=== PATIENT | female | born 1945 | race Caucasian/White ===

== ENCOUNTER → 2016-11-12 | Outpatient (CLI) | payer MEDICARE, MEDICAID ==
[2016-11-12 18:19] LABS: ALBUMIN 3.4 GM/DL (3.2-5.2); ALBUMIN/GLOBULIN RATIO 0.89 (1.00-1.93); BILIRUBIN,TOTAL 0.5 MG/DL (0.2-1.0); CALCIUM LEVEL 8.9 MG/DL (8.8-10.2); CREATININE FOR GFR 1.09 MG/DL (0.55-1.02); FREE T4 1.14 NG/DL (0.76-1.46); GLOMERULAR FILTRATION RATE 52.4 (>39); POTASSIUM SERUM 4.5 MEQ/L (3.5-5.1); TOTAL PROTEIN 7.2 GM/DL (6.4-8.2)
== END ==
LOC: M SMT 13:36
PROVIDERS: ATTEND Family Medicine
DX: E11.9 Type 2 diabetes mellitus without complications (principal); E55.9 Vitamin D deficiency, unspecified; G47.62 Sleep related leg cramps; D50.9 Iron deficiency anemia, unspecified

== ENCOUNTER → 2017-03-23 | Outpatient (REF) | payer MEDICARE, MEDICAID ==
[2017-03-23 13:37] LABS: BASO % 0.5 % (0.0-1.0); EOS # 0.3 K/mm3 (0.0-0.50); EOS % 3.7 % (0.0-3.0); LARGE UNSTAINED CELL # 0.1 K/mm3 (0.0-0.4); LARGE UNSTAINED CELL % 0.7 % (0.0-4.0); LYMPH # 1.9 K/mm3 (1.5-4.5); MEAN CORPUSCULAR HEMOGLOBIN 28.3 pg (27.0-33.0); MEAN CORPUSCULAR HGB CONC 32.4 g/dl (32.0-36.5); MEAN CORPUSCULAR VOLUME 87.3 fl (80.0-96.0); MONO # 0.3 K/mm3 (0.0-0.8); MONO % 3.9 % (0.0-5.0); NEUTROPHILS # 5.6 K/mm3 (1.8-7.7); NEUTROPHILS % 68.2 % (36.0-66.0); PLATELET COUNT, AUTOMATED 226 k/mm3 (150-450); RED CELL DISTRIBUTION WIDTH 13.6 % (11.5-14.5); WHITE BLOOD COUNT 8.2 K/mm3 (4.0-10.0)
[2017-03-23 13:53] LABS: VITAMIN B12 LEVEL 280 PG/ML (247-911)
[2017-03-23 14:16] LABS: ALBUMIN 3.5 GM/DL (3.2-5.2); ALT/SGPT 48 U/L (12-78); ANION GAP 8 MEQ/L (8-16); AST/SGOT 39 U/L (15-37); BILIRUBIN,TOTAL 0.6 MG/DL (0.2-1.0); BLOOD UREA NITROGEN 13 MG/DL (7-18); CALCIUM LEVEL 8.7 MG/DL (8.8-10.2); CARBON DIOXIDE LEVEL 27 MEQ/L (21-32); CHLORIDE LEVEL 105 MEQ/L (98-107); CREATININE FOR GFR 1.07 MG/DL (0.55-1.02); GLOMERULAR FILTRATION RATE 53.4 (>39); GLUCOSE, FASTING 176 MG/DL (83-110); PERCENT SATURATION 15.5 % (13.2-37.4); POTASSIUM SERUM 4.2 MEQ/L (3.5-5.1); SODIUM LEVEL 140 MEQ/L (136-145); TOTAL IRON BINDING CAPACITY 342 UG/DL (250-450)
[2017-03-23 14:17] LABS: ALKALINE PHOSPHATASE 67 U/L (45-117); FERRITIN 41 NG/ML (8-252)
== END ==
LOC: M LABDRAW1 11:16
PROVIDERS: ATTEND Family Medicine
DX: N18.2 Chronic kidney disease, stage 2 (mild) (principal); R07.9 Chest pain, unspecified; E11.9 Type 2 diabetes mellitus without complications

== ENCOUNTER → 2017-04-08 | Outpatient (CLI) | payer MEDICARE, MEDICAID ==
--- NOTE | 2017-04-08 16:38 | REPMRS ---
Patient History The patient states she has not had a clinical breast exam in over a year. Patient is postmenopausal. Family history of endometrial cancer in sister under age 50 and prostate cancer in brother under age 50. Digital Woman Screen Mammo: April 08, 2017 - Exam #: [id number] Bilateral CC and MLO view(s) were taken. Technologist: Jessica Harding, Technologist Prior study comparison: April 03, 2016, digital woman screen mammo performed at [facility] to [facility]. February 23, 2015, digital woman screen mammo performed at [facility] to [facility]. FINDINGS: There are scattered fibroglandular densities. There has been no change in the appearance of the mammogram from the prior studies. There is a mild amount of residual fibroglandular tissue which is fairly symmetric. There is no interval development of dominant mass, architectural distortion, or clustered microcalcification suggestive of malignancy. ASSESSMENT: BI-RADS/ACR category 1 mammogram. Negative. Recommendation Routine screening mammogram in 1 year (for women over age 40). This mammogram was interpreted with the aid of an FDA-approved computer-aided dectection system. Electronically Signed By: Pierre Braxton MD 04/08/17 [id number]
== END ==
LOC: M WHC 14:42
PROVIDERS: ATTEND Family Medicine
DX: Z12.31 Encounter for screening mammogram for malignant neoplasm of breast (principal)

== ENCOUNTER → 2017-05-21 | Outpatient (CLI) | payer MEDICARE, MEDICAID ==
[2017-05-21 14:37] LABS: CREATININE FOR GFR 1.14 MG/DL (0.55-1.02); GLOMERULAR FILTRATION RATE 49.6 (>39)
== END ==
LOC: M SMT 09:07
PROVIDERS: ATTEND Internal Medicine Cardiovascular Disease
DX: R07.9 Chest pain, unspecified (principal); N18.2 Chronic kidney disease, stage 2 (mild)

== ENCOUNTER → 2017-05-21 | Outpatient (CLI) | payer MEDICARE, MEDICAID ==
[2017-05-21 13:47] LABS: BASO % 0.4 % (0.0-1.0); EOS # 0.3 K/mm3 (0.0-0.50); EOS % 3.7 % (0.0-3.0); LARGE UNSTAINED CELL # 0.1 K/mm3 (0.0-0.4); LARGE UNSTAINED CELL % 1.5 % (0.0-4.0); LYMPH # 1.8 K/mm3 (1.5-4.5); LYMPH % 22.1 % (24.0-44.0); MEAN CORPUSCULAR HEMOGLOBIN 28.2 pg (27.0-33.0); MEAN CORPUSCULAR HGB CONC 32.7 g/dl (32.0-36.5); MEAN CORPUSCULAR VOLUME 86.3 fl (80.0-96.0); MONO # 0.3 K/mm3 (0.0-0.8); NEUTROPHILS # 5.6 K/mm3 (1.8-7.7); NEUTROPHILS % 68.3 % (36.0-66.0); PLATELET COUNT, AUTOMATED 238 k/mm3 (150-450); RED CELL DISTRIBUTION WIDTH 14.1 % (11.5-14.5); WHITE BLOOD COUNT 8.1 K/mm3 (4.0-10.0)
[2017-05-21 14:33] LABS: ALBUMIN 3.4 GM/DL (3.2-5.2); ALBUMIN/GLOBULIN RATIO 0.97 (1.00-1.93); BILIRUBIN,TOTAL 0.6 MG/DL (0.2-1.0); CALCIUM LEVEL 9.2 MG/DL (8.8-10.2); CREATININE FOR GFR 1.08 MG/DL (0.55-1.02); GLOMERULAR FILTRATION RATE 52.8 (>39); POTASSIUM SERUM 4.9 MEQ/L (3.5-5.1); TOTAL PROTEIN 6.9 GM/DL (6.4-8.2)
== END ==
LOC: M SMT 08:57
PROVIDERS: ATTEND Family Medicine
DX: N18.2 Chronic kidney disease, stage 2 (mild) (principal)

== ENCOUNTER → 2017-06-15 | Outpatient (REF) | payer MEDICARE, MEDICAID ==
[2017-06-15 13:53] LABS: ALBUMIN 3.5 GM/DL (3.2-5.2); CALCIUM LEVEL 9.7 MG/DL (8.8-10.2); CREATININE FOR GFR 1.15 MG/DL (0.55-1.02); GLOMERULAR FILTRATION RATE 49.1 (>39); MAGNESIUM LEVEL 1.7 MG/DL (1.8-2.4); PHOSPHORUS LEVEL 3.6 MG/DL (2.5-4.9)
== END ==
LOC: M SFHCPLAZ 10:57
PROVIDERS: ATTEND Family Medicine
DX: E53.8 Deficiency of other specified B group vitamins (principal); I10 Essential (primary) hypertension
CPT/HCPCS: 80069; 82607; 83735; 83880; 90662; G0463

== ENCOUNTER → 2017-07-23 | Outpatient (CLI) | payer MEDICARE, MEDICAID ==
--- NOTE | 2017-07-23 12:13 | REP ---
Chest two views HISTORY: Cough Comparison: 01/01/2016 The lungs are clear. The cardiac silhouette is enlarged. The pulmonary vasculature is normal in appearance. Degenerative change is present in the thoracic spine. There is scoliosis convex to the right. IMPRESSION: Cardiomegaly. Signed by Bakari Valero MD 07/23/2017 12:04 P
== END ==
LOC: M SMT 11:00
PROVIDERS: ATTEND Family Medicine
DX: R05 Cough (principal); I51.7 Cardiomegaly
CPT/HCPCS: 71020; G0463

== ENCOUNTER → 2017-11-09 | Outpatient (REF) | payer MEDICARE, MEDICAID ==
[2017-11-09 19:10] LABS: BASO # 0.1 10^3/uL (0.0-0.2); BASO % 0.6 % (0.0-1.0); EOS # 0.4 10^3/uL (0.0-0.50); EOS % 4.5 % (0.0-3.0); HEMATOCRIT 38.5 % (36.0-47.0); IMMATURE GRANULOCYTE % 0.6 % (0-3.0); LYMPH # 2.4 10^3/uL (1.5-4.5); MEAN CORPUSCULAR HEMOGLOBIN 27.2 pg (27.0-33.0); MEAN CORPUSCULAR HGB CONC 31.2 g/dl (32.0-36.5); MEAN CORPUSCULAR VOLUME 87.3 fl (80.0-96.0); MONO # 0.5 10^3/uL (0.0-0.8); MONO % 5.2 % (0.0-5.0); NEUTROPHILS # 5.6 10^3/uL (1.8-7.7); NEUTROPHILS % 62.1 % (36.0-66.0); PLATELET COUNT, AUTOMATED 248 10^3/uL (150-450); RED BLOOD COUNT 4.41 10^6/uL (4.00-5.40); RETICULOCYTE # 71.9 10^9/L (17-77); RETICULOCYTE % 1.6 % (0.5-1.5)
[2017-11-09 19:30] LABS: ESTIMATED AVERAGE GLUCOSE 189 MG/DL (60-110); HEMOGLOBIN A1c 8.2 %
[2017-11-09 19:46] LABS: PTH INTACT 91.6 PG/ML (18.5-88.0); VITAMIN B12 LEVEL 232 PG/ML (247-911)
[2017-11-09 19:50] LABS: ALBUMIN 3.7 GM/DL (3.2-5.2); ALBUMIN/GLOBULIN RATIO 0.95 (1.00-1.93); ALKALINE PHOSPHATASE 88 U/L (45-117); ALT/SGPT 38 U/L (12-78); ANION GAP 8 MEQ/L (8-16); AST/SGOT 34 U/L (7-37); BILIRUBIN,TOTAL 0.5 MG/DL (0.2-1.0); BLOOD UREA NITROGEN 24 MG/DL (7-18); C REACTIVE PROTEIN QUANTITATIV < 0.30 MG/DL (0.00-0.30); CALCIUM LEVEL 9.2 MG/DL (8.8-10.2); CARBON DIOXIDE LEVEL 29 MEQ/L (21-32); CHLORIDE LEVEL 104 MEQ/L (98-107); CHOLESTEROL LEVEL 157 MG/DL (<200); CPK CREATINE PHOSPHOKINASE 62 U/L (26-192); CREATININE FOR GFR 1.27 MG/DL (0.55-1.30); GLOMERULAR FILTRATION RATE 43.8 (>39); GLUCOSE, FASTING 107 MG/DL (70-100); HDL CHOLESTEROL 50 MG/DL (>40); LDL CHOLESTEROL 69.8 MG/DL (<100); NON-HDL-C 107 MG/DL; POTASSIUM SERUM 4.3 MEQ/L (3.5-5.1); SODIUM LEVEL 141 MEQ/L (136-145); TOTAL PROTEIN 7.6 GM/DL (6.4-8.2); TRIGLYCERIDES LEVEL 186 MG/DL (<150)
== END ==
LOC: M SFHCPLAZ 15:33
DX: E55.9 Vitamin D deficiency, unspecified (principal); I12.9 Hypertensive chronic kidney disease with stage 1 through stage 4 chronic kidney disease, or unspecified chronic kidney disease; E11.22 Type 2 diabetes mellitus with diabetic chronic kidney disease; N18.2 Chronic kidney disease, stage 2 (mild); E78.5 Hyperlipidemia, unspecified
CPT/HCPCS: 82550

== ENCOUNTER → 2018-04-01 | Outpatient (CLI) | payer MEDICARE, MEDICAID ==
[2018-04-01 14:53] LABS: BASO % 0.4 % (0.0-1.0); EOS # 0.3 10^3/uL (0.0-0.50); EOS % 4.4 % (0.0-3.0); HEMOGLOBIN 11.2 g/dl (12.0-15.5); IMMATURE GRANULOCYTE % 0.7 % (0-3.0); LYMPH # 1.7 10^3/uL (1.5-4.5); LYMPH % 21.5 % (24.0-44.0); MEAN CORPUSCULAR HEMOGLOBIN 26.7 pg (27.0-33.0); MEAN CORPUSCULAR HGB CONC 31.1 g/dl (32.0-36.5); MEAN CORPUSCULAR VOLUME 85.9 fl (80.0-96.0); MONO # 0.4 10^3/uL (0.0-0.8); MONO % 5.2 % (0.0-5.0); NEUTROPHILS # 5.2 10^3/uL (1.8-7.7); NEUTROPHILS % 67.8 % (36.0-66.0); PLATELET COUNT, AUTOMATED 204 10^3/uL (150-450); RED BLOOD COUNT 4.19 10^6/uL (4.00-5.40); RED CELL DISTRIBUTION WIDTH 14.7 % (11.5-14.5); WHITE BLOOD COUNT 7.7 10^3/uL (4.0-10.0)
[2018-04-01 14:54] LABS: ESTIMATED AVERAGE GLUCOSE 226 MG/DL (60-110); HEMOGLOBIN A1c 9.5 %
[2018-04-01 14:55] LABS: FOLATE 10.4 NG/ML; PTH INTACT 154.1 PG/ML (18.5-88.0); TOTAL 25(OH) VITAMIN D 88.7 NG/ML (30.0-100.0); VITAMIN B12 LEVEL 283 PG/ML
[2018-04-01 14:59] LABS: ALBUMIN 3.4 GM/DL (3.2-5.2); ALBUMIN/GLOBULIN RATIO 0.92 (1.00-1.93); ALKALINE PHOSPHATASE 91 U/L (45-117); ALT/SGPT 58 U/L (12-78); ANION GAP 9 MEQ/L (8-16); AST/SGOT 57 U/L (7-37); BILIRUBIN,TOTAL 0.5 MG/DL (0.2-1.0); BLOOD UREA NITROGEN 27 MG/DL (7-18); CALCIUM LEVEL 8.9 MG/DL (8.8-10.2); CARBON DIOXIDE LEVEL 29 MEQ/L (21-32); CHLORIDE LEVEL 105 MEQ/L (98-107); FREE T4 1.04 NG/DL (0.76-1.46); GLUCOSE, FASTING 196 MG/DL (70-100); POTASSIUM SERUM 4.4 MEQ/L (3.5-5.1); SODIUM LEVEL 143 MEQ/L (136-145); TOTAL PROTEIN 7.1 GM/DL (6.4-8.2)
[2018-04-02 12:55] LABS: PRETREATED FOLATE FOR RBCFOL 15.5 NG/ML; RBC FOLATE 904.2 NG/ML (280-791)
== END ==
LOC: M SMT 09:56
DX: E53.8 Deficiency of other specified B group vitamins (principal); E55.9 Vitamin D deficiency, unspecified; E03.9 Hypothyroidism, unspecified; E11.9 Type 2 diabetes mellitus without complications
CPT/HCPCS: 82746

== ENCOUNTER → 2018-04-12 | Outpatient (CLI) | payer MEDICARE, MEDICAID | LOC: M WHC 14:46 | DX: Z12.31 Encounter for screening mammogram for malignant neoplasm of breast (principal) | CPT/HCPCS: 77067 ==

== ENCOUNTER → 2018-07-01 | Outpatient (CLI) | payer MEDICARE, MEDICAID ==
[2018-07-01 13:38] LABS: BASO # 0.1 10^3/uL (0.0-0.2); BASO % 0.7 % (0.0-1.0); EOS # 0.4 10^3/uL (0.0-0.50); EOS % 4.7 % (0.0-3.0); HEMATOCRIT 35.7 % (36.0-47.0); HEMOGLOBIN 10.9 g/dl (12.0-15.5); IMMATURE GRANULOCYTE % 0.6 % (0-3.0); LYMPH # 2.6 10^3/uL (1.5-4.5); LYMPH % 27.5 % (24.0-44.0); MEAN CORPUSCULAR HGB CONC 30.5 g/dl (32.0-36.5); MEAN CORPUSCULAR VOLUME 88.6 fl (80.0-96.0); MONO # 0.6 10^3/uL (0.0-0.8); MONO % 6.3 % (0.0-5.0); NEUTROPHILS # 5.7 10^3/uL (1.8-7.7); NEUTROPHILS % 60.2 % (36.0-66.0); PLATELET COUNT, AUTOMATED 220 10^3/uL (150-450); RED BLOOD COUNT 4.03 10^6/uL (4.00-5.40); WHITE BLOOD COUNT 9.4 10^3/uL (4.0-10.0)
[2018-07-01 14:05] LABS: ANION GAP 11 MEQ/L (8-16); AST/SGOT 37 U/L (7-37); BLOOD UREA NITROGEN 18 MG/DL (7-18); CALCIUM LEVEL 8.2 MG/DL (8.8-10.2); CARBON DIOXIDE LEVEL 27 MEQ/L (21-32); CHLORIDE LEVEL 108 MEQ/L (98-107); CREATININE FOR GFR 1.14 MG/DL (0.55-1.30); GLOMERULAR FILTRATION RATE 49.5 (>39); GLUCOSE, FASTING 141 MG/DL (70-100); POTASSIUM SERUM 4.7 MEQ/L (3.5-5.1); SODIUM LEVEL 146 MEQ/L (136-145)
[2018-07-01 14:06] LABS: ALBUMIN 3.3 GM/DL (3.2-5.2); ALBUMIN/GLOBULIN RATIO 0.89 (1.00-1.93); ALKALINE PHOSPHATASE 80 U/L (45-117); ALT/SGPT 35 U/L (12-78); BILIRUBIN,TOTAL 0.4 MG/DL (0.2-1.0); CHOLESTEROL LEVEL 150 MG/DL (<200); CHOLESTEROL RISK RATIO 3.333 (<5); HDL CHOLESTEROL 45 MG/DL (>40); LDL CHOLESTEROL 61 MG/DL (<100); NON-HDL-C 105 MG/DL; TRIGLYCERIDES LEVEL 220 MG/DL (<150)
[2018-07-01 15:31] LABS: ESTIMATED AVERAGE GLUCOSE 183 MG/DL (60-110)
== END ==
LOC: M SMT 09:40
DX: I25.118 Atherosclerotic heart disease of native coronary artery with other forms of angina pectoris (principal); E11.9 Type 2 diabetes mellitus without complications
CPT/HCPCS: 80053

== ENCOUNTER → 2018-10-01 | Outpatient (REF) | payer MEDICARE, MEDICAID ==
[2018-10-01 13:18] LABS: BASO # 0.1 10^3/uL (0.0-0.2); BASO % 0.6 % (0.0-1.0); EOS # 0.6 10^3/uL (0.0-0.50); EOS % 5.6 % (0.0-3.0); HEMOGLOBIN 11.5 g/dl (12.0-15.5); LYMPH # 2.1 10^3/uL (1.5-4.5); LYMPH % 20.4 % (24.0-44.0); MEAN CORPUSCULAR HEMOGLOBIN 26.7 pg (27.0-33.0); MEAN CORPUSCULAR HGB CONC 31.1 g/dl (32.0-36.5); MONO # 0.5 10^3/uL (0.0-0.8); MONO % 5.1 % (0.0-5.0); NEUTROPHILS # 6.9 10^3/uL (1.8-7.7); NEUTROPHILS % 67.8 % (36.0-66.0); PLATELET COUNT, AUTOMATED 254 10^3/uL (150-450); WHITE BLOOD COUNT 10.2 10^3/uL (4.0-10.0)
[2018-10-01 13:23] LABS: APPEARANCE, URINE CLEAR (CLEAR); BACTERIA, URINE AUTO NEGATIVE (NEGATIVE); BILIRUBIN, URINE AUTO NEGATIVE (NEGATIVE); BLOOD, URINE BLOOD NEGATIVE (NEGATIVE); COLOR, URINE YELLOW (YELLOW); GLUCOSE, URINE (UA) AUTO NEGATIVE (NEGATIVE); KETONE, URINE AUTO NEGATIVE (NEGATIVE); LEUKOCYTE ESTERASE, URINE AUTO 1+ (NEGATIVE); NITRITE, URINE AUTO NEGATIVE (NEGATIVE); PROTEIN, URINE AUTO NEGATIVE (NEGATIVE); RBC, URINE AUTO 3 /HPF (0-3); SPECIFIC GRAVITY URINE AUTO 1.016 (1.002-1.035); SQUAMOUS EPITHELIAL CELL UR AU 1 /HPF (0-6); UROBILINOGEN, URINE AUTO 0.2 mg/dL (0.0-2.0); WBC, URINE AUTO 3 /HPF (0-3)
[2018-10-01 13:46] LABS: HEMOGLOBIN A1c 7.8 %
[2018-10-01 13:51] LABS: MALB URINE SIEMENS 38.2 MG/L; MAU/CREAT RATIO 35.3 MCG/MG (0.0-30.0)
[2018-10-01 13:56] LABS: ALBUMIN 3.6 GM/DL (3.2-5.2); BILIRUBIN,TOTAL 0.5 MG/DL (0.2-1.0); CALCIUM LEVEL 9.3 MG/DL (8.8-10.2); CHOLESTEROL RISK RATIO 3.204 (<5); CREATININE FOR GFR 1.2 MG/DL (0.55-1.30); FREE T4 1.17 NG/DL (0.76-1.46); GLOMERULAR FILTRATION RATE 46.6 (>39); POTASSIUM SERUM 4.4 MEQ/L (3.5-5.1); THYROID STIMULATING HORMONE 4.33 uIU/ML (0.358-3.740); TOTAL PROTEIN 7.2 GM/DL (6.4-8.2)
[2018-10-01 13:58] LABS: PTH INTACT 49.8 PG/ML (18.5-88.0); TOTAL 25(OH) VITAMIN D 64.3 NG/ML (30.0-100.0)
== END ==
LOC: M SFHCPLAZ 11:11
PROVIDERS: ATTEND Family Medicine
DX: N18.3 Chronic kidney disease, stage 3 (moderate) (principal); E03.9 Hypothyroidism, unspecified; E11.9 Type 2 diabetes mellitus without complications; E53.8 Deficiency of other specified B group vitamins; D50.9 Iron deficiency anemia, unspecified; Z23 Encounter for immunization
CPT/HCPCS: 36415; 80053; 80061; 81001; 82043; 82306; 82607; 83036; 83970; 84439; 84443; 85025; 85046; 90682; G0008; G0463

== ENCOUNTER 2019-01-28 08:51 | Emergency (ER) | payer MEDICARE, MEDICAID ==
[2019-01-28] MEDS ORDERED: LEVA750T7 PO (10:05)
[2019-01-28] MEDS ORDERED: LIDOCAINE 1% SDV 5 ML VIAL DILUENT ONE (10:15)
[2019-01-28] MEDS ORDERED: cefTRIAXone SOD 1 GM VIAL (J0696) IM ONE (10:15)
[2019-01-28 11:00] VITALS: BP 170/75
== END 2019-01-28 11:02 | disposition home or self-care (01) ==
LOC: M ED 08:51
DX: E11.649 Type 2 diabetes mellitus with hypoglycemia without coma (principal); N11.1 Chronic obstructive pyelonephritis; I10 Essential (primary) hypertension; E03.9 Hypothyroidism, unspecified; E78.5 Hyperlipidemia, unspecified; K21.9 Gastro-esophageal reflux disease without esophagitis; Z87.442 Personal history of urinary calculi; Z79.899 Other long term (current) drug therapy; Z88.8 Allergy status to other drugs, medicaments and biological substances
CPT/HCPCS: 81001; 87088; 87186; 96372; 99284; J0696

== ENCOUNTER → 2019-02-01 | Outpatient (REF) | payer MEDICARE, MEDICAID ==
[~2019-02-01] MED LIST: LEVA750T7 PO
[2019-02-01 16:00] LABS: APPEARANCE, URINE CLEAR (CLEAR); BACTERIA, URINE AUTO NEGATIVE (NEGATIVE); BILIRUBIN, URINE AUTO NEGATIVE (NEGATIVE); BLOOD, URINE BLOOD NEGATIVE (NEGATIVE); COLOR, URINE YELLOW (YELLOW); GLUCOSE, URINE (UA) AUTO NEGATIVE (NEGATIVE); KETONE, URINE AUTO NEGATIVE (NEGATIVE); LEUKOCYTE ESTERASE, URINE AUTO NEGATIVE (NEGATIVE); MUCUS, URINE SMALL (NEGATIVE); NITRITE, URINE AUTO NEGATIVE (NEGATIVE); PROTEIN, URINE AUTO NEGATIVE (NEGATIVE); RBC, URINE AUTO 2 /HPF (0-3); SPECIFIC GRAVITY URINE AUTO 1.009 (1.002-1.035); SQUAMOUS EPITHELIAL CELL UR AU 0 /HPF (0-6); UROBILINOGEN, URINE AUTO 0.2 mg/dL (0.0-2.0); WBC, URINE AUTO 1 /HPF (0-3)
[2019-02-01 16:23] LABS: ALBUMIN 3.4 GM/DL (3.2-5.2); BILIRUBIN,TOTAL 0.5 MG/DL (0.2-1.0); CALCIUM LEVEL 8.7 MG/DL (8.8-10.2); CREATININE FOR GFR 1.89 MG/DL (0.55-1.30); GLOMERULAR FILTRATION RATE 27.5 (>39); MAGNESIUM LEVEL 1.3 MG/DL (1.8-2.4); POTASSIUM SERUM 4.3 MEQ/L (3.5-5.1)
[2019-02-01 16:25] LABS: BASO # 0.1 10^3/uL (0.0-0.2); BASO % 0.6 % (0.0-1.0); EOS # 0.1 10^3/uL (0.0-0.50); HEMATOCRIT 36.5 % (36.0-47.0); HEMOGLOBIN 11.2 g/dl (12.0-15.5); MEAN CORPUSCULAR HEMOGLOBIN 26.7 pg (27.0-33.0); MEAN CORPUSCULAR HGB CONC 30.7 g/dl (32.0-36.5); MEAN CORPUSCULAR VOLUME 87.1 fl (80.0-96.0); MONO # 0.7 10^3/uL (0.0-0.8); MONO % 6.3 % (0.0-5.0); NEUTROPHILS # 7.5 10^3/uL (1.8-7.7); NEUTROPHILS % 72.6 % (36.0-66.0); PLATELET COUNT, AUTOMATED 243 10^3/uL (150-450); RED BLOOD COUNT 4.19 10^6/uL (4.00-5.40); WHITE BLOOD COUNT 10.3 10^3/uL (4.0-10.0)
== END ==
LOC: M SFHCPLAZ 12:43
PROVIDERS: ATTEND Physician Assistant Medical
DX: N30.00 Acute cystitis without hematuria (principal); E16.2 Hypoglycemia, unspecified; M79.10 Myalgia, unspecified site

== ENCOUNTER → 2019-02-08 | Outpatient (REF) | payer MEDICARE, MEDICAID ==
[2019-02-08 13:29] LABS: APPEARANCE, URINE CLEAR (CLEAR); BACTERIA, URINE AUTO NEGATIVE (NEGATIVE); BILIRUBIN, URINE AUTO NEGATIVE (NEGATIVE); BLOOD, URINE BLOOD NEGATIVE (NEGATIVE); COLOR, URINE YELLOW (YELLOW); GLUCOSE, URINE (UA) AUTO NEGATIVE (NEGATIVE); KETONE, URINE AUTO NEGATIVE (NEGATIVE); LEUKOCYTE ESTERASE, URINE AUTO NEGATIVE (NEGATIVE); NITRITE, URINE AUTO NEGATIVE (NEGATIVE); PROTEIN, URINE AUTO NEGATIVE (NEGATIVE); RBC, URINE AUTO 1 /HPF (0-3); SPECIFIC GRAVITY URINE AUTO 1.012 (1.002-1.035); SQUAMOUS EPITHELIAL CELL UR AU 1 /HPF (0-6); UROBILINOGEN, URINE AUTO 0.2 mg/dL (0.0-2.0); WBC, URINE AUTO 4 /HPF (0-3)
== END ==
LOC: M SFHCPLAZ 13:04
PROVIDERS: ATTEND Physician Assistant Medical
DX: N30.00 Acute cystitis without hematuria (principal)
CPT/HCPCS: 81001; 87086; G0463

== ENCOUNTER → 2019-03-07 | Outpatient (REF) | payer MEDICARE, MEDICAID ==
[2019-03-07 13:13] LABS: BASO % 0.5 % (0.0-1.0); EOS # 0.2 10^3/uL (0.0-0.50); EOS % 2.7 % (0.0-3.0); HEMOGLOBIN 10.8 g/dl (12.0-15.5); LYMPH # 1.7 10^3/uL (1.5-4.5); LYMPH % 23.8 % (24.0-44.0); MEAN CORPUSCULAR HEMOGLOBIN 27.1 pg (27.0-33.0); MEAN CORPUSCULAR HGB CONC 30.9 g/dl (32.0-36.5); MEAN CORPUSCULAR VOLUME 87.9 fl (80.0-96.0); MONO # 0.3 10^3/uL (0.0-0.8); MONO % 4.4 % (0.0-5.0); NEUTROPHILS % 68.2 % (36.0-66.0); PLATELET COUNT, AUTOMATED 220 10^3/uL (150-450); RED BLOOD COUNT 3.98 10^6/uL (4.00-5.40); WHITE BLOOD COUNT 7.3 10^3/uL (4.0-10.0)
[2019-03-07 13:25] LABS: BILIRUBIN,TOTAL 0.6 MG/DL (0.2-1.0); CALCIUM LEVEL 8.7 MG/DL (8.8-10.2); CREATININE FOR GFR 1.22 MG/DL (0.55-1.30); FREE T4 1.07 NG/DL (0.76-1.46); GLOMERULAR FILTRATION RATE 45.6 (>39); MAGNESIUM LEVEL 1.8 MG/DL (1.8-2.4); POTASSIUM SERUM 4.2 MEQ/L (3.5-5.1); THYROID STIMULATING HORMONE 2.04 uIU/ML (0.358-3.740); TOTAL PROTEIN 6.9 GM/DL (6.4-8.2)
== END ==
LOC: M LABDRAW1 12:12
PROVIDERS: ATTEND Family Medicine
DX: I12.9 Hypertensive chronic kidney disease with stage 1 through stage 4 chronic kidney disease, or unspecified chronic kidney disease (principal); N18.3 Chronic kidney disease, stage 3 (moderate)

== ENCOUNTER → 2019-03-31 | Outpatient (REF) | payer MEDICARE, MEDICAID | LOC: M SFHCPLAZ 14:29 | PROVIDERS: ATTEND Physician Assistant Medical | DX: I50.32 Chronic diastolic (congestive) heart failure (principal) | CPT/HCPCS: 36415; 83880; G0463 ==

== ENCOUNTER → 2019-04-13 | Outpatient (CLI) | payer MEDICARE, MEDICAID ==
--- NOTE | 2019-04-13 13:22 | REP ---
BILATERAL SCREENING DIGITAL MAMMOGRAM WITH 3D TOMOSYNTHESIS: There are no palpable abnormalities or other breast complaints. The the patient states she has not had a clinical breast examination in over a year. The the patient states she performs self-breast examinations 12 times per year. The Tyrer-Cuzick score is: 1.5% . Comparison is 02/08/2014. The breasts are almost entirely fatty.. There is no dominant mass, micro calcific cluster or architectural distortion that would indicate malignancy. There are no additional findings on 3D tomosynthesiss. There is no change from the prior study. Impression: BIRADS/ACR category 1 mammogram. Negative. Recommendation: Routine annual screening mammography. This mammogram was interpreted with the aid of a FDA approved computer-aided detection system. A. Negative mammogram reports should not delay biopsy if a dominant or clinically suspicious mass is present. B. Not all breast cancers are identified by mammography or tomosynthesis. C. Adenosis and dense breasts may obscure an underlying neoplasm. Patient letter M1. Electronically Signed by Pierre Alvarez MD 04/13/2019 01:13 P
== END ==
LOC: M WHC 12:08
PROVIDERS: ATTEND Family Medicine
DX: Z12.31 Encounter for screening mammogram for malignant neoplasm of breast (principal)

== ENCOUNTER → 2019-07-05 | Outpatient (REF) | payer MEDICARE, MEDICAID ==
[2019-07-05 16:11] LABS: ALBUMIN 3.1 GM/DL (3.2-5.2); BILIRUBIN,TOTAL 0.5 MG/DL (0.2-1.0); CALCIUM LEVEL 8.8 MG/DL (8.8-10.2); CREATININE FOR GFR 1.3 MG/DL (0.55-1.30); GLOMERULAR FILTRATION RATE 42.4 (>39); POTASSIUM SERUM 4.7 MEQ/L (3.5-5.1); TOTAL PROTEIN 6.9 GM/DL (6.4-8.2)
== END ==
LOC: M SFHCPLAZ 14:34
PROVIDERS: ATTEND Physician Assistant Medical
DX: E11.9 Type 2 diabetes mellitus without complications (principal); I50.32 Chronic diastolic (congestive) heart failure
CPT/HCPCS: 36415; 80053; 83036; 83880; G0463

== ENCOUNTER → 2019-08-16 | Outpatient (REF) | payer MEDICARE, MEDICAID ==
[2019-08-16 18:04] LABS: BASO # 0.1 10^3/uL (0.0-0.2); BASO % 0.6 % (0.0-1.0); EOS # 0.3 10^3/uL (0.0-0.5); EOS % 2.5 % (0.0-3.0); HEMATOCRIT 37.3 % (36.0-47.0); HEMOGLOBIN 11.8 g/dl (12.0-15.5); LYMPH # 2.4 10^3/uL (1.5-5.0); LYMPH % 21.9 % (24.0-44.0); MEAN CORPUSCULAR HEMOGLOBIN 27.7 pg (27.0-33.0); MEAN CORPUSCULAR HGB CONC 31.6 g/dl (32.0-36.5); MEAN CORPUSCULAR VOLUME 87.6 fl (80.0-96.0); MONO # 0.5 10^3/uL (0.0-0.8); NEUTROPHILS # 7.6 10^3/uL (1.5-8.5); NEUTROPHILS % 69.4 % (36.0-66.0); PLATELET COUNT, AUTOMATED 251 10^3/uL (150-450); RED BLOOD COUNT 4.26 10^6/uL (4.00-5.40); WHITE BLOOD COUNT 10.9 10^3/uL (4.0-10.0)
[2019-08-16 18:36] LABS: ALBUMIN 3.3 GM/DL (3.2-5.2); BLOOD UREA NITROGEN 18 MG/DL (7-18); CALCIUM LEVEL 9.5 MG/DL (8.8-10.2); CARBON DIOXIDE LEVEL 30 MEQ/L (21-32); CHLORIDE LEVEL 95 MEQ/L (98-107); CREATININE FOR GFR 1.56 MG/DL (0.55-1.30); GLOMERULAR FILTRATION RATE 34.4 (>39); GLUCOSE, FASTING 367 MG/DL (70-100); MAGNESIUM LEVEL 1.6 MG/DL (1.8-2.4); PHOSPHORUS LEVEL 2.7 MG/DL (2.5-4.9); POTASSIUM SERUM 4.8 MEQ/L (3.5-5.1); SODIUM LEVEL 135 MEQ/L (136-145); TOTAL PROTEIN 7.6 GM/DL (6.4-8.2)
[2019-08-16 19:09] LABS: TOTAL 25(OH) VITAMIN D 52.7 NG/ML (30.0-100.0)
[2019-08-16 19:10] LABS: PTH INTACT 164.8 PG/ML (18.5-88.0); VITAMIN B12 LEVEL 918 PG/ML (247-911)
[2019-08-16 19:14] LABS: HEMOGLOBIN A1c 11.5 %
[2019-08-18 12:14] LABS: ALBUMIN % 49.9 % (55.8-66.1); ALPHA-1-GLOBULIN % 4.6 % (2.9-4.9)
[2019-08-18 12:15] LABS: ALBUMIN 3.79 GM/DL (3.29-5.55); ALPHA-1-GLOBULINS 0.35 GM/DL (0.17-0.41); ALPHA-2-GLOBULINS 1.21 GM/DL (0.42-0.99); ALPHA-2-GLOBULINS % 15.9 % (7.1-11.8); BETA-1-GLOBULINS % 6.6 % (4.7-7.2); BETA-2-GLOBULINS 0.53 GM/DL (0.19-0.55); GAMMA GLOBULINS 1.22 GM/DL (0.65-1.58)
== END ==
LOC: M SFHCPLAZ 15:50
PROVIDERS: ATTEND Family Medicine
DX: I10 Essential (primary) hypertension (principal); E55.9 Vitamin D deficiency, unspecified; D50.9 Iron deficiency anemia, unspecified; E11.9 Type 2 diabetes mellitus without complications; Z23 Encounter for immunization
CPT/HCPCS: 36415; 80069; 82306; 82607; 83036; 83735; 83970; 84165; 84681; 85025; 85046; 90670; G0009; G0463

== ENCOUNTER → 2020-10-09 | Outpatient (CLI) | payer MEDICARE, MEDICAID ==
[2020-10-09 14:02] LABS: HEMATOCRIT 32.2 % (36.0-47.0); HEMOGLOBIN 9.5 g/dl (12.0-15.5); MEAN CORPUSCULAR HEMOGLOBIN 25.1 pg (27.0-33.0); MEAN CORPUSCULAR HGB CONC 29.5 g/dl (32.0-36.5); MEAN CORPUSCULAR VOLUME 85.2 fl (80.0-96.0); PLATELET COUNT, AUTOMATED 239 10^3/uL (150-450); RED BLOOD COUNT 3.78 10^6/uL (4.00-5.40); WHITE BLOOD COUNT 8.1 10^3/uL (4.0-10.0)
[2020-10-09 14:15] LABS: BILIRUBIN,TOTAL 0.5 MG/DL (0.2-1.0); CALCIUM LEVEL 9.5 MG/DL (8.8-10.2); CREATININE FOR GFR 1.8 MG/DL (0.55-1.30); POTASSIUM SERUM 4.6 MEQ/L (3.5-5.1)
[2020-10-09 14:16] LABS: ALBUMIN 3.2 GM/DL (3.2-5.2); TOTAL PROTEIN 6.9 GM/DL (6.4-8.2)
== END ==
LOC: M PLALAB 10:46
PROVIDERS: ATTEND Physician Assistant
DX: I11.9 Hypertensive heart disease without heart failure (principal)

== ENCOUNTER → 2020-11-23 | Outpatient (REF) | payer MEDICARE, MEDICAID ==
[2020-11-23 14:00] LABS: BASO # 0.1 10^3/uL (0.0-0.2); BASO % 0.8 % (0.0-1.0); EOS # 0.4 10^3/uL (0.0-0.5); EOS % 4.7 % (0.0-3.0); HEMATOCRIT 32.4 % (36.0-47.0); HEMOGLOBIN 9.5 g/dl (12.0-15.5); LYMPH # 2.2 10^3/uL (1.5-5.0); LYMPH % 23.6 % (24.0-44.0); MEAN CORPUSCULAR HEMOGLOBIN 25.3 pg (27.0-33.0); MEAN CORPUSCULAR HGB CONC 29.3 g/dl (32.0-36.5); MEAN CORPUSCULAR VOLUME 86.2 fl (80.0-96.0); MONO # 0.5 10^3/uL (0.0-0.8); MONO % 5.8 % (2.0-8.0); NEUTROPHILS # 5.9 10^3/uL (1.5-8.5); NEUTROPHILS % 64.4 % (36.0-66.0); PLATELET COUNT, AUTOMATED 235 10^3/uL (150-450); RED BLOOD COUNT 3.76 10^6/uL (4.00-5.40); WHITE BLOOD COUNT 9.2 10^3/uL (4.0-10.0)
[2020-11-23 14:31] LABS: ALBUMIN 3.4 GM/DL (3.2-5.2); ALT/SGPT 45 U/L (12-78); BILIRUBIN,TOTAL 0.5 MG/DL (0.2-1.0); BLOOD UREA NITROGEN 18 MG/DL (7-18); CALCIUM LEVEL 8.7 MG/DL (8.8-10.2); CARBON DIOXIDE LEVEL 26 MEQ/L (21-32); CHLORIDE LEVEL 110 MEQ/L (98-107); CHOLESTEROL LEVEL 139 MG/DL (<200); CHOLESTEROL RISK RATIO 2.895 (<5); CREATININE FOR GFR 1.75 MG/DL (0.55-1.30); GLUCOSE, FASTING 155 MG/DL (70-100); HDL CHOLESTEROL 48 MG/DL (>40); LDL CHOLESTEROL 54 MG/DL (<100); NON-HDL-C 91 MG/DL; POTASSIUM SERUM 4.5 MEQ/L (3.5-5.1); SODIUM LEVEL 143 MEQ/L (136-145); TOTAL PROTEIN 7.4 GM/DL (6.4-8.2); TRIGLYCERIDES LEVEL 183 MG/DL (<150)
[2020-11-23 14:45] LABS: HEMOGLOBIN A1c 7.4 %
[2020-11-23 18:01] LABS: PTH INTACT 195.3 PG/ML (18.5-88.0)
[2020-11-27 23:10] LABS: FREE KAPPA LIGHT CHAINS SERUM 81.5 mg/L (3.3-19.4); FREE KAPPA LIGHT CHAINS URINE 221.73 mg/L (0.63-113.79); FREE LAMBDA LIGHT CHAINS SERUM 47.9 mg/L (5.7-26.3); FREE LAMBDA LIGHT CHAINS URINE 23.44 mg/L (0.47-11.77); KAPPA/LAMBDA RATIO SERUM 1.7 (0.26-1.65); KAPPA/LAMBDA RATIO URINE 9.46 (1.03-31.76)
== END ==
LOC: M PLALAB 11:36
PROVIDERS: ATTEND Family Medicine
DX: N18.30 Chronic kidney disease, stage 3 unspecified (principal); E78.5 Hyperlipidemia, unspecified; Z79.899 Other long term (current) drug therapy
CPT/HCPCS: 36415; 80053; 80061; 83036; 83883; 83970; 85025; 86335; G0463

== ENCOUNTER 2021-03-09 16:07 | Inpatient (IN) | payer OTHER, MEDICAID ==
[~2021-03-09] VITALS: Ht 149.9 cm; Wt 91.5 kg
[~2021-03-09 16:07] MED LIST changes: +ASPI81CH33 PO; +ATOR80TA59 PO; +CALC1CAP31 PO; +CYAN100050 PO; +HUMA100I5 SUBQ; +ISOS1TAB12 PO; +LEVO25TA5 PO; +LOSA100T50 PO; +MAGN400T2 PO; +METF-838 PO; +NITR0.4S14 PO; +PANT40TA29 PO; +PARO20TA3 PO; +TIZA4TAB4 PO; +TORS10TA3 PO; +TOUJ1.2I SUBQ
[2021-03-09] MEDS ORDERED: NS 500 ML IV ONE ×2 (17:15→20:45)
--- NOTE | 2021-03-09 17:30 | REP ---
INDICATION: syncope COMPARISON: 07/23/2017 TECHNIQUE: Portable AP view of the chest FINDINGS: Examination is limited by underpenetration, poor positioning and portable technique. Cardiomegaly cannot be excluded. Atherosclerotic changes to the thoracic aorta and coronary arteries noted. No obvious focal consolidation, effusion, or pneumothorax. No obvious pulmonary vascular congestion. Skeletal structures intact. IMPRESSION: Limited portable examination. No obvious acute process. <Electronically signed by Dank De La Cruz > 03/09/21 [id number]
[2021-03-09 17:44] LABS: BASO % 0.6 % (0.0-1.0); EOS # 0.2 10^3/uL (0.0-0.5); EOS % 2.4 % (0.0-3.0); HEMATOCRIT 27.8 % (36.0-47.0); HEMOGLOBIN 8.4 g/dl (12.0-15.5); LYMPH # 1.2 10^3/uL (1.5-5.0); LYMPH % 19.3 % (24.0-44.0); MEAN CORPUSCULAR HEMOGLOBIN 23.9 pg (27.0-33.0); MEAN CORPUSCULAR HGB CONC 30.2 g/dl (32.0-36.5); MEAN CORPUSCULAR VOLUME 79.2 fl (80.0-96.0); MONO # 0.4 10^3/uL (0.0-0.8); MONO % 6.4 % (2.0-8.0); NEUTROPHILS # 4.4 10^3/uL (1.5-8.5); NEUTROPHILS % 70.8 % (36.0-66.0); PLATELET COUNT, AUTOMATED 186 10^3/uL (150-450); RED BLOOD COUNT 3.51 10^6/uL (4.00-5.40); WHITE BLOOD COUNT 6.3 10^3/uL (4.0-10.0)
[2021-03-09 18:06] LABS: BLOOD UREA NITROGEN 16 MG/DL (7-18); CALCIUM LEVEL 8.2 MG/DL (8.8-10.2); CARBON DIOXIDE LEVEL 28 MEQ/L (21-32); CHLORIDE LEVEL 97 MEQ/L (98-107); CK-MB VALUE MASS < 1.0 NG/ML (<3.6); CPK CREATINE PHOSPHOKINASE 36 U/L (26-192); CREATININE FOR GFR 1.75 MG/DL (0.55-1.30); GLOMERULAR FILTRATION RATE 29.9 (>39); GLUCOSE, FASTING 479 MG/DL (70-100); MB/CK RELATIVE INDEX 2.78 (< OR =4); POTASSIUM SERUM 5.2 MEQ/L (3.5-5.1); SODIUM LEVEL 133 MEQ/L (136-145); TROPONIN I < 0.02 NG/ML (< 0.10)
[2021-03-09] MEDS ORDERED: HumuLIN R (REGULAR) INSULIN (NovoLIN R) **100U/ML** PER UNIT SC ONE (18:15)
[2021-03-09 18:22] LABS: FERRITIN 19 NG/ML (8-252); IRON (FE) 21 UG/DL (50-170); PERCENT SATURATION 7.3 % (13.2-45.0); TOTAL IRON BINDING CAPACITY 286 UG/DL (250-450)
[2021-03-09 18:24] LABS: RSV AMPLIFICATION NEGATIVE (NEGATIVE)
[2021-03-09] MEDS ORDERED: GLUCAGON INJ 1MG VIAL SC PRN (20:45)
[2021-03-09] MEDS ORDERED: ACETAMINOPHEN TAB 650MG DOSE (2X325MG) PO PRN (20:45)
[2021-03-09] MEDS ORDERED: GLUCOSE 4GM CHEW TABLET PO PRN (20:45)
[2021-03-09] MEDS ORDERED: DEXTROSE 50% 50 ML SYRINGE IV PRN (20:45)
--- NOTE | 2021-03-09 20:54 | ECGEPIP ---
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
[2021-03-09] MEDS ORDERED: LEVEMIR (INSULIN DETEMIR) 1 UNITS/0.01ML SC SCH (21:00)
[2021-03-09] MEDS ORDERED: BISO5TAB14 PO (21:12)
[2021-03-09 21:31] LABS: ACETONE/KETONE 1.89 MG/DL (<2.81); NT-PRO BNP 499 PG/ML (<450)
--- NOTE | 2021-03-09 21:31 | HPEPDOC ---
[facility] Medical History & Physical Date of Admission Mar 09, 2021 Date of Service: Mar 09, 2021 History and Physical CHIEF COMPLAINT: syncope HISTORY OF PRESENT ILLNESS: Patient is a pleasant 76-year-old female with a past medical history of coronary artery disease with 1 stent placed 2 years ago at [facility], syncope, stage III, not followed by nephrology, type 2 diabetes on Humalog and to [facility], hypertension, hypothyroidism as well as anxiety. Patient was brought to the ER by her daughter after she sustained a syncopal episode this morning with complaint of generalized fatigue and malaise. Of note, patient states that she sustained a fall on February 27 resulted in a scalp laceration without LOC. Story. Patient states that her generalized weaknes has been worsening for approximately one month. She denies having black stool, melena, her rectal exam was stool positive for guaic blood. She denies chest pain, short ness of breath, palpitations, nausea, vomiting, diarrhea, headache or subjective fevers and chills. On arrival to the ER, patient was found to be hypotensive with a blood pressure 83/49. I map 60. Patient was given 500 mL bolus in the ER, in addition to 500 cc given by EMS. Patient did not have leukocytosis or fever, but hemoglobin was 8.4, hematocrit 27.8, MCV 72, platelet count 186. Sodium 133, potassium 5.2, creatinine 1.75, fasting glucose 479. Troponin less than 0.02. UA was positive for glucose urea. Anion gap was negative. Beta hydroxybutyrate was ordered upon examination. pH 7.39. Patient was ordered 1 unit of PRBC for systematic deficiency anemia. She was given 10 units of regular insulin with an additional 500 mL bolus on admission. Patient admitted to hospital service for management of hyperglycemia as well as hypotension, possibly secondary to blood loss anemia. While the patient is on the sepsis criteria. He social score is 1. Due to hypotension, I am concerned regarding her risk for sepsis. Blood cultures were sent. PAST MEDICAL HISTORY: CAD s/p 1 stent 2019 at [facility] CKD3 DM2 HTN Hypothyroidism Anxiety Bilateral knee osteoarthritis PAST SURGICAL HISTORY: Patient reports no prior surgical history SOCIAL HISTORY: Patient denies smoking Patient denies etoh use Patient denies illicit drug use FAMILY HISTORY: Reviewed with patient, Provide Relevant Family History. ALLERGIES: Please see below. REVIEW OF SYSTEMS: 10 point review of systems was conducted, relevant findings were noted in HPI HOME MEDICATIONS: Please see below. PHYSICAL EXAMINATION: VITAL SIGNS: please see below General: NAD, comfortable, pale, lethargic HEENT: PERRLA, EOMI, sclerae clear Neck: supple, normal ROM, no JVD Respiratory: lungs CTAB, no wheeze, no rales, no crackles CVS: RRR, normal S1, S2, no murmurs Abdo: soft, no masses, no hepatosplenomegaly, BS+, no rebound tenderness, obese abdomen Extremities: no edema, pulses 2+ MSK: no joint deformities, normal ROM Neuro: no focal neuro deficits, moving all 4 extremities, CN2-12 intact. Strength 5/5 in all 4 extremities. No nystagmus. Psych: calm, cooperative, AAO x 3 LABORATORY DATA: See below. IMAGING: CXR (03/09/21): Limited portable examination. No obvious acute process. MICROBIOLOGY: Please see below. ASSESSMENT: 76-year-old female with a past medical history of coronary artery d isease with 1 stent placed 2 years ago at [facility], [facility] [place], stage III, not followed by nephrology, type 2 diabetes on Humalog and to mcc, hypertension, hypothyroidism as well as anxiety. Patient was brought to the ER by her daughter after she sustained a syncopal episode this morning with complaint of generalized fatigue and malaise. Found to be hypotensive in the ER with hypoglycemia. He was given 1 L of normal saline as well as 10 units of regular insulin. I suspect reduced by mouth intake. Given positive blood in the stool. Suspect chronic lower GI bleed. Ordered. He did hydroxybutyrate. The patient is hyperglycemic to 4 cm on arrival there is no anion gap elevation and a pH 7.39. Currently does not criteria for DKA, therefore, insulin drip was started. Patient will receive subcutaneous insulin. qSOFA score of 1. Does not meet sepsis criteria at this time. However, due to hypotension, bood cultures were sent, and I am concerned for risk of rapid deterioration. Due to symptomataic iron deficiency anemia, 1 unit of pRBC was ordered, as was CT abdomen pelvis without contrast. PLAN: #Hypotension - BP 83/49 on arrival. EKG sinus janelle to 59. - no fever, no leukocytosis, no tachycardia or tachypnea - qSOFA score 1 based on low BP. Check lactic acid. - while does not meet formal sepsis criteria, risk for rapid deterioration - s/p 1L NS Bolus in ER, had 500 cc with EMS - no empiric abx at this time - found to have Hgb 8.4, guaic blood positive stool. - ordered 1 unit PRBC for symptomatic iron def anemia, see below - will hold home bisoprolol - ordered tele. admit to PCU #Syncope - possibly related to symptomatic iron deficiency anemia - ordered 1 unit prbc - ordered carotid US - ordered 2D echo, was told by Dr. Schreiber that has cardiac murmur - admit to tele. PCu admisstion - check orthostatis - PT/OT eval ordered #Hyperglycemia in setting of DM2 - BG 479 on arrival - s/p 1L bolus, given 10 units regular insulin - ordered ketones - no anion gap. pH 7.39 - home regimen is Tujeo 40 units qhs, and states she takes 10 units humalog with pm juan? - will start on home regimen of levemir 40 units, and will start 5 units humalog with meals - check a1c - check FSBS q2h x 3 ordered, followed by AC and HS - ISS started #Symptomatic iron deficiency anemia - Hgb 8.4. Hct 27.8 - MCV 79.2 - ordered 1 units pRBC - stool guiac positive - check iron panel, b12, folate - if continues to bleed, consider surgical consult for EGD/colonoscopy - will hold ASA 81 mg #DREA on CKD3 - Cr 1.75. K 5.2 - UA positive for glucosuria - check renal US - likely pre-renal - repeat BMP after IVF - check urine lytes #CAD - 1 stent at [facility] 2 years ago - follows with Dr. Schreiber - will hold ASA at this time due to suspected GIB - will continue with lipitor - hold isosorbide, and NG due to hypotension - hold losartan #Hx of hypertension - holding BP meds due to low bp - takes losartan 100 mg daily, toresmide 20 mg daily #hyperkalemia - K 5.2. - repeat after IVF #hypothyroid - resume home meds #Anxiety - resume home meds: paroxetine DVT ppx: SCDs. TEDs. Dispo: pending clinical improvement. Vital Signs Vital Signs Date Time Temp Pulse Resp B/P (MAP) Pulse Ox O2 Delivery O2 Flow Rate FiO2 03/09/21 19:52 58 18 95 Room Air 03/09/21 19:46 104/58 (73) 03/09/21 16:18 97.9 Laboratory Data Labs 24H Laboratory Tests 2 03/09/21 17:20: Immature Granulocyte % (Auto) 0.5, Neutrophils (%) (Auto) 70.8H, Lymphocytes (%) (Auto) 19.3L, Monocytes (%) (Auto) 6.4, Eosinophils (%) (Auto) 2.4, Basophils (%) (Auto) 0.6, Neutrophils # (Auto) 4.4, Lymphocytes # (Auto) 1.2L, Monocytes # (Auto) 0.4, Eosinophils # (Auto) 0.2, Basophils # (Auto) 0.0, Nucleated Red Blood Cells % (auto) 0.0, Anion Gap 8, Glomerular Filtration Rate 29.9L, Calcium Level 8.2L, Iron Level 21L, Total Iron Binding Capacity 286, Transferrin % Saturation 7.3L, Ferritin 19, Total Creatine Kinase 36, Creatine Kinase MB < 1.0, Creatine Kinase MB Relative Index 2.78, Troponin I < 0.02, Coronavirus (COVID-19)(PCR) NEGATIVE, Influenza Type A (RT-PCR) NEGATIVE, Influenza Type B (RT-PCR) NEGATIVE, Respiratory Syncytial Virus (PCR) NEGATIVE 03/09/21 17:35: POC Glucose (Misc Panel) 489H, POC Sodium (Misc Panel) 134L, POC Potassium (Misc Panel) 5.1, POC Chloride (Misc Panel) 93L, POC Total CO2 (Misc Panel) 25.0, POC Blood Urea Nitrogen (Misc Panel 16, POC Ionized Calcium (Misc Panel) 4.4L, POC Creatinine (Misc Panel) 1.6H, POC Hematocrit (Misc Panel) 27.0L 03/09/21 17:59: POC Total CO2 (Misc Panel) 27.0, POC pH (Misc Panel) 7.391, POC Base Excess (Misc Panel) 1.0, POC Saturated Percent O2 (Misc) 97, POC pO2 (Misc Panel) 91.0, POC pCO2 (Misc Panel) 42.7, POC HCO3 (Misc Panel) 25.9 03/09/21 18:29: Urine Color STRAW, Urine Appearance CLEAR, Urine pH 6.0, Urine Specific [place] 1.006, Urine Protein NEGATIVE, Urine Glucose (UA) 3+H, Urine Ketones NEGATIVE, Urine Blood NEGATIVE, Urine Nitrite NEGATIVE, Urine Bilirubin NEGATIVE, Urine Urobilinogen 0.2, Urine Leukocyte Esterase NEGATIVE, Urine WBC (Auto) 1, Urine RBC (Auto) 0, Urine Hyaline Casts (Auto) 2, Urine Bacteria (Auto) 1+H, Urine Squamous Epithelial Cells 0, Urine Mucus (Auto) SMALL, Urine Sperm (Auto) CBC/BMP Laboratory Tests 03/09/21 17:20 Home Medications Scheduled Aspirin (Aspirin) 81 Mg Tab.chew, 81 MG PO DAILY Atorvastatin Calcium (Atorvastatin Calcium) 80 Mg Tablet, 80 MG PO DAILY Calcitriol (Calcitriol) 0.25 Mcg Capsule, 0.25 MG PO DAILY Cyanocobalamin (Vitamin B-12) (Vitamin B-12) 1,000 Mcg Tablet, 1,000 MCG PO DAILY Insulin Glargine,Hum.rec.anlog (Toujeo Solostar) 300 Unit/1 Ml Insuln.pen, 40 UNITS SUBQ QPM Insulin Lispro (Humalog Kwikpen U-100) 100 Unit/1 Ml Insuln.pen, 10 UNITS SUBQ QPM Isosorbide Mononitrate (Isosorbide Mononitrate) 10 Mg Tablet, 10 MG PO BID Levothyroxine Sodium (Levothyroxine Sodium) 25 Mcg Tablet, 25 MCG PO QAM Losartan Potassium (Losartan Potassium) 100 Mg Tablet, 100 MG PO DAILY Magnesium Oxide (Magnesium Oxide) 400 Mg Tablet, 400 MG PO DAILY Metformin HCl (Metformin HCl ER) 500 Mg Tab.er.24h, 1,000 MG PO DAILY Pantoprazole Sodium (Pantoprazole Sodium) 40 Mg Tablet.dr, 40 MG PO DAILY Paroxetine HCl (Paroxetine HCl) 20 Mg Tablet, 20 MG PO DAILY Torsemide (Torsemide) 10 Mg Tablet, 30 MG PO DAILY Scheduled PRN Nitroglycerin (Nitroglycerin) 0.4 Mg Tab.subl, 0.4 MG PO PRN PRN for CHEST PAIN Allergies Coded Allergies: amitriptyline (Verified Allergy, Mild, 01/28/19) benzonatate (Verified Allergy, Mild, 01/28/19) sulfamethoxazole (Verified Allergy, Unknown, GI UPSET, 01/28/19) trimethoprim (Verified Allergy, Unknown, GI UPSET, 01/28/19) A-FIB/CHADSVASC A-FIB History Current/History of A-Fib/PAF?: No JUAN MIGUEL MCCRARY MD Mar 09, 2021 21:31
--- NOTE | 2021-03-09 21:51 | REPVR ---
PROCEDURE INFORMATION: Exam: CT Abdomen And Pelvis Without Contrast Exam date and time: 03/09/2021 8:53 PM Age: 76 years old Clinical indication: Other: Blood loss anemia TECHNIQUE: Imaging protocol: Computed tomography of the abdomen and pelvis without contrast. Radiation optimization: All CT scans at this facility use at least one of these dose optimization techniques: automated exposure control; mA and/or kV adjustment per patient size (includes targeted exams where dose is matched to clinical indication); or iterative reconstruction. COMPARISON: CT ABD PELVIS W/O CONTRAST 12/09/2015 12:26 AM FINDINGS: Liver: There is enlargement of the left and caudate lobes of the liver as well as a lobular surface contour of the liver. Findings may indicate the presence of cirrhosis in this patient with no reported history of chronic liver disease. No focal abnormality demonstrated. Gallbladder and bile ducts: Normal. No calcified stones. No ductal dilation. Pancreas: Normal. No ductal dilation. Spleen: Normal. No splenomegaly. Adrenal glands: Normal. No mass. Kidneys and ureters: Normal. No hydronephrosis. Stomach and bowel: There is increased feces throughout the colon consistent with constipation. Appendix: No evidence of appendicitis. Intraperitoneal space: Unremarkable. No free air. No significant fluid collection. Vasculature: The aortoiliac vessels demonstrate mild atherosclerotic calcification. Lymph nodes: Unremarkable. No enlarged lymph nodes. Urinary bladder: Unremarkable as visualized. Reproductive: Unremarkable as visualized. Bones/joints: The spine demonstrates moderate degenerative changes. Mild central spinal stenosis L2-L3, severe central spinal stenosis L3-L4 and L4-L5. Bilateral facet joint arthropathy L5-S1. Soft tissues: There is a moderate umbilical hernia. There is no evidence of incarceration. Other findings: Levoscoliosis. Osteoporosis. IMPRESSION: 1. There is enlargement of the left and caudate lobes of the liver as well as a lobular surface contour of the liver. Findings may indicate the presence of cirrhosis in this patient with no reported history of chronic liver disease. No focal abnormality demonstrated. 2. There is increased feces throughout the colon consistent with constipation. Electronically signed by: Sergio Mathews On 03/09/2021 21:50:41 PM
--- NOTE | 2021-03-09 21:54 | REPVR ---
PROCEDURE INFORMATION: Exam: US Retroperitoneal Limited, Kidneys Exam date and time: 03/09/2021 9:43 PM Age: 76 years old Clinical indication: Other: Leighton, renal disease; Additional info: Renal disease, leighton TECHNIQUE: Imaging protocol: Real-time ultrasound of the retroperitoneum with image documentation. Examination was focused on the kidneys. COMPARISON: CT ABD PELVIS W/O CONTRAST 03/09/2021 8:50 PM FINDINGS: Right kidney: Right kidney measures 10.1 x 4.6 x 3.6 cm. Normal flow. Diffuse parenchymal thinning. Left kidney: Left kidney measures 9.7 x 4.5 x 4.3 cm. Normal flow. Diffuse parenchymal thinning. Bladder: Bladder unremarkable with bilateral ureteral jets demonstrated. IMPRESSION: Diffuse parenchymal thinning consistent with patient age. No hydronephrosis. Otherwise unremarkable. Electronically signed by: Sergio Mathews On 03/09/2021 21:53:44 PM
--- NOTE | 2021-03-09 21:58 | REPVR ---
PROCEDURE INFORMATION: Exam: US Duplex Bilateral Extracranial Arteries Exam date and time: 03/09/2021 9:43 PM Age: 76 years old Clinical indication: Other: Weakness, syncope TECHNIQUE: Imaging protocol: Real-time Duplex ultrasound scan of the bilateral carotid and vertebral arteries combining hernandez scale, color Doppler and spectral waveform analysis. Bilateral exam. COMPARISON: No relevant prior studies available. FINDINGS: Right common carotid artery: Mild intimal thickening distally. No occlusion or stenosis. Waveforms are normal. Right internal carotid artery: Mild noncalcific atherosclerotic changes. No occlusion or significant stenosis. Waveforms are normal. Right ICA/CCA ratio: Within normal limits. 0.87. Right external carotid artery: No stenosis in the origin. Right vertebral artery: Unremarkable. Antegrade flow. Left common carotid artery: Unremarkable. No occlusion or stenosis. Waveforms are normal. Left internal carotid artery: Mild noncalcific atherosclerotic changes. No occlusion or significant stenosis. Waveforms are normal. Left ICA/CCA ratio: Within normal limits. 0.92. Left external carotid artery: No stenosis in the origin. Left vertebral artery: Unremarkable. Antegrade flow. IMPRESSION: 1. Mild noncalcific atherosclerotic plaque demonstrated in both proximal internal carotid arteries resulting in well in the 50% stenosis bilaterally. 2. Antegrade flow in both vertebral arteries. REFERENCES: SRU CRITERIA. The degree of internal carotid artery stenosis is based on criteria defined by the Society of Radiologists in Ultrasound (SRU). Normal is no stenosis. Mild is less than 50% stenosis. Moderate is 50-69% stenosis. Severe is greater than 69% stenosis to near occlusion. Near occlusion is a markedly narrowed lumen. Total occlusion is no detectable patent lumen. Electronically signed by: Sergio Mathews On 03/09/2021 21:57:40 PM
[2021-03-09 22:37] LABS: VENOUS HCO3 25.8 MEQ/L (23.0-27.0); VENOUS O2 SATURATION 91.6 % (60.0-80.0); VENOUS PARTIAL PRESSURE CO2 47.7 mmHg (38.0-50.0); VENOUS PH 7.351 UNITS (7.330-7.430); VENOUS STANDARD HCO3 24.4 MEQ/L; VENOUS TOTAL CO2 27.3 MEQ/L (24.0-28.0)
[2021-03-09 23:06] LABS: CALCIUM LEVEL 7.9 MG/DL (8.8-10.2); CREATININE FOR GFR 1.72 MG/DL (0.55-1.30); GLOMERULAR FILTRATION RATE 30.5 (>39); MAGNESIUM LEVEL 2.2 MG/DL (1.8-2.4); POTASSIUM SERUM 4.6 MEQ/L (3.5-5.1)
[2021-03-09 23:50] VITALS: BP 138/76
[2021-03-10] VITALS (7 sets, daily range): BP systolic 130–185; BP diastolic 59–82
[2021-03-10] MEDS: DOCUSATE SODIUM 100MG CAPSULE PO SCH ×3 (00:12→21:09)
[2021-03-10] MEDS: ATORVASTATIN 20 MG TAB PO SCH ×2 (00:12→21:09)
[2021-03-10] MEDS: MAGNESIUM OXIDE 400MG TAB (MAG-OX) PO SCH ×3 (00:13→21:10)
[2021-03-10 04:38] LABS: BASO # 0.1 10^3/uL (0.0-0.2); BASO % 0.6 % (0.0-1.0); EOS # 0.3 10^3/uL (0.0-0.5); EOS % 3.3 % (0.0-3.0); HEMATOCRIT 32.3 % (36.0-47.0); HEMOGLOBIN 9.8 g/dl (12.0-15.5); LYMPH # 1.9 10^3/uL (1.5-5.0); LYMPH % 23.3 % (24.0-44.0); MEAN CORPUSCULAR HEMOGLOBIN 24.4 pg (27.0-33.0); MEAN CORPUSCULAR HGB CONC 30.3 g/dl (32.0-36.5); MEAN CORPUSCULAR VOLUME 80.3 fl (80.0-96.0); MONO # 0.5 10^3/uL (0.0-0.8); MONO % 6.1 % (2.0-8.0); NEUTROPHILS # 5.4 10^3/uL (1.5-8.5); NEUTROPHILS % 66.3 % (36.0-66.0); PLATELET COUNT, AUTOMATED 199 10^3/uL (150-450); RED BLOOD COUNT 4.02 10^6/uL (4.00-5.40); WHITE BLOOD COUNT 8.2 10^3/uL (4.0-10.0)
[2021-03-10 05:04] LABS: ALBUMIN 2.6 GM/DL (3.2-5.2); ALT/SGPT 43 U/L (12-78); BILIRUBIN,TOTAL 0.9 MG/DL (0.2-1.0); BLOOD UREA NITROGEN 17 MG/DL (7-18); CALCIUM LEVEL 8.1 MG/DL (8.8-10.2); CARBON DIOXIDE LEVEL 30 MEQ/L (21-32); CHLORIDE LEVEL 102 MEQ/L (98-107); CREATININE FOR GFR 1.52 MG/DL (0.55-1.30); FERRITIN 19 NG/ML (8-252); GLOMERULAR FILTRATION RATE 35.2 (>39); GLUCOSE, FASTING 204 MG/DL (70-100); IRON (FE) 65 UG/DL (50-170); MAGNESIUM LEVEL 2.1 MG/DL (1.8-2.4); PERCENT SATURATION 21.5 % (13.2-45.0); POTASSIUM SERUM 4.3 MEQ/L (3.5-5.1); SODIUM LEVEL 138 MEQ/L (136-145); TOTAL IRON BINDING CAPACITY 302 UG/DL (250-450); TOTAL PROTEIN 6.5 GM/DL (6.4-8.2)
[2021-03-10] MEDS: LEVOTHYROXINE 25MCG TABLET (0.025MG) PO SCH (05:52)
[2021-03-10 06:07] LABS: CREATININE,RANDOM URINE 37.8 MG/DL
[2021-03-10] MEDS ORDERED: NS 500 ML IV ONE (06:50)
[2021-03-10] MEDS: HumaLOG INSULIN (NovoLOG) PER UNIT SC SCH ×3 (07:40→17:09)
[2021-03-10] MEDS: PARoxetine 20MG TABLET PO SCH (07:41)
[2021-03-10] MEDS: PANTOPRAZOLE 40MG TAB (PROTONIX) PO SCH (07:41)
[2021-03-10] MEDS ORDERED: NITROGLYCERIN 0.4 MG SUBL TABLET SL PRN (07:50)
[2021-03-10] MEDS: ASPIRIN 81 MG CHEW TABLET PO SCH (08:30)
[2021-03-10] MEDS: bisoproloL fumarate 5 MG TAB PO SCH (08:30)
[2021-03-10] MEDS ORDERED: LEVEMIR (INSULIN DETEMIR) 1 UNITS/0.01ML SC SCH (09:00)
[2021-03-10] MEDS ORDERED: NS 1,000 ML IV ONE (11:30)
--- NOTE | 2021-03-10 11:44 | IPNPDOC ---
Text Note Date of Service The patient was seen on 03/10/21. NOTE Subjective: No any acute events overnight. Patient stated that she feels better in the morning. Objective: GENERAL APPEARANCE: NAD HEENT: no scleral icterus, no JVD, EOMI CARDIOVASCULAR: S1S2 LUNGS: CTA ABDOMEN: soft & not tender w palpitation MUSCULOSKELETAL: no cyanosis, no swelling INTEGUMENT: no generalized pallor NEUROLOGICAL: cranial nerve function from 2-12 intact intact, follows commands, speech not dysarthric Assessment and plan Patient is 76-year-old female with a past medical history of coronary artery disease with [facility], syncope, stage III, not followed by nephrology, type 2 diabetes on Humalog and to nursing home, hypertension, hypothyroidism as well as anxiety. Patient was brought to the ER by her daughter after she sustained a syncopal episode this morning with complaint of generalized fatigue and malaise. Syncope Differential diagnosis included orthostatic, vasovagal syncope No seizure-like activities has been noticed Patient was found to have hypertension on arrival. Could be attributed to dehydration Patient received IV fluid, blood pressure stable PT/OT Lactic acidosis Patient afebrile, not tachycardic, looks nontoxic Lactic acidosis most likely secondary to metformin IV fluid, continue to monitor Acute iron deficient anemia/GI bleed Most likely secondary to GI slow bleed Patient was found to have hemoglobin 8.4 with stool positive for blood Patient received 1 unit of blood and became 9.8 Will continue to monitor H&H Patient will need colonoscopy and EGD in the outpatient settings PPI iron supplement Type 2 diabetes/hyperglycemia Patient noncompliant with her medications Detemir twice a day Insulin sliding scale We will check HbA1c DREA Most likely due to intravascular depletion secondary to glucosuria IV fluid Continue to monitor CAD - 1 stent at [facility] 2 years ago - follows with Dr. Schreiber Continue home cardioprotective medications Hypertension Continue home cardioprotective medications. Hypotension resolved Hyperkalemia Resolved Hypothyroidism Continue home meds Anxiety Continue home meds VS,Fishbone, I+O VS, Fishbone, I+O Laboratory Tests 03/09/21 17:20 03/09/21 22:27 03/10/21 04:17 Vital Signs Date Time Temp Pulse Resp B/P (MAP) Pulse Ox O2 Delivery O2 Flow Rate FiO2 03/10/21 08:30 75 152/71 03/10/21 08:00 98.9 16 97 Room Air I&O- Last 24 Hours up to 6 AM 03/10/21 06:00 Intake Total 2120 ml Output Total 3500 ml Balance -1380 ml EUGENE LEW DO Mar 10, 2021 11:44
[2021-03-10] MEDS: IRON POLYSAC (NIFEREX) 150 MG CAP PO SCH ×2 (12:42→21:09)
[2021-03-10 12:43] LABS: HEMOGLOBIN A1c 13.2 %
[2021-03-10] MEDS: ISOSORBIDE MONONITRATE 10MG TABLET PO SCH ×2 (13:09→21:10)
[2021-03-10 16:19] LABS: HEMOGLOBIN 9.3 g/dl (12.0-15.5)
--- NOTE | 2021-03-10 17:32 | ECHO ---
ECHOCARDIOGRAM DATE OF PROCEDURE: 03/10/2021 Age: 76 Gender: Female Height: 59 inches Weight: 211 pounds, body surface area 1.89 m2 PATIENT LOCATION: Inpatient intensive care unit (ICU) Room 3206. REFERRING PHYSICIAN: Ezio Mahoney M.D. INDICATION: Syncope/murmur. MEASUREMENTS: 2D Measurements: RV - 2.8 cm LV - 4.4 cm Septum 1.0 cm Posterior wall 1.0 cm Aortic root 3.1 cm LA - 3.0 cm LVEF 75% Doppler Measurements: AV - 1.89 m/s LVOT - 0.84 m/s LVOT diameter 2.1 cm Mean AV systolic gradient 7.9 mmHg MV-E 70, A 99, EA ratio 0.7 Early mitral deceleration time 214 msec E prime medial 6.5 A prime medial 8.1 E prime lateral 8.5 Average E/E prime ratio 10.4/PCWP 14.8 mmHg PV 0.74 m/s Pulmonary artery acceleration time 135 msec PAST 20 mmHg IVC 1.4 cm COMMENTS: Normal sinus rhythm without intraventricular conduction disturbance. M-mode and 2-dimensional echocardiography was performed with pulse continuous wave, color flow and tissue Doppler studies. Normal left ventricular size, wall thickness and hyperkinetic wall motion. Normal left atrial size with grade 1 left ventricular (LV) diastolic dysfunction with currently normal estimated mean left atrial pressure. Normal right heart chamber sizes and wall motion and estimated pulmonary arterial pressure. Inferior vena cava (IVC) size was slightly reduced with complete collapse, suggestive of a somewhat low central venous pressure. Normal aortic dimensions. Moderate aortic valvular sclerosis with adequate cusp separation. No evidence of significant LV inflow tract obstruction. Only trace aortic insufficiency. Mild degenerative changes of the mitral valvular apparatus with normal leaflet excursion and no posterior systolic buckling. No more than trace mitral insufficiency. Normal appearing tricuspid valve with no more than very mild tricuspid insufficiency. No apparent intracardiac mass or pericardial effusion.
[2021-03-10] MEDS ORDERED: LOSARTAN 50MG TABLET PO SCH (21:00)
[2021-03-10] MEDS: LEVEMIR (INSULIN DETEMIR) 1 UNITS/0.01ML SC SCH (21:11)
[2021-03-10 22:08] LABS: HEMATOCRIT 31.7 % (36.0-47.0); HEMOGLOBIN 9.5 g/dl (12.0-15.5)
[2021-03-11 04:42] LABS: BASO % 0.4 % (0.0-1.0); EOS # 0.2 10^3/uL (0.0-0.5); EOS % 3.3 % (0.0-3.0); HEMATOCRIT 31.4 % (36.0-47.0); HEMOGLOBIN 9.4 g/dl (12.0-15.5); LYMPH # 1.7 10^3/uL (1.5-5.0); LYMPH % 24.8 % (24.0-44.0); MEAN CORPUSCULAR HEMOGLOBIN 23.9 pg (27.0-33.0); MEAN CORPUSCULAR HGB CONC 29.9 g/dl (32.0-36.5); MEAN CORPUSCULAR VOLUME 79.9 fl (80.0-96.0); MONO # 0.5 10^3/uL (0.0-0.8); MONO % 6.6 % (2.0-8.0); NEUTROPHILS # 4.5 10^3/uL (1.5-8.5); NEUTROPHILS % 64.3 % (36.0-66.0); PLATELET COUNT, AUTOMATED 206 10^3/uL (150-450); RED BLOOD COUNT 3.93 10^6/uL (4.00-5.40)
[2021-03-11 05:08] LABS: ALBUMIN 2.4 GM/DL (3.2-5.2); BILIRUBIN,TOTAL 0.5 MG/DL (0.2-1.0); CALCIUM LEVEL 8.1 MG/DL (8.8-10.2); CREATININE FOR GFR 1.5 MG/DL (0.55-1.30); GLOMERULAR FILTRATION RATE 35.8 (>39); MAGNESIUM LEVEL 2.1 MG/DL (1.8-2.4); POTASSIUM SERUM 4.1 MEQ/L (3.5-5.1); TOTAL PROTEIN 6.2 GM/DL (6.4-8.2)
[2021-03-11] MEDS: LEVOTHYROXINE 25MCG TABLET (0.025MG) PO SCH (05:13)
[2021-03-11 06:00] VITALS: BP 121/70
[2021-03-11] MEDS: LEVEMIR (INSULIN DETEMIR) 1 UNITS/0.01ML SC SCH (08:42)
[2021-03-11 08:43] VITALS: BP 147/72
[2021-03-11] MEDS: bisoproloL fumarate 5 MG TAB PO SCH (08:43)
[2021-03-11] MEDS: DOCUSATE SODIUM 100MG CAPSULE PO SCH ×2 (08:43→08:52)
[2021-03-11] MEDS: ISOSORBIDE MONONITRATE 10MG TABLET PO SCH (08:43)
[2021-03-11] MEDS: ASPIRIN 81 MG CHEW TABLET PO SCH (08:44)
[2021-03-11] MEDS: IRON POLYSAC (NIFEREX) 150 MG CAP PO SCH (08:44)
[2021-03-11] MEDS: PARoxetine 20MG TABLET PO SCH (08:44)
[2021-03-11] MEDS: HumaLOG INSULIN (NovoLOG) PER UNIT SC SCH ×2 (08:44→12:00)
[2021-03-11] MEDS: MAGNESIUM OXIDE 400MG TAB (MAG-OX) PO SCH (08:44)
[2021-03-11] MEDS: PANTOPRAZOLE 40MG TAB (PROTONIX) PO SCH (08:44)
[2021-03-11 09:40] LABS: FOLATE 7.4 NG/ML (>5.4); VITAMIN B12 LEVEL > 2000 PG/ML (247-911)
[2021-03-11 09:46] LABS: FOLATE 7.3 NG/ML (>5.4); VITAMIN B12 LEVEL > 2000 PG/ML (247-911)
[2021-03-11 10:49] LABS: HEMATOCRIT 33.5 % (36.0-47.0)
[2021-03-11] MEDS ORDERED: TOUJ1.2I SUBQ (11:22)
--- NOTE | 2021-03-11 13:12 | DS.PDOC ---
Discharge Summary General Date of Admission Mar 09, 2021 at 20:45 Date of Discharge 03/11/21 Discharge Summary PROCEDURES PERFORMED DURING STAY: [None]. ADMITTING DIAGNOSES: Syncope Lactic acidosis Acute iron deficient anemia/GI bleed Type 2 diabetes/hyperglycemia DREA CAD Hypertension Hyperkalemia Hypothyroidism Anxiety DISCHARGE DIAGNOSES: Syncope Lactic acidosis Acute iron deficient anemia/GI bleed Type 2 diabetes/hyperglycemia DREA CAD Hypertension Hyperkalemia Hypothyroidism Anxiety COMPLICATIONS/CHIEF COMPLAINT: Symptomatic Anemia. HISTORY OF PRESENT ILLNESS: Patient is 76-year-old female with a past medical history of coronary artery disease with 1 stent placed 2 years ago at [facility], syncope, stage III, not followed by nephrology, type 2 diabetes on Humalog and to [facility], hypertension, hypothyroidism as well as anxiety. Patient was brought to the ER by her daughter after she sustained a syncopal episode this morning with complaint of generalized fatigue and malaise. HOSPITAL COURSE: During the hospital stay the following issues addressed Syncope Differential diagnosis included orthostatic, vasovagal syncope No seizure-like activities has been noticed Patient was found to have hypertension on arrival. Could be attributed to dehydration Patient received IV fluid, blood pressure stable PT/OT Lactic acidosis Patient afebrile, not tachycardic, looks nontoxic Lactic acidosis most likely secondary to metformin IV fluid, continue to monitor Acute iron deficient anemia/GI bleed Most likely secondary to GI slow bleed Patient was found to have hemoglobin 8.4 with stool positive for blood Patient received 1 unit of blood and became 9.8 Will continue to monitor H&H Patient will need colonoscopy and EGD in the outpatient settings PPI iron supplement Type 2 diabetes/hyperglycemia Patient noncompliant with her medications Detemir twice a day Insulin sliding scale We will check HbA1c DREA Most likely due to intravascular depletion secondary to glucosuria IV fluid Continue to monitor CAD - 1 stent at [facility] 2 years ago - follows with Dr. Schreiber Continue home cardioprotective medications Hypertension Continue home cardioprotective medications. Hypotension resolved Hyperkalemia Resolved Hypothyroidism Continue home meds Anxiety Continue home meds DISCHARGE MEDICATIONS: Please see below. ALLERGIES: Please see below. PHYSICAL EXAMINATION ON DISCHARGE: VITAL SIGNS: Please see below. GENERAL APPEARANCE: NAD HEENT: no scleral icterus, no JVD, EOMI CARDIOVASCULAR: S1S2 LUNGS: CTA ABDOMEN: soft & not tender w palpitation MUSCULOSKELETAL: no cyanosis, no swelling INTEGUMENT: no generalized pallor NEUROLOGICAL: cranial nerve function from 2-12 intact intact, follows commands, speech not dysarthric LABORATORY DATA: Please see below. IMAGING: [facility] NAME: ALEXIS LINK DATE OF : 1945 BUSINESS NUMBER: [id number] AGE: 76 SEX: F REPORT #: [id number] ROOM: [facility] IN TECHNOLOGIST: [id number] DOCTOR: JUAN MIGUEL MCCRARY MD Ordered for Date&Time: 03/09/212042 cc: [~ rep ct ivnm] Service Date&Time: 03/09/212052 This report is in Signed status. Interpretation performed by [facility]. Thank you for having your radiology procedures performed at [facility] RADIOLOGY REPORT Date&Time printed: [~ rep prt dt last] [~ rep prt tm last] Page 2 of 2 [place] [id number] RADIOLOGY REPORT This report is in Signed status. Interpretation performed by [facility]. Thank you for having your radiology procedures performed at [facility] RADIOLOGY REPORT Date&Time printed: [~ rep prt dt last] [~ rep prt tm last] Page 1 of 2 PROCEDURE INFORMATION: Exam: CT Abdomen And Pelvis Without Contrast Exam date and time: 03/09/2021 8:53 PM Age: 76 years old Clinical indication: Other: Blood loss anemia TECHNIQUE: Imaging protocol: Computed tomography of the abdomen and pelvis without contrast. Radiation optimization: All CT scans at this facility use at least one of these dose optimization techniques: automated exposure control; mA and/or kV adjustment per patient size (includes targeted exams where dose is matched to clinical indication); or iterative reconstruction. COMPARISON: CT ABD PELVIS W/O CONTRAST 12/09/2015 12:26 AM FINDINGS: Liver: There is enlargement of the left and caudate lobes of the liver as well as a lobular surface contour of the liver. Findings may indicate the presence of cirrhosis in this patient with no reported history of chronic liver disease. No focal abnormality demonstrated. Gallbladder and bile ducts: Normal. No calcified stones. No ductal dilation. Pancreas: Normal. No ductal dilation. Spleen: Normal. No splenomegaly. Adrenal glands: Normal. No mass. Kidneys and ureters: Normal. No hydronephrosis. Stomach and bowel: There is increased feces throughout the colon consistent with constipation. Appendix: No evidence of appendicitis. Intraperitoneal space: Unremarkable. No free air. No significant fluid collection. Vasculature: The aortoiliac vessels demonstrate mild atherosclerotic calcification. Lymph nodes: Unremarkable. No enlarged lymph nodes. Urinary bladder: Unremarkable as visualized. Reproductive: Unremarkable as visualized. Bones/joints: The spine demonstrates moderate degenerative changes. Mild central spinal stenosis L2-L3, severe central spinal stenosis L3-L4 and L4-L5. Bilateral facet joint arthropathy L5-S1. Soft tissues: There is a moderate umbilical hernia. There is no evidence of incarceration. Other findings: Levoscoliosis. Osteoporosis. IMPRESSION: 1. There is enlargement of the left and caudate lobes of the liver as well as a lobular surface contour of the liver. Findings may indicate the presence of cirrhosis in this patient with no reported history of chronic liver disease. No focal abnormality demonstrated. 2. There is increased feces throughout the colon consistent with constipation. Electronically signed by: Sergio Giron On 03/09/2021 21:50:41 PM DD: SERGIO GIRON MD 03/09/212052 DT: PHYLLIS 03/09/212149 DS: JORGITO 03/09/212149 [~ rep ct labl] PROGNOSIS: Fair ACTIVITY: [As tolerated]. DIET: Diabetes] ITEMS TO FOLLOWUP ON ON OUTPATIENT: Follow-up with GI team, follow-up with PCP in 3-5 days DISCHARGE CONDITION: [Stable]. TIME SPENT ON DISCHARGE: 40minutes. Vital Signs/I&Os Vital Signs Date Time Temp Pulse Resp B/P (MAP) Pulse Ox O2 Delivery O2 Flow Rate FiO2 03/11/21 08:43 147/72 03/11/21 08:43 72 03/11/21 06:00 97.2 19 97 Room Air I&O- Last 24 Hours up to 6 AM 03/11/21 06:00 Intake Total 1930 ml Output Total 150 ml Balance 1780 ml Laboratory Data Labs 24H Laboratory Tests 2 03/10/21 14:43: Lactic Acid Level 1.9 03/10/21 16:35: Bedside Glucose (Misc Panel) 178H 03/10/21 19:54: Bedside Glucose (Misc Panel) 247H 03/10/21 23:03: Bedside Glucose (Misc Panel) 246H 03/11/21 04:18: Immature Granulocyte % (Auto) 0.6, Neutrophils (%) (Auto) 64.3, Lymphocytes (%) (Auto) 24.8, Monocytes (%) (Auto) 6.6, Eosinophils (%) (Auto) 3.3H, Basophils (%) (Auto) 0.4, Neutrophils # (Auto) 4.5, Lymphocytes # (Auto) 1.7, Monocytes # (Auto) 0.5, Eosinophils # (Auto) 0.2, Basophils # (Auto) 0.0, Nucleated Red Blood Cells % (auto) 0.0, Anion Gap 8, Glomerular Filtration Rate 35.8L, Calcium Level 8.1L, Magnesium Level 2.1, Total Bilirubin 0.5, Aspartate Amino Transf (AST/SGOT) 76H, Alanine Aminotransferase (ALT/SGPT) 42, Alkaline Phosphatase 192H, Total Protein 6.2L, Albumin 2.4L, Albumin/Globulin Ratio 0.6L 03/11/21 12:04: Bedside Glucose (Misc Panel) 200H CBC/BMP Laboratory Tests 03/10/21 16:02 03/10/21 21:56 03/11/21 04:18 03/11/21 10:20 FSBS Laboratory Tests Test 03/10/21 16:35 03/10/21 19:54 03/10/21 23:03 03/11/21 12:04 Range/Units Bedside Glucose (Misc Panel) 178 247 246 200 83-110 MG/DL Microbiology Microbiology 03/09/21 Blood Culture - Preliminary, Resulted No growth after 24 hours . All specim... 03/09/21 Blood Culture - Preliminary, Resulted No growth after 24 hours . All specim... Discharge Medications Scheduled Aspirin (Aspirin) 81 Mg Tab.chew, 81 MG PO DAILY, (Reported) Atorvastatin Calcium (Atorvastatin Calcium) 80 Mg Tablet, 80 MG PO QHS, (Reported) Bisoprolol Fumarate (Bisoprolol Fumarate) 5 Mg Tablet, 5 MG PO DAILY, (Reported) Cyanocobalamin (Vitamin B-12) (Vitamin B-12) 1,000 Mcg Tablet, 1,000 MCG PO DAILY, (Reported) Insulin Glargine,Hum.rec.anlog ([place]e Solostar) 300 Unit/1 Ml Insuln.pen, 60 UNITS SUBQ QHS Insulin Lispro (Humalog Kwikpen U-100) 100 Unit/1 Ml Insuln.pen, 10 UNITS SUBQ QPM, (Reported) Isosorbide Mononitrate (Isosorbide Mononitrate) 10 Mg Tablet, 10 MG PO BID, (Reported) Levothyroxine Sodium (Levothyroxine Sodium) 25 Mcg Tablet, 25 MCG PO QAM, (Reported) Losartan Potassium (Losartan Potassium) 100 Mg Tablet, 100 MG PO QHS, (Reported) Magnesium Oxide (Magnesium Oxide) 400 Mg Tablet, 400 MG PO BID, (Reported) Pantoprazole Sodium (Pantoprazole Sodium) 40 Mg Tablet.dr, 40 MG PO DAILY, (Reported) Paroxetine HCl (Paroxetine HCl) 20 Mg Tablet, 20 MG PO DAILY, (Reported) Torsemide (Torsemide) 10 Mg Tablet, 20 MG PO DAILY, (Reported) Scheduled PRN Nitroglycerin (Nitroglycerin) 0.4 Mg Tab.subl, 0.4 MG PO PRN PRN for CHEST PAIN, (Reported) Allergies Coded Allergies: amitriptyline (Verified Allergy, Mild, 01/28/19) benzonatate (Verified Allergy, Mild, 01/28/19) sulfamethoxazole (Verified Allergy, Unknown, GI UPSET, 01/28/19) trimethoprim (Verified Allergy, Unknown, GI UPSET, 01/28/19) EUGENE LEW DO Mar 11, 2021 13:12
== END 2021-03-11 14:40 | disposition home health service (06) | DRG 378 ==
LOC: M ED 16:07 → EDBD 16:07 → M ED INP 20:45 → ENRESERV 21:49 → M ICU 23:00 → M MSPAV 03-10 11:32
PROVIDERS: ADMIT Family Medicine; ATTEND Internal Medicine
PROC: 30233N1 Transfusion of Nonautologous Red Blood Cells into Peripheral Vein, Percutaneous Approach (ICD-10-PCS; principal; 2021-03-09)
DX: K92.2 Gastrointestinal hemorrhage, unspecified (principal); N17.9 Acute kidney failure, unspecified; E87.2 Acidosis; I95.9 Hypotension, unspecified; E11.22 Type 2 diabetes mellitus with diabetic chronic kidney disease; E11.65 Type 2 diabetes mellitus with hyperglycemia; E87.5 Hyperkalemia; N18.30 Chronic kidney disease, stage 3 unspecified; D50.0 Iron deficiency anemia secondary to blood loss (chronic); I25.10 Atherosclerotic heart disease of native coronary artery without angina pectoris; E03.9 Hypothyroidism, unspecified; I12.9 Hypertensive chronic kidney disease with stage 1 through stage 4 chronic kidney disease, or unspecified chronic kidney disease; F41.9 Anxiety disorder, unspecified; M17.0 Bilateral primary osteoarthritis of knee; Z95.5 Presence of coronary angioplasty implant and graft; R55 Syncope and collapse; Z20.822 Contact with and (suspected) exposure to COVID-19; Z79.82 Long term (current) use of aspirin; Z79.899 Other long term (current) drug therapy; Z79.4 Long term (current) use of insulin; Z88.2 Allergy status to sulfonamides; Z88.8 Allergy status to other drugs, medicaments and biological substances; Z91.14 Patient's other noncompliance with medication regimen

== ENCOUNTER → 2021-04-03 | Outpatient (CLI) | payer OTHER, MEDICAID ==
[~2021-04-03] MED LIST changes: +BISO5TAB14 PO
[2021-04-03 15:39] LABS: BASO # 0.1 10^3/uL (0.0-0.2); BASO % 0.7 % (0.0-1.0); EOS # 0.3 10^3/uL (0.0-0.5); EOS % 3.5 % (0.0-3.0); HEMOGLOBIN 10.9 g/dl (12.0-15.5); LYMPH # 1.6 10^3/uL (1.5-5.0); LYMPH % 21.9 % (24.0-44.0); MEAN CORPUSCULAR HGB CONC 30.3 g/dl (32.0-36.5); MEAN CORPUSCULAR VOLUME 82.6 fl (80.0-96.0); MONO # 0.5 10^3/uL (0.0-0.8); NEUTROPHILS # 4.7 10^3/uL (1.5-8.5); NEUTROPHILS % 66.1 % (36.0-66.0); PLATELET COUNT, AUTOMATED 229 10^3/uL (150-450); RED BLOOD COUNT 4.36 10^6/uL (4.00-5.40); WHITE BLOOD COUNT 7.2 10^3/uL (4.0-10.0)
[2021-04-03 15:52] LABS: INR 1.03; PROTHROMBIN TIME 13.7 SECONDS (12.5-14.3)
[2021-04-03 15:53] LABS: PARTIAL THROMBOPLASTIN TIME 30.8 SECONDS (24.2-38.5)
[2021-04-03 16:14] LABS: ALBUMIN 2.9 GM/DL (3.2-5.2); BILIRUBIN,TOTAL 0.6 MG/DL (0.2-1.0); CALCIUM LEVEL 8.8 MG/DL (8.8-10.2); CREATININE FOR GFR 1.63 MG/DL (0.55-1.30); GLOMERULAR FILTRATION RATE 32.5 (>39); POTASSIUM SERUM 3.9 MEQ/L (3.5-5.1); TOTAL PROTEIN 7.2 GM/DL (6.4-8.2)
[2021-04-03 16:19] LABS: PTH INTACT 128.8 PG/ML (18.5-88.0); TOTAL 25(OH) VITAMIN D 39.2 NG/ML (30.0-100.0)
[2021-04-06 01:07] LABS: H PYLORI SERUM QUANT IGA <9.0 units (0.0-8.9)
== END ==
LOC: M PLALAB 10:40
PROVIDERS: ATTEND Family Medicine
DX: D50.9 Iron deficiency anemia, unspecified (principal)

== ENCOUNTER → 2021-05-03 | Outpatient (CLI) | payer OTHER, MEDICAID, MEDICARE | LOC: M LABSMTC 11:10 | PROVIDERS: ATTEND Anesthesiology | DX: Z01.812 Encounter for preprocedural laboratory examination (principal); Z20.822 Contact with and (suspected) exposure to COVID-19 ==

== ENCOUNTER 2021-05-08 09:26 | Day surgery (SDC) | payer OTHER, MEDICAID ==
[~2021-05-08] VITALS: Ht 149.9 cm; Wt 90.7 kg
[~2021-05-08 09:26] MED LIST changes: +LIDOCAINE 2% 100MG/5ML SDV (FOR ANES.) As Ordered ONE; +NS 1,000 ML IV ONE; +fentaNYL 100 MCG/2 ML INJECTION (J3010) As Ordered ONE; +propofoL 500 MG/50 ML VIAL As Ordered ONE
--- NOTE | 2021-05-08 10:53 | ROOR ---
Patient Name: Karyn Mahajan Procedure Date: 05/08/2021 10:33 AM Date of : 1945 Age: 76 Room: [facility] Gender: Female Note Status: Finalized Procedure: Upper Endoscopy + Biopsies Indications: Iron deficiency anemia Providers: Augustine Chris MD Referring MD: Suhas Mock MD Requesting Provider: Medicines: Monitored Anesthesia Care Complications: No immediate complications. Procedure: Pre-Anesthesia Assessment: - The heart rate, respiratory rate, oxygen saturations, blood pressure, adequacy of pulmonary ventilation, and response to care were monitored throughout the procedure. The Endoscope was introduced through the mouth, and advanced to the second part of duodenum. The upper GI endoscopy was accomplished without difficulty. The patient tolerated the procedure well. Findings: The Z-line was regular and was found 35 cm from the incisors. Grade I varices were found in the lower third of the esophagus. No other significant abnormalities were identified in a careful examination of the stomach. Biopsies were taken with a cold forceps in the gastric antrum for Helicobacter pylori testing. The exam of the duodenum was otherwise normal. Biopsies for histology were taken with a cold forceps in the first portion of the duodenum for evaluation of celiac disease. The exam was otherwise without abnormality. Impression: - Z-line regular, 35 cm from the incisors. - Grade I esophageal varices. - The examination was otherwise normal. - Biopsies were taken with a cold forceps for Helicobacter pylori testing. - Biopsies were taken with a cold forceps for evaluation of celiac disease. - The examination was otherwise normal. Recommendation: - Patient has a contact number available for emergencies. The signs and symptoms of potential delayed complications were discussed with the patient. Return to normal activities tomorrow. Written discharge instructions were provided to the patient. - High fiber diet. - Discharge patient to home. - Follow an antireflux regimen. - Continue present medications. - Await pathology results. - Telephone GI clinic for pathology results in 1 week. - Return to referring physician. - The findings and recommendations were discussed with the patient's family. Procedure Code(s): --- Professional --- 29663, Esophagogastroduodenoscopy, flexible, transoral; with biopsy, single or multiple Diagnosis Code(s): --- Professional --- I85.00, Esophageal varices without bleeding D50.9, Iron deficiency anemia, unspecified CPT copyright 2019 [employer]. All rights reserved. The codes documented in this report are preliminary and upon plumbing inspector review may be revised to meet current compliance requirements. Augustine Chris MD Augustine Chris MD 05/08/2021 10:52:51 AM Electronically signed by Augustine Chris MD Number of Addenda: 0 Note Initiated On: 05/08/2021 10:33 AM Estimated Blood Loss: Estimated blood loss: none.
--- NOTE | 2021-05-08 11:09 | ROOR ---
Patient Name: Karyn Mahajan Procedure Date: 05/08/2021 10:34 AM Date of : 1945 Age: 76 Room: [facility] Gender: Female Note Status: Finalized Procedure: Total Colonoscopy to Cecum Indications: Unexplained iron deficiency anemia Providers: Augustine Chris MD Referring MD: Suhas Mock MD Requesting Provider: Medicines: Monitored Anesthesia Care Complications: No immediate complications. Procedure: Pre-Anesthesia Assessment: - The heart rate, respiratory rate, oxygen saturations, blood pressure, adequacy of pulmonary ventilation, and response to care were monitored throughout the procedure. The Colonoscope was introduced through the anus and advanced to the cecum, identified by appendiceal orifice and ileocecal valve. The colonoscopy was performed without difficulty. The patient tolerated the procedure well. The quality of the bowel preparation was excellent. Findings: The perianal and digital rectal examinations were normal. Non-bleeding internal hemorrhoids were found during retroflexion. The hemorrhoids were small and Grade I (internal hemorrhoids that do not prolapse). No other significant abnormalities were identified in a careful examination of the remainder of the colon. The exam was otherwise without abnormality on direct and retroflexion views. Impression: - Non-bleeding internal hemorrhoids. - The examination was otherwise normal on direct and retroflexion views. - No specimens collected. - The exam was otherwise normal to the cecum. Recommendation: - Patient has a contact number available for emergencies. The signs and symptoms of potential delayed complications were discussed with the patient. Return to normal activities tomorrow. Written discharge instructions were provided to the patient. - High fiber diet. - Discharge patient to home. - Continue present medications. - Return to referring physician. - The findings and recommendations were discussed with the patient's family. Procedure Code(s): --- Professional --- 42175, Colonoscopy, flexible; diagnostic, including collection of specimen(s) by brushing or washing, when performed (separate procedure) Diagnosis Code(s): --- Professional --- K64.0, First degree hemorrhoids D50.9, Iron deficiency anemia, unspecified CPT copyright 2019 [employer]. All rights reserved. The codes documented in this report are preliminary and upon cuff stitcher review may be revised to meet current compliance requirements. Augustine Chris MD Augustine Chris MD 05/08/2021 11:08:44 AM Electronically signed by Augustine Chris MD Number of Addenda: 0 Note Initiated On: 05/08/2021 10:34 AM Estimated Blood Loss: Estimated blood loss: none.
[2021-05-08 11:25] VITALS: BP 140/87
== END 2021-05-08 11:40 | disposition home or self-care (01) ==
LOC: M OPP 09:26
PROVIDERS: ATTEND Internal Medicine Gastroenterology
DX: K64.0 First degree hemorrhoids (principal); D50.9 Iron deficiency anemia, unspecified; I85.00 Esophageal varices without bleeding; Z79.4 Long term (current) use of insulin; Z79.899 Other long term (current) drug therapy; Z88.8 Allergy status to other drugs, medicaments and biological substances; Z95.5 Presence of coronary angioplasty implant and graft
CPT/HCPCS: 43239; 45378; 88305; J3010

== ENCOUNTER 2021-07-10 21:01 | Inpatient (IN) | payer OTHER, MEDICAID ==
[~2021-07-10] VITALS: Ht 162.6 cm; Wt 103.9 kg
[~2021-07-10 21:01] MED LIST changes: -LIDOCAINE 2% 100MG/5ML SDV (FOR ANES.) As Ordered ONE; -NS 1,000 ML IV ONE; -fentaNYL 100 MCG/2 ML INJECTION (J3010) As Ordered ONE; -propofoL 500 MG/50 ML VIAL As Ordered ONE
[2021-07-10] MEDS ORDERED: LORazepam 2 MG/ML VIAL IV STA (21:03)
--- OUTSIDE RECORDS SUMMARY | 2021-07-10 21:05 | CCD ---
Author Author Located Within [facility] Organization Located Within [facility] Address Unknown Phone Unavailable Care Team Providers Care Transit Coach Operator Name Role Phone Suhas Mock Unavailable PROBLEMS Type Condition ICD9-CM Code [id number] Code Onset Dates Condition S tatus W/U Status Risk SNOMED Code Notes Problem Fe deficiency anemia D50.9 Active confirmed 48528737 Problem GERD (gastroesophageal reflux disease) K21.9 A ctive confirmed 033317275 Problem Hypothyroid E03.9 Active confirmed 18391806 Problem Hyperlipidemia E78.5 Active confirmed 80022 004 Problem Breast cancer screening Z12.39 Active confirmed 690991429 Problem Chronic diarrhea K52.9 Active confirmed 236 735984 Problem Nocturnal leg cramps G47.62 Active confirmed 119832295 Problem Kidney stone N20.0 Active confirmed 1667813 7 Problem Vitamin B12 deficiency E53.8 Active confirmed 220726671 Problem CAD (coronary artery disease) I25.10 Active confirm ed 31108686 Problem Coronary artery disease of n ative artery of [place] heart with stable angina pectoris I25.118 Active confirmed [id number] Problem Type 2 diabetes mellitus wit h complication, with long-term current use of insulin E11.8 Active confirmed 715986583 Problem Vitamin D deficiency E55.9 Active confirmed 68671535 Problem Panic disorder F41.0 Active confirmed 65435 1005 Problem Candidiasis, intertriginous B37.2 Active confirmed 098201627 Problem Osteopenia M85.80 Active confirmed 118341496 Problem T2DM (type 2 diabetes mellitus) E11.9 Active confi rmed 51499163 Problem Hypertension I10 Active confirmed 1148679 3 Problem Primary osteoarthritis of both knees M17.0 Act carlos confirmed 446596750 Problem CKD (chronic kidney disease) stage 3, GFR 30-59 ml/min N18.3 Active confirmed 107853002 Problem Chronic diastolic congestive heart failure I50.32 Active confirmed 311314971 Problem NAFLD (nonalcoholic fatty liver disease) K76.0 Active confirmed 644042601 ALLERGIES Allergen (clinical drug ingredient) Drug/Non Drug Allergy do cumented on EMR Reaction Allergy Type Onset Date Status benzonatate Tessalon Perles([facility] Code:[address]-74) Nausea/V omiting Drug Allergy Active amitriptyline Amitriptyline HCl([facility] Code:[address]-32) Depression Drug Allergy Active loratadine Claritin([facility] Code:[address]-50) Headaches Drug Allergy Active sulfamethoxazole / trimethoprim Bactrim([facility] Code:[address]-95) GI upset Drug Allergy Active ENCOUNTERS from 1945 to 2021-05-15 Encounter Location Date Provider Diagnosis [address] [phone] [place] [address] May, Suhas Mock IMMUNIZATIONS Vaccine Route Administration Date Status Influenza (High Dose 65 & up) IM Intramuscular Jun 15, 2017 A dministered Influenza (High Dose 65 & up) IM Intramuscular Jul 01, 2016 A dministered Influenza (High Dose 65 & up) IM Intramuscular Jun 04, 2015 A dministered Pneumococcal Adult 0.5mL Pneumovax 23 Unknown Aug 16 19 Administered Pneumococcal 0.5mL Prevnar 13 IM Intramuscular Aug 16, 2019 A dministered Influenza 6mo & up Fluzone IM Intramuscular Jun 01, 2014 Admi nistered Influenza 18 yrs & older Flublok IM Intramuscular Oct 01, 2018 Administered Influenza 6mo & up Fluzone IM Intramuscular Jul 18, 2013 Admi nistered Influenza 18 yrs & older Flublok IM Intramuscular Aug 08, 2019 Administered Influenza 6mo & up Fluzone IM Intramuscular Jun 15, 2012 Admi nistered Influenza 6mo & up Fluzone IM Intramuscular Jul 11, 2010 Admi nistered SOCIAL HISTORY Sex Assigned At : Social History Observation Description Sex Assigned At Unknown Education: Question Answer Notes Level of Education: Finished High School Audit Question Answer Notes Total Score: 0 Interpretation: Alcohol Education Sexual Hx: Question Answer Notes Had sex in the last 12 months (vaginal, oral, or anal)? No Have you ever had an STD? No Drug and Alcohol Question Answer Notes Total Score: 0 Interpretation: No problems reported Alcohol Screening: Question Answer Notes Did you have a drink containing alcohol in the past year? No Points 0 Interpretation Negative BMI Care Goal Follow-Up Question Answer Notes Above Normal BMI Follow-Up Giving encouragement to exercise REASON FOR REFERRAL No Information VITAL SIGNS No information MEDICATIONS Medication SIG (Take, Route, Frequency, Duration) Notes Start Da te End Date Status Slow Fe 142 (45 Fe) MG 1 tablet Orally every other day for 90 day(s) Active FreeStyle Darling 14 Day Sensor - as directed subcutaneo usly Daily, E11.8 on 4x daily insulin with poor control for 90 day(s) Active Nystatin - as directed topically TID, BSA 5% for 30 Days 0 Apr, Active Atorvastatin Calcium 80 MG 1 tablet Orally Once a day for 90 day(s) Active Glucose strip (Verio IQ) as directed AC BID, E13.8 bid for 90 day(s) Active Soma 250 MG 1 tablet as needed Orally At bedtime for 90 Active Toujeo SoloStar 300 UNIT/ML 60 units Subcutaneous at 1800 for 90 day( s) Active PARoxetine HCl 20 MG 1 tablet in the morning Orally Once a day f or 90 day(s) Active Nitroglycerin 0.4 MG 1 tab Sublingual every 5 min utes prn chest pain for 30 day(s) Active Magnesium Oxide 400 MG 1 capsule Orally bid for 90 day(s) Active Voltaren 1 % 4 gm Transdermal QID to bilateral knees for 30 day(s) Active Calcitriol 0.25 MCG 1 capsule Orally Once a day for 90 day(s) Active Tums 500 MG 1 tablet Orally at bedtime for 90 day(s) Active Insulin Pen Needle 32G X 5 MM as directed E11.9 twice daily for 30 da ys Active NovoLOG FlexPen 100 UNIT/ML 20 units Subcutaneous before bed time for 90 day(s) Apr, Active Pantoprazole Sodium 40 MG 1 tablet Orally every morning for 90 day(s) Active Isosorbide Mononitrate 10 MG 1 tablet Orally Twice a day for 90 day(s ) Active Torsemide 10 MG 3 tablets Orally every morning for 90 day(s) Active Levothyroxine Sodium 25 MCG 1 tablet on an empty stoma ch in the morning Orally Once a day for 90 day(s) Active FreeStyle Darling [place] - as directed subcutaneously D aily, E13.8, on 4x daily insulin injection c poor control for 90 day(s) Active Losartan Potassium 100 MG 1 tablet Orally every morning for 90 day(s) Active HumaLOG KwikPen 100 UNIT/ML 20 units Subcutaneous AC T ID (10 units if no po) for 90 day(s) Active Cyanocobalamin 500 MCG 1 tablet Orally Once a day for 90 day(s) Active Bisoprolol Fumarate 5 MG 1 tablet Orally every morning for 90 day(s) Active Blood Glucose Test - as directed subcutaneously t wice a day DX: E11.9 for 30 day(s) Jun, Active Imodium A-D 2 MG 1 tablet Orally TID prn diarrhea for 30 day(s) Active Glucometer as directed DX: E11.9 Daily for 30 Days Mar, Active Lancets 33G - as directed subcutaneously bid DX: E11.9 for 30 Days Mar, Active PROCEDURES No Information RESULTS No Results REASON FOR VISIT FSL2 MEDICAL (GENERAL) HISTORY Type Description Date Medical History hypertension, essential Medical History hyperlipidemia 2B Medical History microscopic colitis/pandiver ticulosis by colonoscopy August 2009-Dr. Chris Medical History T2DM NID with microalbuminuria Medical History bilateral knee osteoarthritis Medical History osteopenia Medical History anemia, secondary to iron and B12 defici ency Medical History GERD/hiatal hernia seen by August 2009 EGD Medical History obesity Medical History history of recurrent UTI, wi th history of Escherichia coli pyelonephritis March 2008 Medical History B tinnitus-06/2012 MRI s/c S audiogram R>L moderate- severe SN hearing loss Medical History grade 1 diastolic dysfunctio n, moderate elevation PASP, CVP 0-5, mild aortic sclerosis , LVEF 65-70% by TTE 06/2014-[facility] Medical History nephrolithiasis-12/[address] one (first in life) Medical History CAD (single -vessel disease) s/p 05/14/17 SAMARIA to 99% mid LAD, LVEF 55%-[facility] Medical History R knee advanced tricompartmental OA by x ray Medical History CKD stage IIIa-03/09/21 B renal US cw MRD , R 101, L 970 Surgical History Left ESWL 01/10/16 Surgical History cardiac stent-[facility] 05/14/17 Hospitalization History syncope DOA c hgb 8.4-tx 1 u PRBC, CT AP lobular hepatomegaly cw cirrhosis, pCXR NAD, 03/09-03/11/21 Goals Section No Information Health Concerns No Information MEDICAL EQUIPMENT No Information MENTAL STATUS No Information FUNCTIONAL STATUS No Information ASSESSMENTS No Information PLAN OF TREATMENT Medication Medication Name Sig Start Date Stop Date Losartan Potassium 100 MG 1 tablet Orally every morning for 90 d ay(s) Bisoprolol Fumarate 5 MG 1 tablet Orally every morning for 90 da y(s) Cyanocobalamin 500 MCG 1 tablet Orally Once a day for 90 day(s) Isosorbide Mononitrate 10 MG 1 tablet Orally Twice a day for 90 day(s) Slow Fe 142 (45 Fe) MG 1 tablet Orally every other day for 90 da y(s) Atorvastatin Calcium 80 MG 1 tablet Orally Once a day for 90 day (s) Nystatin - as directed topically TID, BSA 5% for 30 Days Apr, FreeStyle Darling [place] - as directed subcutaneously D aily, E13.8, on 4x daily insulin injection c poor control for 90 day(s) PARoxetine HCl 20 MG 1 tablet in the morning Orally Once a day f or 90 day(s) FreeStyle Darling 14 Day Sensor - as directed subcutaneo usly Daily, E11.8 on 4x daily insulin with poor control for 90 day(s) Calcitriol 0.25 MCG 1 capsule Orally Once a day for 90 day(s) Tums 500 MG 1 tablet Orally at bedtime for 90 day(s) Soma 250 MG 1 tablet as needed Orally At bedtime for 90 HumaLOG KwikPen 100 UNIT/ML 20 units Subcutaneous AC T ID (10 units if no po) for 90 day(s) Torsemide 10 MG 3 tablets Orally every morning for 90 day(s) Toujeo SoloStar 300 UNIT/ML 60 units Subcutaneous at 1800 for 90 day(s) Nitroglycerin 0.4 MG 1 tab Sublingual every 5 min utes prn chest pain for 30 day(s) Voltaren 1 % 4 gm Transdermal QID to bilateral knees for 30 d ay(s) Magnesium Oxide 400 MG 1 capsule Orally bid for 90 day(s) Glucose strip (Verio IQ) as directed AC BID, E13.8 bid for 90 da y(s) Pantoprazole Sodium 40 MG 1 tablet Orally every morning for 90 d ay(s) Levothyroxine Sodium 25 MCG 1 tablet on an empty stoma ch in the morning Orally Once a day for 90 day(s) Next Appt Details Provider Name:Daniela Ortiz, 05-21 04:00:00 PM, [address] [place] [address], , [place], [address], Provider Name:Suhas Mock, 2021-08-22 0 2:30:00 PM, [address] [place] [address], , [place], [address], Insurance Providers Payer Name Payer Address Payer Phone Insured Name Patient Relati onship to Insured Coverage Start Date Coverage End Date MEDICAID [employer] [address] [facility] [id number] ALEXIS MAHAJAN self [employer] GOLD [address] [facility] [address] ALEXIS MAHAJAN self
--- OUTSIDE RECORDS SUMMARY | 2021-07-10 21:05 | CCD | Continuity of Care Document ---
Author Author Karyn HAYNES MD Organization Unknown Address [address] [place] [address] [place] [address] Phone [phone] Care Team Providers Care Rodent Control Worker Name Role Phone Suhas Mock MD AUTM [phone] Problems Active Problems Provider Date Precordial pain Jorge Schreiber MD Onset: 07/03/2017 Dyspnea Jorge Schreiber MD Onset: 07/03/2017 Electrocardiogram abnormal Jorge Schreiber MD Onset: 2016 Chronic pulmonary heart disease Jorge Schreiber MD Onset: 1 Heart murmur Jorge Schreiber MD Onset: 07/03/2017 Body mass index 40+ - severely obese Jorge Schreiber MD Ons et: 07/03/2017 Atherosclerotic heart disease of [place] coronary artery with other forms of angina pectoris Jorge Schreiber MD Onset: 07/03/2017 Benign hypertensive heart disease with congestive card iac failure Jorge Schreiber MD Onset: 07/03/2017 Patient post percutaneous transluminal coronary angioplasty Jorge Schreiber MD Onset: 09/22/2017 Benign hypertensive heart disease without congestive h eart failure Jorge Schreiber MD Onset: 09/22/2017 Dietary management surveillance BISHOP Li Onset: 12/21/2017 Obesity BISHOP Li Onset: 06/23/2019 Social History Type Date Description Comments Sex Unknown ETOH Use Does not consume alcohol Tobacco Use Start: Unknown Patient has never smoked Smoking Status Reviewed: 03/27/21 Patient has never smoked Exercise Type/Frequency Does housework daily lig ht duty only Exercise Type/Frequency Walks sporadically Exercise Limitations Fatigue Exercise Limitations Orthopedic Problem knees Exercise Limitations Imbalance Allergies, Adverse Reactions, Alerts Active Allergies Criticality Reaction | Severity Comments Date Amitriptyline Unable to assess criticality nausea/vomi ting 04/05/2017 Sulfamethoxazole / Trimethoprim Unable to assess criticality nausea/vomiting 04/05/2017 Loratadine Unable to assess criticality severe heada ches 04/05/2017 Hydrocodone Unable to assess criticality "felt like I was on fire" 04/05/2017 Tizanidine Unable to assess criticality hallucinatio ns 03/26/2021 Inactive Allergies NKDA Unable to assess criticality 10/20/2007 Medications Active Medications SIG Qnty Indications Ordering Provide r Date Humalog Kwikpen 100U nit/ML Solution Pen-Inject inject as directed per sliding scale Suhas Louis MD 03/26/2021 Torsemide 10mg Tablets 3 by mouth every day Unknown 03/26/2021 Atorvastatin Calcium 80mg Tablets 1 by mouth every night at bedtime Unknown 05/2019 Calcitriol 0.25mcg Capsules 1 by mouth twice a day Unknown 06/22/2019 Paroxetine HCL 20mg Tablets 1 by mouth every day Unknown 06/22/2019 Tums 500mg Chewtabs 1 tablet by mouth 4 times a day when necessary heartburn Unknown 06/22/2018 Toujeo Max Solostar 300Unit/ML Solution Pen-Inject as directed Unknown 06/22/2018 Losartan Potassium 100mg Tablets take one tablet by mouth at bedtime 90tabs R06.02 Jake Haynes MD 07/03/2017 Isosorbide Mononitrate 10mg Tablet s take one tablet by mouth twice a day 180tabs R07.2 Jorge Schreiebr MD 07/03/2017 Levothyroxine Sodium 25mcg Tablets 1 by mouth every day Unknown 07/02/2017 Voltaren 1% Gel apply as d irected daily Unknown 07/02/2017 Aspirin Low Dose 81mg Tablets DR 1 by mouth every day Unknown 07/02/2017 Nitrostat 0.4mg Tablets Sub 1 sl every 5min x3 as needed for chest pain 30tabs Jake terry MD 07/02/2017 Calcium 600+D High Potency [id number] Tablets 1 by mouth twice a day Unknown 04/05 Magnesium Oxide 400mg Tablets 1 by mouth twice a day Suhas Mock MD 04/05/2017 Imodium A-D 2mg Tablets 1 by mouth as needed Unknown 04/05/2017 Vitamin B-12 1000mcg Tablets 1 by mouth every day Unknown 04/05/2017 Pantoprazole Sodium 40mg Tablets D R 1 by mouth every day Suhas Mock MD 04/05/2017 Bisoprolol Fumarate 5mg Tablets 1 PO Daily Suhas Mock MD History Medications Metformin HCL ER (Mod) 500mg Tablets ER 24HR 1 by mouth every day in morning Deshawn Mock MD 03/03/2021 - 03/26/2021 Covid-19 vaccine, Unspecified Inj ection Unknown Immunizations Description No Information Available Vital Signs Date Vital Result Comment 03/27/2021 1:06pm Weight 196.00 lb Height 59 inches 4'11" BMI (Body Mass Index) 39.6 kg/m2 Heart Rate 73 /min BP Systolic Sitting 110 mmHg Ra, large cuff BP Diastolic Sitting 62 mmHg Ra, large cuff 09/27/2020 8:43am Weight 208.00 lb Height 59 inches 4'11" BMI (Body Mass Index) 42.0 kg/m2 Heart Rate 70 /min BP Systolic Sitting 122 mmHg large cuff, Ra BP Diastolic Sitting 76 mmHg large cuff, Ra Results Test Acquired Date Facility Test Result H/L Range Note Basic Metabolic Panel 03/11/2021 [facility] Glucose 174 Blood Urea Nitrogen 15 Creatinine 1.50 Sodium 139 Potassium 4.1 Chloride 104 Carbon Dioxide 27 Calcium 8.1 GFR (Calculated) 35.8 Liver Function Test/ Liver Hep 03/11/2021 [facility] Ast/Sgot 76 Alt/SGPT 42 Alk Phos 192 Albumin 2.4 Total Bilirubin 0.5 Total Protein 6.2 A/G Ratio 0.6 Laboratory test finding 03/11/2021 [facility] Magnesium Level 2.1 Hemoglobin 10.0 Hematocrit 33.5 Procedures Date Code Description Status 04/04/2021 92452 Chronic Care MGMT 20 Mins Clinical Staff Time Per Calendar Month Completed 04/04/2021 04508 Chronic Care Management Services Ea Addl 20 Min Completed 03/27/2021 84639 Office/Outpatient Established Mo d MDM 30-39 Min Completed 03/27/2021 70052 ECG 12-Lead Completed 03/04/2021 77001 Chronic Care MGMT 20 Mins Clinical Staff Time Per Calendar Month Completed 03/04/2021 22326 Chronic Care Management Services Ea Addl 20 Min Completed 01/28/2021 75825 Chronic Care MGMT 20 Mins Clinical Staff Time Per Calendar Month Completed 12/26/2020 25875 Chronic Care MGMT 20 Mins Clinical Staff Time Per Calendar Month Completed 12/26/2020 40538 Chronic Care Management Services Ea Addl 20 Min Completed Medical Devices Description No Information Available Encounters Type Date Location Provider Dx Diagnosis Office Visit 04/04/2021 8:37a Main Office Jake Haynes MD I11.9 Hypertensive heart disease without heart failure E66.09 Other obesity due to excess calories Office Visit 03/27/2021 1:00p Main Office BISHOP Baeza Z01 .810 Encounter for preprocedural cardiovascular examination I25.118 Athscl heart disease of [place] art w [facility] ang pctrs I11.9 [facility] R94.31 Abnormal electrocardiogram [ ECG] [EKG] E66.09 Other obesity due to excess calories Z71.3 Dietary counseling and surve illance Office Visit 03/04/2021 3:13p Main Office Jake Haynes MD I11.9 Hypertensive heart disease without heart failure E66.09 Other obesity due to excess calories Office Visit 01/28/2021 10:30a Main Office Jake Haynes MD I11.9 Hypertensive heart disease without heart failure E66.09 Other obesity due to excess calories Office Visit 12/26/2020 10:43a Main Office Jake Haynes MD E66.0 9 Other obesity due to excess calories I11.9 [facility] heart [facility] I25.118 Athscl heart disease of [place] art w [facility] ang pctrs Assessments Date Code Description Provider 04/04/2021 I11.9 Hypertensive heart disease witho ut heart failure Jake Haynes MD 04/04/2021 E66.09 Other obesity due to excess [place] Jake Haynes MD 03/27/2021 Z01.810 Encounter for preprocedural card iovascular examination BISHOP Baeza 03/27/2021 I25.118 Atherosclerotic hear t disease of [place] coronary artery with other forms of angina pectoris BISHOP Baeza 03/27/2021 I11.9 Hypertensive heart disease witho ut heart failure BISHOP Baeza 03/27/2021 R94.31 Abnormal electrocardiogram [ECG] [EKG] BISHOP Baeza 03/27/2021 E66.09 Other obesity due to excess [place] BISHOP Baeza 03/27/2021 Z71.3 Dietary counseling and surveilla nce BISHOP Baeza 03/04/2021 I11.9 Hypertensive heart disease witho ut heart failure Jake Haynes MD 03/04/2021 E66.09 Other obesity due to excess [place] Jake Haynes MD 01/28/2021 I11.9 Hypertensive heart disease witho ut heart failure Jake Haynes MD 01/28/2021 E66.09 Other obesity due to excess [place] Jake Haynes MD 12/26/2020 E66.09 Other obesity due to excess [place] temo Haynes MD 12/26/2020 I11.9 Hypertensive heart disease witho ut heart failure Jake Haynes MD 12/26/2020 I25.118 Atherosclerotic hear t disease of [place] coronary artery with other forms of angina pectoris Jake Haynes MD Plan of Treatment Future Appointment(s):* 09/27/2021 1:30 pm - BISHOP Baeza at Main Office 03/27/2021 - BISHOP Baeza* Z01.810 Encounter for preprocedural cardiovascular examination* Recommendations:* At this time patient is cleared with intermediate cardiovascular risk to proceed with the scheduled endoscopy and colonoscopy Due to her unknown, significant bleeding I have advised her to hold aspirin * I25.118 Atherosclerotic heart disease of [place] coronary artery with other forms of angina pectoris* Recommendations:* Continue atorvastatin, bisoprolol, isosorbide mononitrate, and losartan at current dosages Hold aspirin due to anemia and recent bleeding Patient has nitroglycerin to use in the event that chest pain develops * I11.9 Hypertensive heart disease without heart failure* Recommendations:* Continue bisoprolol, isosorbide mononitrate, and losartan at the current dosages Advised patient to please monitor blood pressures at home and to alert our office with readings >140/>90 * R94.31 Abnormal electrocardiogram [ECG] [EKG]* Recommendations:* No further evaluation is needed at this time. * E66.09 Other obesity due to excess calories * Z71.3 Dietary counseling and surveillance* Recommendations:* Recommended for patient to follow a more whole food diet. Advised patient to avoid overly processed foods and packaged foods. Advised patient to avoid sodas, juices and other liquid calories. Recommended at least 30 minutes of exercise 3 days a week. * All * Follow up:* Follow up in 6 months Functional Status Functional Condition Comment Date Status Independent with all ADL's Activ e Independent with ambulating using walker Acti ve Mental Status Description No Information Available Referrals Description No Information Available
--- OUTSIDE RECORDS SUMMARY | 2021-07-10 21:05 | CCD | Continuity of Care Document ---
Author Author Karyn CHRIS Organization Unknown Address [address] [place] [address] Phone [phone] Care Team Providers Care Uniform Force Captain Name Role Phone Suhas Mock MD [facility] [phone] Problems Active Problems Provider Date Anemia Augustine Chris M.D. Onset: 04/02/20 21 Social History Type Date Description Comments Sex Unknown ETOH Use Denies alcohol use Tobacco Use Start: Unknown Patient has never smoked Allergies, Adverse Reactions, Alerts Active Allergies Criticality Reaction | Severity Comments Date Claritin Unable to assess criticality 04/02/2021 Medications Active Medications SIG Qnty Indications Ordering Provide r Date Sutab [id number] Tablets as directed 1box Augustine Chris M.D. 04/02/2021 Torsemide 10mg Tablets Take Three Tablets By Mouth Every Morning Unknown 0 Paroxetine HCL 20mg Tablets Take One Tablet By Mouth Every Morning Unknown Pantoprazole Sodium 40mg Tablets D R Take One Tablet By Mouth Every Morning Unknown Isosorbide Mononitrate 10mg Tablet s Take One Tablet By Mouth Twice A Day Unknown Magnesium Oxide 400mg Tablets Take One Tablet By Mouth Twice A Day Unknown Levothyroxine Sodium 25mcg Tablets Take One Tablet By Mouth Every Morning On An Empty Stomach Unknown Atorvastatin Calcium 80mg Tablets Take One Tablet By Mouth Once Daily Unknown Bisoprolol Fumarate 5mg Tablets Take One Tablet By Mouth Every Morning Unknown Immunizations Description No Information Available Vital Signs Date Vital Result Comment 04/02/2021 1:23pm Height 59 inches 4'11" Weight 196.00 lb BP Systolic 127 mmHg BP Diastolic 81 mmHg Heart Rate 55 /min BMI (Body Mass Index) 39.6 kg/m2 Weight 88.906 kg Body Temperature 96.3 F Results Test Acquired Date Facility Test Result H/L Range Note Laboratory test finding 05/08/2021 [facility] [address] [place] [address] Pathology Request For Service (SEE NOTE) 1, 2 1 FINAL DIAGNOSIS A - Stomach, antrum, biopsy: Gastric mucosa with mild gastritis and atrophic changes. No evidence for H. pylori like organisms on H & E stain. B - Small bowel, biopsy: Duodenal mucosa with intact villous architecture. No evidence for celiac disease. 05/09/2021 - 134 CLINICAL DIAGNOSIS Anemia 05/09/2021 - 0746 GROSS DIAGNOSIS A - Received in formalin labeled "antrum biopsy" consists of two sarmiento fragments, 0.6 x 0.3 x 0.3 cm in aggregate. All in one. B - Received in formalin labeled "small bowel biopsy" consists of two sarmiento fragments, 0.4 x 0.3 x 0.2 cm in aggregate. All in one. -SV 05/09/2021 - 1344 Signed BRIJESH HURST MD 05/09/2021 1355 2 05/22/21 (ThuMay 22) 09:53 A M AUGUSTINE CHRIS biopsies are all negative for any pathology. Procedures Date Code Description Status 05/08/2021 97086 Colonoscopy Flexible Diagnostic Completed 05/08/2021 62711 Endoscopy Upper GI Biopsy Comple david 04/02/2021 47458 Office/Outpatient [facility] 30 -44 Minutes Completed Medical Devices Description No Information Available Encounters Type Date Location Provider Dx Diagnosis Office Visit 04/02/2021 1:00p Main Office Augustine Chris M.D. D 64.9 Anemia, unspecified Assessments Date Code Description Provider 05/08/2021 D64.9 Anemia, unspecified Augustine lópez M.D. 05/08/2021 K64.0 First degree hemorrhoids Augustine Chris M.D. 05/08/2021 K29.70 Gastritis, unspecified, without bleeding Augustine Chirs M.D. 05/08/2021 I85.00 Esophageal varices without bleed ing Augustine Chris M.D. 04/02/2021 D64.9 Anemia, unspecified Augustine lópez M.D. Plan of Treatment Future Appointment(s):* 07/09/2021 10:45 am - Augustine Chris M.D. at Main Office 04/02/2021 - Augustine Chris M.D.* D64.9 Anemia, unspecified* Comments:* 76 yo wm who presents for a colonoscopy/egd for a h/o anemia. Last scope was in 2010. No c/o abdominal pain, weight loss, change in bowel habits, or rectal bleeding. No family h/o colon cancer. No h/o chest pain, or sob. Pt was admitted with ablood count of 8.5, given 1 unit of packed cells to 9.8. No gross bleeding.Plan:1. Colonoscopy + egd.2. Informed consent. Functional Status Description No Information Available Mental Status Description No Information Available Referrals Description No Information Available
--- OUTSIDE RECORDS SUMMARY | 2021-07-10 21:05 | CCD | Continuity of Care Document ---
Author Author Karyn HAYNES MD Organization Unknown Address [address] [place] [address] [place] [address] Phone [phone] Care Team Providers Care Restaurant Cashier Name Role Phone Suhas Mock MD [facility] [phone] Problems Active Problems Provider Date Precordial pain Jorge Schreiber MD Onset: 07/03/2017 Dyspnea Jorge Schreiber MD Onset: 07/03/2017 Electrocardiogram abnormal Jorge Schreiber MD Onset: 2016 Chronic pulmonary heart disease Jorge Schreiber MD Onset: 1 Heart murmur Jorge Schreiber MD Onset: 07/03/2017 Body mass index 40+ - severely obese Jorge Schreiber MD Ons et: 07/03/2017 Atherosclerotic heart disease of [place] coronary artery with other forms of angina [...] mouth twice a day 180tabs R07.2 Jorge Schreiber MD 07/03/2017 Levothyroxine Sodium 25mcg Tablets 1 by mouth every day Unknown 07/02/2017 Voltaren 1% Gel apply as d irected daily Unknown 07/02/2017 Aspirin Low Dose 81mg Tablets DR 1 by mouth every day Unknown 07/02/2017 Nitrostat 0.4mg Tablets Sub 1 sl every 5min x3 as needed for chest pain 30tabs Jake terry MD 07/02/2017 Calcium 600+D High Potency [id number] Tablets 1 by mouth twice a day [...] 33.5 Procedures Date Code Description Status 04/04/2021 19136 Chronic Care MGMT 20 Mins Clinical Staff Time Per Calendar Month Completed 04/04/2021 48670 Chronic Care Management Services Ea Addl 20 Min Completed 03/27/2021 87922 Office/Outpatient Established Mo d MDM 30-39 Min Completed 03/27/2021 67494 ECG 12-Lead Completed 03/04/2021 06243 Chronic Care MGMT 20 Mins Clinical Staff Time Per Calendar Month Completed 03/04/2021 86848 Chronic Care Management Services Ea Addl 20 Min Completed 01/28/2021 55141 Chronic Care MGMT 20 Mins Clinical Staff Time Per Calendar Month Completed 12/26/2020 89539 Chronic Care MGMT 20 Mins Clinical Staff Time Per Calendar Month Completed 12/26/2020 68306 Chronic Care Management Services Ea Addl 20 [...] disease of lois ve cor art w [facility] ang pctrs I11.9 Hypertensive heart disease w [facility] heart failure R94.31 Abnormal electrocardiogram [ [...] calories Office Visit 12/26/2020 10:43a Main Office Jaek Haynes MD E66.0 9 Other obesity due to excess calories I11.9 Hypertensive heart disease w [facility] heart failure I25.118 Athscl heart disease of [place] ve cor art w [facility] ang pctrs Assessments Date Code Description Provider 04/04/2021 I11.9 Hypertensive heart disease witho ut heart failure Jake Haynes MD 04/04/2021 E66.09 Other obesity due to excess sadia temo Jake Haynes MD 03/27/2021 Z01.810 Encounter for preprocedural card iovascular examination BISHOP Baeza 03/27/2021 I25.118 Atherosclerotic hear t disease of [place] coronary artery with other forms of angina [...] 12/26/2020 I25.118 Atherosclerotic hear t disease of [place] coronary artery with other forms of angina [...] aspirin * I25.118 Atherosclerotic heart disease of [place] coronary artery with other forms of angina [...]
--- OUTSIDE RECORDS SUMMARY | 2021-07-10 21:05 | CCD | Continuity of Care Document ---
Author Author Karyn CHRIS Organization Unknown Address [address] [place] [address] Phone [phone] Care Team Providers Care Privacy Director Name Role Phone Suhas Mock MD [facility] [phone] Problems Active Problems Provider Date Cirrhosis - non-alcoholic Augustine Chris M.D. Onset: Anemia Augustine Chris M.D. Onset: 04/02/20 21 Social History Type Date Description Comments Sex Unknown ETOH Use Denies alcohol use Tobacco Use Start: Unknown Patient has never smoked Allergies and adverse reactions Active Allergies Criticality Reaction | Severity Comments Date Nandini Unable to assess criticality 04/02/2021 Medications Active Medications SIG Qnty Indications Ordering Provide r Date Torsemide 10mg Tablets Take Three Tablets By [...] One Tablet By Mouth Every Morning Unknown Calcitriol 0.25mcg Capsules Take One Capsule By Mouth Once Daily Unknown History Medications Sutab [id number] Tablets as directed 1box Augustine Chris M.D. 04/02/2021 - Immunizations Description No Information Available Vital Signs Date Vital Result Comment 07/09/2021 11:05am Height 59 inches 4'11" Weight 203.00 lb BP Systolic 139 mmHg BP Diastolic 89 mmHg Heart Rate 81 /min BMI (Body Mass Index) 41.0 kg/m2 Weight 92.081 kg Body Temperature 97.3 F 04/02/2021 1:23pm Height 59 inches 4'11" Weight 196.00 lb BP Systolic 127 mmHg BP Diastolic 81 mmHg Heart Rate 55 /min BMI (Body Mass Index) 39.6 kg/m2 Weight 88.906 kg Body Temperature 96.3 F Results Test Acquired Date Facility Test Result H/L Range Note Laboratory test finding 05/08/2021 [facility] [address] [place] [address] Pathology Request For Service (SEE NOTE) 1, 2 1 FINAL DIAGNOSIS A - Stomach, antrum, biopsy: Gastric mucosa with mild gastritis and atrophic changes. No evidence for H. pylori like organisms on H & E stain. B - Small bowel, biopsy: Duodenal mucosa with intact villous architecture. No evidence for celiac disease. 05/09/2021 - 1344 CLINICAL DIAGNOSIS Anemia 05/09/2021 - 0746 GROSS [...] any pathology. Procedures Date Code Description Status 07/09/2021 71928 Office/Outpatient Established Lo w MDM 20-29 Min Completed 05/08/2021 28938 Colonoscopy Flexible Diagnostic Completed 05/08/2021 34530 Endoscopy Upper GI Biopsy Comple david 04/02/2021 36400 Office/Outpatient New Low MDM 30 -44 Minutes Completed Medical Devices Description No Information Available Encounters Type Date Location Provider Dx Diagnosis Office Visit 07/09/2021 10:45a Main Office Augustine Chris M.D. K 74.69 Other cirrhosis of liver I85.00 Esophageal varices without b leeding Office Visit 04/02/2021 1:00p Main Office Augustine Chris M.D. D 64.9 Anemia, unspecified Assessments Date Code Description Provider 07/09/2021 K74.69 Other cirrhosis of liver Augustine Chris M.D. 07/09/2021 I85.00 Esophageal varices without bleed ing Augustine Chris M.D. 05/08/2021 D64.9 Anemia, unspecified Augustine SDonnie lópez M.D. 05/08/2021 K64.0 First degree hemorrhoids Augustine Chris M.D. 05/08/2021 K29.70 Gastritis, unspecified, without bleeding Augustine Chris M.D. 05/08/2021 I85.00 Esophageal varices without bleed geno Chris M.D. 04/02/2021 D64.9 Anemia, unspecified Augustine SDonnie lópez M.D. Plan of Treatment Future Appointment(s):* 01/07/2022 1:00 pm - Augustine Chris M.D. at Main Office 07/09/2021 - Augustine Chris M.D.* K74.69 Other cirrhosis of liver* New Labs:* CBC With Differential, Ordered: 07/09/21 * Comprehensive Metabolic Profil, Ordered: 07/09/21 * Alpha Fetoprotein Tumor Quant, Ordered: 07/09/21 * New Xrays:* Ultrasound of the Liver, Ordered: 07/09/21 * Comments:* 76 yo wm who presented for a colonoscopy/egd for a h/o anemia. Last scope was in 2010. No c/o abdominal pain, weight loss, change in bowel habits, or rectal bleeding. No family h/o colon cancer. No h/o chest pain, or sob. Pt was admitted with ablood count of 8.5, given 1 unit of packed cells to 9.8. No gross bleeding. Abdominal ct in , showed cirrhosis, no mass. Egd showed grade 1 varices. No banding needed. Plan:1. Liver us + labs every 6 months.2. Office in 6 months. * I85.00 Esophageal varices without bleeding* Comments:* Repeat egd in 1 yr. Functional Status Description No Information Available Mental Status Description No Information Available Referrals Description No Information Available
--- OUTSIDE RECORDS SUMMARY | 2021-07-10 21:05 | CCD ---
Author Author [facility] Organization [facility] Address Unknown Phone Unavailable Care Team Providers Care Watch Parts Inspector Name Role Phone Daniela Ortiz Unavailable PROBLEMS Type Condition ICD9-CM Code [id number] Code Onset Dates Condition S tatus W/U Status Risk SNOMED Code Notes Problem Fe deficiency anemia D50.9 Active confirmed 51965083 Problem GERD (gastroesophageal reflux disease) K21.9 A ctive confirmed 027896003 Problem Hypothyroid E03.9 Active confirmed 40490367 Problem Hyperlipidemia E78.5 Active confirmed 04075 004 Problem Breast cancer screening Z12.39 Active confirmed 254111852 Problem Chronic diarrhea K52.9 Active confirmed 236 127099 Problem Nocturnal leg cramps G47.62 Active confirmed 386907722 Problem Kidney stone N20.0 Active confirmed 1835629 7 Problem Vitamin B12 deficiency E53.8 Active confirmed 090259225 Problem CAD (coronary artery disease) I25.10 Active confirm ed 26612645 Problem Coronary artery disease of n ative artery of [place] heart with stable angina pectoris I25.118 Active confirmed 1337035056587 Problem Type 2 diabetes mellitus wit h complication, with long-term current use of insulin E11.8 Active confirmed 869990855 Problem Vitamin D deficiency E55.9 Active confirmed 20209057 Problem Panic disorder F41.0 Active confirmed 08350 1005 Problem Candidiasis, intertriginous B37.2 Active confirmed 967271837 Problem Osteopenia M85.80 Active confirmed 611551920 Problem T2DM (type 2 diabetes mellitus) E11.9 Active confi rmed 31852149 Problem Hypertension I10 Active confirmed 4754034 3 Problem Primary osteoarthritis of both knees M17.0 Act carlos confirmed 751756567 Problem CKD (chronic kidney disease) stage 3, GFR 30-59 ml/min N18.3 Active confirmed 705034859 Problem Chronic diastolic congestive heart failure I50.32 Active confirmed 224419765 Problem NAFLD (nonalcoholic fatty liver disease) K76.0 Active confirmed 144908564 ALLERGIES Allergen (clinical drug ingredient) Drug/Non Drug Allergy do cumented on EMR Reaction Allergy Type Onset Date Status benzonatate Tessalon Perles([facility] Code:[address]-55) Nausea/V omiting Drug Allergy Active amitriptyline Amitriptyline HCl([facility] Code:[address]-05) Depression Drug Allergy Active loratadine Claritin([facility] Code:[address]-87) Headaches Drug Allergy Active sulfamethoxazole / trimethoprim Bactrim([facility] Code:[address]-62) GI upset Drug Allergy Active ENCOUNTERS from 1945 to 2021-06-26 Encounter Location Date Provider Diagnosis [address] [phone] [place] [address] May, 2021 Daniela Ortiz IMMUNIZATIONS Vaccine Route Administration Date Status Influenza [...] Notes Start Da te End Date Status Tums 500 MG 1 tablet Orally at bedtime for 90 day(s) Not-Taking HumaLOG KwikPen 100 UNIT/ML 20 units Subcutaneous AC T ID (10 units if no po) for 90 day(s) Active Cyanocobalamin 500 MCG 1 tablet Orally Once a day for 90 day(s) Active Glucometer as directed DX: E11.9 Daily for 30 Days Mar, Active Blood Glucose Test - as directed subcutaneously t wice a day DX: E11.9 for 30 day(s) Jun, Active NovoLOG FlexPen 100 UNIT/ML 20 units Subcutaneous before bed time for 90 day(s) Apr, Active Calcitriol 0.25 MCG 1 capsule Orally Once a day for 90 day(s) Active Glucose strip (Verio IQ) as directed AC BID, E13.8 bid for 90 day(s) Active Lancets 33G - as directed subcutaneously bid DX: E11.9 for 30 Days Mar, Active Imodium A-D 2 MG 1 tablet Orally TID prn diarrhea for 30 day(s) Active Nystatin - as directed topically TID, BSA 5% for 30 Days 0 9 Apr, 2021 Active Bisoprolol Fumarate 5 MG 1 tablet Orally every morning for 90 day(s) Active Torsemide 10 MG 3 tablets Orally every morning for 90 day(s) Active Magnesium Oxide 400 MG 1 capsule Orally bid for 90 day(s) Active FreeStyle Darling [place] - patient is on multiple daily insulin injection therapy with fixed basal qhs and sliding scale bolus ac 3x daily and qhs. she is testing capillary blood glucose 7-12x daily. the fsl2 would greatly improve compliance and control. subcutaneously Daily for 90 day(s) Active Nitroglycerin 0.4 MG 1 tab Sublingual every 5 min utes prn chest pain for 30 day(s) Active Pantoprazole Sodium 40 MG 1 tablet Orally every morning for 90 day(s) Active Losartan Potassium 100 MG 1 tablet Orally every morning for 90 day(s) Active Insulin Pen Needle 32G X 5 MM as directed E11.9 twice daily for 30 da ys Active Toujeo SoloStar 300 UNIT/ML 60 units Subcutaneous at 1800 for 90 day( s) Active Levothyroxine Sodium 25 MCG 1 tablet on an empty stoma ch in the morning Orally Once a day for 90 day(s) Active Slow Fe 142 (45 Fe) MG 1 tablet Orally every other day for 90 day(s) Not-Taking FreeStyle Darling 14 Day Sensor - patient is on multiple daily insulin injection therapy with fixed basal qhs and sliding scale bolus ac 3x daily and qhs. she is testing capillary blood glucose 7-12x daily. the fsl2 would greatly improve compliance and control. subcutaneously Daily for 90 days Active Isosorbide Mononitrate 10 MG 1 tablet Orally Twice a day for 90 day(s ) Active Soma 250 MG 1 tablet as needed Orally At bedtime for 90 Not-Taking Voltaren 1 % 4 gm Transdermal QID to bilateral knees for 30 day(s) Active PARoxetine HCl 20 MG 1 tablet in the morning Orally Once a day f or 90 day(s) Active Atorvastatin Calcium 80 MG 1 tablet Orally Once a day for 90 day(s) Active PROCEDURES No Information RESULTS No Results [...] Medical History B tinnitus-06/2012 MRI s/c S VD/06/2012 audiogram R>L moderate- severe SN hearing loss Medical History grade 1 diastolic dysfunctio n, moderate elevation PASP, CVP 0-5, mild aortic sclerosis , LVEF 65-70% by TTE 06/2014-[facility] Medical History nephrolithiasis-12/[address] (first in life) Medical History CAD (single -vessel disease) s/p 05/14/17 SAMARIA to 99% mid LAD, LVEF 55%-[facility] Medical History R knee advanced tricompartmental OA by x ray Medical History CKD stage IIIa-03/09/21 B renal US cw MRD , R 101, L 970 Surgical History Left ESWL 01/10/16 Surgical History cardiac stent-[facility]-Dr. BERNARD 05/14/17 Hospitalization History syncope DOA c hgb 8.4-tx 1 u PRBC, CT AP lobular hepatomegaly cw cirrhosis, pCXR NAD, 03/09-03/11/21 Goals Section No Information Health Concerns No Information MEDICAL EQUIPMENT No Information MENTAL STATUS No Information FUNCTIONAL STATUS No Information ASSESSMENTS No Information PLAN OF TREATMENT Medication Medication Name Sig Start Date Stop Date FreeStyle Darling [place] - patient is on multiple daily insulin injection therapy with fixed basal qhs and sliding scale bolus ac 3x daily and qhs. she is testing capillary blood glucose 7-12x daily. the fsl2 would greatly improve compliance and control. subcutaneously Daily for 90 day(s) FreeStyle Darling 14 Day Sensor - patient is on multiple daily insulin injection therapy with fixed basal qhs and sliding scale bolus ac 3x daily and qhs. she is testing capillary blood glucose 7-12x daily. the fsl2 would greatly improve compliance and control. subcutaneously Daily for 90 days HumaLOG KwikPen 100 UNIT/ML 20 units Subcutaneous AC T ID (10 units if no po) for 90 day(s) Toujeo SoloStar 300 UNIT/ML 60 units Subcutaneous at 1800 for 90 day(s) Glucose strip (Verio IQ) as directed AC BID, E13.8 bid for 90 da y(s) Next Appt Details Provider Name:Suhas Mock, 2021-08-22 0 2:30:00 PM, [address] [facility], , [place], [address], Insurance Providers Payer Name Payer Address Payer Phone Insured Name Patient Relati onship to Insured Coverage Start Date Coverage End Date [employer] GOLD [address] [address] [facility] [phone] ALEXIS MAHAJAN [facility] MEDICAID [employer] [address] [facility] [address] ALEXIS MAHAJAN self
--- OUTSIDE RECORDS SUMMARY | 2021-07-10 21:05 | CCD ---
Author Author [facility] Organization [facility] Address Unknown Phone Unavailable Care Team Providers Care Commercial Ocean Clammer Name Role Phone Suhas Mock Unavailable PROBLEMS Type Condition ICD9-CM Code EOJ44-SH Code Onset Dates Condition S tatus W/U Status Risk SNOMED Code Notes Problem Fe deficiency anemia D50.9 Active confirmed 31955730 Problem GERD (gastroesophageal reflux disease) K21.9 A ctive confirmed 745370641 Problem Hypothyroid E03.9 Active confirmed 69241785 Problem Hyperlipidemia E78.5 Active confirmed 52041 004 Problem Breast cancer screening Z12.39 Active confirmed 903678424 Problem Chronic diarrhea K52.9 Active confirmed 236 761431 Problem Nocturnal leg cramps G47.62 Active confirmed 150920352 Problem Kidney stone N20.0 Active confirmed 5127266 7 Problem Vitamin B12 deficiency E53.8 Active confirmed 258450195 Problem CAD (coronary artery disease) I25.10 Active confirm ed 14304525 Problem Coronary artery disease of n ative artery of [place] heart with stable angina pectoris I25.118 Active confirmed 7578572267601 Problem Type 2 diabetes mellitus wit h complication, with long-term current use of insulin E11.8 Active confirmed 073992299 Problem Vitamin D deficiency E55.9 Active confirmed 63688612 Problem Panic disorder F41.0 Active confirmed 86090 1005 Problem Candidiasis, intertriginous B37.2 Active confirmed 032143145 Problem Osteopenia M85.80 Active confirmed 656172878 Problem T2DM (type 2 diabetes mellitus) E11.9 Active confi rmed 57105110 Problem Hypertension I10 Active confirmed 4429785 3 Problem Primary osteoarthritis of both knees M17.0 Act carlos confirmed 331857232 Problem CKD (chronic kidney disease) stage 3, GFR 30-59 ml/min N18.3 Active confirmed 931663773 Problem Chronic diastolic congestive heart failure I50.32 Active confirmed 196750038 Problem NAFLD (nonalcoholic fatty liver disease) K76.0 Active confirmed 181254344 ALLERGIES Allergen (clinical drug ingredient) Drug/Non Drug Allergy do cumented on EMR Reaction Allergy Type Onset Date Status benzonatate Tessalon Perles([facility] Code:[address]-53) Nausea/V omiting Drug Allergy Active amitriptyline Amitriptyline HCl([facility] Code:[address]-87) Depression Drug Allergy Active loratadine Claritin([facility] Code:[address]-29) Headaches Drug Allergy Active sulfamethoxazole / trimethoprim Bactrim([facility] Code:[address]-26) GI upset Drug Allergy Active ENCOUNTERS from 1943 to 2021-05-27 Encounter Location Date Provider Diagnosis [address] [phone] [place] [address] May, Suhas Mock T2DM (type 2 diabetes [facility]) E11.9 IMMUNIZATIONS Vaccine Route Administration Date Status Influenza [...] bid for 90 day(s) Active FreeStyle Darling [place] - patient is on multiple daily insulin [...] Information RESULTS No Results REASON FOR VISIT hood MEDICAL (GENERAL) HISTORY Type Description Date Medical [...] Medical History B tinnitus-06/2012 MRI s/c S VD audiogram R>L moderate- severe SN hearing loss Medical History grade 1 diastolic dysfunctio n, moderate elevation PASP, CVP 0-5, mild aortic sclerosis , LVEF 65-70% by TTE 06/2014-[facility] Medical History nephrolithiasis-12/[address] (first in life) Medical History CAD (single -vessel disease) s/p 05/14/17 SAMARIA to 99% mid LAD, LVEF 55%-[facility] Medical History R knee advanced tricompartmental OA [...] No Information FUNCTIONAL STATUS No Information ASSESSMENTS Encounter Date Diagnosis Assessment Notes Treatment Notes Treatm ent Clinical Notes May, T2DM (type 2 diabetes mellitus) (ICD-10 - E11.9) PLAN OF TREATMENT Medication Medication Name Sig Start Date Stop Date FreeStyle Darling [place] - patient is on multiple daily insulin [...] Name:Suhas Mock, 2021-08-22 0 2:30:00 PM, [address] [facility], , [place], [address], Insurance Providers Payer Name Payer Address Payer Phone Insured Name Patient Relati onship to Insured Coverage Start Date Coverage End Date [employer] GOLD [address] [address] [facility] [phone] ALEXIS MAHAJAN [place] self MEDICAID [employer] [address] [facility] [id number] ALEXIS MAHAJAN self
--- OUTSIDE RECORDS SUMMARY | 2021-07-10 21:05 | CCD | Continuity of Care Document ---
Author Author Karyn HAYNES MD Organization Unknown Address [address] [place] [address] [place] [address] Phone [phone] Care Team Providers Care Vision Care Associate Name Role Phone Suhas Mock MD AUTM [phone] Problems Active Problems Provider Date Precordial pain Jorge Schreiber MD Onset: 07/03/2017 Dyspnea Jorge Schreiber MD Onset: 07/03/2017 Electrocardiogram abnormal Jorge Schreiber MD Onset: 2016 Chronic pulmonary heart disease Jorge Schreiber MD Onset: 1 Heart murmur Jorge Schreiber MD Onset: 07/03/2017 Body mass index 40+ - severely obese Jorge Schreiber MD Ons et: 07/03/2017 Atherosclerotic heart disease of [place] coronary artery with other forms of angina [...] terry MD 07/02/2017 Calcium 600+D High Potency [id number] Tablets 1 by mouth twice a day [...] Hematocrit 33.5 Procedures Date Code Description Status 05/07/2021 87481 Chronic Care MGMT 20 Mins Clinical Staff Time Per Calendar Month Completed 04/04/2021 18612 Chronic Care MGMT 20 Mins Clinical Staff Time Per Calendar Month Completed 04/04/2021 12359 Chronic Care Management Services Ea Addl 20 Min Completed 03/27/2021 30293 Office/Outpatient Established Mo d MDM 30-39 Min Completed 03/27/2021 77018 ECG 12-Lead Completed 03/04/2021 14556 Chronic Care MGMT 20 Mins Clinical Staff Time Per Calendar Month Completed 03/04/2021 07920 Chronic Care Management Services Ea Addl 20 Min Completed 01/28/2021 17684 Chronic Care MGMT 20 Mins Clinical Staff Time Per Calendar Month Completed 12/26/2020 45903 Chronic Care MGMT 20 Mins Clinical Staff Time Per Calendar Month Completed 12/26/2020 21565 Chronic Care Management Services Ea Addl 20 Min Completed Medical Devices Description No Information Available Encounters Type Date Location Provider Dx Diagnosis Office Visit 05/07/2021 10:28a Main Office Jake Haynes MD I11.9 Hypertensive heart disease without heart failure E66.09 Other obesity due to excess calories Office Visit 04/04/2021 8:37a Main Office Jake Haynes MD I11.9 Hypertensive heart disease without heart failure E66.09 Other obesity due to excess calories Office Visit 03/27/2021 1:00p Main Office BISHOP Baeza Z01 .810 Encounter for preprocedural cardiovascular examination I25.118 Athscl heart disease of [place] cor art w [facility] ang pctrs I11.9 [facility] R94.31 Abnormal electrocardiogram [ ECG] [...] excess calories I11.9 Hypertensive heart disease w ithout heart failure I25.118 Athscl heart disease of [place] ve cor art w oth ang pctrs Assessments Date Code Description Provider 05/07/2021 I11.9 Hypertensive heart disease witho ut heart failure Jake Haynes MD 05/07/2021 E66.09 Other obesity due to excess sadia temo Jake Haynes MD 04/04/2021 I11.9 Hypertensive heart disease witho ut heart failure Jake Haynes MD 04/04/2021 E66.09 Other obesity due to excess sadia temo Jake Haynes MD 03/27/2021 Z01.810 Encounter for preprocedural card iovascular examination BISHOP Baeza 03/27/2021 I25.118 Atherosclerotic hear t disease of [place] coronary artery with other forms of angina [...] E66.09 Other obesity due to excess sadia temoangeline Haynes MD 12/26/2020 E66.09 Other obesity due to excess sadia temo Haynes MD 12/26/2020 I11.9 Hypertensive heart disease witho ut heart failure Jake Haynes MD 12/26/2020 I25.118 Atherosclerotic hear t disease of [place] coronary artery with other forms of angina [...] aspirin * I25.118 Atherosclerotic heart disease of [place] coronary artery with other forms of angina [...]
--- OUTSIDE RECORDS SUMMARY | 2021-07-10 21:05 | CCD ---
Author Author [facility] Organization [facility] Address Unknown Phone Unavailable Care Team Providers Care Recreational Therapy Technician Name Role Phone Suhas Mock Unavailable PROBLEMS Type Condition ICD9-CM Code MCN12-RU Code Onset Dates Condition S tatus W/U Status Risk SNOMED Code Notes Problem Fe deficiency anemia D50.9 Active confirmed 80506234 Problem GERD (gastroesophageal reflux disease) K21.9 A ctive confirmed 316321137 Problem Hypothyroid E03.9 Active confirmed 15206929 Problem Hyperlipidemia E78.5 Active confirmed 40198 004 Problem Breast cancer screening Z12.39 Active confirmed 681781627 Problem Chronic diarrhea K52.9 Active confirmed 236 104000 Problem Nocturnal leg cramps G47.62 Active confirmed 030364059 Problem Kidney stone N20.0 Active confirmed 5058637 7 Problem Vitamin B12 deficiency E53.8 Active confirmed 561097816 Problem CAD (coronary artery disease) I25.10 Active confirm ed 70472300 Problem 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 Active confirmed 4128549951544 Problem Type 2 diabetes mellitus wit h complication, with long-term current use of insulin E11.8 Active confirmed 991362242 Problem Vitamin D deficiency E55.9 Active confirmed 32255124 Problem Panic disorder F41.0 Active confirmed 26755 1005 Problem Candidiasis, intertriginous B37.2 Active confirmed 148746535 Problem Osteopenia M85.80 Active confirmed 772288748 Problem T2DM (type 2 diabetes mellitus) E11.9 Active confi rmed 26591992 Problem Hypertension I10 Active confirmed 1178939 3 Problem Primary osteoarthritis of both knees M17.0 Act carlos confirmed 981837188 Problem CKD (chronic kidney disease) stage 3, GFR 30-59 ml/min N18.3 Active confirmed 157268908 Problem Chronic diastolic congestive heart failure I50.32 Active confirmed 889890734 Problem NAFLD (nonalcoholic fatty liver disease) K76.0 Active confirmed 752236869 ALLERGIES Allergen (clinical drug ingredient) Drug/Non Drug Allergy do cumented on EMR Reaction Allergy Type Onset Date Status benzonatate Tessalon Perles([facility] Code:[address]-24) Nausea/V omiting Drug Allergy Active amitriptyline Amitriptyline HCl([facility] Code:[address]-80) Depression Drug Allergy Active loratadine Claritin([facility] Code:[address]-10) Headaches Drug Allergy Active sulfamethoxazole / trimethoprim Bactrim([facility] Code:[address]-57) GI upset Drug Allergy Active ENCOUNTERS from 1945 to 2021-07-09 Encounter Location Date Provider Diagnosis [address] [phone] [place] [address] Jun, Suhas Mock Vitamin B12 deficiency E53.8 ; Hypertension I10 and GERD (gastroesophageal reflux disease) K21.9 IMMUNIZATIONS Vaccine Route Administration Date Status Influenza [...] Notes Start Da te End Date Status Insulin Pen Needle 32G X 5 MM as directed E11.9 twice daily for 30 da ys Active Glucose strip (Verio IQ) as directed AC BID, E13.8 bid for 90 day(s) Active Imodium A-D 2 MG 1 tablet Orally TID prn diarrhea for 30 day(s) Active Pantoprazole Sodium 40 MG 1 tablet Orally every morning for 90 day(s) Active Toujeo SoloStar 300 UNIT/ML 60 units Subcutaneous at 1800 for 90 day( s) Active NovoLOG FlexPen 100 UNIT/ML 20 units Subcutaneous before bed time for 90 day(s) Apr, Active Nitroglycerin 0.4 MG 1 tab Sublingual every 5 min utes prn chest pain for 30 day(s) Active Magnesium Oxide 400 MG 1 capsule Orally bid for 90 day(s) Active Lancets 33G - as directed subcutaneously bid DX: E11.9 for 30 Days Mar, Active Glucometer as directed DX: E11.9 Daily for 30 Days Mar, Active Nystatin - as directed topically TID, BSA 5% for 30 Days 0 9 Apr, 2021 Active Slow Fe 142 (45 Fe) MG 1 tablet Orally every other day for 90 day(s) Not-Taking FreeStyle Darling [place] - patient is on multiple daily insulin injection therapy with fixed basal qhs and sliding scale bolus ac 3x daily and qhs. she is testing capillary blood glucose 7-12x daily. the fsl2 would greatly improve compliance and control. subcutaneously Daily for 90 day(s) Active Cyanocobalamin 500 MCG 1 tablet Orally Once a day for 90 day(s) Active Calcitriol 0.25 MCG 1 capsule Orally Once a day for 90 day(s) Active HumaLOG KwikPen 100 UNIT/ML 20 units Subcutaneous AC T ID (10 units if no po) for 90 day(s) Active FreeStyle Darling 14 Day Sensor - patient is on multiple daily insulin injection therapy with fixed basal qhs and sliding scale bolus ac 3x daily and qhs. she is testing capillary blood glucose 7-12x daily. the fsl2 would greatly improve compliance and control. subcutaneously Daily for 90 days Active Tums 500 MG 1 tablet Orally at bedtime for 90 day(s) Not-Taking Losartan Potassium 100 MG 1 tablet Orally every morning for 90 day(s) Active Bisoprolol Fumarate 5 MG 1 tablet Orally every morning for 90 day(s) Active Levothyroxine Sodium 25 MCG 1 tablet on an empty stoma ch in the morning Orally Once a day for 90 day(s) Active Blood Glucose Test - as directed subcutaneously t wice a day DX: E11.9 for 30 day(s) Jun, Active Torsemide 10 MG 3 tablets Orally [...] Information RESULTS No Results REASON FOR VISIT med fills MEDICAL (GENERAL) HISTORY Type Description Date Medical [...] 05/14/17 SAMARIA to 99% mid LAD, [facility] Medical History R knee advanced [...] Notes Treatment Notes Treatm ent Clinical Notes Jun, Vitamin B12 deficiency (ICD-10 - E53.8) Jun, Hypertension (ICD-10 - I10) Jun, GERD (gastroesophageal reflux disease) (ICD-10 - K21.9) PLAN OF TREATMENT Medication Medication Name Sig Start Date Stop Date FreeStyle Darling 14 Day Sensor - patient is on multiple daily insulin injection therapy with fixed basal qhs and sliding scale bolus ac 3x daily and qhs. she is testing capillary blood glucose 7-12x daily. the fsl2 would greatly improve compliance and control. subcutaneously Daily for 90 days Cyanocobalamin 500 MCG 1 tablet Orally Once a day for 90 day(s) Toujeo SoloStar 300 UNIT/ML 60 units Subcutaneous at 1800 for 90 day(s) FreeStyle Darling [place] - patient is on multiple daily insulin injection therapy with fixed basal qhs and sliding scale bolus ac 3x daily and qhs. she is testing capillary blood glucose 7-12x daily. the fsl2 would greatly improve compliance and control. subcutaneously Daily for 90 day(s) Magnesium Oxide 400 MG 1 capsule Orally bid for 90 day(s) Glucose strip (Verio IQ) as directed AC BID, E13.8 bid for 90 da y(s) HumaLOG KwikPen 100 UNIT/ML 20 units Subcutaneous AC T ID (10 units if no po) for 90 day(s) Losartan Potassium 100 MG 1 tablet Orally every morning for 90 d ay(s) Pantoprazole Sodium 40 MG 1 tablet Orally every morning for 90 d ay(s) Bisoprolol Fumarate 5 MG 1 tablet Orally every morning for 90 da y(s) Next Appt Details Provider Name:Suhas Mock, 2021-08-22 0 2:30:00 PM, [address] [facility], , [place], [address], Insurance Providers Payer Name Payer Address Payer Phone Insured Name Patient Relati onship to Insured Coverage Start Date Coverage End Date [employer] GOLD [address] [address] [facility] [id number] ALEXIS MAHAJAN self MEDICAID [facility] [employer] [address] [facility] [id number] ALEXIS MAHAJAN self
--- OUTSIDE RECORDS SUMMARY | 2021-07-10 21:05 | CCD | Continuity of Care Document ---
Author Author Karyn HAYNES MD Organization Unknown Address [address] [place] [address] [place] [address] Phone [phone] Care Team Providers Care Pig Lead Melter Helper Name Role Phone Suhas Mock MD AUTM [phone] Problems Active Problems Provider Date Precordial pain Jorge Schreiber MD Onset: 07/03/2017 Dyspnea Jorge Schreiber MD Onset: 07/03/2017 Electrocardiogram abnormal Jorge Schreiber MD Onset: 2016 Chronic pulmonary heart disease Jorge Schreiber MD Onset: 1 Heart murmur Jorge Schreiber MD Onset: 07/03/2017 Body mass index 40+ - severely obese Jorge Schreiber MD Ons et: 07/03/2017 Atherosclerotic heart disease of [place] coronary artery with other forms of angina [...] terry MD 07/02/2017 Calcium 600+D High Potency [id number] Tablets 1 by mouth twice a day [...] 33.5 Procedures Date Code Description Status 05/07/2021 47244 Chronic Care MGMT 20 Mins Clinical Staff Time Per Calendar Month Completed 04/04/2021 71220 Chronic Care MGMT 20 Mins Clinical Staff Time Per Calendar Month Completed 04/04/2021 20136 Chronic Care Management Services Ea Addl 20 Min Completed 03/27/2021 20176 Office/Outpatient Established Mo d MDM 30-39 Min Completed 03/27/2021 17686 ECG 12-Lead Completed 03/04/2021 43552 Chronic Care MGMT 20 Mins Clinical Staff Time Per Calendar Month Completed 03/04/2021 70676 Chronic Care Management Services Ea Addl 20 Min Completed 01/28/2021 61302 Chronic Care MGMT 20 Mins Clinical Staff Time Per Calendar Month Completed 12/26/2020 72028 Chronic Care MGMT 20 Mins Clinical Staff Time Per Calendar Month Completed 12/26/2020 38302 Chronic Care Management Services Ea Addl 20 [...] disease of [place] ve cor art w [facility] ang pctrs I11.9 [facility] R94.31 Abnormal electrocardiogram [ [...] 03/27/2021 I25.118 Atherosclerotic hear t disease of [place] coronary artery with other forms of angina pectoris BISHOP Baeza 03/27/2021 I11.9 Hypertensive heart disease witho ut heart failure BISHOP Baeza 03/27/2021 R94.31 Abnormal electrocardiogram [ECG] [EKG] BISHOP Baeza 03/27/2021 E66.09 Other obesity due to excess sadia temo BISHOP Baeza 03/27/2021 Z71.3 Dietary counseling and surveilla nce BISHPO Baeza 03/04/2021 I11.9 Hypertensive heart disease witho [...] 12/26/2020 I25.118 Atherosclerotic hear t disease of [place] coronary artery with other forms of angina [...] aspirin * I25.118 Atherosclerotic heart disease of [place] coronary artery with other forms of angina [...]
--- OUTSIDE RECORDS SUMMARY | 2021-07-10 21:05 | CCD ---
Author Author [facility] Organization [facility] Address Unknown Phone Unavailable Care Team Providers Care Windows Admin Name Role Phone Daniela Ortiz Unavailable PROBLEMS Type Condition ICD9-CM Code LEU14-FA Code Onset Dates Condition S tatus W/U Status Risk SNOMED Code Notes Problem Fe deficiency anemia D50.9 Active confirmed 61780528 Problem GERD (gastroesophageal reflux disease) K21.9 A ctive confirmed 578134030 Problem Hypothyroid E03.9 Active confirmed 39204753 Problem Hyperlipidemia E78.5 Active confirmed 11018 004 Problem Breast cancer screening Z12.39 Active confirmed 700958551 Problem Chronic diarrhea K52.9 Active confirmed 236 960936 Problem Nocturnal leg cramps G47.62 Active confirmed 105026978 Problem Kidney stone N20.0 Active confirmed 5280648 7 Problem Vitamin B12 deficiency E53.8 Active confirmed 994729207 Problem CAD (coronary artery disease) I25.10 Active confirm ed 96587222 Problem 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 Active confirmed 3518345874401 Problem Type 2 diabetes mellitus wit h complication, with long-term current use of insulin E11.8 Active confirmed 357192891 Problem Vitamin D deficiency E55.9 Active confirmed 85409743 Problem Panic disorder F41.0 Active confirmed 55510 1005 Problem Candidiasis, intertriginous B37.2 Active confirmed 522336914 Problem Osteopenia M85.80 Active confirmed 342025405 Problem T2DM (type 2 diabetes mellitus) E11.9 Active confi rmed 83087676 Problem Hypertension I10 Active confirmed 3011934 3 Problem Primary osteoarthritis of both knees M17.0 Act carlos confirmed 730090066 Problem CKD (chronic kidney disease) stage 3, GFR 30-59 ml/min N18.3 Active confirmed 281255566 Problem Chronic diastolic congestive heart failure I50.32 Active confirmed 420602101 Problem NAFLD (nonalcoholic fatty liver disease) K76.0 Active confirmed 096928961 ALLERGIES Allergen (clinical drug ingredient) Drug/Non Drug Allergy do cumented on EMR Reaction Allergy Type Onset Date Status benzonatate Tessalon Perles([facility] Code:[address]-07) Nausea/V omiting Drug Allergy Active amitriptyline Amitriptyline HCl([facility] Code:[address]-84) Depression Drug Allergy Active loratadine Claritin([facility] Code:[address]-99) Headaches Drug Allergy Active sulfamethoxazole / trimethoprim Bactrim([facility] Code:[address]-03) GI upset Drug Allergy Active ENCOUNTERS from 1943 to 2021-05-24 Encounter Location Date Provider Diagnosis [address] [phone] [place] [address] 07 May, 2021 Daniela Ortiz T2DM (type 2 diabetes [facility]) E11.9 IMMUNIZATIONS Vaccine Route Administration Date Status [...] REASON FOR REFERRAL No Information VITAL SIGNS Weight 210.4 lbs May, Weight-kg 95.44 kg May, Height 59 in May, BMI 42.49 kg/m2 May, Heart Rate 90 /min May, Respiratory Rate 18 /min May, Temperature 97.6 degrees Fahrenheit May, Oximetry 95% May, Blood pressure systolic 140 mm Hg May, Blood pressure diastolic 90 mm Hg May, MEDICATIONS Medication SIG (Take, Route, Frequency, Duration) Notes Start Da te End Date Status Tums 500 MG 1 tablet Orally at bedtime for 90 day(s) Not-Taking Toujeo SoloStar 300 UNIT/ML 60 units Subcutaneous at 1800 for 90 day( s) Active Cyanocobalamin 500 MCG 1 tablet Orally Once a day for 90 day(s) Active HumaLOG KwikPen 100 UNIT/ML 20 units Subcutaneous AC T ID (10 units if no po) for 90 day(s) Active Blood Glucose Test [...] 5% for 30 Days 0 Apr, Active Bisoprolol Fumarate 5 MG 1 tablet Orally every morning for 90 day(s) Active Torsemide 10 MG 3 tablets Orally every morning for 90 day(s) Active Magnesium Oxide 400 MG 1 capsule Orally bid for 90 day(s) Active FreeStyle Darling [place] - patient is on multiple daily insulin [...] twice daily for 30 da ys Active Glucometer as directed DX: E11.9 Daily for 30 Days Mar, 2020 Active Levothyroxine Sodium 25 MCG 1 tablet [...] Information RESULTS No Results REASON FOR VISIT go over [facility] MEDICAL (GENERAL) HISTORY Type Description Date Medical [...] 05/14/17 SAMARIA to 99% mid LAD, LVEF 55%-[facility] Medical History R knee [...] (type 2 diabetes mellitus) (ICD-10 - E11.9) 8-10 br / 13-15 lunch / 16-18 din (often skips br, trina) 05/2021 Diagnosis: E13.8 Patient is on multiple daily insulin injection therapy with fixed basal QHS and SLIDING SCALE bolus AC 3x DAILY AND QHS. She is testing capillary blood glucose 7-12x daily. The FSL2 would GREATLY improve compliance and control. C: titrate deglun, lispro on deglun U-100 60 at 21(QHS), lispro 20 (at 12, 18) AC lunch/dinner (10 if doesn't take any food) 04/08-04/22/21 FSLP m293, 93//, extreme sign wave c BG mostly >350 p 12 noon, AC br 120-140 03/25/21 lispro 10 to 20 AC dinner given highest PP din c AC br down to 130s; escribed FSL2 to Bernal[facility] PLAN OF TREATMENT Medication Medication Name Sig Start Date Stop Date FreeStyle Darling [place] - patient is on multiple daily insulin [...] and control. subcutaneously Daily for 90 days Toujeo SoloStar 300 UNIT/ML 60 units Subcutaneous at 1800 for 90 day(s) HumaLOG KwikPen 100 UNIT/ML 20 units Subcutaneous AC T ID (10 units if no po) for 90 day(s) Glucose strip (Verio IQ) as directed AC BID, E13.8 bid for 90 da y(s) Treatment Notes Assessment Notes Clinical Notes T2DM (type 2 diabetes mellitus) 8-10 br / 13-15 lunch / 16-18 din (often skips br, trina)05/2021 Diagnosis: E13.8Patient is on multiple daily insulin injection therapy with fixed basal QHS and SLIDING SCALE bolus AC 3x DAILY AND QHS. She is testing capillary blood glucose 7-12x daily. The FSL2 would GREATLY improve compliance and control.C: titrate deglun, lisproon deglun U-100 60 at 21(QHS), lispro 20 (at 12, 18) AC lunch/dinner (10 if doesn't take any food)04/08-04/22/21 FSLP m293, , extreme sign wave c BG mostly >350 p 12 noon, AC br 120- lispro 10 to 20 AC dinner given highest PP din c AC br down to 130s; escribed FSL2 to [facility] Next Appt Details f/u with Dr. Mock Reason: Provider Name:Suhas Mock, 2021-08-22 0 2:30:00 PM, [address] [facility], , [place], [address], Insurance Providers Payer Name Payer Address Payer Phone Insured Name Patient Relati onship to Insured Coverage Start Date Coverage End Date [employer]NA YENIFER [address] [address] [facility] [phone] ALEXIS MAHAJAN self MEDICAID [employer] [address] [facility] [id number] ALEXIS MAHAJAN self
--- OUTSIDE RECORDS SUMMARY | 2021-07-10 21:06 | CCD | Continuity of Care Document ---
Author Author Karyn HAYNES MD Organization Unknown Address [address] [place] [address] [place] [address] Phone [phone] Care Team Providers Care Barrel Maker Name Role Phone Suhas Mock MD AUTM [phone] Problems Active Problems Provider Date Precordial pain Jorge Schreiber MD Onset: 07/03/2017 Dyspnea Jorge Schreiber MD Onset: 07/03/2017 Electrocardiogram abnormal Jorge Schreiber MD Onset: 2016 Chronic pulmonary heart disease Jorge Schreiber MD Onset: 1 Heart murmur Jorge Schreiber MD Onset: 07/03/2017 Body mass index 40+ - severely obese Jorge Schreiber MD Ons et: 07/03/2017 Atherosclerotic heart disease of [place] coronary artery with other forms of angina [...] Imbalance Allergies, Adverse Reactions, Alerts Active Allergies Reaction Severity Comments Date Amitriptyline nausea/vomiting 04/05/2017 Sulfamethoxazole / Trimethoprim nausea/vo miting 04/05/2017 Loratadine severe headaches 04/05/2017 Hydrocodone "felt like I was on fire" Tizanidine hallucinations 03/26/2021 Inactive Allergies NKDA 10/20/2007 Medications Active Medications SIG Qnty Indications [...] a day when necessary heartburn Unknown 06/22/2018 Toumariellao Max Solostar 300Unit/ML Solution Pen-Inject as directed [...] terry MD 07/02/2017 Calcium 600+D High Potency [id number] Tablets 1 by mouth twice a day [...] Hematocrit 33.5 Procedures Date Code Description Status 03/27/2021 68658 Office/Outpatient Established Mo d MDM 30-39 Min Completed 03/27/2021 63880 ECG 12-Lead Completed 03/04/2021 49342 Chronic Care MGMT 20 Mins Clinical Staff Time Per Calendar Month Completed 03/04/2021 14572 Chronic Care Management Services Ea Addl 20 Min Completed 01/28/2021 04975 Chronic Care MGMT 20 Mins Clinical Staff Time Per Calendar Month Completed 12/26/2020 35812 Chronic Care MGMT 20 Mins Clinical Staff Time Per Calendar Month Completed 12/26/2020 27789 Chronic Care Management Services Ea Addl 20 Min Completed Medical Devices Description No Information Available Encounters Type Date Location Provider Dx Diagnosis Office Visit 03/27/2021 1:00p Main Office BISHOP Baeza Z01 .810 Encounter for preprocedural cardiovascular examination I25.118 Athscl heart disease of [place] ve cor art [facility].9 [facility] R94.31 Abnormal electrocardiogram [ [...] disease of [place] ve cor art w [facility] pctrs Assessments Date Code Description Provider 03/27/2021 Z01.810 Encounter for preprocedural card iovascular examination BISHOP Baeza 03/27/2021 I25.118 Atherosclerotic hear t disease of [place] coronary artery with other forms of angina [...] excess sadia temo Jake Haynes MD 12/26/2020 I11.9 Hypertensive heart disease witho ut heart failure Jake Haynes MD 12/26/2020 I25.118 Atherosclerotic hear t disease of [place] coronary artery with other forms of angina [...] aspirin * I25.118 Atherosclerotic heart disease of [place] coronary artery with other forms of angina [...]
--- OUTSIDE RECORDS SUMMARY | 2021-07-10 21:06 | CCD ---
Author Author [facility] Organization [facility] Address Unknown Phone Unavailable Care Team Providers Care Ritual Circumciser Name Role Phone Suhas Mock Unavailable PROBLEMS Type Condition ICD9-CM Code [id number] Code Onset Dates Condition S tatus W/U Status Risk SNOMED Code Notes Problem Hypertension I10 Active confirmed 0539891 3 Problem Panic disorder F41.0 Active confirmed 97870 1005 Problem Fe deficiency anemia D50.9 Active confirmed 70233141 Problem GERD (gastroesophageal reflux disease) K21.9 A ctive confirmed 532712871 Problem Hypothyroid E03.9 Active confirmed 40750808 Problem Hyperlipidemia E78.5 Active confirmed 87876 004 Problem Breast cancer screening Z12.39 Active confirmed 904910441 Problem Chronic diarrhea K52.9 Active confirmed 236 739134 Problem Osteopenia M85.80 Active confirmed 015094437 Problem Vitamin D deficiency E55.9 Active confirmed 30952192 Problem Vitamin B12 deficiency E53.8 Active confirmed 953963063 Problem Chronic diastolic congestive heart failure I50.32 Active confirmed 583502423 Problem Nocturnal leg cramps G47.62 Active confirmed 469575386 Problem NAFLD (nonalcoholic fatty liver disease) K76.0 Active confirmed 418687019 Problem Kidney stone N20.0 Active confirmed 2955114 7 Problem T2DM (type 2 diabetes mellitus) E11.9 Active confi rmed 29847482 Problem CAD (coronary artery disease) I25.10 Active confirm ed 92309099 Problem Coronary artery disease of n ative artery of [place] heart with stable angina pectoris I25.118 Active confirmed 7958352727871 Problem Primary osteoarthritis of both knees M17.0 Act carlos confirmed 474036164 Problem CKD (chronic kidney disease) stage 3, GFR 30-59 ml/min N18.3 Active confirmed 940435131 ALLERGIES Allergen (clinical drug ingredient) Drug/Non Drug Allergy do cumented on EMR Reaction Allergy Type Onset Date Status benzonatate Ines Hay([facility] Code:[address]-77) Nausea/V omiting Drug Allergy Active amitriptyline Amitriptyline HCl([facility] Code:[address]-03) Depression Drug Allergy Active loratadine Claritin([facility] Code:[address]-66) Headaches Drug Allergy Active sulfamethoxazole / trimethoprim Bactrim([facility] Code:[address]-17) GI upset Drug Allergy Active ENCOUNTERS from 1943 to 2021-04-11 Encounter Location Date Provider Diagnosis [address] [phone] [place] [address] Mar, Suhas Mock T2DM (type 2 diabetes [facility]) E11.9 ; Fe deficiency anemia D50.9 ; Vitamin D deficiency E55.9 ; Hypertension I10 ; NAFLD (nonalcoholic fatty liver disease) K76.0 ; Chronic diastolic congestive heart failure I50.32 ; CKD (chronic kidney disease) stage 3, GFR 30-59 ml/min N18.3 ; Panic disorder F41.0 ; Vitamin B12 deficiency E53.8 ; Primary osteoarthritis of both knees M17.0 ; CAD (coronary artery disease) I25.10 ; Osteopenia M85.80 ; Nocturnal leg cramps G47.62 ; Breast cancer screening Z12.39 ; Chronic diarrhea K52.9 ; Kidney stone N20.0 ; GERD (gastroesophageal reflux disease) K21.9 ; Hypothyroid E03.9 and Hyperlipidemia E78.5 IMMUNIZATIONS Vaccine Route Administration Date Status Influenza [...] FOR REFERRAL No Information VITAL SIGNS Weight 200 lbs Mar, Height 59 in Mar, BMI 40.39 kg/m2 Mar, Heart Rate 88 /min Mar, Respiratory Rate 20 /min Mar, Temperature 97.0 degrees Fahrenheit Mar, Oximetry 96% Mar, Blood pressure systolic 122 mm Hg Mar, Blood pressure diastolic 78 mm Hg Mar, MEDICATIONS Medication SIG (Take, Route, Frequency, Duration) Notes Start Da te End Date Status FreeStyle Darling 14 Day Sensor - as directed subcutaneously D aily for 90 day(s) Active Atorvastatin Calcium 80 MG 1 tablet Orally Once a day for 90 day(s) Active Lancets 33G - as directed subcutaneously bid DX: E11.9 for 30 Days Mar, Active FreeStyle Darling [place] - as directed subcutaneously Daily, E 13.9 for 90 day(s) Active Glucose strip (Verio IQ) as directed AC BID, E13.8 bid for 90 day(s) Active Soma 250 MG 1 tablet as needed Orally At bedtime for 90 Active Voltaren 1 % 4 gm Transdermal QID to bilateral knees for 30 day(s) Active PARoxetine HCl 20 MG 1 tablet in the morning Orally Once a day f or 90 day(s) Active Imodium A-D 2 MG 1 tablet Orally TID prn diarrhea for 30 day(s) Active Calcitriol 0.25 MCG 1 capsule Orally Once a day for 90 day(s) Active Isosorbide Mononitrate 10 MG 1 tablet Orally Twice a day for 90 day(s ) Active Torsemide 10 MG 3 tablets Orally every morning for 90 day(s) Active Glucometer as directed DX: E11.9 Daily for 30 Days Mar, Active Insulin Pen Needle 32G X 5 MM as directed E11.9 twice daily for 30 da ys Active Cyanocobalamin 500 MCG 1 tablet Orally Once a day for 90 day(s) Active Tums 500 MG 1 tablet Orally at bedtime for 90 day(s) 2020 Active Toujeo SoloStar 300 UNIT/ML 60 units Subcutaneous at 1800 for 90 day( s) Active HumaLOG KwikPen 100 UNIT/ML 20 units Subcutaneous before dinner for 90 day(s) Active Bisoprolol Fumarate 5 MG 1 tablet Orally every morning for 90 day(s) Active Blood Glucose Test - as directed subcutaneously t a day DX: E11.9 for 30 day(s) Jun, Active Losartan Potassium 100 MG 1 tablet Orally every morning for 90 day(s) Active Levothyroxine Sodium 25 MCG 1 tablet on an empty stoma ch in the morning Orally Once a day for 90 day(s) Active Magnesium Oxide 400 MG 1 capsule Orally bid for 90 day(s) Active Slow Fe 142 (45 Fe) MG 1 tablet Orally every other day for 90 day(s) Active Nitroglycerin 0.4 MG 1 tab Sublingual every 5 min utes prn chest pain for 30 day(s) Active Pantoprazole Sodium 40 MG 1 tablet Orally every morning for 90 day(s) Active PROCEDURES No Information RESULTS No Results REASON FOR VISIT 4M, BW 1W prior MEDICAL (GENERAL) HISTORY Type Description Date Medical [...] 05/14/17 SAMARIA to 99% mid LAD, LVEF 55%-[facility] Medical History R knee advanced tricompartmental [...] Notes Treatment Notes Treatm ent Clinical Notes Mar, T2DM (type 2 diabetes mellitus) (ICD-10 - E11.9) 8-10 br / 13-15 lunch / 16-18 din (often skips br, trina) C: titrate deglun, lispro on deglun U-100 60 at 21(QHS), lispro 20 (at 18) AC dinner 03/25/21 lispro 10 to 20 AC dinner given highest PP din c AC br down to 130s; escribed FSL2 to Bernal's 03/10/21 13.2 c cr to 1.5; ergo, while hospitalized for anemia, met XR 1000 stopped and glar 40 to 60 11/13/20 gave new Verio and submitted for FSL2 (hard to check cBG given dexterity) and met XR 1000 BID to 500 QD given GFR to 30 09/13/19 FSLP mean down to 247, but highest p dinner to >350, but down to 130 AC br; therefore, insisted on breakfast (often skips) of WW toast c egg or berries and + AC dinner lispro fixed 10 c cb HBGs in 2W 08/16/19 11.5 c intact C-peptide 6.6; therefore, 25 to 40 c FSL Pro in 5D 06/2019 10; therefore, deglun 10 to 25 02/2019 dc glim 4 QHS given AM hypos to 50 05/2018 increased 10 to 15 and restart at 20 c (has been taking between 8-10 AM) 03/2018 9.5; therefore, 04/19 RS dc empag 10 (given no obvious benefit) and + deglun U-100 10 qhs 02/2018 therefore, increased 4 QHS to 2 given AC br mean low 200s 10/2017 8.2; therefore, increased to 4 QHS 06/2017 changed glim 2 qhs to Jardiance 10 qAM; but mean HBG up; therefore, restart glim 2 AC dinner 05/2016 SHEREE/creatinine 17 Mar, Fe deficiency anemia (ICD-10 - D50.9) C: tx prn, IV Fe +/- EPO 05/08/21 W to do EGD/colon caution c probable cirrhosis 2 FLD B12/folate/macro hazel as per B12 04/03/21 10.9, 83, prasanth 38, r31/2.0; ergo, +45 QOD 03/09--admitted c "syncope" (fell to floor upon risng s LOC per px)-tx 1 u PRBC, 22%/19 11/23/20 9.5, 86; therefore, + 65 QD c recpeat BW in 14D 08/2019 11.8, 88, r31/2.9 02/2019 10.8, 88, r 31/1.9 10/2017 12.0, 87, CHr 31 s supplement Mar, Vitamin D deficiency (ICD-10 - E55.9) 04/03/21 39, 8.8, 129 on 0.25 QD; ergo, + Tums 500 QHS 11/23/20 8.7, 195; therefore, encoruaged compliance c triol 08/2019 53, 9.5, 165 on triol 0.25 QD 03/2018 89, 8.9, 154; therefore, changed D2 50K q7D to calcitriol 0.25 and Tums 1000 10/2017 66, 9.2, 92 on D2 50K q7D 02/2016 vitamin D 60, 9.2, PTH 51 on Drisdol qW Mar, Hypertension (ICD-10 - I10) Stable biso 5 qAM, ISMN 10 BID, los 100 qAM and torse 20 qAM chronic low Mg probably 2 PPI/diarrhea 04/03/21 16/0.6, 3.9, BNP 616 11/23/20 mild decomp 2 non-compliance c Na (since last seen 08/2019 up 10#!); tehrefore, torse 20 to 30 qAM and cb AM dry wts in 5D 06/2019 4.7, 1.3, 623 03/04/19 BNP 719, 4.2, 1.8, 1.2 c mild decomp; therefore, CTD 12.5 qAM to torse 10 qAM as per HTN c recheck in 2W 04/10/17 increased bisoprolol 5 qAM to 5/2.5 given probable stable anginal pain; then decreased back to 5 qAM p SAMARIA 05/29/17 EKG NSR 60 bpm, PRWP, diffuse RA similar to 04/06/17 EKG Mar, NAFLD (nonalcoholic fatty liver disease) (ICD-10 - K76.0) 2 obesity/uncontrolled T2DM 04/03/21 FS HAHN: S3/F3 04/03/21 PT/PTT Mar, Chronic diastolic congestive heart failure (ICD- 10 - I50.32) Continue ROWAN/1500 FR as per HTN Mar, CKD (chronic kidney disease) stage 3, GFR 30-59 ml/min (ICD-10 - N18.3) caution on los, CTD 04/03/21 16/1.6, 3.9 03/11/21 15/1.5, 4.1, 1.6 03/2018 27/1.4, 4.4 10/2017 24/1.3, 4.3, Mg 2.0 05/21/17 stable at 17/1.1, K 4.9 hgb as per Fe PTH as per vitamin D Mar, Panic disorder (ICD-10 - F41.0) 01/16/19 SS + busp 5 BID s improvement; therefore, + parox 20 01/2015 started lorazepam 0.5 qhs given most episodes qhs, able to abort episodes c home modalities c improvement of symptoms Mar, Vitamin B12 deficiency (ICD-10 - E53.8) hgb as per Fe Contingency: B12 SC-patient refuses 03/10/21 >1999; ergo, decreased to 500 08/2019 918 on 1000 09/2018 1984 on 2000; therefore, decreased to 1000 03/2018 283, but not taking 2 cost; therefore, offered SC, but refuses 10/2017 232 on 1000; therefore, increased to 2000 QD 06/2017 323 03/2017 B12 280; again encouraged to restart 1 mg QD 03/2018 RBC folate 904 11/26/20 sIFE s MCB 11/26/20 sKL 82/48/1.7 11/26/20 uKL 222/23/9.5 Mar, Primary osteoarthritis of both knees (ICD-10 - M 17.0) Stable on Voltaren QID 05/29/17 restarted B knee Voltaren 4 gm QID c marked improvement Contingency: Juan R B knees has seen [facility] in past Mar, CAD (coronary artery disease) (ICD-10 - I25.10) Patient remains asx off asa 81 03/03/21 asa 81 held given probable GIBL 07/2017 Abdoul changed julian to clopid, repeat NST/TTE P 04/10/17 increased bisoprolol as per HTN, added NTG SL prn; but given persistent angina pain; referred for cardiac catherization 05/14/17 c SAMARIA to mid LAD and ticagrelor 90 BID added to asa 81 03/2017 DST with small reversible apical perfusion defect c/w ischemia in distal LAD distribution favoring medical thrapy follows with Dr. Cavazos 05/19/17 Mar, Osteopenia (ICD-10 - M85.80) repeat BMD 08/2021 BMD 1.1/1.7/1.6; therefore, CCR Mar, Nocturnal leg cramps (ICD-10 - G47.62) Stable on caris 250 qhs prn 05/2012 started caris 250 qhs prn Mar, Breast cancer screening (ICD-10 - Z12.39) 03/2019 B C1 mammogram Mar, Chronic diarrhea (ICD-10 - K52.9) Stable on Imodium prn (started by Dr. Barnett) no benefit c Asacol Mar, Kidney stone (ICD-10 - N20.0) Patient remains asymptomatic 12/2015 L ESWL, but 03/13/16 AXR c persistent L 6 mm NO stone 12/2015 L 6 mm NO stone s/p ESWL, had passed L stone which caused mild hydronephrosis Mar, GERD (gastroesophageal reflux disease) (ICD-10 - K21.9) Good control on panto 40 qAM 07/2015 i changed Nexium 40 to Protonix 40 which caused severe breakthrough DENG symptoms; therefore, 12/2015 changed back to Nexium Mar, Hypothyroid (ICD-10 - E03.9) 02/2019 2.0, 1.1 on 03/2018 3.8, 1.0 on 11/2016 2.3, 1.1 06/2016 5.9 on LT4 25 02/2016 0.05; therefore LT4 25 advised to stop, but patient did not 10/2015 TSH 3.1, FT4 1.2 on LT4 25 Mar, Hyperlipidemia (ICD-10 - E78.5) 09/2018 76/49/160 10/2017 70/50/186, 62, <0.3 on atorva 80 03/2017 given probable CAD, increased 20 to 80 QD PLAN OF TREATMENT Medication Medication Name Sig Start Date Stop Date Nitroglycerin 0.4 MG 1 tab Sublingual every 5 min utes prn chest pain for 30 day(s) Pantoprazole Sodium 40 MG 1 tablet Orally every morning for 90 d ay(s) Slow Fe 142 (45 Fe) MG 1 tablet Orally every other day for 90 da y(s) Magnesium Oxide 400 MG 1 capsule Orally bid for 90 day(s) Isosorbide Mononitrate 10 MG 1 tablet Orally Twice a day for 90 day(s) HumaLOG KwikPen 100 UNIT/ML 20 units Subcutaneous before dinner for 90 day(s) Losartan Potassium 100 MG 1 tablet Orally every morning for 90 d ay(s) Toujeo SoloStar 300 UNIT/ML 60 units Subcutaneous at 1800 for 90 day(s) Atorvastatin Calcium 80 MG 1 tablet Orally Once a day for 90 day (s) FreeStyle Darling [place] - as directed subcutaneously Daily, E 13.9 for 90 day(s) Torsemide 10 MG 3 tablets Orally every morning for 90 day(s) Levothyroxine Sodium 25 MCG 1 tablet on an empty stoma ch in the morning Orally Once a day for 90 day(s) PARoxetine HCl 20 MG 1 tablet in the morning Orally Once a day f or 90 day(s) Cyanocobalamin 500 MCG 1 tablet Orally Once a day for 90 day(s) Bisoprolol Fumarate 5 MG 1 tablet Orally every morning for 90 da y(s) Calcitriol 0.25 MCG 1 capsule Orally Once a day for 90 day(s) Soma 250 MG 1 tablet as needed Orally At bedtime for 90 FreeStyle Darling 14 Day Sensor - as directed subcutaneously D aily for 90 day(s) Tums 500 MG 1 tablet Orally at bedtime for 90 day(s) Mar, Glucose strip (Verio IQ) as directed AC BID, E13.8 bid for 90 da y(s) Voltaren 1 % 4 gm Transdermal QID to bilateral knees for 30 d ay(s) Treatment Notes Assessment Notes Clinical Notes Breast cancer screening 03/2019 B C1 mamm ogram T2DM (type 2 diabetes mellitus) 8-10 br / 13-15 lunch / 16-18 din (often skips br, trina)C: titrate deglun, lisproon deglun U-100 60 at 21(QHS), lispro 20 (at 18) AC dinner03/25/21 lispro 10 to 20 AC dinner given highest PP din c AC br down to 130s; escribed FSL2 to Bernal'03/10/21 13.2 c cr to 1.5; ergo, while hospitalized for anemia, met XR 1000 stopped and glar 40 to 603 gave new Verio and submitted for FSL2 (hard to check cBG given dexterity) and met XR 1000 BID to 500 QD given GFR to FSLP mean down to 247, but highest p dinner to >350, but down to 130 AC br; therefore, insisted on breakfast (often skips) of WW toast c egg or berries and + AC dinner lispro fixed 10 c cb HBGs in 08/16/19 11.5 c intact C-peptide 6.6; therefore, 25 to 40 c FSL Pro in 10; therefore, deglun 10 to 256/2019 dc glim 4 QHS given AM hypos to 5 05/2018 increased 10 to 15 and restart at 20 c (has been taking between 8-10 AM)03/2018 9.5; therefore, 8/6 RS dc empag 10 (given no obvious benefit) and + deglun U-100 10 qhs02/2018 therefore, increased 4 QHS to 2/6 given AC br mean low 200s2 8.2; therefore, increased to 4 QHS06/2017 changed glim 2 qhs to Jardiance 10 qAM; but mean HBG up; therefore, restart glim 2 AC dinner05/2016 SHEREE/creatinine 17 Nocturnal leg cramps Stable on caris 250 qhs pr started caris 250 qhs prn Fe deficiency anemia C: tx prn, IV Fe +/ - EPO05/08/21 W to do EGD/coloncaution c probable cirrhosis 2 FLDB12/folate/macro hazel as per B1204/03/21 10.9, 83, prasanth 38, r31/2.0; ergo, +45 QOD6/--admitted c "syncope" (fell to floor upon risng s LOC per px)-tx 1 u PRBC, 22%/193 9.5, 86; therefore, + 65 QD c recpeat BW in 14D110/2018 11.8, 88, r31/2. 10.8, 88, r 31/1. 12.0, 87, CHr 31 s supplement Kidney stone Patient remains asym ptomatic12/2015 L ESWL, but 03/13/16 AXR c persistent L 6 mm NO stone12/2015 L 6 mm NO stone s/p ESWL, had passed L stone which caused mild hydronephrosis Vitamin D deficiency 04/03/21 39, 8.8, 12 9 on 0.25 QD; ergo, + Tums 500 QHS11/23/20 8.7, 195; therefore, encoruaged compliance c triol110/2018 53, 9.5, 165 on triol 0.25 QD03/2018 89, 8.9, 154; therefore, changed D2 50K q7D to calcitriol 0.25 and Tums 1384810/2017 66, 9.2, 92 on D2 50K q7D02/2016 vitamin D 60, 9.2, PTH 51 on Drisdol qW Chronic diarrhea Stable on Imodium pr n (started by Dr. Barnett)no benefit c Asacol Hypertension Stable biso 5 qAM, I SMN 10 BID, los 100 qAM and torse 20 qAMchronic low Mg probably 2 PPI/diarrhea04/03/21 16/0.6, 3.9, BNP mild decomp 2 non-compliance c Na (since last seen 08/2019 up 10#!); tehrefore, torse 20 to 30 qAM and cb AM dry wts in 4.7, 1.3, BNP 719, 4.2, 1.8, 1.2 c mild decomp; therefore, CTD 12.5 qAM to torse 10 qAM as per HTN c recheck in 04/10/17 increased bisoprolol 5 qAM to 5/2.5 given probable stable anginal pain; then decreased back to 5 qAM p DES05/29/17 EKG NSR 60 bpm, PRWP, diffuse RA similar to 04/06/17 EKG Hypothyroid 02/2019 2.0, 1.1 on 3.8, 1.0 on 2.3, 1.110/2015 5.9 on LT4 0.05; therefore LT4 25 advised to stop, but patient did not10/2015 TSH 3.1, FT4 1.2 on LT4 25 NAFLD (nonalcoholic fatty liver disease) 2 obesity/uncontrolled T2DM04/03/21 FS HAHN: S3/F304/03/21 PT/PTT GERD (gastroesophageal reflux disease) G ood control on panto 40 qAM109/2014 i changed Nexium 40 to Protonix 40 which caused severe breakthrough DENG symptoms; therefore, 12/2015 changed back to Nexium Chronic diastolic congestive heart failure Continue ROWAN/1500 FRas per HTN CKD (chronic kidney disease) stage 3, GFR 30-59 ml/min caution on los, CTD04/03/21 16/1.6, 3.96/ 15/1.5, 4.1, 1. 27/1.4, 4. 24/1.3, 4.3, Mg 2.05/21/17 stable at 17/1.1, K 4.9hgb as per FePTH as per vitamin D Hyperlipidemia 09/2018 /20 18 70/50/186, 62, <0.3 on atorva 8003/2017 given probable CAD, increased 20 to 80 QD Osteopenia repeat BMD BMD 1.1/1.7/1.6; therefore, CCR CAD (coronary artery disease) Patient re avery asx off asa 8103/03/21 asa 81 held given probable GIBL109/2016 Abdoul changed julian to clopid, repeat NST/TTE 04/10/17 increased bisoprolol as per HTN, added NTG SL prn; but given persistent angina pain; referred for cardiac catherization 05/14/17 c SAMARIA to mid LAD and ticagrelor 90 BID added to asa 8103/2017 DST with small reversible apical perfusion defect c/w ischemia in distal LAD distribution favoring medical thrapyfollows with Dr. Rivero-TUAN 05/19/17 Panic disorder 01/16/19 SS + busp 5 B ID s improvement; therefore, + parox started lorazepam 0.5 qhs given most episodes qhs, able to abort episodes c home modalities c improvement of symptoms Vitamin B12 deficiency hgb as per FeCont ingency: B12 SC-patient refuses03/10/21 >1999; ergo, decreased to 2607108/2019 918 on 1984 on 1999; therefore, decreased to 283, but not taking 2 cost; therefore, offered SC, but refuses10/2017 232 on 1000; therefore, increased to 1999 QD06/2017 B12 280; again encouraged to restart 1 mg QD03/2018 RBC folate sIFE s MCB3 sKL 82/48/1.73 uKL 222/23/9.5 Primary osteoarthritis of both knees Sta ble on Voltaren QID05/29/17 restarted B knee Voltaren 4 gm QID c marked improvementContingency: Juan R Walter kneeshas seen [facility] in past Treatment Notes Test Name Order Date FreeStyle Darling Pro sensor placement and removal 04-08 Future Test Test Name Order Date ALPHA FETOPROTEIN TUMOR QUANT 20210506 AMMONIA 20210506 CBC with Differential 20210506 FERRITIN 20210506 VITAMIN B12 LEVEL 20210506 FREE T4 & TSH PANEL 20210506 LIPID PANEL (CARDIAC RISK) 20210506 Comprehensive Metabolic Profile (CMP) 20210506 NT-PRO BNP 20210506 Next Appt Details 3-4M, BW 4W; 2W download FSLP Reason: Provider Name:Suhas Mock, 2021-04-22 0 1:00:00 PM, [address] [place] [address], , [place], [address], Provider Name:Suhas Mock, 2021-08-22 0 2:30:00 PM, [address] [place] [address], , [place], [address], Insurance Providers Payer Name Payer Address Payer Phone Insured Name Patient Relati onship to Insured Coverage Start Date Coverage End Date MEDICAID App[place] [address] [facility] [address] ALEXIS MAHAJAN self MEDICARE Part A and B [address] [facility] [address] [phone] ALEXIS MAHAJAN self
--- OUTSIDE RECORDS SUMMARY | 2021-07-10 21:06 | CCD ---
Author Author [facility] Organization [facility] Address Unknown Phone Unavailable Care Team Providers Care Computer Clerk Name Role Phone Suhas Mock Unavailable PROBLEMS Type Condition ICD9-CM Code [id number] Code Onset Dates Condition S tatus W/U Status Risk SNOMED Code Notes Problem Hypertension I10 Active confirmed 3054337 3 Problem Panic disorder F41.0 Active confirmed 11450 1005 Problem Fe deficiency anemia D50.9 Active confirmed 23996961 Problem GERD (gastroesophageal reflux disease) K21.9 A ctive confirmed 476697842 Problem Hypothyroid E03.9 Active confirmed 61647888 Problem Hyperlipidemia E78.5 Active confirmed 72139 004 Problem Breast cancer screening Z12.39 Active confirmed 434793270 Problem Chronic diarrhea K52.9 Active confirmed 236 969931 Problem Osteopenia M85.80 Active confirmed 220671155 Problem Vitamin D deficiency E55.9 Active confirmed 00713393 Problem Vitamin B12 deficiency E53.8 Active confirmed 260887282 Problem Chronic diastolic congestive heart failure I50.32 Active confirmed 690302531 Problem Nocturnal leg cramps G47.62 Active confirmed 318784289 Problem NAFLD (nonalcoholic fatty liver disease) K76.0 Active confirmed 074562298 Problem Kidney stone N20.0 Active confirmed 7786592 7 Problem T2DM (type 2 diabetes mellitus) E11.9 Active confi rmed 69881885 Problem CAD (coronary artery disease) I25.10 Active confirm ed 79417336 Problem 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.118 Active confirmed 5748731173973 Problem Primary osteoarthritis of both knees M17.0 Act carlos confirmed 064326696 Problem CKD (chronic kidney disease) stage 3, GFR 30-59 ml/min N18.3 Active confirmed 994581833 ALLERGIES Allergen (clinical drug ingredient) Drug/Non Drug Allergy do cumented on EMR Reaction Allergy Type Onset Date Status benzonatate Tessalon Caio[place]([facility] Code:[address]-82) Nausea/V omiting Drug Allergy Active amitriptyline Amitriptyline HCl([facility] Code:[address]-24) Depression Drug Allergy Active loratadine Claritin([facility] Code:[address]-70) Headaches Drug Allergy Active sulfamethoxazole / trimethoprim Bactrim([facility] Code:[address]-87) GI upset Drug Allergy Active ENCOUNTERS from 1945 to 2021-04-11 Encounter Location Date Provider Diagnosis [id number] [facility] [phone] [place] [address] Mar, Suhas Mock IMMUNIZATIONS Vaccine Route Administration Date [...] for 30 Days Mar, Active FreeStyle Darling [place] - as directed subcutaneously Daily, E 13.9 [...] Information RESULTS No Results REASON FOR VISIT Clarify meds MEDICAL (GENERAL) HISTORY Type Description Date Medical [...] 05/14/17 SAMARIA to 99% mid LAD, LVEF 55%-[facility] Medical History R knee [...] day for 90 day (s) FreeStyle Darling [place] - as directed subcutaneously Daily, E 13.9 [...] to bilateral knees for 30 d ay(s) Next Appt Details Provider Name:Suhas Mock, 2021-04-22 0 1:00:00 PM, [address] [place] [address] , [place], [address], Provider Name:Suhas Mock, 2021-08-22 0 2:30:00 PM, [address] [place] [address] , [place], [address], Insurance Providers Payer Name Payer Address Payer Phone Insured Name Patient Relati onship to Insured Coverage Start Date Coverage End Date MEDICAID [employer] [address] [facility] [address] ALEXIS MAHAJAN self MEDICARE Part A and B [address] [facility] [phone] ALEXIS MAHAJAN self
--- OUTSIDE RECORDS SUMMARY | 2021-07-10 21:06 | CCD | Continuity of Care Document ---
Author Author Karyn HAYNES MD Organization Unknown Address [address] [place] [address] [place] [address] Phone [phone] Care Team Providers Care Electronic Technologist Name Role Phone Suhas Mock MD AUTM [phone] Problems Active Problems Provider Date Precordial pain Jorge Schreiber MD Onset: 07/03/2017 Dyspnea Jorge Schreiber MD Onset: 07/03/2017 Electrocardiogram abnormal Jorge Schreiber MD Onset: 2016 Chronic pulmonary heart disease Jorge Schreiber MD Onset: 1 Heart murmur Jorge Schreiber MD Onset: 07/03/2017 Body mass index 40+ - severely obese Jorge Schreiber MD Ons et: 07/03/2017 Atherosclerotic heart disease of [place] coronary artery with other forms of angina [...] terry MD 07/02/2017 Calcium 600+D High Potency [id number] Tablets 1 by mouth twice a day [...] 33.5 Procedures Date Code Description Status 03/27/2021 93320 Office/Outpatient Established Mo d MDM 30-39 Min Completed 03/27/2021 85369 ECG 12-Lead Completed 03/04/2021 61885 Chronic Care MGMT 20 Mins Clinical Staff Time Per Calendar Month Completed 03/04/2021 62801 Chronic Care Management Services Ea Addl 20 Min Completed 01/28/2021 45534 Chronic Care MGMT 20 Mins Clinical Staff Time Per Calendar Month Completed 12/26/2020 89070 Chronic Care MGMT 20 Mins Clinical Staff Time Per Calendar Month Completed 12/26/2020 66247 Chronic Care Management Services Ea Addl 20 Min Completed Medical Devices Description No Information Available Encounters Type Date Location Provider Dx Diagnosis Office Visit 03/27/2021 1:00p Main Office BISHOP Baeza Z01 .810 Encounter for preprocedural cardiovascular examination I25.118 Athscl heart disease of lois ve cor art [facility].9 [facility] R94.31 Abnormal electrocardiogram [ [...] disease of lois ve cor art w [facility] Assessments Date Code Description Provider 03/27/2021 Z01.810 Encounter for preprocedural card iovascular examination BISHOP Baeza 03/27/2021 I25.118 Atherosclerotic hear t disease of [place] coronary artery with other forms of angina [...] 12/26/2020 I25.118 Atherosclerotic hear t disease of [place] coronary artery with other forms of angina [...] aspirin * I25.118 Atherosclerotic heart disease of [place] coronary artery with other forms of angina [...]
--- OUTSIDE RECORDS SUMMARY | 2021-07-10 21:06 | CCD ---
Author Author [facility] Organization [facility] Address Unknown Phone Unavailable Care Team Providers Care Helicopter Technician Name Role Phone Suhas Mock Unavailable PROBLEMS Type Condition ICD9-CM Code LKU39-PT Code Onset Dates Condition S tatus W/U Status Risk SNOMED Code Notes Problem Fe deficiency anemia D50.9 Active confirmed 56517204 Problem GERD (gastroesophageal reflux disease) K21.9 A ctive confirmed 519916869 Problem Hypothyroid E03.9 Active confirmed 57968814 Problem Hyperlipidemia E78.5 Active confirmed 00459 004 Problem Breast cancer screening Z12.39 Active confirmed 771992604 Problem Chronic diarrhea K52.9 Active confirmed 236 026030 Problem Nocturnal leg cramps G47.62 Active confirmed 679194263 Problem Kidney stone N20.0 Active confirmed 7977028 7 Problem Vitamin B12 deficiency E53.8 Active confirmed 991715342 Problem CAD (coronary artery disease) I25.10 Active confirm ed 70727947 Problem 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 Active confirmed 4948686169228 Problem Type 2 diabetes mellitus wit h complication, with long-term current use of insulin E11.8 Active confirmed 567638098 Problem Vitamin D deficiency E55.9 Active confirmed 20190398 Problem Panic disorder F41.0 Active confirmed 49835 1005 Problem Candidiasis, intertriginous B37.2 Active confirmed 897326595 Problem Osteopenia M85.80 Active confirmed 892083726 Problem T2DM (type 2 diabetes mellitus) E11.9 Active confi rmed 48561885 Problem Hypertension I10 Active confirmed 6948301 3 Problem Primary osteoarthritis of both knees M17.0 Act carlos confirmed 597178190 Problem CKD (chronic kidney disease) stage 3, GFR 30-59 ml/min N18.3 Active confirmed 130970438 Problem Chronic diastolic congestive heart failure I50.32 Active confirmed 081354601 Problem NAFLD (nonalcoholic fatty liver disease) K76.0 Active confirmed 233468005 ALLERGIES Allergen (clinical drug ingredient) Drug/Non Drug Allergy do cumented on EMR Reaction Allergy Type Onset Date Status benzonatate Tessalon Perles([facility] Code:[address]-68) Nausea/V omiting Drug Allergy Active amitriptyline Amitriptyline HCl([facility] Code:[address]-24) Depression Drug Allergy Active loratadine Claritin([facility] Code:[address]-19) Headaches Drug Allergy Active sulfamethoxazole / trimethoprim Bactrim([facility] Code:[address]-60) GI upset Drug Allergy Active ENCOUNTERS from 1943 to 2021-04-23 Encounter Location Date Provider Diagnosis [address] [phone] [place] [address] Apr, Suhas Mock T2DM (type 2 diabetes [facility]) E11.9 ; Fe deficiency anemia D50.9 ; Vitamin D deficiency E55.9 ; Hypertension I10 ; Type 2 diabetes mellitus with complication, with long-term current use of insulin E11.8 ; Candidiasis, intertriginous B37.2 ; NAFLD (nonalcoholic fatty liver disease) K76.0 [...] FOR REFERRAL No Information VITAL SIGNS Weight 197.4 lbs Apr, Weight-kg 89.54 kg Apr, Height 59 in Apr, BMI 39.87 kg/m2 Apr, Heart Rate 84 /min Apr, Respiratory Rate 18 /min Apr, Temperature 97.9 degrees Fahrenheit Apr, Oximetry 94% Apr, Blood pressure systolic 124 mm Hg Apr, Blood pressure diastolic 78 mm Hg Apr, MEDICATIONS Medication SIG (Take, Route, Frequency, Duration) [...] 30 Days 0 9 Apr, 2021 Active Atorvastatin Calcium 80 MG 1 tablet [...] day for 90 day(s) Active FreeStyle Darling [place] - as directed subcutaneously D aily, E13.8, [...] E11.9 for 30 Days Mar, Active PROCEDURES from 1943 to 2021-04-23 Procedure Date Ordered Result Body Site FreeStyle Darling Pro sensor placement and removal 2021-04-22 N/A RESULTS No Results REASON FOR VISIT fslp sensor download MEDICAL (GENERAL) HISTORY Type Description Date Medical [...] 05/14/17 SAMARIA to 99% mid LAD, LVEF 55%-[facility]o-[facility] Medical History R knee advanced tricompartmental [...] Notes Treatment Notes Treatm ent Clinical Notes Apr, T2DM (type 2 diabetes mellitus) (ICD-10 - E11.9) 8-10 br / 13-15 lunch / 16-18 din (often skips br, trina) C: titrate deglun, lispro on deglun U-100 60 at 21(QHS), lispro 20 (at 12, 18) AC lunch/dinner (10 if doesn't take any food) 04/08-04/22/21 FSLP m293, , extreme sign wave c [...] taking between 8-10 AM) 03/2018 9.5; therefore, 8 RS dc empag 10 (given no obvious benefit) and + deglun U-100 10 qhs 02/2018 therefore, increased 4 QHS to 2/6 given AC br mean low 200s 10/2017 8.2; therefore, increased to 4 QHS 06/2017 changed glim 2 qhs to Jardiance 10 qAM; but mean HBG up; therefore, restart glim 2 AC dinner 05/2016 SHEREE/creatinine 17 Apr, Fe deficiency anemia (ICD-10 - D50.9) C: tx prn, IV Fe +/- EPO 05/08/21 W to do EGD/colon caution c probable cirrhosis 2 FLD B12/folate/macro hazel as per B12 04/03/21 10.9, 83, prasanth 38, r31/2.0; ergo, +45 QOD 03/09--admitted c "syncope" (fell to floor upon risng s LOC per px)-tx 1 u PRBC, 22%/11/23/20 9.5, 86; therefore, + 65 QD c recpeat BW in 14D 08/2019 11.8, 88, r31/2.9 02/2019 10.8, 88, r 31/1.9 10/2017 12.0, 87, CHr 31 s supplement Apr, Vitamin D deficiency (ICD-10 - E55.9) 04/03/21 [...] 60, 9.2, PTH 51 on Drisdol qW Apr, Hypertension (ICD-10 - I10) Stable biso 5 [...] PRWP, diffuse RA similar to 04/06/17 EKG Apr, Type 2 diabetes mellitus wit h complication, with long-term current use of insulin (ICD-10 - E11.8) Apr, Candidiasis, intertriginous (ICD-10 - B37.2) B abdominal pannus 04/22/21 nystatin powder TID x 14D, then QD maintenace Apr, NAFLD (nonalcoholic fatty liver disease) (ICD-10 - K76.0) 2 obesity/uncontrolled T2DM 04/03/21 FS HAHN: S3/F3 04/03/21 PT/PTT Apr, Chronic diastolic congestive heart failure (ICD- 10 - I50.32) Continue ROWAN/1500 FR as per HTN Apr, CKD (chronic kidney disease) stage 3, GFR 30-59 ml/min (ICD-10 - N18.3) caution on los, CTD 04/03/21 16/1.6, 3.9 03/11/21 15/1.5, 4.1, 1.6 03/2018 27/1.4, 4.4 10/2017 24/1.3, 4.3, Mg 2.0 05/21/17 stable at 17/1.1, K 4.9 hgb as per Fe PTH as per vitamin D Apr, Panic disorder (ICD-10 - F41.0) 01/16/19 SS + busp 5 BID s improvement; therefore, + parox 20 01/2015 started lorazepam 0.5 qhs given most episodes qhs, able to abort episodes c home modalities c improvement of symptoms Apr, Vitamin B12 deficiency (ICD-10 - E53.8) hgb as per Fe Contingency: B12 SC-patient refuses 03/10/21 >1999; ergo, decreased to 500 08/2019 918 on 1000 09/2018 1984 on 1999; therefore, decreased to 1000 03/2018 283, but not taking 2 cost; therefore, offered SC, but refuses 10/2017 232 on 1000; therefore, increased to 1999 QD 06/2017 323 03/2017 B12 280; again encouraged to restart 1 mg QD 03/2018 RBC folate 904 11/26/20 sIFE s MCB 11/26/20 sKL 82/48/1.7 11/26/20 uKL 222/23/9.5 Apr, Primary osteoarthritis of both knees (ICD-10 - M 17.0) Stable on Voltaren QID 05/29/17 restarted B knee Voltaren 4 gm QID c marked improvement Contingency: Kenalog B knees has seen NCOG in past Apr, CAD (coronary artery disease) (ICD-10 - I25.10) [...] distribution favoring medical thrapy follows with Dr. Rivero-TUAN 05/19/17 Apr, Osteopenia (ICD-10 - M85.80) repeat BMD 08/2021 BMD 1.1/1.7/1.6; therefore, CCR Apr, Nocturnal leg cramps (ICD-10 - G47.62) Stable on caris 250 qhs prn 05/2012 started caris 250 qhs prn Apr, Breast cancer screening (ICD-10 - Z12.39) 03/2019 B C1 mammogram Apr, Chronic diarrhea (ICD-10 - K52.9) Stable on Imodium prn (started by Dr. Barnett) no benefit c Asacol Apr, Kidney stone (ICD-10 - N20.0) Patient remains asymptomatic 12/2015 L ESWL, but 03/13/16 AXR c persistent L 6 mm NO stone 12/2015 L 6 mm NO stone s/p ESWL, had passed L stone which caused mild hydronephrosis Apr, GERD (gastroesophageal reflux disease) (ICD-10 - K21.9) Good control on panto 40 qAM 07/2015 i changed Nexium 40 to Protonix 40 which caused severe breakthrough DENG symptoms; therefore, 12/2015 changed back to Nexium Apr, Hypothyroid (ICD-10 - E03.9) 02/2019 2.0, 1.1 on 03/2018 3.8, 1.0 on 11/2016 2.3, 1.1 06/2016 5.9 on LT4 25 02/2016 0.05; therefore LT4 25 advised to stop, but patient did not 10/2015 TSH 3.1, FT4 1.2 on LT4 25 Apr, Hyperlipidemia (ICD-10 - E78.5) 09/2018 76/49/160 10/2017 [...] 5% for 30 Days Apr, FreeStyle Darling [place] - as directed subcutaneously D aily, E13.8, [...] Orally Once a day for 90 day(s) Treatment Notes Assessment Notes Clinical Notes Nocturnal leg cramps Stable on caris 250 qhs pr started caris 250 qhs prn T2DM (type 2 diabetes mellitus) 8-10 br / 13-15 lunch / 16-18 din (often skips br, trina)C: titrate deglun, lisproon deglun U-100 60 at 21(QHS), lispro 20 (at 12, 18) AC lunch/dinner (10 if doesn't take any food)04/08-04/22/21 FSLP m293, 93//, extreme sign wave c [...] lispro fixed 10 c cb HBGs in 2W08/16/19 11.5 c intact C- peptide 6.6; therefore, 25 to 40 c FSL Pro in 5D06/2019 10; therefore, deglun 10 to dc glim 4 QHS given AM hypos to increased 10 to 15 and restart at 20 c (has been taking between 8-10 AM)03/2018 9.5; therefore, 04/19 RS dc empag 10 (given no obvious benefit) and + deglun U-100 10 qhs02/2018 therefore, increased 4 QHS to 2/6 given AC br mean low 200s2/2017 8.2; therefore, increased to 4 QHS06/2017 changed glim 2 qhs to Jardiance 10 qAM; but mean HBG up; therefore, restart glim 2 AC dinner05/2016 SHEREE/creatinine 17 Osteopenia repeat BMD BMD 1.1/1.7/1.6; therefore, CCR Fe deficiency anemia C: tx prn, IV Fe +/ - EPO05/08/21 W to do EGD/coloncaution c probable cirrhosis 2 FLDB12/folate/macro hazel as per B1204/03/21 10.9, 83, prasanth 38, r31/2.0; ergo, +45 QOD6/--admitted c "syncope" (fell to floor upon risng s LOC per px)-tx 1 u PRBC, 22%/193 9.5, 86; therefore, + 65 QD c recpeat BW in 11.8, 88, r31/2. 10.8, 88, r 31/1. 12.0, 87, CHr 31 s supplement Chronic diarrhea Stable on Imodium pr n (started by Dr. Barnett)no benefit c Asacol Vitamin D deficiency 04/03/21 39, 8.8, 12 9 on 0.25 QD; ergo, + Tums 500 QHS11/23/20 8.7, 195; therefore, encoruaged compliance c triol110/2018 53, 9.5, 165 on triol 0.25 QD03/2018 89, 8.9, 154; therefore, changed D2 50K q7D to calcitriol 0.25 and Tums 6182810/2017 66, 9.2, 92 on D2 50K q7D02/2016 vitamin D 60, 9.2, PTH 51 on Drisdol qW Breast cancer screening 03/2019 B C1 mamm ogram Hypertension Stable biso 5 qAM, I SMN 10 BID, los 100 qAM and torse 20 qAMchronic low Mg probably 2 PPI/diarrhea04/03/21 16/0.6, 3.9, BNP mild decomp 2 non-compliance c Na (since last seen 08/2019 up 10#!); tehrefore, torse 20 to 30 qAM and cb AM dry wts in 5D06/2019 4.7, 1.3, BNP 719, 4.2, 1.8, 1.2 c mild decomp; therefore, CTD 12.5 qAM to torse 10 qAM as per HTN c recheck in 04/10/17 increased bisoprolol 5 qAM to 5/2.5 given probable stable anginal pain; then decreased back to 5 qAM p DES05/29/17 EKG NSR 60 bpm, PRWP, diffuse RA similar to 04/06/17 EKG GERD (gastroesophageal reflux disease) G ood control on panto 40 qAM109/2014 i changed Nexium 40 to Protonix 40 which caused severe breakthrough DENG symptoms; therefore, 12/2015 changed back to Nexium Candidiasis, intertriginous B abdominal pannus04/22/21 nystatin powder TID x 14D, then QD maintenace Kidney stone Patient remains asym ptomatic12/2015 L ESWL, but 03/13/16 AXR c persistent L 6 mm NO stone12/2015 L 6 mm NO stone s/p ESWL, had passed L stone which caused mild hydronephrosis NAFLD (nonalcoholic fatty liver disease) 2 obesity/uncontrolled T2DM04/03/21 FS HAHN: S3/F304/03/21 PT/PTT Hyperlipidemia 09/2018 /20 18 70/50/186, 62, <0.3 on atorva 8003/2017 given probable CAD, increased 20 to 80 QD Chronic diastolic congestive heart failure Continue ROWAN/1500 FRas per HTN Hypothyroid 02/2019 2.0, 1.1 on 2 3.8, 1.0 on 2.3, 1.110/2015 5.9 on LT4 0.05; therefore LT4 25 advised to stop, but patient did not10/2015 TSH 3.1, FT4 1.2 on LT4 25 CAD (coronary artery disease) Patient re avery asx off asa 816 asa 81 held given probable GIBL109/2016 Schreiber changed julian to clopid, repeat NST/TTE 04/10/17 increased bisoprolol as per HTN, added NTG SL prn; but given persistent angina pain; referred for cardiac catherization 05/14/17 c SAMARIA to mid LAD and ticagrelor 90 BID added to asa 8103/2017 DST with small reversible apical perfusion defect c/w ischemia in distal LAD distribution favoring medical thrapyfollows with Dr. Cavazos 05/19/17 Primary osteoarthritis of both knees Sta ble on Voltaren QID05/29/17 restarted B knee Voltaren 4 gm QID c marked improvementContingency: Kenalog B kneeshas seen NCOG in past CKD (chronic kidney disease) stage 3, GFR 30-59 ml/min caution on los, CTD04/03/21 16/1.6, 3.96 15/1.5, 4.1, 1. 27/1.4, 4. 24/1.3, 4.3, Mg 2.05/21/17 stable at 17/1.1, K 4.9hgb as per FePTH as per vitamin D Panic disorder 01/16/19 SS + busp 5 B ID s improvement; therefore, + parox started lorazepam 0.5 qhs given most episodes qhs, able to abort episodes c home modalities c improvement of symptoms Vitamin B12 deficiency hgb as per [place] ingency: B12 SC-patient refuses03/10/21 >1999; ergo, decreased to 6801908/2019 918 on 1984 on 1999; therefore, decreased to 283, but not taking 2 cost; therefore, offered SC, but refuses10/2017 232 on 1000; therefore, increased to 1999 QD06/2017 B12 280; again encouraged to restart 1 mg QD03/2018 RBC folate sIFE s MCB3/ sKL 82/48/1.73/ uKL 222/23/9.5 Next Appt Details , BW 1W prior Reason: Provider Name:Suhas Mock, 2021-08-22 0 2:30:00 PM, [address] [facility] [phone], [place], [address], Insurance Providers Payer Name Payer Address Payer Phone Insured Name Patient Relati onship to Insured Coverage Start Date Coverage End Date DARSHANAMelody YENIFER [address] [address] [facility] [phone] ALEXIS MAHAJAN self MEDICAID [employer] [address] [facility] [id number] ALEXIS MAHAJAN self
--- OUTSIDE RECORDS SUMMARY | 2021-07-10 21:06 | CCD ---
Author Author [facility] Organization [facility] Address Unknown Phone Unavailable Care Team Providers Care Industrial Maintenance Manager Name Role Phone Suhas Mock Unavailable PROBLEMS Type Condition ICD9-CM Code SZH71-GS Code Onset Dates Condition S tatus W/U Status Risk SNOMED Code Notes Problem Fe deficiency anemia D50.9 Active confirmed 10283773 Problem GERD (gastroesophageal reflux disease) K21.9 A ctive confirmed 281152269 Problem Hypothyroid E03.9 Active confirmed 44359613 Problem Hyperlipidemia E78.5 Active confirmed 41934 004 Problem Breast cancer screening Z12.39 Active confirmed 124129672 Problem Chronic diarrhea K52.9 Active confirmed 236 721694 Problem Nocturnal leg cramps G47.62 Active confirmed 596866005 Problem Kidney stone N20.0 Active confirmed 6493814 7 Problem Vitamin B12 deficiency E53.8 Active confirmed 596593729 Problem CAD (coronary artery disease) I25.10 Active confirm ed 37789642 Problem 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 Active confirmed 0011104942061 Problem Type 2 diabetes mellitus wit h complication, with long-term current use of insulin E11.8 Active confirmed 371525057 Problem Vitamin D deficiency E55.9 Active confirmed 18515531 Problem Panic disorder F41.0 Active confirmed 83092 1005 Problem Candidiasis, intertriginous B37.2 Active confirmed 772910269 Problem Osteopenia M85.80 Active confirmed 799028074 Problem T2DM (type 2 diabetes mellitus) E11.9 Active confi rmed 98398439 Problem Hypertension I10 Active confirmed 4170037 3 Problem Primary osteoarthritis of both knees M17.0 Act carlos confirmed 474377329 Problem CKD (chronic kidney disease) stage 3, GFR 30-59 ml/min N18.3 Active confirmed 060894128 Problem Chronic diastolic congestive heart failure I50.32 Active confirmed 384448586 Problem NAFLD (nonalcoholic fatty liver disease) K76.0 Active confirmed 333659876 ALLERGIES Allergen (clinical drug ingredient) Drug/Non Drug Allergy do cumented on EMR Reaction Allergy Type Onset Date Status benzonatate Tessalon Perles([facility] Code:[address]-03) Nausea/V omiting Drug Allergy Active amitriptyline Amitriptyline HCl([facility] Code:[address]-11) Depression Drug Allergy Active loratadine Claritin([facility] Code:[address]-38) Headaches Drug Allergy Active sulfamethoxazole / trimethoprim Bactrim([facility] Code:[address]-75) GI upset Drug Allergy Active ENCOUNTERS from 1945 to 2021-04-22 Encounter Location Date Provider Diagnosis [address] [phone] [place] [address] Apr, Suhas Mock T2DM (type 2 diabetes [facility]) E11.9 IMMUNIZATIONS Vaccine Route Administration Date Status [...] day for 90 day(s) Active FreeStyle Darling [place] - as directed subcutaneously D aily, E13.8, [...] Information RESULTS No Results REASON FOR VISIT Humalog 100unit/ml KwikPen MEDICAL (GENERAL) HISTORY Type Description Date Medical [...] 05/14/17 SAMARIA to 99% mid LAD, LVEF 55%-[facility] Medical History R knee advanced tricompartmental [...] 5% for 30 Days Apr, FreeStyle Darling [place] - as directed subcutaneously D aily, E13.8, [...] for 90 day(s) Next Appt Details Provider Name:Suhas Mock, 2021-08-22 0 2:30:00 PM, [address] [facility], , [place], [address], Insurance Providers Payer Name Payer Address Payer Phone Insured Name Patient Relati onship to Insured Coverage Start Date Coverage End Date [address] [facility] [address] ALEXIS MAHAJAN [facility] MEDICAID [employer] [address] [facility] [id number] ALEXIS MAHAJAN self
--- OUTSIDE RECORDS SUMMARY | 2021-07-10 21:06 | CCD | Continuity of Care Document ---
Author Author Karyn CHRIS Organization Unknown Address [address] [place] [address] Phone [phone] Care Team Providers Care Clinical Laboratory Aide Name Role Phone Suhas Mock MD [facility] [phone] Problems Active Problems Provider Date Anemia Augustine Chris M.D. Onset: 04/02/20 21 Social History Type Date Description Comments Sex Unknown ETOH Use Denies alcohol use Tobacco Use Start: Unknown Patient has never smoked Allergies, Adverse Reactions, Alerts Active Allergies Criticality Reaction | Severity Comments Date Claritin Unable to assess criticality 04/02/2021 Medications Active Medications SIG Qnty Indications Ordering Provide r Date Sutab [id number] Tablets as directed 1box Augustine Chris M.D. [...] 88.906 kg Body Temperature 96.3 F Results Description No Information Available Procedures Date Code Description Status 05/08/2021 69393 Colonoscopy Flexible Diagnostic Completed 05/08/2021 56094 Endoscopy Upper GI Biopsy Comple david 04/02/2021 24058 Office/Outpatient New Low [facility] 30 -44 Minutes Completed Medical Devices Description [...]
--- OUTSIDE RECORDS SUMMARY | 2021-07-10 21:06 | CCD ---
Author Author [facility] Organization [facility] Address Unknown Phone Unavailable Care Team Providers Care Clinical Product Specialist Name Role Phone Suhas Mock Unavailable PROBLEMS Type Condition ICD9-CM Code ISB00-HH Code Onset Dates Condition S tatus W/U Status Risk SNOMED Code Notes Problem Hypertension I10 Active confirmed 2027096 3 Problem Panic disorder F41.0 Active confirmed 81149 1005 Problem Fe deficiency anemia D50.9 Active confirmed 38155855 Problem GERD (gastroesophageal reflux disease) K21.9 A ctive confirmed 293500366 Problem Hypothyroid E03.9 Active confirmed 80300954 Problem Hyperlipidemia E78.5 Active confirmed 43360 004 Problem Breast cancer screening Z12.39 Active confirmed 067554398 Problem Chronic diarrhea K52.9 Active confirmed 236 411471 Problem Osteopenia M85.80 Active confirmed 497979393 Problem Vitamin D deficiency E55.9 Active confirmed 41077064 Problem Vitamin B12 deficiency E53.8 Active confirmed 007830850 Problem Chronic diastolic congestive heart failure I50.32 Active confirmed 345669696 Problem Nocturnal leg cramps G47.62 Active confirmed 818013464 Problem NAFLD (nonalcoholic fatty liver disease) K76.0 Active confirmed 949760686 Problem Kidney stone N20.0 Active confirmed 6120405 7 Problem T2DM (type 2 diabetes mellitus) E11.9 Active confi rmed 28552511 Problem CAD (coronary artery disease) I25.10 Active confirm ed 15062455 Problem 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 Active confirmed 7418909714143 Problem Primary osteoarthritis of both knees M17.0 Act carlos confirmed 235459021 Problem CKD (chronic kidney disease) stage 3, GFR 30-59 ml/min N18.3 Active confirmed 095348852 ALLERGIES Allergen (clinical drug ingredient) Drug/Non Drug Allergy do cumented on EMR Reaction Allergy Type Onset Date Status benzonatate Tessalon Caioes([facility] Code:[address]-10) Nausea/V omiting Drug Allergy Active amitriptyline Amitriptyline HCl([facility] Code:[address]-85) Depression Drug Allergy Active loratadine Claritin([facility] Code:[address]-44) Headaches Drug Allergy Active sulfamethoxazole / trimethoprim Bactrim([facility] Code:[address]-26) GI upset Drug Allergy Active ENCOUNTERS from 1945 to 2021-04-12 Encounter Location Date Provider Diagnosis [place] [id number] [facility] [phone] [place] [address] Mar, Suhas Mock IMMUNIZATIONS Vaccine Route Administration [...] 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 No Have you ever had an STD? No Drug and Alcohol Question Answer Notes Interpretation: No problems reported Total Score: 0 Alcohol Screening: Question Answer Notes Did you [...] for 30 Days Mar, Active FreeStyle [place] - as directed subcutaneously Daily, E 13.9 [...] Information RESULTS No Results REASON FOR VISIT 6 months of notes MEDICAL (GENERAL) HISTORY Type Description Date Medical [...] 05/14/17 SAMARIA to 99% mid LAD, LVEF 55%-[facility] Medical History R knee advanced tricompartmental [...] day for 90 day (s) FreeStyle [place] - as directed subcutaneously Daily, E 13.9 [...] Provider Name:Suhas Mock, 2021-04-22 0 1:00:00 PM, [address] [place] [address] , [place], [address], Provider Name:Suhas Mock, 2021-08-22 0 2:30:00 PM, [address] [place] [address] , [place], [address], Insurance Providers Payer Name Payer Address Payer Phone Insured Name Patient Relati onship to Insured Coverage Start Date Coverage End Date MEDICAID [employer] [address] [facility] [id number] ALEXIS MAHAJAN self MEDICARE Part A and B [address] [facility] [id number] ALEXIS MAHAJAN self
--- OUTSIDE RECORDS SUMMARY | 2021-07-10 21:07 | CCD ---
Author Author [facility] Organization [facility] Address Unknown Phone Unavailable Care Team Providers Care Director [facility] Name Role Phone Mackenzie Chris MD Unavailable Unavailable Mackenzie Chris MD Unavailable Unavailable Mackenzie Chris MD Unavailable Unavailable Mackenzie Chris MD Unavailable Unavailable Mackenzie Chris MD Unavailable Unavailable Mackenzie Chris MD Unavailable Unavailable Mackenzie Chris MD Unavailable Unavailable Mackenzie Chris MD Unavailable Unavailable Mackenzie Chris MD Unavailable Unavailable Mackenzie Chris MD Unavailable Unavailable Mackenzie Chris MD Unavailable Unavailable Mackenzie Chris MD Unavailable Unavailable Mackenzie Chris MD Unavailable Unavailable Mackenzie Chris MD Unavailable Unavailable Mackenzie Chris MD Unavailable Unavailable Mackenzie Chris MD Unavailable Unavailable Mackenzie Chris MD Unavailable Unavailable Mackenzie Chris MD Unavailable Unavailable Mackenzie Chris MD Unavailable Unavailable Mackenzie Chris MD Unavailable Unavailable Mackenzie Chris MD Unavailable Unavailable Mackenzie Chris MD Unavailable Unavailable Mackenzie Chris MD Unavailable Unavailable Mackenzie Chris MD Unavailable Unavailable Mackenzie Chris MD Unavailable Unavailable Mackenzie Chris MD Unavailable Unavailable Mackenzie Chris MD Unavailable Unavailable Mackenzie Chris MD Unavailable Unavailable Mackenzie Chris MD Unavailable Unavailable Mackenzie Chris MD Unavailable Unavailable Mackenzie Chris MD Unavailable Unavailable AriesMackenzie king MD Unavailable Unavailable Mackenzie Chris MD Unavailable Unavailable Mackenzie Chris MD Unavailable Unavailable Mackenzie Chris MD Unavailable Unavailable Mackenzie Chris MD Unavailable Unavailable Mackenzie Chris MD Unavailable Unavailable Mackenzie Chris MD Unavailable Unavailable Mackenzie Chris MD Unavailable Unavailable Mackenzie Chris MD Unavailable Unavailable Mackenzie Chris MD Unavailable Unavailable Mackenzie Chris MD Unavailable Unavailable Mackenzie Chris MD Unavailable Unavailable Mackenzie Chris MD Unavailable Unavailable Mackenzie Chris MD Unavailable Unavailable Mackenzie Chris MD Unavailable Unavailable Mackenzie Chris MD Unavailable Unavailable Mackenzie Chris MD Unavailable Unavailable Mackenzie Chris MD Unavailable Unavailable Mackenzie Chris MD Unavailable Unavailable PRADEEP, L MERCEDEZ PA Unavailable Unavailable PRADEEP, L MERCEDEZ PA Unavailable Unavailable PRADEEP, L MERCEDEZ PA Unavailable Unavailable PRADEEP, L MERCEDEZ PA Unavailable Unavailable PRADEEP, L MERCEDEZ PA Unavailable Unavailable PRADEEP, L MERCEDEZ PA Unavailable Unavailable PRADEEP, L MERCEDEZ PA Unavailable Unavailable PRADEEP, L MERCEDEZ PA Unavailable Unavailable PRADEEP, L MERCEDEZ PA Unavailable Unavailable PRADEEP, L MERCEDEZ PA Unavailable Unavailable PRADEEP, L MERCEDEZ PA Unavailable Unavailable PRADEEP, L MERCEDEZ PA Unavailable Unavailable PRADEEP, L MERCEDEZ PA Unavailable Unavailable PRADEEP, L MERCEDEZ PA Unavailable Unavailable PRADEEP, L MERCEDEZ PA Unavailable Unavailable PRADEEP, L MERCEDEZ PA Unavailable Unavailable ANTECOLMartín MD Unavailable Unavailable ANTECOLMartín MD Unavailable Unavailable ANTECOLMartín MD Unavailable Unavailable ANTECOLMartín MD Unavailable Unavailable ANTECOLMartín MD Unavailable Unavailable ANTECOLMartín MD Unavailable Unavailable ANTECOLMartín MD Unavailable Unavailable ANTECMartín PEREZ MD Unavailable Unavailable ANTECOLMartín MD Unavailable Unavailable ANTECOLMartín MD Unavailable Unavailable ANTECOLMartín MD Unavailable Unavailable ANTECOLMartín MD Unavailable Unavailable ANTECOLMartín MD Unavailable Unavailable ANTECOL, Martín BLANCHARD MD Unavailable Unavailable ANTECOL, Martín BLANCHARD MD Unavailable Unavailable ANTECOL, Martín BLANCHARD MD Unavailable Unavailable ANTECOL, Martín BLANCHARD MD Unavailable Unavailable ANTECOL, Martín BLANCHARD MD Unavailable Unavailable ANTECOL, Martín BLANCHARD MD Unavailable Unavailable ANTECOL, Martín BLANCHARD MD Unavailable Unavailable ANTECOL, Martín BLANCHARD MD Unavailable Unavailable ANTECOL, Martín BLANCHARD MD Unavailable Unavailable ANTECOL, Martín BLANCHARD MD Unavailable Unavailable ANTECOL, Martín BLANCHARD MD Unavailable Unavailable ANTECOL, Martín BLANCHARD MD Unavailable Unavailable ANTECOL, Martín BLANCHARD MD Unavailable Unavailable ANTECOL, Martín BLANCHARD MD Unavailable Unavailable ANTECOL, Martín BLANCHARD MD Unavailable Unavailable ANTECOL, Martín BLANCHARD MD Unavailable Unavailable ANTECOL, Martín BLANCHARD MD Unavailable Unavailable ANTECOL, Martín BLANCHARD MD Unavailable Unavailable ANTECOL, Martín BLANCHARD MD Unavailable Unavailable ANTECOL, Martín BLANCHARD MD Unavailable Unavailable ANTECOL, Martín BLANCHARD MD Unavailable Unavailable ANTECOL, Martín BLANCHARD MD Unavailable Unavailable ANTECOL, Martín BLANCHARD MD Unavailable Unavailable ANTECOL, Martín BLANCHARD MD Unavailable Unavailable ANTECOL, Martín BLANCHARD MD Unavailable Unavailable ANTECOL, Martín BLANCHARD MD Unavailable Unavailable ANTECOL, Martín BLANCHARD MD Unavailable Unavailable ANTECOL, Martín BLANCHARD MD Unavailable Unavailable ANTECOL, Martín BLANCHARD MD Unavailable Unavailable ANTECOL, Martín BLANCHARD MD Unavailable Unavailable ANTECOL, Martín BLANCHARD MD Unavailable Unavailable ANTECOL, Martín BLANCHARD MD Unavailable Unavailable ANTECOL, Martín BLANCHARD MD Unavailable Unavailable ANTECOL, Martín BLANCHARD MD Unavailable Unavailable ANTECOL, Martín BLANCHARD MD Unavailable Unavailable ANTECOL, Martín BLANCHARD MD Unavailable Unavailable ANTECOL, Martín BLANCHARD MD Unavailable Unavailable ANTECOL, Martín BLANCHARD MD Unavailable Unavailable ANTECOL, Martín BLANCHARD MD Unavailable Unavailable ANTECOL, Martín BLANCHARD MD Unavailable Unavailable ANTECOL, Martín BLANCHARD MD Unavailable Unavailable DRAZEK, I CHLOE PA Unavailable Unavailable DRAZEK, I CHLOE PA Unavailable Unavailable DRAZEK, I CHLOE PA Unavailable Unavailable DRAZEK, I CHLOE PA Unavailable Unavailable DRAZEK, I CHLOE PA Unavailable Unavailable DRAZEK, I CHLOE PA Unavailable Unavailable DRAZEK, I CHLOE PA Unavailable Unavailable DRAZEK, I CHLOE PA Unavailable Unavailable DRAZEK, I CHLOE PA Unavailable Unavailable DRAZEK, I CHLOE PA Unavailable Unavailable DRAZEK, I CHLOE PA Unavailable Unavailable DRAZEK, I CHLOE PA Unavailable Unavailable DRAZEK, I CHLOE PA Unavailable Unavailable DRAZEK, I CHLOE PA Unavailable Unavailable DRAZEK, I CHLOE PA Unavailable Unavailable DRAZEK, I CHLOE PA Unavailable Unavailable DRAZEK, I CHLOE PA Unavailable Unavailable DRAZEK, I CHLOE PA Unavailable Unavailable DRAZEK, I CHLOE PA Unavailable Unavailable DRAZEK, I CHLOE PA Unavailable Unavailable DRAZEK, I CHLOE PA Unavailable Unavailable DRAZEK, I CHLOE PA Unavailable Unavailable DRAZEK, I CHLOE PA Unavailable Unavailable DRAZEK, I CHLOE PA Unavailable Unavailable DRAZEK, I CHLOE PA Unavailable Unavailable DRAZEK, I CHLOE PA Unavailable Unavailable DRAZEK, I CHLOE PA Unavailable Unavailable DRAZEK, I CHLOE PA Unavailable Unavailable DRAZEK, I CHLOE PA Unavailable Unavailable DRAZEK, I CHLOE PA Unavailable Unavailable Re-disclosure Warning The records that you are about to access may contain information from federally-assisted alcohol or drug abuse programs. If such information is present, then the following federally mandated warning applies: This information has been disclosed to you from records protected by federal confidentiality rules (42 CFR part 2). The federal rules prohibit you from making any further disclosure of this information unless further disclosure is expressly permitted by the written consent of the person to whom it pertains or as otherwise permitted by 42 CFR part 2. A general authorization for the release of medical or other information is NOT sufficient for this purpose. The Federal rules restrict any use of the information to criminally investigate or prosecute any alcohol or drug abuse patient.The records that you are about to access may contain highly sensitive health information, the redisclosure of which is protected by Article 27-F of the [facility] Public Health law. If you continue you may have access to information: Regarding HIV / AIDS; Provided by facilities licensed or operated by the [facility] Office of Mental Health; or Provided by the [facility] Office for People With Developmental Disabilities. If such information is present, then the following [facility] mandated warning applies: This information has been disclosed to you from confidential records which are protected by state law. State law prohibits you from making any further disclosure of this information without the specific written consent of the person to whom it pertains, or as otherwise permitted by law. Any unauthorized further disclosure in violation of state law may result in a fine or fpc sentence or both. A general authorization for the release of medical or other information is NOT sufficient authorization for further disc losure. Family History Family Member Name Family Member Gender Family Member Status Date o f Status Description Data Source(s) Unknown Unknown Problem [facility] ([facility]) Encounters Encounter Providers Location Date Indications Data Source(s ) Outpatient Attender: Augustine Chris MD Main Office 07/09/2021 10:45:00 AM EDT [facility] ([facility]) [place] [address] [facility] [address] 07/08/2021 12:00:00 AM EDT eCW1 ([facility]) Unknown [address] [facility] [place] [address] 05/27/2021 12:00:00 AM EDT eCW1 ([facility]) [place] [address] [facility] [address] 05/21/2021 12:00:00 AM EDT eCW1 ([facility]) Outpatient [address] [facility] Y [address] 05/21/2021 12:00:00 AM EDT eCW1 ([facility]) Unknown [address] [facility] [place] [address] 05/15/2021 12:00:00 AM EDT eCW1 ([facility]) Office Visit Attender: LO ELAINE MD Main Office 05/07/2021 10: 28:00 AM EDT MED[facility] ([facility]) [place] [address] [facility] [address] 04/22/2021 12:00:00 AM EDT eCW1 ([facility]) Unknown [address] [facility] [address] 04/16/2021 12:00:00 AM EDT eCW1 ([facility]) Unknown [address] [facility] [place] [address] 04/10/2021 12:00:00 AM EDT eCW1 ([facility]) Outpatient [address] [facility] [place] [address] 04/08/2021 12:00:00 AM EDT eCW1 ([facility]) Office Visit Attender: LO ELAINE MD Main Office 04/04/2021 08: 37:00 AM EDT MEDENT ([facility]) Unknown [address] [facility] [address] 04/03/2021 12:00:00 AM EDT eCW1 ([facility]) Outpatient Attender: Augustine Chris MD Main Office 04/02/2021 01:00:00 PM EDT MED[facility] ([facility]) Unknown [address] [facility] [address] 04/01/2021 12:00:00 AM EDT eCW1 ([facility]) Outpatient Attender: MERCEDEZ ALAS Main Office 03/27/2021 0 1:00:00 PM EDT MEDENT ([facility]) Unknown [address] [facility] [address] 03/27/2021 12:00:00 AM EDT eCW1 ([facility]) Unknown [address] [facility] [address] 03/26/2021 12:00:00 AM EDT eCW1 ([facility]) Unknown [address] [facility] [address] 03/25/2021 12:00:00 AM EDT eCW1 ([facility]) (TCM) Transition of Care Visit [address] [place] [address] 03/25/2021 12:00:00 AM EDT eCW1 ([facility]) Unknown [address] [facility] [address] 03/12/2021 12:00:00 AM EDT eCW1 ([facility]) Unknown [address] [facility] [address] 03/11/2021 12:00:00 AM EDT eCW1 ([facility]) Office Visit Attender: LO ELAINE MD Main Office 03/04/2021 03: 13:00 PM EDT MEDENT ([facility]) OFFICE OUTPATIENT NEW 30 MINUTES Attender: CHLOE ALAS Physic al Therapy 02/20/2021 01:00:00 PM EDT MEDENT ([facility]) Office Visit Attender: LO ELAINE MD Main Office 01/28/2021 10: 30:00 AM EDT MED[facility] ([facility]) [place] [address] [facility] [address] 01/28/2021 12:00:00 AM EDT [facility]1 [facility]) Office Visit Attender: LO ELAINE MD Main Office 12/26/2020 10: 43:00 AM EDT MED[facility] ([facility]) [place] [address] [facility] [address] 12/26/2020 12:00:00 AM EDT [facility]CW1 [facility]) [place] [address] [facility] [address] 11/29/2020 12:00:00 AM EDT [facility]CW1 ([facility]) Unknown [address] [facility] [address] 11/26/2020 12:00:00 AM EDT eCW1 ([facility]) Office Visit, Est Pt., Level 4 PC [address] [place] [address] 11/23/2020 12:00:00 AM EST eCW1 ([facility]) Unknown [address] [facility] [address] 11/14/2020 12:00:00 AM EST [facility]CW1 [facility]) Office Visit Attender: LO ELAINE MD Main Office 10/26/2020 06: 28:00 AM EST [facility] ([facility]) [place] [address] [facility] [address] 10/15/2020 12:00:00 AM EST [facility]CW1 [facility]) Outpatient Attender: MERCEDEZ ALAS Main Office 09/27/2020 0 7:45:00 AM EST MED[facility] ([facility]) Office Visit Attender: LO ELAINE MD Main Office 09/19/2020 01: 08:00 PM EST [facility] ([facility]) Unknown [address] [facility] [address] 09/19/2020 12:00:00 AM EST eCW1 ([facility]) Office Visit Attender: LO ELAINE MD Main Office 08/08/2020 07: 50:00 AM EST [facility] ([facility]) Unknown [address] [facility] [address] 07/17/2020 12:00:00 AM EST eCW1 ([facility]) Office Visit Attender: LO ELAINE MD Main Office 07/12/2020 10: 29:00 AM EDT [facility] ([facility]) Unknown [address] [facility] [address] 07/03/2020 12:00:00 AM EDT eCW1 ([facility]) Unknown [address] [facility] [address] 07/02/2020 12:00:00 AM EDT eCW1 ([facility]) Unknown [address] [facility] [place] [address] 06/26/2020 12:00:00 AM EDT eCW1 ([facility]) Office Visit Attender: LO ELAINE MD Main Office 06/05/2020 01: 02:00 PM EDT MED[facility] ([facility]) Office Visit Attender: LO ELAINE MD Main Office 05/11/2020 08: 16:00 AM EDT MED[facility] ([facility]) Immunizations Vaccine Date Status Description Data Source(s) COVID-19 VACCINE Pfizer 03/26/2021 12:00:00 AM EDT completed [facility] Vaccine Series Complete: YESThis Data wa s Submitted to [facility] Via [employer]. COVID-19 VACCINE Pfizer 03/05/2021 12:00:00 AM EDT completed [facility] Vaccine Series Complete: NOThis Data was Submitted to [facility] Via [employer]. Medications Medication Brand Name Start Date Product Form Dose Route Admi nistrative Instructions Pharmacy Instructions Status Indications Reaction Description Data Source(s) Nystatin - Nystatin - 04/22/2021 12:00:00 AM EDT active Nystatin - eCW1 ([facility]) Nystatin - Nystatin - 04/22/2021 12:00:00 AM EDT active Nystatin - eCW1 ([facility]) Nystatin - Nystatin - 04/22/2021 12:00:00 AM EDT active Nystatin - eCW1 ([facility]) Nystatin - Nystatin - 04/22/2021 12:00:00 AM EDT active Nystatin - eCW1 ([facility]) Nystatin - Nystatin - 04/22/2021 12:00:00 AM EDT active Nystatin - eCW1 ([facility]) Nystatin - Nystatin - 04/22/2021 12:00:00 AM EDT active Nystatin - eCW1 ([facility]) Nystatin - Nystatin - 04/22/2021 12:00:00 AM EDT active Nystatin - eCW1 ([facility]) 3 ML Insulin, Aspart, Human 100 UNT/ML P en Injector [NovoLog] NovoLOG FlexPen 100 UNIT/ML NovoLOG FlexPen 100 UNIT/ML 04/21/2021 12:00:00 AM EDT active NovoLOG FlexPen 100 UNIT/ML eCW1 ([facility]) 3 ML Insulin, Aspart, Human 100 UNT/ML P en Injector [NovoLog] NovoLOG FlexPen 100 UNIT/ML NovoLOG FlexPen 100 UNIT/ML 04/21/2021 12:00:00 AM EDT active NovoLOG FlexPen 100 UNIT/ML eCW1 ([facility]) 3 ML Insulin, Aspart, Human 100 UNT/ML P en Injector [NovoLog] NovoLOG FlexPen 100 UNIT/ML NovoLOG FlexPen 100 UNIT/ML 04/21/2021 12:00:00 AM EDT active NovoLOG FlexPen 100 UNIT/ML eCW1 ([facility]) 3 ML Insulin, Aspart, Human 100 UNT/ML P en Injector [NovoLog] NovoLOG FlexPen 100 UNIT/ML NovoLOG FlexPen 100 UNIT/ML 04/21/2021 12:00:00 AM EDT active NovoLOG FlexPen 100 UNIT/ML eCW1 ([facility]) 3 ML Insulin, Aspart, Human 100 UNT/ML P en Injector [NovoLog] NovoLOG FlexPen 100 UNIT/ML NovoLOG FlexPen 100 UNIT/ML 04/21/2021 12:00:00 AM EDT active NovoLOG FlexPen 100 UNIT/ML eCW1 ([facility]) 3 ML Insulin, Aspart, Human 100 UNT/ML P en Injector [NovoLog] NovoLOG FlexPen 100 UNIT/ML NovoLOG FlexPen 100 UNIT/ML 04/21/2021 12:00:00 AM EDT active NovoLOG FlexPen 100 UNIT/ML eCW1 ([facility]) 3 ML Insulin, Aspart, Human 100 UNT/ML P en Injector [NovoLog] NovoLOG FlexPen 100 UNIT/ML NovoLOG FlexPen 100 UNIT/ML 04/21/2021 12:00:00 AM EDT active NovoLOG FlexPen 100 UNIT/ML eCW1 ([facility]) Calcium Carbonate 500 MG Chewable Tablet [Tums] Tums 500 MG Tums 500 MG 04/08/2021 12:00:00 AM EDT 1.0 {tablet} active Tums 500 MG eCW1 ([facility]) Calcium Carbonate 500 MG Chewable Tablet [Tums] Tums 500 MG Tums 500 MG 04/08/2021 12:00:00 AM EDT 1.0 {tablet} active Tums 500 MG eCW1 ([facility]) Calcium Carbonate 500 MG Chewable Tablet [Tums] Tums 500 MG Tums 500 MG 04/08/2021 12:00:00 AM EDT 1.0 {tablet} active Tums 500 MG eCW1 ([facility]) Calcium Carbonate 500 MG Chewable Tablet [Tums] Tums 500 MG Tums 500 MG 04/08/2021 12:00:00 AM EDT 1.0 {tablet} active Tums 500 MG eCW1 ([facility]) Sutab Sutab 04/02/2021 12:00:00 AM EDT completed MED[facility] ([facility]) Glucometer UNK 04/01/2021 12:00:00 AM EDT active Glucometer eCW1 ([facility]) Glucometer UNK 04/01/2021 12:00:00 AM EDT active Glucometer eCW1 ([facility]) Lancets 33G - Lancets 33G - 04/01/2021 12:00:00 AM EDT active Lancets 33G - eCW1 ([facility]) Lancets 33G - Lancets 33G - 04/01/2021 12:00:00 AM EDT active Lancets 33G - eCW1 ([facility]) Lancets 33G - Lancets 33G - 04/01/2021 12:00:00 AM EDT active Lancets 33G - eCW1 ([facility]) Glucometer UNK 04/01/2021 12:00:00 AM EDT active Glucometer eCW1 ([facility]) Glucometer UNK 04/01/2021 12:00:00 AM EDT active Glucometer eCW1 ([facility]) Glucometer UNK 04/01/2021 12:00:00 AM EDT active Glucometer eCW1 ([facility]) Lancets 33G - Lancets 33G - 04/01/2021 12:00:00 AM EDT active Lancets 33G - eCW1 ([facility]) Glucometer UNK 04/01/2021 12:00:00 AM EDT active Glucometer eCW1 ([facility]) Glucometer UNK 04/01/2021 12:00:00 AM EDT active Glucometer eCW1 ([facility]) Lancets 33G - Lancets 33G - 04/01/2021 12:00:00 AM EDT active Lancets 33G - eCW1 ([facility]) Glucometer UNK 04/01/2021 12:00:00 AM EDT active Glucometer eCW1 ([facility]) Lancets 33G - Lancets 33G - 04/01/2021 12:00:00 AM EDT active Lancets 33G - eCW1 ([facility]) Lancets 33G - Lancets 33G - 04/01/2021 12:00:00 AM EDT active Lancets 33G - eCW1 ([facility]) Lancets 33G - Lancets 33G - 04/01/2021 12:00:00 AM EDT active Lancets 33G - eCW1 ([facility]) Glucometer UNK 04/01/2021 12:00:00 AM EDT active Glucometer eCW1 ([facility]) Glucometer UNK 04/01/2021 12:00:00 AM EDT active Glucometer eCW1 ([facility]) Lancets 33G - Lancets 33G - 04/01/2021 12:00:00 AM EDT active Lancets 33G - eCW1 ([facility]) Lancets 33G - Lancets 33G - 04/01/2021 12:00:00 AM EDT active Lancets 33G - eCW1 ([facility]) Glucometer UNK 04/01/2021 12:00:00 AM EDT active Glucometer eCW1 ([facility]) Lancets 33G - Lancets 33G - 04/01/2021 12:00:00 AM EDT active Lancets 33G - eCW1 ([facility]) Lancets 33G - Lancets 33G - 04/01/2021 12:00:00 AM EDT active Lancets 33G - eCW1 ([facility]) Glucometer UNK 04/01/2021 12:00:00 AM EDT active Glucometer eCW1 ([facility]) torsemide 10 MG Oral Tablet Torsemide 03/26/2021 12:00:00 AM EDT ORAL active [facility] ([facility]) 3 ML Insulin Lispro 100 UNT/ML Pen Injector [Humalog] Humalo g Kwikpen 03/26/2021 12:00:00 AM EDT active MEDENT ([facility]) FreeStyle Darling 14 Day Sensor - FreeStyle Darling 14 Day Senso r - 03/25/2021 12:00:00 AM EDT active FreeStyl e Darling 14 Day Sensor - eCW1 ([facility]) FreeStyle Darling [place] - FreeStyle Darling [place] - 03/25/2021 12:00: 00 AM EDT active FreeStyle Darling [place] - eCW1 ([facility]) FreeStyle Darling 14 Day Sensor - FreeStyle Darling 14 Day Senso r - 03/25/2021 12:00:00 AM EDT active FreeStyl e Adrling 14 Day Sensor - eCW1 ([facility]) FreeStyle Darling 14 Day Sensor - FreeStyle Darling 14 Day Senso r - 03/25/2021 12:00:00 AM EDT active FreeStyl e Darling 14 Day Sensor - eCW1 ([facility]) FreeStyle Darling [place] - FreeStyle Darling [place] - 03/25/2021 12:00: 00 AM EDT active FreeStyle Darling [place] - eCW1 ([facility]) FreeStyle Darling 14 Day Sensor - FreeStyle Darling 14 Day Senso r - 03/25/2021 12:00:00 AM EDT active FreeStyl e Darling 14 Day Sensor - eCW1 ([facility]) FreeStyle Darling [place] - FreeStyle Darling [place] - 03/25/2021 12:00: 00 AM EDT active FreeStyle Darling [place] - eCW1 ([facility]) FreeStyle Darling [place] - FreeStyle Darling [place] - 03/25/2021 12:00: 00 AM EDT active FreeStyle Darling [place] - eCW1 ([facility]) Metformin HCL ER (Mod) Metformin HCL ER (Mod) 03/03/2021 12:00:00 AM EDT ORAL completed [facility] ([facility] tizanidine 4 MG Oral Tablet Tizanidine HCL 02/20/2021 12:00:00 AM EDT ORAL active MEDENT ([facility]) May Have - UNK 11/26/2020 12:00:00 AM EDT active May Have - eCW1 ([facility]) 24 HR ferrous sulfate 142 MG Extended Re lease Oral Tablet [Slow-Fe] Slow Fe 142 (45 Fe) MG Slow Fe 142 (45 Fe) MG 11/26/2020 12:00:00 AM EDT 1.0 {tabl et} active Slow Fe 142 (45 Fe) MG eCW1 ([facility]) May Have - UNK 11/26/2020 12:00:00 AM EDT active May Have - eCW1 ([facility]) 24 HR ferrous sulfate 142 MG Extended Re lease Oral Tablet [Slow-Fe] Slow Fe 142 (45 Fe) MG Slow Fe 142 (45 Fe) MG 11/26/2020 12:00:00 AM EDT 1.0 {tabl et} active Slow Fe 142 (45 Fe) MG eCW1 ([facility]) 24 HR ferrous sulfate 142 MG Extended Re lease Oral Tablet [Slow-Fe] Slow Fe 142 (45 Fe) MG Slow Fe 142 (45 Fe) MG 11/26/2020 12:00:00 AM EDT 1.0 {tabl et} active Slow Fe 142 (45 Fe) MG eCW1 ([facility]) 24 HR ferrous sulfate 142 MG Extended Re lease Oral Tablet [Slow-Fe] Slow Fe 142 (45 Fe) MG Slow Fe 142 (45 Fe) MG 11/26/2020 12:00:00 AM EDT 1.0 {tabl et} active Slow Fe 142 (45 Fe) MG eCW1 ([facility] [facility]) 24 HR ferrous sulfate 142 MG Extended Re lease Oral Tablet [Slow-Fe] Slow Fe 142 (45 Fe) MG Slow Fe 142 (45 Fe) MG 11/26/2020 12:00:00 AM EDT 1.0 {tabl et} active Slow Fe 142 (45 Fe) MG eCW1 ([facility]) May Have - UNK 11/26/2020 12:00:00 AM EDT active May Have - eCW1 ([facility]) 24 HR ferrous sulfate 142 MG Extended Re lease Oral Tablet [Slow-Fe] Slow Fe 142 (45 Fe) MG Slow Fe 142 (45 Fe) MG 11/26/2020 12:00:00 AM EDT 1.0 {tabl et} active Slow Fe 142 (45 Fe) MG eCW1 ([facility]) 24 HR ferrous sulfate 142 MG Extended Re lease Oral Tablet [Slow-Fe] Slow Fe 142 (45 Fe) MG Slow Fe 142 (45 Fe) MG 11/26/2020 12:00:00 AM EDT 1.0 {tabl et} active Slow Fe 142 (45 Fe) MG eCW1 ([facility]) May Have - UNK 11/26/2020 12:00:00 AM EDT active May Have - eCW1 ([facility]) May Have - UNK 11/26/2020 12:00:00 AM EDT active May Have - eCW1 ([facility]) May Have - UNK 11/26/2020 12:00:00 AM EDT active May Have - eCW1 ([facility]) May Have - UNK 11/26/2020 12:00:00 AM EDT active May Have - eCW1 ([facility]) Cyanocobalamin 1000 MCG UNK 11/23/2020 12:00:00 AM EST 1.0 { tablet} active Cyanocobalamin 1000 MCG eCW1 ([facility]) torsemide 10 MG Oral Tablet Torsemide 10 MG Torsemide 10 MG 11/23/2020 12:00:00 AM EST 3.0 {tablets} active Torsemide 10 MG eCW1 ([facility]) FreeStyle Darling 14 Day Sensor - FreeStyle Darling 14 Day Senso r - 11/23/2020 12:00:00 AM EST active FreeStyl e Darling 14 Day Sensor - eCW1 ([facility]) FreeStyle Darling 14 Day Sensor - FreeStyle Darling 14 Day Senso r - 11/23/2020 12:00:00 AM EST active FreeStyl e Darling 14 Day Sensor - eCW1 ([facility]) torsemide 10 MG Oral Tablet Torsemide 10 MG Torsemide 10 MG 11/23/2020 12:00:00 AM EST 3.0 {tablets} active Torsemide 10 MG eCW1 ([facility]) FreeStyle Darling [place] - FreeStyle Draling [place] - 11/23/2020 12:00: 00 AM EST active FreeStyle Darling [place] - eCW1 ([facility]) torsemide 10 MG Oral Tablet Torsemide 10 MG Torsemide 10 MG 11/23/2020 12:00:00 AM EST 3.0 {tablets} active Torsemide 10 MG eCW1 ([facility]) FreeStyle Darling 14 Day Sensor - FreeStyle Darling 14 Day Senso r - 11/23/2020 12:00:00 AM EST active FreeStyl e Darling 14 Day Sensor - eCW1 ([facility]) torsemide 10 MG Oral Tablet Torsemide 10 MG Torsemide 10 MG 11/23/2020 12:00:00 AM EST 3.0 {tablets} active Torsemide 10 MG eCW1 ([facility]) FreeStyle Darling [place] - FreeStyle Darling [place] - 11/23/2020 12:00: 00 AM EST active FreeStyle Darling [place] - eCW1 ([facility]) FreeStyle Darling [place] - FreeStyle Darling [place] - 11/23/2020 12:00: 00 AM EST active FreeStyle Darling [place] - eCW1 ([facility]) FreeStyle Darling 14 Day Sensor - FreeStyle Darling 14 Day Senso r - 11/23/2020 12:00:00 AM EST active FreeStyl e Darling 14 Day Sensor - eCW1 ([facility]) torsemide 10 MG Oral Tablet Torsemide 10 MG Torsemide 10 MG 11/23/2020 12:00:00 AM EST 3.0 {tablets} active Torsemide 10 MG eCW1 ([facility]) Cyanocobalamin 1000 MCG UNK 11/23/2020 12:00:00 AM EST 1.0 { tablet} active Cyanocobalamin 1000 MCG eCW1 ([facility]) torsemide 10 MG Oral Tablet Torsemide 10 MG Torsemide 10 MG 11/23/2020 12:00:00 AM EST 3.0 {tablets} active Torsemide 10 MG eCW1 ([facility]) Cyanocobalamin 1000 MCG UNK 11/23/2020 12:00:00 AM EST 1.0 { tablet} active Cyanocobalamin 1000 MCG eCW1 ([facility]) FreeStyle Darling [place] - FreeStyle Darling [place] - 11/23/2020 12:00: 00 AM EST active FreeStyle Darling [place] - eCW1 ([facility]) Cyanocobalamin 1000 MCG UNK 11/23/2020 12:00:00 AM EST 1.0 { tablet} active Cyanocobalamin 1000 MCG eCW1 ([facility]) Cyanocobalamin 1000 MCG UNK 11/23/2020 12:00:00 AM EST 1.0 { tablet} active Cyanocobalamin 1000 MCG eCW1 ([facility]) FreeStyle Darling [place] - FreeStyle Darling [place] - 11/23/2020 12:00: 00 AM EST active FreeStyle Darling [place] - eCW1 ([facility]) FreeStyle Darling [place] - FreeStyle Darling [place] - 11/23/2020 12:00: 00 AM EST active FreeStyle Darling [place] - eCW1 ([facility]) Cyanocobalamin 1000 MCG UNK 11/23/2020 12:00:00 AM EST 1.0 { tablet} active Cyanocobalamin 1000 MCG eCW1 ([facility]) FreeStyle Darling [place] - FreeStyle Darling [place] - 11/23/2020 12:00: 00 AM EST active FreeStyle Darling [place] - eCW1 ([facility]) torsemide 10 MG Oral Tablet Torsemide 10 MG Torsemide 10 MG 11/23/2020 12:00:00 AM EST 3.0 {tablets} active Torsemide 10 MG eCW1 ([facility]) FreeStyle Darling 14 Day Sensor - FreeStyle Darling 14 Day Senso r - 11/23/2020 12:00:00 AM EST active FreeStyl e Darling 14 Day Sensor - eCW1 ([facility]) FreeStyle Darling 14 Day Sensor - FreeStyle Darling 14 Day Senso r - 11/23/2020 12:00:00 AM EST active FreeStyl e Darling 14 Day Sensor - eCW1 ([facility]) Cyanocobalamin 1000 MCG UNK 11/23/2020 12:00:00 AM EST 1.0 { tablet} active Cyanocobalamin 1000 MCG eCW1 ([facility]) FreeStyle Darling 14 Day Sensor - FreeStyle Darling 14 Day Senso r - 11/23/2020 12:00:00 AM EST active FreeStyl e Darling 14 Day Sensor - eCW1 ([facility]) Insurance Providers Payer name Policy type / Coverage type Policy ID Covered constitution party ID Covered constitution party's relationship to eldridge Policy Eldridge Plan Information [id number] B MEDICARE [id number] Tatiana [id number] B MEDICAID [id number] Tatiana [id number] MEDICARE [id number] SP [id number] HUMANA HMO [id number] SP [id number] HUMANA HMO [id number] SP [id number] EMEDNY [id number] SP [id number] MEDICAID [id number] SP [id number] MEDICARE C [id number] S [id number] MEDICAID M [id number] S [id number] ANSI-Medicare Part B [id number] ANSI-Medicaid [id number] ANSI-Medicaid [id number] ANSI-Medicare Part B [id number] ANSI-Medicare Part B [id number] ANSI-Medicaid [id number] ANSI-Medicaid [id number] ANSI-Medicare Part B [id number] ANSI-Medicare Part B [id number] ANSI-Medicaid [id number] ANSI-Medicare Part B [id number] ANSI-Medicaid [id number] ANSI-Medicare Part B [id number] ANSI-Medicaid [id number] ANSI-Medicaid [id number] ANSI-Medicare Part B [id number] ANSI-Medicaid [id number] ANSI-Medicare Part B [id number] ANSI-Medicaid [id number] ANSI-Medicare Part B [id number] ANSI-Medicaid [id number] ANSI-Medicare Part B [id number] ANSI-Medicare Part B [id number] ANSI-Medicaid [id number] ANSI-Medicaid [id number] ANSI-Medicare Part B [id number] ANSI-Medicaid [id number] ANSI-Medicare Part B [id number] ANSI-Medicaid [id number] ANSI-Medicare Part B [id number] ANSI-Medicare Part B [id number] ANSI-Medicaid [id number] ANSI-Medicare Part B [id number] ANSI-Medicaid [id number] ANSI-Medicare Part B [id number] ANSI-Medicaid [id number] ANSI-Medicare Part B [id number] ANSI-Medicaid [id number] ANSI-Medicaid [id number] ANSI-Medicare Part B [id number] ANSI-Medicaid [id number] ANSI-Medicare Part B [id number] ANSI-Medicaid [id number] ANSI-Medicare Part B [id number] ANSI-Medicare Part B [id number] ANSI-Medicaid [id number] ANSI-Medicaid [id number] ANSI-Medicare Part B [id number] ANSI-Medicaid [id number] ANSI-Medicare Part B [id number] ANSI-Medicaid [id number] ANSI-Medicare Part B [id number] ANSI-Medicare Part B [id number] ANSI-Medicaid [id number] ANSI-Medicare Part B [id number] ANSI-Medicaid [id number] ANSI-Medicare Part B [id number] ANSI-Medicaid [id number] Medicaid [facility] Part B [id number] 9.0 Self [id number] Medicare (Part B) Medicare Primary [id number] Self [id number] ANSI-Medicare Part B [id number] ANSI-Medicaid [id number] ANSI-Medicare Part B [id number] ANSI-Medicaid [id number] ANSI-Medicare Part B [id number] ANSI-Medicaid [id number] ANSI-Medicaid [id number] ANSI-Medicare Part B [id number] ANSI-Medicare Part B [id number] ANS-Medicaid [id number] ANS-Medicaid [id number] ANS-Medicare Part B [id number] ANSI-Medicare Part B [id number] [facility]-Medicaid [id number] MEDICARE [id number] SP [id number] B Medicaid Medigap Part B [id number] 9.0 Self [id number] Medicare (Part B) Medicare Primary [id number] Self 0 [id number] Medicaid Medigap Part B [id number] 9.0 Self [id number] Medicare (Part B) Medicare Primary [id number] Self 0 [id number] MEDICARE C [id number] S [id number] B Medicaid Medigap Part B [id number] 9.0 Self [id number] Medicare (Part B) Medicare Primary [id number] Self 0 [id number] MEDICARE PI PI MEDICAID PI PI MEDICARE PART A -O/P [id number] MEDICARE COMPLETE [id number] SP [id number] MEDICARE [id number] SP [id number] A MEDICARE COMPLETE [id number] SP [id number] [facility] P [id number] S [id number] MEDICARE COMPLETE [id number] SP [id number] [facility] [id number] SP [id number] HUMANA GOLD [id number] SP [id number] [place] [id number] SP [id number] [employer]MANA GOLD [id number] SP [id number] Problems, Conditions, and Diagnoses Code Display Name Description Problem Type Effective Dates Data Source(s) 305208648 Cirrhosis - non-alcoholic Cirrhosis - non-alcoholic Pr oblem 07/09/2021 12:00:00 AM EDT [facility] ([facility]) B37.2 [id number] Candidiasis, intertriginous Problem 04/22/20 12:00:00 AM EDT eCW1 ([facility]) 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 Type 2 diabetes mellitus with complication, with long-term current use of insulin Problem 12:00:00 AM EDT eCW1 ([facility]) K76.0 [id number] NAFLD (nonalcoholic fatty liver disease) Problem 04/08/2021 12:00:00 AM EDT eCW1 ([facility]) [id number] Anemia Anemia Problem 04/02/2021 12:00:00 AM ED T [facility] ([facility]) Surgeries/Procedures Procedure Description Date Indications Data Source(s) OFFICE OUTPATIENT VISIT 15 MINUTES 07/09/2021 12:00:00 AM EDT [facility] ([facility]) UPPER NDSC BIOPSY SINGLE/MULTIPLE 05/08/2021 12:00:00 AM EDT [facility] ([facility]) COLONOSCOPY FLX DX W/WO COLLJ SPECIMENS 05/08/2021 12: 00:00 AM EDT [facility] ([facility]) Chronic Care MGMT 20 Mins Clinical Staff Time Per Calendar [facility] 05/07/2021 12:00:00 AM EDT [facility] ([facility]) GLUC MNTR CONT REC FROM INTERSTITIAL TISS FLUID 2020 12:00:00 AM EDT eCW1 ([facility]) Chronic Care Management Services Ea Addl 20 Min 2020 12:00:00 AM EDT [facility] ([facility]) Chronic Care MGMT 20 Mins Clinical Staff Time Per Calendar [facility] 04/04/2021 12:00:00 AM EDT [facility] ([facility]) OFFICE OUTPATIENT NEW 30 MINUTES 04/02/2021 12:00:00 A M EDT [facility] ([facility]) ECG ROUTINE ECG W/LEAST 12 LDS W/I&R 03/27/2021 12:00: 00 AM EDT [facility] ([facility]) OFFICE OUTPATIENT VISIT 25 MINUTES 03/27/2021 12:00:00 AM EDT [facility] ([facility]) Chronic Care Management Services Ea Addl 20 Min 2020 12:00:00 AM EDT [facility] ([facility]) Chronic Care MGMT 20 Mins Clinical Staff Time Per Calendar [facility] 03/04/2021 12:00:00 AM EDT [facility] ([facility]) OFFICE OUTPATIENT NEW 30 MINUTES 02/20/2021 12:00:00 A M EDT [facility] ([facility] ) Chronic Care MGMT 20 Mins Clinical Staff Time Per Calendar [facility] 01/28/2021 12:00:00 AM EDT [facility] ([facility]) Chronic Care Management Services Ea Addl 20 Min 2020 12:00:00 AM EDT [facility] ([facility]) Chronic Care MGMT 20 Mins Clinical Staff Time Per Calendar [facility] 12/26/2020 12:00:00 AM EDT [facility] ([facility]) Chronic Care Management Services Ea Addl 20 Min 2020 12:00:00 AM EST [facility] ([facility]) Chronic Care MGMT 20 Mins Clinical Staff Time Per Calendar [facility] 10/26/2020 12:00:00 AM EST [facility] ([facility]) ECG ROUTINE ECG W/LEAST 12 LDS W/I&R 09/27/2020 12:00: 00 AM EST [facility] ([facility]) OFFICE OUTPATIENT VISIT 25 MINUTES 09/27/2020 12:00:00 AM EST [facility] ([facility]) Chronic Care MGMT 20 Mins Clinical Staff Time Per Calendar [facility] 09/19/2020 12:00:00 AM EST [facility] ([facility]) Results ID Date Data Source [id number] 05/08/2021 10:47:00 AM EDT [facility] ([facility]) Name Value Range Interpretation Code Description Data Alana rce(s) Supporting Document(s) Surgical pathology study Laboratory test result [facility] ([facility]) <content>FINAL DIAGNOSIS</content>
< content></content>
<content>A - Stomach, antrum, biopsy:</content>
<content>Gastric mucosa with mild gastritis and atrophic changes.</content>
<content>No evidence for H. pylori like organisms on H & E stain.</content>
<content></content>
<content>B - Small bowel, biopsy:</content>
<content>Duodenal mucosa with intact villous architecture.</content>
<content>No evidence for celiac disease.</content>
<content>05/09/2021 - 1344</content>
<content></content>
<content>CLINICAL DIAGNOSIS</content>
<content></content>
<content>Anemia</content>
<content>05/09/2021 - 0746</content>
<content></content>
<content>GROSS DIAGNOSIS</content>
<content></content>
<content>A - Received in formalin labeled "antrum biopsy" consists of two sarmiento</content>
<content>fragments, 0.6 x 0.3 x 0.3 cm in aggregate. All in one.</content>
<content></content>
<content>B - Received in formalin labeled "small bowel biopsy" consists of two</content>
<content>sarmiento fragments, 0.4 x 0.3 x 0.2 cm in aggregate. All in one.</content>
<content>-SV</content>
<content>05/09/2021 - 1344</content>
<content></content>
<content>Signed BRIJESH HURST MD 05/09/2021 1354</content>
<content></content> ID Date Data Source [id number] 03/11/2021 01:40:00 PM EDT [facility]) Name Value Range Interpretation Code Description Data Alana rce(s) Supporting Document(s) Magnesium Level 2.1 [facility] Hemoglobin 10.0 [facility]) Hematocrit 33.5 [facility]) ID Date Data Source [id number] 03/11/2021 01:40:00 PM EDT [facility] Name Value Range Interpretation Code Description Data Alana rce(s) Supporting Document(s) Alk Phos 192 [facility] Aspartate aminotransferase [Enzymatic activity/volume] in Serum or Plasma 76 [facility]) Alanine aminotransferase [Enzymatic activity/volume] in Serum or Pl asma 42 [facility]) Total Bilirubin 0.5 [facility]) Albumin 2.4 [facility] Total Protein 6.2 [facility] A/G Ratio 0.6 [facility] ID Date Data Source [id number] 03/11/2021 01:40:00 PM EDT [facility] Name Value Range Interpretation Code Description Data Alana rce(s) Supporting Document(s) Glucose 174 [facility] Sodium 139 [facility] Creatinine 1.50 [facility]) Blood Urea Nitrogen 15 [facility] ([facility]) Potassium 4.1 [facility] Carbon Dioxide 27 [facility]) Chloride 104 [facility] Glomerular filtration rate/1.73 sq M.pre dicted [Volume Rate/Area] in Serum or Plasma by Creatinine-based formula (MDRD) 35.8 [facility] ([facility]) Calcium 8.1 [facility] ID Date Data Source [id number] 03/09/2021 05:20:00 PM EDT [facility] Name Value Range Interpretation Code Description Data Alana rce(s) Supporting Document(s) SARS coronavirus 2 RNA [Presence] in Res piratory specimen by JESU with probe detection NEGATIVE [facility] This lab was ordered by [facility] a nd reported by [facility]. ID Date Data Source [id number] 10/09/2020 10:55:00 AM EST [facility]) Name Value Range Interpretation Code Description Data Alana rce(s) Supporting Document(s) Triglycerides Level 203 mg/dL [facility] ([facility]) HDL Cholesterol 43 mg/dL [facility]) Cholesterol Level 129 mg/dL [facility]) LDL Cholesterol 45 mg/dL [facility]) Non-HDL-C 86 mg/dL [facility] Cholesterol Risk Ratio 3.000 [facility]) ID Date Data Source [id number] 10/09/2020 10:55:00 AM EST [facility]) Name Value Range Interpretation Code Description Data Alana rce(s) Supporting Document(s) Glucose, Fasting 167 mg/dL 70-100 [facility]) Blood Urea Nitrogen 21 mg/dL 7-18 [facility] ([facility]) Creatinine For GFR 1.80 mg/dL 0.55-1.30 [facility]) Sodium Level 140 meq/L 136-145 [facility]) Glomerular Filtration Rate 29.0 [facility] ([facility]) <content>Units are mL/min/1.73 m2</content>
<content></content>
<content>Chronic Kidney Disease Staging per [facility]:</content>
<content></content>
<content>Stage I & II GFR >=60 Normal to Mildly Decreased</content>
<content>Stage III GFR 30- 59 Moderately Decreased</content>
<content>Stage IV GFR 15-29 Severely Decreased</content>
<content>Stage V GFR <15 Very Little GFR Left</content>
<content>ESRD GFR <15 on CAR SALTER</content>
<content></content> Potassium Serum 4.6 meq/L 3.5-5.1 [facility]) Chloride Level 101 meq/L 98-107 [facility]) Carbon Dioxide Level 28 meq/L 21-32 [facility] ([facility]) Anion Gap 11 meq/L 8-16 [facility] Calcium Level 9.5 mg/dL 8.8-10.2 [facility]) Alt/SGPT 37 U/L 12-78 [facility] Alkaline Phosphatase 106 U/L 45-117 [facility] [facility] Ast/Sgot 55 U/L 7-37 [facility] ([facility] Bilirubin,Total 0.5 mg/dL 0.2-1.0 [facility] ([facility]) Total Protein 6.9 GM/DL 6.4-8.2 [facility] ([facility]) Albumin 3.2 GM/DL 3.2-5.2 [facility] ([facility] Albumin/Globulin Ratio 0.9 1.2-2.2 [facility] ([facility]) ID Date Data Source [id number] 10/09/2020 10:55:00 AM EST [facility] ([facility]) Name Value Range Interpretation Code Description Data Alana rce(s) Supporting Document(s) Red Blood Count 3.78 10 4.00-5.40 [facility] ([facility]) White Blood Count 8.1 10 4.0-10.0 [facility] ([facility]) Mean Corpuscular Volume 85.2 fl 80.0-96.0 M EDENT ([facility]) Hematocrit 32.2 % 36.0-47.0 MEDENT ([facility]) Hemoglobin 9.5 g/dL 12.0-15.5 MEDENT ([facility]) Mean Corpuscular HGB Conc 29.5 g/dL 32.0-36.5 MEDENT ([facility]) Mean Corpuscular Hemoglobin 25.1 pg 27.0-33.0 MEDENT ([facility]) Nucleated Red Blood Cell % 0.0 % 0-0 MED ENT ([facility]) Platelet Count, Automated 239 10 150-450 MEDENT ([facility]) Red Cell Distribution Width 14.7 % 11.5-14.5 MED[facility] ([facility]) Procedure Social History Code Duration Value Status Description Data Source(s ) Smoking 03/27/2021 12:00:00 AM EDT Patient has never smoked co mpleted Patient has never smoked [facility] ([facility]) Vital Signs ID Date Data Source UNK Name Value Range Interpretation Code Description Data Source(s) Body height 59 [in_i] 59 [in_i] [facility] ([facility]) 4'11" Body weight 203.00 [lb_av] 203.00 [lb_av] MEDEN T ([facility]) Systolic blood pressure 139 mm[Hg] 139 mm[Hg] M EDENT ([facility]) Diastolic blood pressure 89 mm[Hg] 89 mm[Hg] MEDENT ([facility]) Heart rate 81 /min 81 /min [facility] ([facility]) Body mass index (BMI) [Ratio] 41.0 kg/m2 41.0 k g/m2 MEDENT ([facility]) Body weight 92.081 kg 92.081 kg [facility] ([facility]) Body temperature 97.3 [degF] 97.3 [degF] MEDENT ([facility]) Body weight 210.4 [lb_av] 210.4 [lb_av] eCW1 ([facility]) Body weight 95.44 kg 95.44 kg eCW1 ([facility]) Body height 59 [in_i] 59 [in_i] eCW1 ([facility]) Body mass index (BMI) [Ratio] 42.49 kg/m2 42.49 kg/m2 eCW1 ([facility]) Heart rate 90 /min 90 /min eCW1 ([facility]) Respiratory rate 18 /min 18 /min eCW1 ([facility]) Body temperature 97.6 [degF] 97.6 [degF] eCW1 ( [facility]) Systolic blood pressure 140 mm[Hg] 140 mm[Hg] e CW1 ([facility]) Diastolic blood pressure 90 mm[Hg] 90 mm[Hg] eCW1 ([facility]) Body weight 197.4 [lb_av] 197.4 [lb_av] eCW1 ([facility]) Body weight 89.54 kg 89.54 kg eCW1 ([facility]) Body height 59 [in_i] 59 [in_i] eCW1 ([facility]) Body mass index (BMI) [Ratio] 39.87 kg/m2 39.87 kg/m2 eCW1 ([facility]) Heart rate 84 /min 84 /min eCW1 ([facility]) Respiratory rate 18 /min 18 /min eCW1 ([facility]) Body temperature 97.9 [degF] 97.9 [degF] eCW1 ( [facility]) Systolic blood pressure 124 mm[Hg] 124 mm[Hg] e CW1 ([facility]) Diastolic blood pressure 78 mm[Hg] 78 mm[Hg] eCW1 ([facility]) Body weight 200 [lb_av] 200 [lb_av] eCW1 ([facility]) Body height 59 [in_i] 59 [in_i] eCW1 ([facility]) Body mass index (BMI) [Ratio] 40.39 kg/m2 40.39 kg/m2 eCW1 ([facility]) Heart rate 88 /min 88 /min eCW1 ([facility]) Respiratory rate 20 /min 20 /min eCW1 ([facility]) Body temperature 97.0 [degF] 97.0 [degF] eCW1 ( [facility]) Systolic blood pressure 122 mm[Hg] 122 mm[Hg] e CW1 ([facility]) Diastolic blood pressure 78 mm[Hg] 78 mm[Hg] eCW1 ([facility]) Body height 59 [in_i] 59 [in_i] [facility] 4'11" Body weight 196.00 [lb_av] 196.00 [lb_av] MEDEN T ([facility]) Systolic blood pressure 127 mm[Hg] 127 mm[Hg] M EDENT ([facility]) Diastolic blood pressure 81 mm[Hg] 81 mm[Hg] MEDENT ([facility]) Heart rate 55 /min 55 /min [facility] ([facility]) Body mass index (BMI) [Ratio] 39.6 kg/m2 39.6 k g/m2 MEDENT ([facility]) Body weight 88.906 kg 88.906 kg [facility] Body temperature 96.3 [degF] 96.3 [degF] MEDENT ([facility]) Body weight 196.00 [lb_av] 196.00 [lb_av] MEDEN T ([facility]) Body mass index (BMI) [Ratio] 39.6 kg/m2 39.6 k g/m2 MED[facility] ([facility]) Body height 59 [in_i] 59 [in_i] [facility] ([facility]) 4'11" Heart rate 73 /min 73 /min [facility] ([facility]) Systolic blood pressure--sitting 110 mm[Hg] 110 mm[Hg] MEDENT ([facility]) Ra, large cuff Diastolic blood pressure--sitting 62 mm[Hg] 62 mm[Hg] MED[facility] ([facility]) Ra, large cuff Body weight 196 [lb_av] 196 [lb_av] eCW1 ([facility]) Body height 59 [in_i] 59 [in_i] eCW1 ([facility]) Body mass index (BMI) [Ratio] 39.58 kg/m2 39.58 kg/m2 eCW1 ([facility]) Heart rate 94 /min 94 /min eCW1 ([facility]) Respiratory rate 20 /min 20 /min eCW1 ([facility]) Body temperature 98.6 [degF] 98.6 [degF] eCW1 ( [facility]) Systolic blood pressure 122 mm[Hg] 122 mm[Hg] e CW1 ([facility]) Diastolic blood pressure 78 mm[Hg] 78 mm[Hg] eCW1 ([facility]) Body temperature 97.1 [degF] 97.1 [degF] MEDENT ([facility]) Body height 59 [in_i] 59 [in_i] MEDENT ([facility]) 4'11" Body weight 208.00 [lb_av] 208.00 [lb_av] MEDEN T ([facility]) Body mass index (BMI) [Ratio] 42.0 kg/m2 42.0 k g/m2 MEDENT ([facility]) Body weight 207.4 [lb_av] 207.4 [lb_av] eCW1 ([facility]) Body height 59 [in_i] 59 [in_i] eCW1 ([facility]) Body mass index (BMI) [Ratio] 41.89 kg/m2 41.89 kg/m2 eCW1 ([facility]) Heart rate 104 /min 104 /min eCW1 ([facility]) Respiratory rate 18 /min 18 /min eCW1 ([facility]) Body temperature 98.1 [degF] 98.1 [degF] eCW1 ( [facility]) Systolic blood pressure 124 mm[Hg] 124 mm[Hg] e CW1 ([facility]) Diastolic blood pressure 80 mm[Hg] 80 mm[Hg] eCW1 ([facility]) Body height 59 [in_i] 59 [in_i] [facility] ([facility]) 4'11" Body mass index (BMI) [Ratio] 42.0 kg/m2 42.0 k g/m2 MED[facility] ([facility]) Heart rate 70 /min 70 /min [facility] ([facility]) Systolic blood pressure--sitting 122 mm[Hg] 122 mm[Hg] MED[facility] ([facility]) large cuff, Ra Diastolic blood pressure--sitting 76 mm[Hg] 76 mm[Hg] MEDENT ([facility]) large cuff, Ra Body weight 208.00 [lb_av] 208.00 [lb_av] MEDEN T ([facility]) Patient Treatment Plan of Care Planned Activity Planned Date Details Description Data Source (s) Nystatin - 04/22/2021 12:00:00 AM EDT e CW1 ([facility]) Nystatin - 04/22/2021 12:00:00 AM EDT e CW1 ([facility]) Nystatin - 04/22/2021 12:00:00 AM EDT e CW1 ([facility]) Calcium Carbonate 500 MG Chewable Tablet [Tums] 04/08/2021 12:00:00 AM EDT eCW1 ([facility]) Calcium Carbonate 500 MG Chewable Tablet [Tums] 04/08/2021 12:00:00 AM EDT eCW1 ([facility]) Calcium Carbonate 500 MG Chewable Tablet [Tums] 04/08/2021 12:00:00 AM EDT eCW1 ([facility]) Calcium Carbonate 500 MG Chewable Tablet [Tums] 04/08/2021 12:00:00 AM EDT eCW1 ([facility]) Glucometer 04/01/2021 12:00:00 AM EDT e CW1 ([facility]) Lancets 33G - 04/01/2021 12:00:00 AM EDT eCW1 ([facility]) FreeStyle [place] - 03/25/2021 12:00:00 AM EDT eCW1 ([facility]) FreeStyle Darling 14 Day Sensor - 03/25/2021 12:00:00 AM EDT eCW1 ([facility]) FreeStyle [place] - 03/25/2021 12:00:00 AM EDT eCW1 ([facility]) FreeStyle Darling 14 Day Sensor - 03/25/2021 12:00:00 AM EDT eCW1 ([facility]) FreeStyle [place] - 03/25/2021 12:00:00 AM EDT eCW1 ([facility]) FreeStyle Darling 14 Day Sensor - 03/25/2021 12:00:00 AM EDT eCW1 ([facility]) FreeStyle [place] - 03/25/2021 12:00:00 AM EDT eCW1 ([facility]) FreeStyle Darling 14 Day Sensor - 03/25/2021 12:00:00 AM EDT eCW1 ([facility]) May Have - 11/26/2020 12:00:00 AM EDT e CW1 ([facility]) 24 HR ferrous sulfate 142 MG Extended Release Oral Tab let [Slow-Fe] 11/26/2020 12:00:00 AM EDT eCW1 ([facility]) May Have - 11/26/2020 12:00:00 AM EDT e CW1 ([facility]) 24 HR ferrous sulfate 142 MG Extended Release Oral Tab let [Slow-Fe] 11/26/2020 12:00:00 AM EDT eCW1 ([facility]) May Have - 11/26/2020 12:00:00 AM EDT e CW1 ([facility]) 24 HR ferrous sulfate 142 MG Extended Release Oral Tab let [Slow-Fe] 11/26/2020 12:00:00 AM EDT eCW1 ([facility]) May Have - 11/26/2020 12:00:00 AM EDT e CW1 ([facility]) 24 HR ferrous sulfate 142 MG Extended Release Oral Tab let [Slow-Fe] 11/26/2020 12:00:00 AM EDT eCW1 ([facility]) May Have - 11/26/2020 12:00:00 AM EDT e CW1 ([facility]) 24 HR ferrous sulfate 142 MG Extended Release Oral Tab let [Slow-Fe] 11/26/2020 12:00:00 AM EDT eCW1 ([facility]) May Have - 11/26/2020 12:00:00 AM EDT e CW1 ([facility]) 24 HR ferrous sulfate 142 MG Extended Release Oral Tab let [Slow-Fe] 11/26/2020 12:00:00 AM EDT eCW1 ([facility]) FreeStyle Darling 14 Day Sensor - 11/23/2020 12:00:00 AM EST eCW1 ([facility]) FreeStyle [place] - 11/23/2020 12:00:00 AM EST eCW1 ([facility]) torsemide 10 MG Oral Tablet 11/23/2020 12:00:00 AM EST eCW1 ([facility]) Cyanocobalamin 1000 MCG 11/23/2020 12:00:00 AM EST eCW1 ([facility]) torsemide 10 MG Oral Tablet 11/23/2020 12:00:00 AM EST eCW1 ([facility]) FreeStyle Darling 14 Day Sensor - 11/23/2020 12:00:00 AM EST eCW1 ([facility]) FreeStyle [place] - 11/23/2020 12:00:00 AM EST eCW1 ([facility]) Cyanocobalamin 1000 MCG 11/23/2020 12:00:00 AM EST eCW1 ([facility]) FreeStyle [place] - 11/23/2020 12:00:00 AM EST eCW1 ([facility]) FreeStyle Darling 14 Day Sensor - 11/23/2020 12:00:00 AM EST eCW1 ([facility]) Cyanocobalamin 1000 MCG 11/23/2020 12:00:00 AM EST eCW1 ([facility]) torsemide 10 MG Oral Tablet 11/23/2020 12:00:00 AM EST eCW1 ([facility]) FreeStyle [place] - 11/23/2020 12:00:00 AM EST eCW1 ([facility]) FreeStyle Darling 14 Day Sensor - 11/23/2020 12:00:00 AM EST eCW1 ([facility]) Cyanocobalamin 1000 MCG 11/23/2020 12:00:00 AM EST eCW1 ([facility]) torsemide 10 MG Oral Tablet 11/23/2020 12:00:00 AM EST eCW1 ([facility]) torsemide 10 MG Oral Tablet 11/23/2020 12:00:00 AM EST eCW1 ([facility]) FreeStyle [place] - 11/23/2020 12:00:00 AM EST eCW1 ([facility]) FreeStyle Darling 14 Day Sensor - 11/23/2020 12:00:00 AM EST eCW1 ([facility]) Cyanocobalamin 1000 MCG 11/23/2020 12:00:00 AM EST eCW1 ([facility]) torsemide 10 MG Oral Tablet 11/23/2020 12:00:00 AM EST eCW1 ([facility]) FreeStyle [place] - 11/23/2020 12:00:00 AM EST eCW1 ([facility]) FreeStyle Darling 14 Day Sensor - 11/23/2020 12:00:00 AM EST eCW1 ([facility]) Cyanocobalamin 1000 MCG 11/23/2020 12:00:00 AM EST eCW1 ([facility])
[2021-07-10] MEDS ORDERED: PROPOFOL 1,000 MG/100 ML VIAL As Ordered ONE (21:10)
[2021-07-10] MEDS ORDERED: ETOMIDATE INJ 20MG/10ML VIAL IV ONE (21:15)
[2021-07-10] MEDS ORDERED: NS 500 ML IV ONE (21:15)
[2021-07-10] MEDS ORDERED: ROCURONIUM BROMIDE 50 MG/5 ML VIAL IV ONE (21:15)
[2021-07-10] MEDS ORDERED: levETIRAcetam INJection 1,000 MG in D5W 100 ML IV ONE (21:20)
[2021-07-10 21:44] LABS: ABG BASE EXCESS -5.8 (-2.0-2.0); ABG HCO3 20.5 MEQ/L (22.0-26.0); ABG O2 SATURATION 99.4 % (95.0-99.0); ABG PARTIAL PRESSURE CO2 43.7 mmHg (35.0-45.0); ABG PARTIAL PRESSURE O2 204.4 mmHg (75.0-100.0); ABG STANDARD HCO3 19.7 MEQ/L (22.0-26.0); ABG TOTAL CO2 21.8 MEQ/L (23.0-31.0); ABG pH (ARTERIAL) 7.289 UNITS (7.350-7.450)
[2021-07-10] MEDS: propofoL 1,000 MG in IV 1 EA IV SCH (21:45)
[2021-07-10 21:47] VITALS: O2SAT 98
--- OUTSIDE RECORDS SUMMARY | 2021-07-10 21:49 | CCD ---
Author Author [facility] Organization [facility] Address Unknown Phone Unavailable Care Team Providers Care Creative Recruiter Name Role Phone Mackenzie Chris MD Unavailable [...] ANTECOL, Martín BLANCHARD MD Unavailable Unavailable ANTECOL, Mratín BLANCHARD MD Unavailable Unavailable ANTECOL, Martín BLANCHARD [...] is protected by Article 27-F of the [place] Public Health law. If you continue you may have access to information: Regarding HIV / AIDS; Provided by facilities licensed or operated by the [place] [facility] Office of Mental Health; or Provided by the [place] [facility] Office for People With Developmental Disabilities. If such information is present, then the following [place] [facility] mandated warning applies: This information has been [...] law may result in a fine or mcfp sentence or both. A general authorization for the release of medical or other information is NOT sufficient authorization for further disc losure. Family History Family Member Name Family Member Gender Family Member Status Date o f Status Description Data Source(s) Unknown Unknown Problem [facility] ([facility]) Encounters Encounter Providers Location Date Indications Data Source(s ) Outpatient Attender: Augustine Chris MD Main Office 07/09/2021 10:45:00 AM EDT [facility] ([facility]) [place] [address] [facility] [address] 07/08/2021 12:00:00 AM EDT [facility]CW1 ([facility]) [place] [address] [facility] [place] [address] 05/27/2021 12:00:00 AM EDT eCW1 ([facility]) [place] [address] [facility] [address] 05/21/2021 12:00:00 AM EDT eCW1 ([facility]) Outpatient [address] [facility] [place] [address] 05/21/2021 12:00:00 AM EDT eCW1 ([facility]) [place] [address] [facility] [place] [address] 05/15/2021 12:00:00 AM EDT eCW1 ([facility]) Office Visit Attender: LO ELAINE MD Main Office 05/07/2021 10: 28:00 AM EDT MED[facility] ([facility]) [place] [address] [facility] [address] 04/22/2021 12:00:00 AM EDT eCW1 ([facility]) [place] [address] [facility] [address] 04/16/2021 12:00:00 AM EDT eCW1 ([facility]) [place] [address] [facility] [place] [address] 04/10/2021 12:00:00 AM EDT eCW1 ([facility]) Outpatient [address] [facility] [place] [address] 04/08/2021 12:00:00 AM EDT eCW1 ([facility]) Office Visit Attender: LO ELAINE MD Main Office 04/04/2021 08: 37:00 AM EDT MEDENT ([facility]) Unknown [address] [facility] [address] 04/03/2021 12:00:00 AM EDT eCW1 ([facility]) Outpatient Attender: Augustine Chris MD Main Office 04/02/2021 01:00:00 PM EDT MEDENT ([facility]) Unknown [address] [facility] [address] 04/01/2021 12:00:00 AM EDT eCW1 ([facility]) Outpatient Attender: MERCEDEZ ALAS Main Office 03/27/2021 0 1:00:00 PM EDT MEDENT ([facility]) Unknown [address] [facility] [address] 03/27/2021 12:00:00 AM EDT eCW1 ([facility]) Unknown [address] [facility] [address] 03/26/2021 12:00:00 AM EDT eCW1 ([facility]) Unknown [address] [facility] [address] 03/25/2021 12:00:00 AM EDT eCW1 ([facility]) (TCM) Transition of Care Visit [address] [place] [address] 03/25/2021 12:00:00 AM EDT eCW1 ([facility]) Unknown [address] [facility] [address] 03/12/2021 12:00:00 AM EDT eCW1 ([facility]) Unknown [address] [facility] [address] 03/11/2021 12:00:00 AM EDT eCW1 ([facility]) Office Visit Attender: LO ELAINE MD Main Office 03/04/2021 03: 13:00 PM EDT MEDENT ([facility]) OFFICE OUTPATIENT NEW 30 MINUTES Attender: CHLOE ALAS Physic al Therapy 02/20/2021 01:00:00 PM EDT MEDENT ([facility]) Office Visit Attender: LO ELAINE MD Main Office 01/28/2021 10: 30:00 AM EDT MED[facility] ([facility]) [place] [address] [facility] [address] 01/28/2021 12:00:00 AM EDT eCW1 ([facility]) Office Visit Attender: LO ELAINE MD Main Office 12/26/2020 10: 43:00 AM EDT MED[facility] ([facility]) [place] [address] [facility] [address] 12/26/2020 12:00:00 AM EDT eCW1 ([facility]) [place] [address] [facility] [address] 11/29/2020 12:00:00 AM EDT eCW1 ([facility]) [place] [address] [facility] [address] 11/26/2020 12:00:00 AM EDT eCW1 ([facility]) Office Visit, Est Pt., Level 4 PC [address] [place] [address] 11/23/2020 12:00:00 AM EST eCW1 ([facility]) [place] [address] [facility] [address] 11/14/2020 12:00:00 AM EST eCW1 ([facility]) Office Visit Attender: LO ELAINE MD Main Office 10/26/2020 06: 28:00 AM EST MED[facility] ([facility]) [place] [address] [facility] [address] 10/15/2020 12:00:00 AM EST eCW1 ([facility]) Outpatient Attender: MERCEDEZ ALAS Main Office 09/27/2020 0 7:45:00 AM EST MED[facility] ([facility]) Office Visit Attender: LO ELAINE MD Main Office 09/19/2020 01: 08:00 PM EST MED[facility] ([facility]) [place] [address] [facility] [address] 09/19/2020 12:00:00 AM EST eCW1 ([facility]) Office Visit Attender: LO ELAINE MD Main Office 08/08/2020 07: 50:00 AM EST [facility] ([facility]) [place] [address] [facility] [address] 07/17/2020 12:00:00 AM EST eCW1 ([facility]) Office Visit Attender: LO ELAINE MD Main Office 07/12/2020 10: 29:00 AM EDT MED[facility] ([facility]) [place] [address] [facility] [address] 07/03/2020 12:00:00 AM EDT eCW1 ([facility]) [place] [address] [facility] [address] 07/02/2020 12:00:00 AM EDT eCW1 ([facility]) [place] [address] [facility] [place] [address] 06/26/2020 12:00:00 AM EDT eCW1 ([facility]) Office Visit Attender: LO ELAINE MD Main Office 06/05/2020 01: 02:00 PM EDT MEDENT ([facility]) Office Visit Attender: LO ELAINE MD Main Office 05/11/2020 08: 16:00 AM EDT MED[facility] ([facility]) Immunizations Vaccine Date Status Description Data Source(s) COVID-19 VACCINE Pfizer 03/26/2021 12:00:00 AM EDT completed [facility] Vaccine Series Complete: YESThis Data wa s Submitted to [facility] Via [employer]. COVID-19 VACCINE Pfizer 03/05/2021 12:00:00 AM EDT completed [facility] Vaccine Series Complete: NOThis Data was Submitted to [facility] Via [employer]. Medications Medication Brand Name Start Date Product Form Dose Route Admi nistrative Instructions Pharmacy Instructions Status Indications Reaction Description Data Source(s) Nystatin - Nystatin - 04/22/2021 12:00:00 AM EDT active Nystatin - eCW1 ([facility]s Include [facility]) Nystatin - Nystatin - 04/22/2021 12:00:00 AM EDT active Nystatin - eCW1 (Counts Include [facility]) Nystatin - Nystatin - 04/22/2021 12:00:00 AM EDT active Nystatin - eCW1 (Counts Include [facility]) Nystatin - Nystatin - 04/22/2021 12:00:00 AM EDT active Nystatin - eCW1 (Counts Include [facility]) Nystatin - Nystatin - 04/22/2021 12:00:00 AM EDT active Nystatin - eCW1 (Counts Include [facility]) Nystatin - Nystatin - 04/22/2021 12:00:00 AM EDT active Nystatin - eCW1 (Counts Include [facility]) Nystatin - Nystatin - 04/22/2021 12:00:00 AM EDT active Nystatin - eCW1 (Counts Include [facility]) 3 ML Insulin, Aspart, Human 100 UNT/ML P en Injector [NovoLog] NovoLOG FlexPen 100 UNIT/ML NovoLOG FlexPen 100 UNIT/ML 04/21/2021 12:00:00 AM EDT active NovoLOG FlexPen 100 UNIT/ML eCW1 (Count[facility] Include [facility]) 3 ML Insulin, Aspart, Human 100 UNT/ML P en Injector [NovoLog] NovoLOG FlexPen 100 UNIT/ML NovoLOG FlexPen 100 UNIT/ML 04/21/2021 12:00:00 AM EDT active NovoLOG FlexPen 100 UNIT/ML eCW1 (Counts Include [facility]) 3 ML Insulin, Aspart, Human 100 UNT/ML P en Injector [NovoLog] NovoLOG FlexPen 100 UNIT/ML NovoLOG FlexPen 100 UNIT/ML 04/21/2021 12:00:00 AM EDT active NovoLOG FlexPen 100 UNIT/ML eCW1 (Counts Include [address] [facility]) 3 ML Insulin, Aspart, Human 100 UNT/ML P en Injector [NovoLog] NovoLOG FlexPen 100 UNIT/ML NovoLOG FlexPen 100 UNIT/ML 04/21/2021 12:00:00 AM EDT active NovoLOG FlexPen 100 UNIT/ML eCW1 (Counts Include [address] [facility]) 3 ML Insulin, Aspart, Human 100 UNT/ML P en Injector [NovoLog] NovoLOG FlexPen 100 UNIT/ML NovoLOG FlexPen 100 UNIT/ML 04/21/2021 12:00:00 AM EDT active NovoLOG FlexPen 100 UNIT/ML eCW1 (Counts Include [address] [facility]) 3 ML Insulin, Aspart, Human 100 UNT/ML P en Injector [NovoLog] NovoLOG FlexPen 100 UNIT/ML NovoLOG FlexPen 100 UNIT/ML 04/21/2021 12:00:00 AM EDT active NovoLOG FlexPen 100 UNIT/ML eCW1 (Counts Include [address] [facility]) 3 ML Insulin, Aspart, Human 100 UNT/ML P en Injector [NovoLog] NovoLOG FlexPen 100 UNIT/ML NovoLOG FlexPen 100 UNIT/ML 04/21/2021 12:00:00 AM EDT active NovoLOG FlexPen 100 UNIT/ML eCW1 (Counts Include [facility]) Calcium Carbonate 500 MG Chewable Tablet [Tums] Tums 500 MG Tums 500 MG 04/08/2021 12:00:00 AM EDT 1.0 {tablet} active Tums 500 MG eCW1 (Counts Include [address] [facility]) Calcium Carbonate 500 MG Chewable Tablet [Tums] Tums 500 MG Tums 500 MG 04/08/2021 12:00:00 AM EDT 1.0 {tablet} active Tums 500 MG eCW1 (Counts Include [address] [facility]) Calcium Carbonate 500 MG Chewable Tablet [Tums] Tums 500 MG Tums 500 MG 04/08/2021 12:00:00 AM EDT 1.0 {tablet} active Tums 500 MG eCW1 (Counts Include [address] [facility]) Calcium Carbonate 500 MG Chewable Tablet [Tums] Tums 500 MG Tums 500 MG 04/08/2021 12:00:00 AM EDT 1.0 {tablet} active Tums 500 MG eCW1 (Counts Include [address] [facility]) Sutab Sutab 04/02/2021 12:00:00 AM EDT completed MEDENT ([facility]) Glucometer UNK 04/01/2021 12:00:00 AM EDT active Glucometer eCW1 (Counts Include [address] [facility]) Glucometer UNK 04/01/2021 12:00:00 AM EDT active Glucometer eCW1 (Counts Include [address] [facility]) Lancets 33G - Lancets 33G - 04/01/2021 12:00:00 AM EDT active Lancets 33G - eCW1 (Counts Include [address] [facility]) Lancets 33G - Lancets 33G - 04/01/2021 12:00:00 AM EDT active Lancets 33G - eCW1 (Counts Include [facility]) Lancets 33G - Lancets 33G - 04/01/2021 12:00:00 AM EDT active Lancets 33G - eCW1 (Counts Include [address] [facility]) Glucometer UNK 04/01/2021 12:00:00 AM EDT active Glucometer eCW1 (Counts Include [address] [facility]) Glucometer UNK 04/01/2021 12:00:00 AM EDT active Glucometer eCW1 (Counts Include [address] [facility]) Glucometer UNK 04/01/2021 12:00:00 AM EDT active Glucometer eCW1 (Counts Include [facility]) Lancets 33G - Lancets 33G - 04/01/2021 12:00:00 AM EDT active Lancets 33G - eCW1 (Counts Include [address] [facility]) Glucometer UNK 04/01/2021 12:00:00 AM EDT active Glucometer eCW1 (Counts Include [address] [facility]) Glucometer UNK 04/01/2021 12:00:00 AM EDT active Glucometer eCW1 (Counts Include [facility]) Lancets 33G - Lancets 33G - 04/01/2021 12:00:00 AM EDT active Lancets 33G - eCW1 (Counts Include [facility]) Glucometer UNK 04/01/2021 12:00:00 AM EDT active Glucometer eCW1 (Counts Include [address] [facility]) Lancets 33G - Lancets 33G - 04/01/2021 12:00:00 AM EDT active Lancets 33G - eCW1 (Counts Include [facility]) Lancets 33G - Lancets 33G - 04/01/2021 12:00:00 AM EDT active Lancets 33G - eCW1 (Counts Include [facility]) Lancets 33G - Lancets 33G - 04/01/2021 12:00:00 AM EDT active Lancets 33G - eCW1 (Counts Include [facility]) Glucometer UNK 04/01/2021 12:00:00 AM EDT active Glucometer eCW1 (Counts Include [facility]) Glucometer UNK 04/01/2021 12:00:00 AM EDT active Glucometer eCW1 (Counts Include [facility]) Lancets 33G - Lancets 33G - 04/01/2021 12:00:00 AM EDT active Lancets 33G - eCW1 (Counts Include [facility]) Lancets 33G - Lancets 33G - 04/01/2021 12:00:00 AM EDT active Lancets 33G - eCW1 (Counts Include [facility]) Glucometer UNK 04/01/2021 12:00:00 AM EDT active Glucometer eCW1 (Counts Include [address] [facility]) Lancets 33G - Lancets 33G - 04/01/2021 12:00:00 AM EDT active Lancets 33G - eCW1 (Counts Include [address] [facility]) Lancets 33G - Lancets 33G - 04/01/2021 12:00:00 AM EDT active Lancets 33G - eCW1 (Counts Include [facility]) Glucometer UNK 04/01/2021 12:00:00 AM EDT active Glucometer eCW1 (Counts Include [address] [facility]) torsemide 10 MG Oral Tablet Torsemide 03/26/2021 12:00:00 AM EDT ORAL active MED[facility] ([facility]) 3 ML Insulin Lispro 100 UNT/ML Pen Injector [Humalog] Humalo g Kwikpen 03/26/2021 12:00:00 AM EDT active MEDENT ([facility]) FreeStyle Darling 14 Day Sensor - FreeStyle Darling 14 Day Senso r - 03/25/2021 12:00:00 AM EDT active FreeStyl e Darling 14 Day Sensor - eCW1 (Counts Include [facility]) FreeStyle Darling White[place] - FreeStyle Darling [place] - 03/25/2021 12:00: 00 AM EDT active FreeStyle Darling [place] - eCW1 (Counts Include [address] [facility]) FreeStyle Darling 14 Day Sensor - FreeStyle Darling 14 Day Senso r - 03/25/2021 12:00:00 AM EDT active FreeStyl e Darling 14 Day Sensor - eCW1 (Counts Include [facility]) FreeStyle Darling 14 Day Sensor - FreeStyle Darling 14 Day Senso r - 03/25/2021 12:00:00 AM EDT active FreeStyl e Darling 14 Day Sensor - eCW1 (Counts Include [address] [facility]) FreeStyle Darling [place] - FreeStyle Darling [place] - 03/25/2021 12:00: 00 AM EDT active FreeStyle Darling [place] - eCW1 (Counts Include [facility]) FreeStyle Darling 14 Day Sensor - FreeStyle Darling 14 Day Senso r - 03/25/2021 12:00:00 AM EDT active FreeStyl e Darling 14 Day Sensor - eCW1 (Counts Include [address] [facility]) FreeStyle Darling [place] - FreeStyle Darling [place] - 03/25/2021 12:00: 00 AM EDT active FreeStyle Darling [place] - eCW1 (Counts Include [address] [facility]) FreeStyle Darling [place] - FreeStyle Darling [place] - 03/25/2021 12:00: 00 AM EDT active FreeStyle Darling [place] - eCW1 (Counts Include [address] [facility]) Metformin HCL ER (Mod) Metformin HCL ER (Mod) 03/03/2021 12:00:00 AM EDT ORAL completed [facility] ([facility]) tizanidine 4 MG Oral Tablet Tizanidine HCL 02/20/2021 12:00:00 AM EDT ORAL active MEDENT ([facility]) May Have - UNK 11/26/2020 12:00:00 AM EDT active May Have - eCW1 (Counts Include [facility]) 24 HR ferrous sulfate 142 MG Extended Re lease Oral Tablet [Slow-Fe] Slow Fe 142 (45 Fe) MG Slow Fe 142 (45 Fe) MG 11/26/2020 12:00:00 AM EDT 1.0 {tabl et} active Slow Fe 142 (45 Fe) MG eCW1 (Counts Include [address] [facility]) May Have - UNK 11/26/2020 12:00:00 AM EDT active May Have - eCW1 (Counts Include [address] [facility]) 24 HR ferrous sulfate 142 MG Extended Re lease Oral Tablet [Slow-Fe] Slow Fe 142 (45 Fe) MG Slow Fe 142 (45 Fe) MG 11/26/2020 12:00:00 AM EDT 1.0 {tabl et} active Slow Fe 142 (45 Fe) MG eCW1 (Counts Include [address] [facility]) 24 HR ferrous sulfate 142 MG Extended Re lease Oral Tablet [Slow-Fe] Slow Fe 142 (45 Fe) MG Slow Fe 142 (45 Fe) MG 11/26/2020 12:00:00 AM EDT 1.0 {tabl et} active Slow Fe 142 (45 Fe) MG eCW1 (Counts Include [address] [facility]) 24 HR ferrous sulfate 142 MG Extended Re lease Oral Tablet [Slow-Fe] Slow Fe 142 (45 Fe) MG Slow Fe 142 (45 Fe) MG 11/26/2020 12:00:00 AM EDT 1.0 {tabl et} active Slow Fe 142 (45 Fe) MG eCW1 (Counts Include [address] [facility]) 24 HR ferrous sulfate 142 MG Extended Re lease Oral Tablet [Slow-Fe] Slow Fe 142 (45 Fe) MG Slow Fe 142 (45 Fe) MG 11/26/2020 12:00:00 AM EDT 1.0 {tabl et} active Slow Fe 142 (45 Fe) MG eCW1 (Counts Include [address] [facility]) May Have - UNK 11/26/2020 12:00:00 AM EDT active May Have - eCW1 (Counts Include [address] [facility]) 24 HR ferrous sulfate 142 MG Extended Re lease Oral Tablet [Slow-Fe] Slow Fe 142 (45 Fe) MG Slow Fe 142 (45 Fe) MG 11/26/2020 12:00:00 AM EDT 1.0 {tabl et} active Slow Fe 142 (45 Fe) MG eCW1 (Counts Include [address] [facility]) 24 HR ferrous sulfate 142 MG Extended Re lease Oral Tablet [Slow-Fe] Slow Fe 142 (45 Fe) MG Slow Fe 142 (45 Fe) MG 11/26/2020 12:00:00 AM EDT 1.0 {tabl et} active Slow Fe 142 (45 Fe) MG eCW1 (Counts Include [address] [facility]) May Have - UNK 11/26/2020 12:00:00 AM EDT active May Have - eCW1 (Counts Include [address] [facility]) May Have - UNK 11/26/2020 12:00:00 AM EDT active May Have - eCW1 (Counts Include [address] [facility]) May Have - UNK 11/26/2020 12:00:00 AM EDT active May Have - eCW1 (Counts Include [address] [facility]) May Have - UNK 11/26/2020 12:00:00 AM EDT active May Have - eCW1 (Counts Include [address] [facility]) Cyanocobalamin 1000 MCG UNK 11/23/2020 12:00:00 AM EST 1.0 { tablet} active Cyanocobalamin 1000 MCG eCW1 ([facility]) torsemide 10 MG Oral Tablet Torsemide 10 MG Torsemide 10 MG 11/23/2020 12:00:00 AM EST 3.0 {tablets} active Torsemide 10 MG eCW1 (Counts Include [address] [facility]) FreeStyle Darling 14 Day Sensor - FreeStyle Darling 14 Day Senso r - 11/23/2020 12:00:00 AM EST active FreeStyl e Darling 14 Day Sensor - eCW1 (Counts Include [address] [facility]) FreeStyle Darling 14 Day Sensor - FreeStyle Darling 14 Day Senso r - 11/23/2020 12:00:00 AM EST active FreeStyl e Darling 14 Day Sensor - eCW1 (Counts Include [address] [facility]) torsemide 10 MG Oral Tablet Torsemide 10 MG Torsemide 10 MG 11/23/2020 12:00:00 AM EST 3.0 {tablets} active Torsemide 10 MG eCW1 (Counts Include [address] [facility]) FreeStyle Darling [place] - FreeStyle Darling [place] - 11/23/2020 12:00: 00 AM EST active FreeStyle Darling [place] - eCW1 (Counts Include [address] [facility]) torsemide 10 MG Oral Tablet Torsemide 10 MG Torsemide 10 MG 11/23/2020 12:00:00 AM EST 3.0 {tablets} active Torsemide 10 MG eCW1 (Counts Include [address] [facility]) FreeStyle Darling 14 Day Sensor - FreeStyle Darling 14 Day Senso r - 11/23/2020 12:00:00 AM EST active FreeStyl e Darling 14 Day Sensor - eCW1 (Counts Include [address] [facility]) torsemide 10 MG Oral Tablet Torsemide 10 MG Torsemide 10 MG 11/23/2020 12:00:00 AM EST 3.0 {tablets} active Torsemide 10 MG eCW1 (Counts Include [address] [facility]) FreeStyle Darling [place] - FreeStyle Darling [place] - 11/23/2020 12:00: 00 AM EST active FreeStyle Darling [place] - eCW1 (Counts Include [address] [facility]) FreeStyle Darling [place] - FreeStyle Darling [place] - 11/23/2020 12:00: 00 AM EST active FreeStyle Darling [place] - eCW1 (Counts Include [address] [facility]) FreeStyle Darling 14 Day Sensor - FreeStyle Darling 14 Day Senso r - 11/23/2020 12:00:00 AM EST active FreeStyl e Darling 14 Day Sensor - eCW1 (Counts Include [address] [facility]) torsemide 10 MG Oral Tablet Torsemide 10 MG Torsemide 10 MG 11/23/2020 12:00:00 AM EST 3.0 {tablets} active Torsemide 10 MG eCW1 (Counts Include [address] [facility]) Cyanocobalamin 1000 MCG UNK 11/23/2020 12:00:00 AM EST 1.0 { tablet} active Cyanocobalamin 1000 MCG eCW1 ([facility]) torsemide 10 MG Oral Tablet Torsemide 10 MG Torsemide 10 MG 11/23/2020 12:00:00 AM EST 3.0 {tablets} active Torsemide 10 MG eCW1 (Counts Include [address] [facility]) Cyanocobalamin 1000 MCG UNK 11/23/2020 12:00:00 AM EST 1.0 { tablet} active Cyanocobalamin 1000 MCG eCW1 ([facility]) FreeStyle Darling [place] - FreeStyle Darling [place] - 11/23/2020 12:00: 00 AM EST active FreeStyle Darling [place] - eCW1 (Counts Include [address] [facility]) Cyanocobalamin 1000 MCG UNK 11/23/2020 12:00:00 AM EST 1.0 { tablet} active Cyanocobalamin 1000 MCG eCW1 ([facility]) Cyanocobalamin 1000 MCG UNK 11/23/2020 12:00:00 AM EST 1.0 { tablet} active Cyanocobalamin 1000 MCG eCW1 ([facility]) FreeStyle Darling [place] - FreeStyle Darling [place] - 11/23/2020 12:00: 00 AM EST active FreeStyle Darling [place] - eCW1 (Counts Include [address] [facility]) FreeStyle Darling [place] - FreeStyle Darling [place] - 11/23/2020 12:00: 00 AM EST active FreeStyle Darling [place] - eCW1 (Counts Include [address] [facility]) Cyanocobalamin 1000 MCG UNK 11/23/2020 12:00:00 AM EST 1.0 { tablet} active Cyanocobalamin 1000 MCG eCW1 ([facility]) FreeStyle Darling [place] - FreeStyle Darling [place] - 11/23/2020 12:00: 00 AM EST active FreeStyle Darling [place] - eCW1 (Counts Include [address] [facility]) torsemide 10 MG Oral Tablet Torsemide 10 MG Torsemide 10 MG 11/23/2020 12:00:00 AM EST 3.0 {tablets} active Torsemide 10 MG eCW1 (Counts Include [address] [facility]) FreeStyle Darling 14 Day Sensor - FreeStyle Darling 14 Day Senso r - 11/23/2020 12:00:00 AM EST active FreeStyl e Draling 14 Day Sensor - eCW1 (Counts Include [address] [facility]) FreeStyle Darling 14 Day Sensor - FreeStyle Darling 14 Day Senso r - 11/23/2020 12:00:00 AM EST active FreeStyl e Darling 14 Day Sensor - eCW1 (Counts Include [address] [facility]) Cyanocobalamin 1000 MCG UNK 11/23/2020 12:00:00 AM EST 1.0 { tablet} active Cyanocobalamin 1000 MCG eCW1 ([facility]) FreeStyle Darling 14 Day Sensor - FreeStyle Darling 14 Day Senso r - 11/23/2020 12:00:00 AM EST active FreeStyl e Darling 14 Day Sensor - eCW1 ([facility]s Include [facility]) Insurance Providers Payer name Policy type / Coverage type Policy ID Covered alliance party ID Covered alliance party's relationship to eldridge Policy Eldridge Plan Information [id number] B MEDICARE [id number] Tatiana [id number] B MEDICAID [id number] Tatiana [id number] MEDICARE [id number] SP [id number] HUMANA HMO [id number] SP [id number] HUMANA HMO [id number] SP [id number] EMEDNY [id number] SP [id number] MEDICAID [id number] SP [id number] MEDICARE C [id number] S [id number] MEDICAID M [id number] S [id number] ANSI-Medicare Part B [id number] ANSI-Medicaid [id number] ANSI-Medicaid [id number] ANSI-Medicare Part B [id number] ANSI-Medicare Part B [id number] ANSI-Medicaid [id number] ANSI-Medicaid [id number] ANSI-Medicare Part B [id number] ANSI-Medicare Part B [id number] ANSI-Medicaid [id number] ANSI-Medicare Part B [id number] ANSI-Medicaid [id number] ANSI-Medicare Part B [id number] ANSI-Medicaid [id number] ANSI-Medicaid [id number] ANSI-Medicare Part B [id number] ANSI-Medicaid [id number] ANSI-Medicare Part B [id number] ANSI-Medicaid [id number] ANSI-Medicare Part B [id number] ANSI-Medicaid [id number] ANSI-Medicare Part B [id number] ANSI-Medicare Part B [id number] ANSI-Medicaid [id number] ANSI-Medicaid [id number] ANSI-Medicare Part B [id number] ANSI-Medicaid [id number] ANSI-Medicare Part B [id number] ANSI-Medicaid [id number] ANSI-Medicare Part B [id number] ANSI-Medicare Part B [id number] ANSI-Medicaid [id number] ANSI-Medicare Part B [id number] ANSI-Medicaid [id number] ANSI-Medicare Part B [id number] ANSI-Medicaid [id number] ANSI-Medicare Part B [id number] ANSI-Medicaid [id number] ANSI-Medicaid [id number] ANSI-Medicare Part B [id number] ANSI-Medicaid [id number] ANSI-Medicare Part B [id number] ANSI-Medicaid [id number] ANSI-Medicare Part B [id number] ANSI-Medicare Part B [id number] ANSI-Medicaid [id number] ANSI-Medicaid [id number] ANSI-Medicare Part B [id number] ANSI-Medicaid [id number] ANSI-Medicare Part B [id number] ANSI-Medicaid [id number] ANSI-Medicare Part B [id number] ANSI-Medicare Part B [id number] ANSI-Medicaid [id number] ANSI-Medicare Part B [id number] ANSI-Medicaid [id number] ANSI-Medicare Part B [id number] ANSI-Medicaid [id number] Medicaid [facility] Part B [id number] 9.0 Self [id number] Medicare (Part B) Medicare Primary [id number] Self [id number] ANSI-Medicare Part B [id number] ANSI-Medicaid [id number] ANSI-Medicare Part B [id number] ANSI-Medicaid [id number] ANSI-Medicare Part B [id number] ANSI-Medicaid [id number] ANSI-Medicaid [id number] ANSI-Medicare Part B [id number] ANSI-Medicare Part B [id number] ANS-Medicaid [id number] ANS-Medicaid [id number] ANS-Medicare Part B [id number] ANSI-Medicare Part B [id number] [facility]-Medicaid [id number] MEDICARE [id number] SP [id number] B Medicaid Medigap Part B [id number] 9.0 Self [id number] Medicare (Part B) Medicare Primary [id number] Self 0 [id number] Medicaid Medigap Part B [id number] 9.0 Self [id number] Medicare (Part B) Medicare Primary [id number] Self 0 [id number] MEDICARE C [id number] S [id number] B Medicaid Medigap Part B [id number] 9.0 Self [id number] Medicare (Part B) Medicare Primary [id number] Self 0 [id number] MEDICARE PI PI MEDICAID PI PI MEDICARE PART A -O/P [id number] MEDICARE COMPLETE [id number] SP [id number] MEDICARE [id number] SP [id number] A MEDICARE COMPLETE [id number] SP [id number] [facility] P [id number] S [id number] MEDICARE COMPLETE [id number] SP [id number] [facility] [id number] SP [id number] HUMANA GOLD [id number] SP [id number] [place] [id number] SP [id number] HUMANA GOLD [id number] SP [id number] Problems, Conditions, and Diagnoses Code Display Name Description Problem Type Effective Dates Data Source(s) [id number] Cirrhosis - non-alcoholic Cirrhosis - non-alcoholic Pr oblem 07/09/2021 12:00:00 AM EDT MEDENT ([facility]) B37.2 [id number] Candidiasis, intertriginous Problem 04/22/20 12:00:00 AM EDT eCW1 ([facility]) 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 Type 2 diabetes mellitus with complication, with long-term current use of insulin Problem 12:00:00 AM EDT eCW1 (Counts Include [facility]) K76.0 [id number] NAFLD (nonalcoholic fatty liver disease) Problem 04/08/2021 12:00:00 AM EDT eCW1 (Counts Include [facility]) [id number] Anemia Anemia Problem 04/02/2021 12:00:00 AM ED [...] Mins Clinical Staff Time Per Calendar [facility] 05/07/2021 12:00:00 AM EDT MEDENT ([facility]) GLUC MNTR CONT REC FROM INTERSTITIAL TISS FLUID 2020 12:00:00 AM EDT eCW1 (Counts Include [facility]) Chronic Care Management Services Ea Addl 20 Min 2020 12:00:00 AM EDT MED[facility] ([facility]) Chronic Care MGMT 20 Mins Clinical Staff Time Per Calendar [facility] 04/04/2021 12:00:00 AM EDT MEDENT ([facility]) OFFICE OUTPATIENT NEW 30 MINUTES 04/02/2021 12:00:00 A M EDT MED[facility] ([facility]) ECG ROUTINE ECG W/LEAST 12 LDS W/I&R 03/27/2021 12:00: 00 AM EDT MED[facility] ([facility]) OFFICE OUTPATIENT VISIT 25 MINUTES 03/27/2021 12:00:00 AM EDT MED[facility] ([facility]) Chronic Care Management Services Ea Addl 20 Min 2020 12:00:00 AM EDT MED[facility] ([facility]) Chronic Care MGMT 20 Mins Clinical Staff Time Per Calendar [facility] 03/04/2021 12:00:00 AM EDT MEDENT ([facility]) OFFICE OUTPATIENT NEW 30 MINUTES 02/20/2021 12:00:00 A M EDT MEDENT ([facility] ) Chronic Care MGMT 20 Mins Clinical Staff Time Per Calendar [facility] 01/28/2021 12:00:00 AM EDT MED[facility] ([facility]) Chronic Care Management Services Ea Addl 20 Min 2020 12:00:00 AM EDT MED[facility] ([facility]) Chronic Care MGMT 20 Mins Clinical Staff Time Per Calendar [facility] 12/26/2020 12:00:00 AM EDT MED[facility] ([facility]) Chronic Care Management Services Ea Addl 20 Min 2020 12:00:00 AM EST MED[facility] ([facility]) Chronic Care MGMT 20 Mins Clinical Staff Time Per Calendar [facility] 10/26/2020 12:00:00 AM EST MED[facility] ([facility]) ECG ROUTINE ECG W/LEAST 12 LDS W/I&R 09/27/2020 12:00: 00 AM EST [facility] ([facility]) OFFICE OUTPATIENT VISIT 25 MINUTES 09/27/2020 12:00:00 AM EST [facility] ([facility]) Chronic Care MGMT 20 Mins Clinical Staff Time Per Calendar [facility] 09/19/2020 12:00:00 AM EST MED[facility] ([facility]) Results ID Date Data Source [id number] 05/08/2021 10:47:00 AM EDT MED[facility] ([facility]) Name Value Range Interpretation Code Description Data Alana rce(s) Supporting Document(s) Surgical pathology study Laboratory test result MEDENT ([facility]) <content>FINAL DIAGNOSIS</content>
< content></content>
<content>A - Stomach, [...] 1344</content>
<content></content>
<content>Signed BRIJESH HURST MD 05/09/2021 1353</content>
<content></content> ID Date Data Source [id number] 03/11/2021 01:40:00 PM EDT [facility] ([facility]) Name Value Range Interpretation Code Description Data Alana rce(s) Supporting Document(s) Magnesium Level 2.1 [facility] Hemoglobin 10.0 [facility]) Hematocrit 33.5 [facility] ([facility]) ID Date Data Source [id number] 03/11/2021 01:40:00 PM EDT [facility] ([facility]) Name Value Range Interpretation Code Description Data [...] [facility] [place]) ID Date Data Source [id number] 03/11/2021 01:40:00 PM EDT [facility] ([facility]) Name Value Range Interpretation Code Description Data Alana rce(s) Supporting Document(s) Glucose 174 [facility] ([facility] Sodium 139 [facility] Creatinine 1.50 [facility] ([facility]) Blood Urea Nitrogen 15 [facility] ([facility]) Potassium 4.1 [facility] ([facility]) Carbon Dioxide 27 [facility] ([facility]) Chloride 104 [facility] ([facility]) Glomerular filtration rate/1.73 sq M.pre dicted [Volume Rate/Area] in Serum or Plasma by Creatinine-based formula (MDRD) 35.8 [facility] ([facility]) Calcium 8.1 [facility] ([facility]) ID Date Data Source [id number] 03/09/2021 05:20:00 PM EDT [facility] Name Value Range Interpretation Code Description Data Alana rce(s) Supporting Document(s) SARS coronavirus 2 RNA [Presence] in Res piratory specimen by JESU with probe detection NEGATIVE [facility] This lab was ordered by [facility] a nd reported by [facility]. ID Date Data Source [id number] 10/09/2020 10:55:00 AM EST [facility] ([facility]) Name Value Range Interpretation Code Description Data Alana rce(s) Supporting Document(s) Triglycerides Level 203 mg/dL [facility] ([facility]) HDL Cholesterol 43 mg/dL [facility] ([facility]) Cholesterol Level 129 mg/dL [facility] ([facility]) LDL Cholesterol 45 mg/dL [facility] ([facility]) Non-HDL-C 86 mg/dL [facility] ([facility]) Cholesterol Risk Ratio 3.000 [facility] ([facility]) ID Date Data Source [id number] 10/09/2020 10:55:00 AM EST [facility] ([facility]) Name Value Range Interpretation Code Description Data Alana rce(s) Supporting Document(s) Glucose, Fasting 167 mg/dL 70-100 [facility] ([facility]) Blood Urea Nitrogen 21 mg/dL 7-18 [facility] ([facility]) Creatinine For GFR 1.80 mg/dL 0.55-1.30 [facility] ([facility]) Sodium Level 140 meq/L 136-145 [facility] ([facility]) Glomerular Filtration Rate 29.0 MED ENT ([facility]) <content>Units are mL/min/1.73 m2</content>
<content></content>
<content>Chronic Kidney Disease Staging per NKF:</content>
<content></content>
<content>Stage I & II GFR >=60 Normal to Mildly Decreased</content>
<content>Stage III GFR 30- 59 Moderately Decreased</content>
<content>Stage IV GFR 15-29 Severely Decreased</content>
<content>Stage V GFR <15 Very Little GFR Left</content>
<content>ESRD GFR <15 on RECEIVING SPECIALIST</content>
<content></content> Potassium Serum 4.6 meq/L 3.5-5.1 [facility] ([facility]) Chloride Level 101 meq/L 98-107 [facility] ([facility]) Carbon Dioxide Level 28 meq/L 21-32 [facility] ([facility]) Anion Gap 11 meq/L 8-16 [facility] ([facility]) Calcium Level 9.5 mg/dL 8.8-10.2 [facility] ([facility]) Alt/SGPT 37 U/L 12-78 [facility] ([facility]) Alkaline Phosphatase 106 U/L 45-117 [facility] ([facility]) Ast/Sgot 55 U/L 7-37 [facility] ([facility]) Bilirubin,Total 0.5 mg/dL 0.2-1.0 [facility] ([facility]) Total Protein 6.9 GM/DL 6.4-8.2 [facility] ([facility]) Albumin 3.2 GM/DL 3.2-5.2 [facility] ([facility]) Albumin/Globulin Ratio 0.9 1.2-2.2 [facility] ([facility]) ID Date Data Source [id number] 10/09/2020 10:55:00 AM EST [facility] ([facility]) Name Value Range Interpretation Code Description Data Alana rce(s) Supporting Document(s) Red Blood Count 3.78 10 4.00-5.40 [facility] ([facility]) White Blood Count 8.1 10 4.0-10.0 [facility] ([facility]) Mean Corpuscular Volume 85.2 fl 80.0-96.0 M EDENT ([facility]) Hematocrit 32.2 % 36.0-47.0 MED[facility] ([facility]) Hemoglobin 9.5 g/dL 12.0-15.5 [facility] ([facility]) Mean Corpuscular HGB Conc 29.5 g/dL 32.0-36.5 [facility] ([facility]) Mean Corpuscular Hemoglobin 25.1 pg 27.0-33.0 [facility] ([facility]) Nucleated Red Blood Cell % 0.0 % 0-0 MED ENT ([facility]) Platelet Count, Automated 239 10 150-450 MED[facility] ([facility]) Red Cell Distribution Width 14.7 % 11.5-14.5 [facility] ([facility]) Procedure Social History Code Duration Value Status Description Data Source(s ) Smoking 03/27/2021 12:00:00 AM EDT Patient has never smoked co mpleted Patient has never smoked [facility] ([facility]) Vital Signs ID Date Data Source UNK [...] Body weight 210.4 [lb_av] 210.4 [lb_av] eCW1 ([facility]) Body weight 95.44 kg 95.44 kg eCW1 ([facility]) Body height 59 [in_i] 59 [in_i] eCW1 ([facility]) Body mass index (BMI) [Ratio] 42.49 kg/m2 42.49 kg/m2 eCW1 ([facility]) Heart rate 90 /min 90 /min eCW1 ([facility]) Respiratory rate 18 /min 18 /min eCW1 ([facility]) Body temperature 97.6 [degF] 97.6 [degF] eCW1 ( Counts Include [facility]) Systolic blood pressure 140 mm[Hg] 140 mm[Hg] e CW1 (Counts Include [facility]) Diastolic blood pressure 90 mm[Hg] 90 mm[Hg] eCW1 (Counts Include [facility]) Body weight 197.4 [lb_av] 197.4 [lb_av] eCW1 ([facility]) Body weight 89.54 kg 89.54 kg eCW1 ([facility]) Body height 59 [in_i] 59 [in_i] eCW1 ([facility]) Body mass index (BMI) [Ratio] 39.87 kg/m2 39.87 kg/m2 eCW1 (Counts Include [facility]) Heart rate 84 /min 84 /min eCW1 ([facility]) Respiratory rate 18 /min 18 /min eCW1 ([facility]) Body temperature 97.9 [degF] 97.9 [degF] eCW1 ( Counts Include [facility]) Systolic blood pressure 124 mm[Hg] 124 mm[Hg] e CW1 (Counts Include [facility]) Diastolic blood pressure 78 mm[Hg] 78 mm[Hg] eCW1 (Counts Include [facility]) Body weight 200 [lb_av] 200 [lb_av] eCW1 ([facility]) Body height 59 [in_i] 59 [in_i] eCW1 ([facility]) Body mass index (BMI) [Ratio] 40.39 kg/m2 40.39 kg/m2 eCW1 (Counts Include [facility]) Heart rate 88 /min 88 /min eCW1 ([facility]) Respiratory rate 20 /min 20 /min eCW1 ([facility]) Body temperature 97.0 [degF] 97.0 [degF] eCW1 ( Counts Include [facility]) Systolic blood pressure 122 mm[Hg] 122 mm[Hg] e CW1 (Counts Include [facility]) Diastolic blood pressure 78 mm[Hg] 78 mm[Hg] eCW1 (Counts Include [facility]) Body height 59 [in_i] 59 [in_i] [facility] 4'11" Body weight 196.00 [lb_av] 196.00 [lb_av] MEDEN T ([facility]) Systolic blood pressure 127 mm[Hg] 127 mm[Hg] M EDENT ([facility]) Diastolic blood pressure 81 mm[Hg] 81 mm[Hg] MEDENT ([facility]) Heart rate 55 /min 55 /min [facility] ([facility]) Body mass index (BMI) [Ratio] 39.6 kg/m2 39.6 k g/m2 MEDENT ([facility]) Body weight 88.906 kg 88.906 kg MEDENT ([facility]) Body temperature 96.3 [degF] 96.3 [degF] MEDENT ([facility]) Body weight 196.00 [lb_av] 196.00 [lb_av] MEDEN T ([facility]) Body height 59 [in_i] 59 [in_i] MEDENT [facility] 4'11" Body mass index (BMI) [Ratio] 39.6 kg/m2 39.6 k g/m2 MEDENT ([facility]) Heart rate 73 /min 73 /min MEDENT ([facility]) Systolic blood pressure--sitting 110 mm[Hg] 110 mm[Hg] MEDENT ([facility]) Ra, large cuff Diastolic blood pressure--sitting 62 mm[Hg] 62 mm[Hg] MEDENT ([facility]) Ra, large cuff Body weight 196 [lb_av] 196 [lb_av] eCW1 ([facility]) Body height 59 [in_i] 59 [in_i] eCW1 ([facility]) Body mass index (BMI) [Ratio] 39.58 kg/m2 39.58 kg/m2 eCW1 (Counts Include [facility]) Heart rate 94 /min 94 /min eCW1 ([facility]) Respiratory rate 20 /min 20 /min eCW1 ([facility]) Body temperature 98.6 [degF] 98.6 [degF] eCW1 ( Counts Include [facility]) Systolic blood pressure 122 mm[Hg] 122 mm[Hg] e CW1 (Counts Include [facility]) Diastolic blood pressure 78 mm[Hg] 78 mm[Hg] eCW1 (Counts Include [facility]) Body temperature 97.1 [degF] 97.1 [degF] MEDENT ([facility]) Body height 59 [in_i] 59 [in_i] MEDENT ([facility]) 4'11" Body weight 208.00 [lb_av] 208.00 [lb_av] MEDEN T ([facility]) Body mass index (BMI) [Ratio] 42.0 kg/m2 42.0 k g/m2 MEDENT [facility] [facility]) Body weight 207.4 [lb_av] 207.4 [lb_av] eCW1 ([facility]) Body height 59 [in_i] 59 [in_i] eCW1 ([facility]) Body mass index (BMI) [Ratio] 41.89 kg/m2 41.89 kg/m2 eCW1 ([facility]) Heart rate 104 /min 104 /min eCW1 ([facility]) Respiratory rate 18 /min 18 /min eCW1 ([facility]) Body temperature 98.1 [degF] 98.1 [degF] eCW1 ( Counts Include [facility]) Systolic blood pressure 124 mm[Hg] 124 mm[Hg] e CW1 (Counts Include [facility]) Diastolic blood pressure 80 mm[Hg] 80 mm[Hg] eCW1 (Counts Include [facility]) Body height 59 [in_i] 59 [in_i] MEDENT ([facility] 4'11" Body mass index (BMI) [Ratio] 42.0 kg/m2 42.0 k g/m2 MEDENT ([facility]) Heart rate 70 /min 70 /min MEDENT ([facility]) Systolic blood pressure--sitting 122 mm[Hg] 122 mm[Hg] MEDENT ([facility]) large cuff, Ra Diastolic blood pressure--sitting 76 mm[Hg] 76 mm[Hg] MEDENT ([facility]) large cuff, Ra Body weight 208.00 [lb_av] 208.00 [lb_av] MEDEN T ([facility]) Patient Treatment Plan of Care Planned Activity Planned Date Details Description Data Source (s) Nystatin - 04/22/2021 12:00:00 AM EDT e CW1 ([facility]s Include [facility]) Nystatin - 04/22/2021 12:00:00 AM EDT e CW1 (Counts Include [facility]) Nystatin - 04/22/2021 12:00:00 AM EDT e CW1 (Counts Include [facility]) Calcium Carbonate 500 MG Chewable Tablet [Tums] 04/08/2021 12:00:00 AM EDT eCW1 (Counts Include [facility]) Calcium Carbonate 500 MG Chewable Tablet [Tums] 04/08/2021 12:00:00 AM EDT eCW1 (Counts Include [facility]) Calcium Carbonate 500 MG Chewable Tablet [Tums] 04/08/2021 12:00:00 AM EDT eCW1 (Counts Include [facility]) Calcium Carbonate 500 MG Chewable Tablet [Tums] 04/08/2021 12:00:00 AM EDT eCW1 (Counts Include [facility]) Glucometer 04/01/2021 12:00:00 AM EDT e CW1 (Counts Include [facility]) Lancets 33G - 04/01/2021 12:00:00 AM EDT eCW1 (Counts Include [facility]) FreeStyle Darling [place] - 03/25/2021 12:00:00 AM EDT eCW1 (Counts Include [facility]) FreeStyle Darling 14 Day Sensor - 03/25/2021 12:00:00 AM EDT eCW1 (Counts Include [facility]) FreeStyle [place]ling [place] - 03/25/2021 12:00:00 AM EDT eCW1 (Counts Include [facility]) FreeStyle Darling 14 Day Sensor - 03/25/2021 12:00:00 AM EDT eCW1 (Counts Include [facility]) FreeStyle Darling [place] - 03/25/2021 12:00:00 AM EDT eCW1 (Counts Include [facility]) FreeStyle Darling 14 Day Sensor - 03/25/2021 12:00:00 AM EDT eCW1 (Counts Include [facility]) FreeStyle [place]ling [place] - 03/25/2021 12:00:00 AM EDT eCW1 (Counts Include [facility]) FreeStyle Darling 14 Day Sensor - 03/25/2021 12:00:00 AM EDT eCW1 (Counts Include [facility]) May Have - 11/26/2020 12:00:00 AM EDT e CW1 (Counts Include [facility]) 24 HR ferrous sulfate 142 MG Extended Release Oral Tab let [Slow-Fe] 11/26/2020 12:00:00 AM EDT eCW1 ([facility]) May Have - 11/26/2020 12:00:00 AM EDT e CW1 (Counts Include [facility]) 24 HR ferrous sulfate 142 MG Extended Release Oral Tab let [Slow-Fe] 11/26/2020 12:00:00 AM EDT eCW1 ([facility]) May Have - 11/26/2020 12:00:00 AM EDT e CW1 (Counts Include [facility]) 24 HR ferrous sulfate 142 MG Extended Release Oral Tab let [Slow-Fe] 11/26/2020 12:00:00 AM EDT eCW1 ([facility]) May Have - 11/26/2020 12:00:00 AM EDT e CW1 (Counts Include [facility]) 24 HR ferrous sulfate 142 MG Extended Release Oral Tab let [Slow-Fe] 11/26/2020 12:00:00 AM EDT eCW1 ([facility]) May Have - 11/26/2020 12:00:00 AM EDT e CW1 (Counts Include [facility]) 24 HR ferrous sulfate 142 MG Extended Release Oral Tab let [Slow-Fe] 11/26/2020 12:00:00 AM EDT eCW1 ([facility]) May Have - 11/26/2020 12:00:00 AM EDT e CW1 (Counts Include [facility]) 24 HR ferrous sulfate 142 MG Extended Release Oral Tab let [Slow-Fe] 11/26/2020 12:00:00 AM EDT eCW1 ([facility]) FreeStyle Darling 14 Day Sensor - 11/23/2020 12:00:00 AM EST eCW1 (Counts Include [facility]) FreeStyle [place] - 11/23/2020 12:00:00 AM EST eCW1 (Counts Include [facility]) torsemide 10 MG Oral Tablet 11/23/2020 12:00:00 AM EST eCW1 (Counts Include [facility]) Cyanocobalamin 1000 MCG 11/23/2020 12:00:00 AM EST eCW1 (Counts Include [facility]) torsemide 10 MG Oral Tablet 11/23/2020 12:00:00 AM EST eCW1 (Counts Include [facility]) FreeStyle Darling 14 Day Sensor - 11/23/2020 12:00:00 AM EST eCW1 (Counts Include [facility]) FreeStyle [place] - 11/23/2020 12:00:00 AM EST eCW1 (Counts Include [facility]) Cyanocobalamin 1000 MCG 11/23/2020 12:00:00 AM EST eCW1 (Counts Include [facility]) FreeStyle [place] - 11/23/2020 12:00:00 AM EST eCW1 (Counts Include [facility]) FreeStyle Darling 14 Day Sensor - 11/23/2020 12:00:00 AM EST eCW1 (Counts Include [facility]) Cyanocobalamin 1000 MCG 11/23/2020 12:00:00 AM EST eCW1 (Counts Include [facility]) torsemide 10 MG Oral Tablet 11/23/2020 12:00:00 AM EST eCW1 (Counts Include [facility]) FreeStyle [place] - 11/23/2020 12:00:00 AM EST eCW1 (Counts Include [facility]) FreeStyle Darling 14 Day Sensor - 11/23/2020 12:00:00 AM EST eCW1 (Counts Include [facility]) Cyanocobalamin 1000 MCG 11/23/2020 12:00:00 AM EST eCW1 (Counts Include [facility]) torsemide 10 MG Oral Tablet 11/23/2020 12:00:00 AM EST eCW1 (Counts Include [facility]) torsemide 10 MG Oral Tablet 11/23/2020 12:00:00 AM EST eCW1 (Counts Include [facility]) FreeStyle [place] - 11/23/2020 12:00:00 AM EST eCW1 (Counts Include [facility]) FreeStyle Darling 14 Day Sensor - 11/23/2020 12:00:00 AM EST eCW1 (Counts Include [facility]) Cyanocobalamin 1000 MCG 11/23/2020 12:00:00 AM EST eCW1 (Counts Include [facility]) torsemide 10 MG Oral Tablet 11/23/2020 12:00:00 AM EST eCW1 (Counts Include [facility]) FreeStyle [place] - 11/23/2020 12:00:00 AM EST eCW1 (Counts Include [facility]) FreeStyle Darling 14 Day Sensor - 11/23/2020 12:00:00 AM EST eCW1 (Counts Include [facility]) Cyanocobalamin 1000 MCG 11/23/2020 12:00:00 AM EST eCW1 (Counts Include [facility])
--- NOTE | 2021-07-10 21:55 | REPVR ---
PROCEDURE INFORMATION: Exam: CT Head Without Contrast Exam date and time: 07/10/2021 9:42 PM Age: 76 years old Clinical indication: Altered mental status/memory loss TECHNIQUE: Imaging protocol: Computed tomography of the head without contrast. Radiation optimization: All CT scans at this facility use at least one of these dose optimization techniques: automated exposure control; mA and/or kV adjustment per patient size (includes targeted exams where dose is matched to clinical indication); or iterative reconstruction. COMPARISON: US Duplex,carotid (complete) 03/09/2021 9:05 PM FINDINGS: Brain: There is no evidence of intracranial bleed. There is mild enlargement of the ventricles and cerebral sulci consistent with moderate atrophy. There is patchy low density in the periventricular white matter consistent with chronic ischemic changes. Paranasal sinuses: Clear paranasal sinuses. Mastoid air cells: Sclerosis of mastoid air cells on the right consistent with previous changes of mastoiditis. Orbital cavity: Symmetric orbits. Vasculature: There is calcification of carotid siphon consistent with atherosclerotic changes. IMPRESSION: Chronic ischemic changes and moderate atrophy. Electronically signed by: Winston Ortega On 07/10/2021 21:54:52 PM
--- NOTE | 2021-07-10 22:00 | REPVR ---
PROCEDURE INFORMATION: Exam: XR Chest Exam date and time: 07/10/2021 9:14 PM Age: 76 years old Clinical indication: Device placement; Other: Intubation tube placement; Additional info: Post intubation tube placement TECHNIQUE: Imaging protocol: XR of the chest. Views: 1 view. COMPARISON: CR Chest, 1 view 03/09/2021 5:16 PM FINDINGS: Tubes, catheters and devices: An endotracheal tube is present with its tip in the midtrachea. Lungs: The AP radiograph is severely rotated to the left making interpretation of the left thorax difficult. There is streaky increased density in the left infrahilar region suspicious for atelectasis and pneumonia. Recommend correlation with a PA and lateral view of the chest or CT scan of the chest. Pleural spaces: There is no evidence of pneumothorax or pleural effusion. Heart/Mediastinum: There is prominence left side of the heart. Bones/joints: There is mild scoliosis of the thoracolumbar junction. IMPRESSION: Increased density in the left infrahilar region and left lung base probably atelectasis and pneumonia. Interpretation difficult because the AP is severely rotated towards the left. Suggest correlation with a CT scan with contrast. Electronically signed by: Winston Ortega On 07/10/2021 22:00:13 PM
[2021-07-10 22:31] LABS: INR 1.19; PARTIAL THROMBOPLASTIN TIME 26.2 SECONDS (25.9-37.0); PROTHROMBIN TIME 15.6 SECONDS (12.7-14.5)
[2021-07-10 22:45] LABS: RSV AMPLIFICATION NEGATIVE (NEGATIVE)
[2021-07-10 22:54] LABS: BASO # 0.1 10^3/uL (0.0-0.2); BASO % 0.7 % (0.0-1.0); EOS # 0.3 10^3/uL (0.0-0.5); EOS % 2.5 % (0.0-3.0); HEMATOCRIT 36.3 % (36.0-47.0); HEMOGLOBIN 10.5 g/dl (12.0-15.5); LYMPH # 4.5 10^3/uL (1.5-5.0); MEAN CORPUSCULAR HEMOGLOBIN 24.3 pg (27.0-33.0); MEAN CORPUSCULAR HGB CONC 28.9 g/dl (32.0-36.5); MONO # 0.7 10^3/uL (0.0-0.8); MONO % 6.1 % (2.0-8.0); NEUTROPHILS # 6.5 10^3/uL (1.5-8.5); NEUTROPHILS % 53.3 % (36.0-66.0); PLATELET COUNT, AUTOMATED 214 10^3/uL (150-450); RED BLOOD COUNT 4.32 10^6/uL (4.00-5.40); WHITE BLOOD COUNT 12.2 10^3/uL (4.0-10.0)
[2021-07-10 23:28] LABS: OSMOLALITY SERUM 318 MOSM/KG (280-301)
[2021-07-10 23:33] LABS: ACETAMINOPHEN LEVEL < 2.0 UG/ML (10.0-30.0); ALBUMIN 2.7 GM/DL (3.2-5.2); ALT/SGPT 46 U/L (12-78); BILIRUBIN,DIRECT 0.2 MG/DL (0.0-0.2); BILIRUBIN,TOTAL 0.4 MG/DL (0.2-1.0); BLOOD UREA NITROGEN 18 MG/DL (7-18); CALCIUM LEVEL 8.4 MG/DL (8.8-10.2); CARBON DIOXIDE LEVEL 26 MEQ/L (21-32); CHLORIDE LEVEL 98 MEQ/L (98-107); CK-MB VALUE MASS < 1.0 NG/ML (<3.6); CPK CREATINE PHOSPHOKINASE 41 U/L (26-192); CREATININE FOR GFR 2.12 MG/DL (0.55-1.30); ETHYL ALCOHOL (ETHANOL) < 0.003 % (0.000-0.010); GLUCOSE, FASTING 595 MG/DL (70-100); MB/CK RELATIVE INDEX 2.44 (< OR =4); POTASSIUM SERUM 4.3 MEQ/L (3.5-5.1); SALICYLATE LEVEL < 1.7 MG/DL (5.0-30.0); SODIUM LEVEL 132 MEQ/L (136-145); TOTAL PROTEIN 7.8 GM/DL (6.4-8.2); TROPONIN I < 0.02 NG/ML (< 0.10)
[2021-07-10 23:49] LABS: ABG BASE EXCESS 1.2 (-2.0-2.0); ABG HCO3 24.6 MEQ/L (22.0-26.0); ABG O2 SATURATION 99.4 % (95.0-99.0); ABG PARTIAL PRESSURE CO2 34.5 mmHg (35.0-45.0); ABG PARTIAL PRESSURE O2 287.1 mmHg (75.0-100.0); ABG STANDARD HCO3 25.6 MEQ/L (22.0-26.0); ABG TOTAL CO2 25.7 MEQ/L (23.0-31.0); ABG pH (ARTERIAL) 7.471 UNITS (7.350-7.450)
[2021-07-11] VITALS (23 sets, daily range): BP systolic 80–167; BP diastolic 48–81
[2021-07-11] MEDS: propofoL 1,000 MG in IV 1 EA IV SCH ×9 (00:08→22:46)
[2021-07-11 00:39] LABS: AMPHETAMINES LEVEL URINE NEGATIVE (NEGATIVE); BARBITURATES URINE NEGATIVE (NEGATIVE); BENZODIAZEPINES URINE NEGATIVE (NEGATIVE); CANNABINOIDS URINE NEGATIVE (NEGATIVE); COCAINE METABOLITE URINE NEGATIVE (NEGATIVE); METHADONE URINE NEGATIVE (NEGATIVE); OPIATES URINE NEGATIVE (NEGATIVE); PHENCYCLIDINE URINE NEGATIVE (NEGATIVE)
[2021-07-11] MEDS ORDERED: GLUCOSE 4GM CHEW TABLET PO PRN (01:05)
[2021-07-11] MEDS ORDERED: DEXTROSE 50% 50 ML SYRINGE IV PRN (01:05)
[2021-07-11] MEDS ORDERED: MORPHINE 2 MG/ML 1ML VIAL (J2270) IV PRN (01:05)
[2021-07-11] MEDS ORDERED: GLUCAGON INJ 1MG VIAL SC PRN (01:05)
[2021-07-11] MEDS ORDERED: D5W/0.45% SODIUM CHLORIDE 1,000 ML IV SCH (01:05)
[2021-07-11] MEDS ORDERED: NITR4TASL SL (01:20)
[2021-07-11] MEDS ORDERED: TOUJ1.2I SC (01:20)
[2021-07-11] MEDS ORDERED: INSUH10VL SC (01:20)
[2021-07-11] MEDS ORDERED: HOME MED LIST COMPLETE! XX SCH (01:25)
--- OUTSIDE RECORDS SUMMARY | 2021-07-11 01:31 | CCD ---
Author Author [facility] Organization [facility] Address Unknown Phone Unavailable Care Team Providers Care Video Coordinator Name Role Phone Mackenzie Chris MD Unavailable [...] is protected by Article 27-F of the [facility] Public Health law. If you continue you may have access to information: Regarding HIV / AIDS; Provided by facilities licensed or operated by the [facility] Office of Mental Health; or Provided by the [facility] Office for People With Developmental Disabilities. If such information is present, then the following [facility] mandated warning applies: This information has been [...] law may result in a fine or senior care sentence or both. A general authorization for the release of medical or other information is NOT sufficient authorization for further disc losure. Family History Family Member Name Family Member Gender Family Member Status Date o f Status Description Data Source(s) Unknown Unknown Problem [facility] ([facility] Encounters Encounter Providers Location Date Indications Data Source(s ) Outpatient Attender: Augustine Chris MD Main Office 07/09/2021 10:45:00 AM EDT MED[facility] ([facility]) [place] [address] [facility] [address] 07/08/2021 12:00:00 AM EDT eCW1 ([facility]) [place] [address] [facility] [place] [address] 05/27/2021 12:00:00 AM EDT eCW1 ([facility]) [place] [address] [facility] [address] 05/21/2021 12:00:00 AM EDT eCW1 ([facility]) Outpatient [address] [facility] [place] [address] 05/21/2021 12:00:00 AM EDT eCW1 ([facility]) [place] [address] [facility] [place] [address] 05/15/2021 12:00:00 AM EDT eCW1 ([facility]) Office Visit Attender: LO ELAINE MD Main Office 05/07/2021 10: 28:00 AM EDT MEDENT ([facility]) [place] [address] [facility] [address] 04/22/2021 12:00:00 AM EDT eCW1 ([facility]) [place] [address] [facility] [address] 04/16/2021 12:00:00 AM EDT eCW1 ([facility]) [place] [address] [facility] [place] [address] 04/10/2021 12:00:00 AM EDT eCW1 ([facility]) Outpatient [address] [facility] [place] [address] 04/08/2021 12:00:00 AM EDT eCW1 ([facility]) Office Visit Attender: LO ELAINE MD Main Office 04/04/2021 08: 37:00 AM EDT MEDENT ([facility]) Unknown [address] [facility] [address] 04/03/2021 12:00:00 AM EDT eCW1 ([facility]) Outpatient Attender: Augustine Chris MD Main Office 04/02/2021 01:00:00 PM EDT MEDENT ([facility]) Unknown [address] [facility] [address] 04/01/2021 12:00:00 AM EDT eCW1 ([facility]) Outpatient Attender: MERCEDEZ ALAS Main Office 03/27/2021 0 1:00:00 PM EDT MEDENT ([facility]) Unknown [address] [facility] [address] 03/27/2021 12:00:00 AM EDT eCW1 ([facility]) Unknown [address] [facility] [address] 03/26/2021 12:00:00 AM EDT eCW1 ([facility]) Unknown [address] [facility] [address] 03/25/2021 12:00:00 AM EDT eCW1 ([facility]) (TCM) Transition of Care Visit [address] [place] [address] 03/25/2021 12:00:00 AM EDT eCW1 ([facility]) Unknown [address] [facility] [address] 03/12/2021 12:00:00 AM EDT eCW1 ([facility]) Unknown [address] [facility] [address] 03/11/2021 12:00:00 AM EDT eCW1 ([facility]) Office Visit Attender: LO ELAINE MD Main Office 03/04/2021 03: 13:00 PM EDT MEDENT ([facility]) OFFICE OUTPATIENT NEW 30 MINUTES Attender: CHLOE ALAS Physic al Therapy 02/20/2021 01:00:00 PM EDT MEDENT ([facility]) Office Visit Attender: LO ELAINE MD Main Office 01/28/2021 10: 30:00 AM EDT MEDENT ([facility]) [place] [address] [facility] [address] 01/28/2021 12:00:00 AM EDT [facility]1 [facility]) Office Visit Attender: LO ELAINE MD Main Office 12/26/2020 10: 43:00 AM EDT MEDENT ([facility]) [place] [address] [facility] [address] 12/26/2020 12:00:00 AM EDT eCW1 ([facility]) [place] [address] [facility] [address] 11/29/2020 12:00:00 AM EDT eCW1 ([facility]) Unknown [address] [facility] [address] 11/26/2020 12:00:00 AM EDT eCW1 ([facility]) Office Visit, Est Pt., Level 4 PC [address] [place] [address] 11/23/2020 12:00:00 AM EST eCW1 ([facility]) Unknown [address] [facility] [address] 11/14/2020 12:00:00 AM EST eCW1 ([facility]) Office Visit Attender: LO ELAINE MD Main Office 10/26/2020 06: 28:00 AM EST MEDENT ([facility]) [place] [address] [facility] [address] 10/15/2020 12:00:00 AM EST eCW1 ([facility]) Outpatient Attender: MERCEDEZ ALAS Main Office 09/27/2020 0 7:45:00 AM EST MEDENT ([facility]) Office Visit Attender: LO ELAINE MD Main Office 09/19/2020 01: 08:00 PM EST MED[facility] ([facility]) [place] [address] [facility] [address] 09/19/2020 12:00:00 AM EST eCW1 ([facility]) Office Visit Attender: LO ELAINE MD Main Office 08/08/2020 07: 50:00 AM EST MED[facility] ([facility]) [place] [address] [facility] [address] 07/17/2020 12:00:00 AM EST eCW1 ([facility]) Office Visit Attender: LO ELAINE MD Main Office 07/12/2020 10: 29:00 AM EDT MED[facility] ([facility]) [place] [address] [facility] [address] 07/03/2020 12:00:00 AM EDT eCW1 ([facility]) Unknown [address] [facility] [address] 07/02/2020 12:00:00 AM EDT eCW1 ([facility]) Unknown [address] [facility] [address] 06/26/2020 12:00:00 AM EDT eCW1 ([facility]) Office Visit Attender: LO ELAINE MD Main Office 06/05/2020 01: 02:00 PM EDT MEDENT ([facility]) Office Visit Attender: LO ELAINE MD Main Office 05/11/2020 08: 16:00 AM EDT MEDENT ([facility]) Immunizations Vaccine Date Status Description Data Source(s) COVID-19 VACCINE Pfizer 03/26/2021 12:00:00 AM EDT completed [facility] Vaccine Series Complete: YESThis Data wa s Submitted to [facility] Via [employer]. COVID-19 VACCINE Pfizer 03/05/2021 12:00:00 AM EDT completed [facility] Vaccine Series Complete: NOThis Data was Submitted to [facility] [employer]. Medications Medication Brand Name Start Date Product Form Dose Route Admi nistrative Instructions Pharmacy Instructions Status Indications Reaction Description Data Source(s) Nystatin - Nystatin - 04/22/2021 12:00:00 AM EDT active Nystatin - eCW1 ([facility]) Nystatin - Nystatin - 04/22/2021 12:00:00 AM EDT active Nystatin - eCW1 ([facility]) Nystatin - Nystatin - 04/22/2021 12:00:00 AM EDT active Nystatin - eCW1 ([facility]) Nystatin - Nystatin - 04/22/2021 12:00:00 AM EDT active Nystatin - eCW1 ([facility]) Nystatin - Nystatin - 04/22/2021 12:00:00 AM EDT active Nystatin - eCW1 ([facility]) Nystatin - Nystatin - 04/22/2021 12:00:00 AM EDT active Nystatin - eCW1 ([facility]) Nystatin - Nystatin - 04/22/2021 12:00:00 AM EDT active Nystatin - eCW1 ([facility]) 3 ML Insulin, Aspart, Human 100 UNT/ML P en Injector [NovoLog] NovoLOG FlexPen 100 UNIT/ML NovoLOG FlexPen 100 UNIT/ML 04/21/2021 12:00:00 AM EDT active NovoLOG FlexPen 100 UNIT/ML eCW1 ([facility]) 3 ML Insulin, Aspart, Human 100 UNT/ML P en Injector [NovoLog] NovoLOG FlexPen 100 UNIT/ML NovoLOG FlexPen 100 UNIT/ML 04/21/2021 12:00:00 AM EDT active NovoLOG FlexPen 100 UNIT/ML eCW1 ([facility]) 3 ML Insulin, Aspart, Human 100 UNT/ML P en Injector [NovoLog] NovoLOG FlexPen 100 UNIT/ML NovoLOG FlexPen 100 UNIT/ML 04/21/2021 12:00:00 AM EDT active NovoLOG FlexPen 100 UNIT/ML eCW1 ([facility]) 3 ML Insulin, Aspart, Human 100 UNT/ML P en Injector [NovoLog] NovoLOG FlexPen 100 UNIT/ML NovoLOG FlexPen 100 UNIT/ML 04/21/2021 12:00:00 AM EDT active NovoLOG FlexPen 100 UNIT/ML eCW1 ([facility]) 3 ML Insulin, Aspart, Human 100 UNT/ML P en Injector [NovoLog] NovoLOG FlexPen 100 UNIT/ML NovoLOG FlexPen 100 UNIT/ML 04/21/2021 12:00:00 AM EDT active NovoLOG FlexPen 100 UNIT/ML eCW1 ([facility]) 3 ML Insulin, Aspart, Human 100 UNT/ML P en Injector [NovoLog] NovoLOG FlexPen 100 UNIT/ML NovoLOG FlexPen 100 UNIT/ML 04/21/2021 12:00:00 AM EDT active NovoLOG FlexPen 100 UNIT/ML eCW1 ([facility]) 3 ML Insulin, Aspart, Human 100 UNT/ML P en Injector [NovoLog] NovoLOG FlexPen 100 UNIT/ML NovoLOG FlexPen 100 UNIT/ML 04/21/2021 12:00:00 AM EDT active NovoLOG FlexPen 100 UNIT/ML eCW1 ([facility]) Calcium Carbonate 500 MG Chewable Tablet [Tums] Tums 500 MG Tums 500 MG 04/08/2021 12:00:00 AM EDT 1.0 {tablet} active Tums 500 MG eCW1 ([facility]) Calcium Carbonate 500 MG Chewable Tablet [Tums] Tums 500 MG Tums 500 MG 04/08/2021 12:00:00 AM EDT 1.0 {tablet} active Tums 500 MG eCW1 ([facility]) Calcium Carbonate 500 MG Chewable Tablet [Tums] Tums 500 MG Tums 500 MG 04/08/2021 12:00:00 AM EDT 1.0 {tablet} active Tums 500 MG eCW1 ([facility]) Calcium Carbonate 500 MG Chewable Tablet [Tums] Tums 500 MG Tums 500 MG 04/08/2021 12:00:00 AM EDT 1.0 {tablet} active Tums 500 MG eCW1 ([facility]) Sutab Sutab 04/02/2021 12:00:00 AM EDT completed MEDENT ([facility]) Glucometer UNK 04/01/2021 12:00:00 AM EDT active Glucometer eCW1 ([facility]) Glucometer UNK 04/01/2021 12:00:00 AM EDT active Glucometer eCW1 ([facility]) Lancets 33G - Lancets 33G - 04/01/2021 12:00:00 AM EDT active Lancets 33G - eCW1 ([facility]) Lancets 33G - Lancets 33G - 04/01/2021 12:00:00 AM EDT active Lancets 33G - eCW1 ([facility]) Lancets 33G - Lancets 33G - 04/01/2021 12:00:00 AM EDT active Lancets 33G - eCW1 ([facility]) Glucometer UNK 04/01/2021 12:00:00 AM EDT active Glucometer eCW1 ([facility]) Glucometer UNK 04/01/2021 12:00:00 AM EDT active Glucometer eCW1 ([facility]) Glucometer UNK 04/01/2021 12:00:00 AM EDT active Glucometer eCW1 ([facility]) Lancets 33G - Lancets 33G - 04/01/2021 12:00:00 AM EDT active Lancets 33G - eCW1 ([facility]) Glucometer UNK 04/01/2021 12:00:00 AM EDT active Glucometer eCW1 ([facility]) Glucometer UNK 04/01/2021 12:00:00 AM EDT active Glucometer eCW1 ([facility]) Lancets 33G - Lancets 33G - 04/01/2021 12:00:00 AM EDT active Lancets 33G - eCW1 ([facility]) Glucometer UNK 04/01/2021 12:00:00 AM EDT active Glucometer eCW1 ([facility]) Lancets 33G - Lancets 33G - 04/01/2021 12:00:00 AM EDT active Lancets 33G - eCW1 ([facility]) Lancets 33G - Lancets 33G - 04/01/2021 12:00:00 AM EDT active Lancets 33G - eCW1 ([facility]) Lancets 33G - Lancets 33G - 04/01/2021 12:00:00 AM EDT active Lancets 33G - eCW1 ([facility]) Glucometer UNK 04/01/2021 12:00:00 AM EDT active Glucometer eCW1 ([facility]) Glucometer UNK 04/01/2021 12:00:00 AM EDT active Glucometer eCW1 ([facility]) Lancets 33G - Lancets 33G - 04/01/2021 12:00:00 AM EDT active Lancets 33G - eCW1 ([facility]) Lancets 33G - Lancets 33G - 04/01/2021 12:00:00 AM EDT active Lancets 33G - eCW1 ([facility]) Glucometer UNK 04/01/2021 12:00:00 AM EDT active Glucometer eCW1 ([facility]) Lancets 33G - Lancets 33G - 04/01/2021 12:00:00 AM EDT active Lancets 33G - eCW1 ([facility]) Lancets 33G - Lancets 33G - 04/01/2021 12:00:00 AM EDT active Lancets 33G - eCW1 ([facility]) Glucometer UNK 04/01/2021 12:00:00 AM EDT active Glucometer eCW1 ([facility]) torsemide 10 MG Oral Tablet Torsemide 03/26/2021 12:00:00 AM EDT ORAL active MEDENT ([facility]) 3 ML Insulin Lispro 100 UNT/ML Pen Injector [Humalog] Humalo g Kwikpen 03/26/2021 12:00:00 AM EDT active MEDENT ([facility]) FreeStyle Darling 14 Day Sensor - FreeStyle Darling 14 Day Senso r - 03/25/2021 12:00:00 AM EDT active FreeStyl e Darling 14 Day Sensor - eCW1 ([facility]) FreeStyle Darling [place] - FreeStyle Darling [place] - 03/25/2021 12:00: 00 AM EDT active FreeStyle Darling [place] - eCW1 ([facility]) FreeStyle Darling 14 Day Sensor - FreeStyle Darling 14 Day Senso r - 03/25/2021 12:00:00 AM EDT active FreeStyl e Darling 14 Day Sensor - eCW1 ([facility]) FreeStyle Darling 14 Day Sensor - FreeStyle Darling 14 Day Senso r - 03/25/2021 12:00:00 AM EDT active FreeStyl e Darling 14 Day Sensor - eCW1 ([facility]) FreeStyle Darling [place] - FreeStyle Darling [place] - 03/25/2021 12:00: 00 AM EDT active FreeStyle Darling [place] - eCW1 ([facility]) FreeStyle Darling 14 Day Sensor - FreeStyle Darling 14 Day Senso r - 03/25/2021 12:00:00 AM EDT active FreeStyl e Darling 14 Day Sensor - eCW1 ([facility]) FreeStyle Darling [place] - FreeStyle Darling [place] - 03/25/2021 12:00: 00 AM EDT active FreeStyle Darling [place] - eCW1 ([facility]) FreeStyle Darling [place] - FreeStyle Darling [place] - 03/25/2021 12:00: 00 AM EDT active FreeStyle Darling [place] - eCW1 ([facility]) Metformin HCL ER (Mod) Metformin HCL ER (Mod) 03/03/2021 12:00:00 AM EDT ORAL completed [facility] ([facility] tizanidine 4 MG Oral Tablet Tizanidine HCL 02/20/2021 12:00:00 AM EDT ORAL active MEDENT ([facility]) May Have - UNK 11/26/2020 12:00:00 AM EDT active May Have - eCW1 ([facility]) 24 HR ferrous sulfate 142 MG Extended Re lease Oral Tablet [Slow-Fe] Slow Fe 142 (45 Fe) MG Slow Fe 142 (45 Fe) MG 11/26/2020 12:00:00 AM EDT 1.0 {tabl et} active Slow Fe 142 (45 Fe) MG eCW1 ([facility]) May Have - UNK 11/26/2020 12:00:00 AM EDT active May Have - eCW1 ([facility]) 24 HR ferrous sulfate 142 MG Extended Re lease Oral Tablet [Slow-Fe] Slow Fe 142 (45 Fe) MG Slow Fe 142 (45 Fe) MG 11/26/2020 12:00:00 AM EDT 1.0 {tabl et} active Slow Fe 142 (45 Fe) MG eCW1 ([facility]) 24 HR ferrous sulfate 142 MG Extended Re lease Oral Tablet [Slow-Fe] Slow Fe 142 (45 Fe) MG Slow Fe 142 (45 Fe) MG 11/26/2020 12:00:00 AM EDT 1.0 {tabl et} active Slow Fe 142 (45 Fe) MG eCW1 ([facility]) 24 HR ferrous sulfate 142 MG Extended Re lease Oral Tablet [Slow-Fe] Slow Fe 142 (45 Fe) MG Slow Fe 142 (45 Fe) MG 11/26/2020 12:00:00 AM EDT 1.0 {tabl et} active Slow Fe 142 (45 Fe) MG eCW1 ([facility]) 24 HR ferrous sulfate 142 MG Extended Re lease Oral Tablet [Slow-Fe] Slow Fe 142 (45 Fe) MG Slow Fe 142 (45 Fe) MG 11/26/2020 12:00:00 AM EDT 1.0 {tabl et} active Slow Fe 142 (45 Fe) MG eCW1 ([facility]) May Have - UNK 11/26/2020 12:00:00 AM EDT active May Have - eCW1 ([facility]) 24 HR ferrous sulfate 142 MG Extended Re lease Oral Tablet [Slow-Fe] Slow Fe 142 (45 Fe) MG Slow Fe 142 (45 Fe) MG 11/26/2020 12:00:00 AM EDT 1.0 {tabl et} active Slow Fe 142 (45 Fe) MG eCW1 ([facility]) 24 HR ferrous sulfate 142 MG Extended Re lease Oral Tablet [Slow-Fe] Slow Fe 142 (45 Fe) MG Slow Fe 142 (45 Fe) MG 11/26/2020 12:00:00 AM EDT 1.0 {tabl et} active Slow Fe 142 (45 Fe) MG eCW1 ([facility]) May Have - UNK 11/26/2020 12:00:00 AM EDT active May Have - eCW1 ([facility]) May Have - UNK 11/26/2020 12:00:00 AM EDT active May Have - eCW1 ([facility]) May Have - UNK 11/26/2020 12:00:00 AM EDT active May Have - eCW1 ([facility]) May Have - UNK 11/26/2020 12:00:00 AM EDT active May Have - eCW1 ([facility]) Cyanocobalamin 1000 MCG UNK 11/23/2020 12:00:00 AM EST 1.0 { tablet} active Cyanocobalamin 1000 MCG eCW1 ([facility]) torsemide 10 MG Oral Tablet Torsemide 10 MG Torsemide 10 MG 11/23/2020 12:00:00 AM EST 3.0 {tablets} active Torsemide 10 MG eCW1 ([facility]) FreeStyle Darling 14 Day Sensor - FreeStyle Darling 14 Day Senso r - 11/23/2020 12:00:00 AM EST active FreeStyl e Darling 14 Day Sensor - eCW1 ([facility]) FreeStyle Darling 14 Day Sensor - FreeStyle Darling 14 Day Senso r - 11/23/2020 12:00:00 AM EST active FreeStyl e Darling 14 Day Sensor - eCW1 ([facility]) torsemide 10 MG Oral Tablet Torsemide 10 MG Torsemide 10 MG 11/23/2020 12:00:00 AM EST 3.0 {tablets} active Torsemide 10 MG eCW1 ([facility]) FreeStyle Darling [place] - FreeStyle Darling [place] - 11/23/2020 12:00: 00 AM EST active FreeStyle Darling [place] - eCW1 ([facility]) torsemide 10 MG Oral Tablet Torsemide 10 MG Torsemide 10 MG 11/23/2020 12:00:00 AM EST 3.0 {tablets} active Torsemide 10 MG eCW1 ([facility]) FreeStyle Darling 14 Day Sensor - FreeStyle Darling 14 Day Senso r - 11/23/2020 12:00:00 AM EST active FreeStyl e Darling 14 Day Sensor - eCW1 ([facility]) torsemide 10 MG Oral Tablet Torsemide 10 MG Torsemide 10 MG 11/23/2020 12:00:00 AM EST 3.0 {tablets} active Torsemide 10 MG eCW1 ([facility]) FreeStyle Darling [place] - FreeStyle Darling [place] - 11/23/2020 12:00: 00 AM EST active FreeStyle Darling [place] - eCW1 ([facility]) FreeStyle Darling [place] - FreeStyle Darling [place] - 11/23/2020 12:00: 00 AM EST active FreeStyle Darling [place] - eCW1 ([facility]) FreeStyle Darling 14 Day Sensor - FreeStyle Darling 14 Day Senso r - 11/23/2020 12:00:00 AM EST active FreeStyl e Darling 14 Day Sensor - eCW1 ([facility]) torsemide 10 MG Oral Tablet Torsemide 10 MG Torsemide 10 MG 11/23/2020 12:00:00 AM EST 3.0 {tablets} active Torsemide 10 MG eCW1 ([facility]) Cyanocobalamin 1000 MCG UNK 11/23/2020 12:00:00 AM EST 1.0 { tablet} active Cyanocobalamin 1000 MCG eCW1 ([facility]) torsemide 10 MG Oral Tablet Torsemide 10 MG Torsemide 10 MG 11/23/2020 12:00:00 AM EST 3.0 {tablets} active Torsemide 10 MG eCW1 ([facility]) Cyanocobalamin 1000 MCG UNK 11/23/2020 12:00:00 AM EST 1.0 { tablet} active Cyanocobalamin 1000 MCG eCW1 ([facility]) FreeStyle Darling [place] - FreeStyle Darling [place] - 11/23/2020 12:00: 00 AM EST active FreeStyle Darling [place] - eCW1 ([facility]) Cyanocobalamin 1000 MCG UNK 11/23/2020 12:00:00 AM EST 1.0 { tablet} active Cyanocobalamin 1000 MCG eCW1 ([facility]) Cyanocobalamin 1000 MCG UNK 11/23/2020 12:00:00 AM EST 1.0 { tablet} active Cyanocobalamin 1000 MCG eCW1 ([facility]) FreeStyle Darling [place] - FreeStyle Darling [place] - 11/23/2020 12:00: 00 AM EST active FreeStyle Darling [place] - eCW1 ([facility]) FreeStyle Darling [place] - FreeStyle Darling [place] - 11/23/2020 12:00: 00 AM EST active FreeStyle Darling [place] - eCW1 ([facility]) Cyanocobalamin 1000 MCG UNK 11/23/2020 12:00:00 AM EST 1.0 { tablet} active Cyanocobalamin 1000 MCG eCW1 ([facility]) FreeStyle Darling [place] - FreeStyle Darling [place] - 11/23/2020 12:00: 00 AM EST active FreeStyle Darling [place] - eCW1 ([facility]) torsemide 10 MG Oral Tablet Torsemide 10 MG Torsemide 10 MG 11/23/2020 12:00:00 AM EST 3.0 {tablets} active Torsemide 10 MG eCW1 ([facility]) FreeStyle Darling 14 Day Sensor - FreeStyle Darling 14 Day Senso r - 11/23/2020 12:00:00 AM EST active FreeStyl e Darling 14 Day Sensor - eCW1 ([facility]) FreeStyle Darling 14 Day Sensor - FreeStyle Darling 14 Day Senso r - 11/23/2020 12:00:00 AM EST active FreeStyl e Darling 14 Day Sensor - eCW1 ([facility]) Cyanocobalamin 1000 MCG UNK 11/23/2020 12:00:00 AM EST 1.0 { tablet} active Cyanocobalamin 1000 MCG eCW1 ([facility]) FreeStyle Darling 14 Day Sensor - FreeStyle Darling 14 Day Senso r - 11/23/2020 12:00:00 AM EST active FreeStyl e Darling 14 Day Sensor - eCW1 ([facility]) Insurance Providers Payer name Policy type / Coverage type Policy ID Covered alliance party ID Covered alliance party's relationship to eldridge Policy Eldridge Plan Information [id number] B MEDICARE [id number] Tatiana [id number] B MEDICAID [id number] Tatiana [id number] HUMANA GOLD [id number] SP [id number] HUMANA HMO [id number] SP [id number] HUMANA HMO [id number] SP [id number] EMEDNY [id number] SP [id number] MEDICAID [id number] SP [id number] MEDICARE C [id number] S [id number] MEDICAID M [id number] S [id number] ANSI-Medicare Part B [id number] ANSI-Medicaid [id number] ANSI-Medicaid [id number] ANSI-Medicare Part B [id number] ANSI-Medicare Part B [id number] ANSI-Medicaid [id number] ANSI-Medicaid [id number] ANSI-Medicare Part B [id number] ANSI-Medicare Part B [id number] ANSI-Medicaid [id number] ANSI-Medicare Part B [id number] ANSI-Medicaid [id number] ANSI-Medicare Part B [id number] ANSI-Medicaid [id number] ANSI-Medicaid [id number] ANSI-Medicare Part B [id number] ANSI-Medicaid [id number] ANSI-Medicare Part B [id number] ANSI-Medicaid [id number] ANSI-Medicare Part B [id number] ANSI-Medicaid [id number] ANSI-Medicare Part B [id number] ANSI-Medicare Part B [id number] ANSI-Medicaid [id number] ANSI-Medicaid [id number] ANSI-Medicare Part B [id number] ANSI-Medicaid [id number] ANSI-Medicare Part B [id number] ANSI-Medicaid [id number] ANSI-Medicare Part B [id number] ANSI-Medicare Part B [id number] ANSI-Medicaid [id number] ANSI-Medicare Part B [id number] ANSI-Medicaid [id number] ANSI-Medicare Part B [id number] ANSI-Medicaid [id number] ANSI-Medicare Part B [id number] ANSI-Medicaid [id number] ANSI-Medicaid [id number] ANSI-Medicare Part B [id number] ANSI-Medicaid [id number] ANSI-Medicare Part B [id number] ANSI-Medicaid [id number] ANSI-Medicare Part B [id number] ANSI-Medicare Part B [id number] ANSI-Medicaid [id number] ANSI-Medicaid [id number] ANSI-Medicare Part B [id number] ANSI-Medicaid [id number] ANSI-Medicare Part B [id number] ANSI-Medicaid [id number] ANSI-Medicare Part B [id number] ANSI-Medicare Part B [id number] ANSI-Medicaid [id number] ANSI-Medicare Part B [id number] ANSI-Medicaid [id number] ANSI-Medicare Part B [id number] ANSI-Medicaid [id number] Medicaid [facility] Part B [id number] 9.0 Self [id number] Medicare (Part B) Medicare Primary [id number] Self [id number] ANSI-Medicare Part B [id number] ANSI-Medicaid [id number] ANSI-Medicare Part B [id number] ANSI-Medicaid [id number] ANSI-Medicare Part B [id number] ANSI-Medicaid [id number] ANSI-Medicaid [id number] ANSI-Medicare Part B [id number] ANSI-Medicare Part B [id number] ANS-Medicaid [id number] ANS-Medicaid [id number] [facility]-Medicare Part B [id number] ANSI-Medicare Part B [id number] [facility]-Medicaid [id number] MEDICARE [id number] SP [id number] B Medicaid Medigap Part B [id number] 9.0 Self [id number] Medicare (Part B) Medicare Primary [id number] Self 0 [id number] Medicaid Medigap Part B [id number] 9.0 Self [id number] Medicare (Part B) Medicare Primary [id number] Self 0 [id number] MEDICARE C [id number] S [id number] B Medicaid Medigap Part B [id number] 9.0 Self [id number] Medicare (Part B) Medicare Primary [id number] Self 0 [id number] MEDICARE PI PI MEDICAID PI PI MEDICARE PART A -O/P [id number] MEDICARE COMPLETE [id number] SP [id number] MEDICARE [id number] SP [id number] A MEDICARE COMPLETE [id number] SP [id number] [facility] P [id number] S [id number] MEDICARE COMPLETE [id number] SP [id number] [facility] [id number] SP [id number] [employer] G[employer] [id number] SP [id number] [place] [id number] SP [id number] MEDICARE [id number] SP [id number] Problems, Conditions, and Diagnoses Code Display Name Description Problem Type Effective Dates Data Source(s) [id number] Cirrhosis - non-alcoholic Cirrhosis - non-alcoholic Pr oblem 07/09/2021 12:00:00 AM EDT MED[facility] ([facility]) B37.2 [id number] Candidiasis, intertriginous Problem 04/22/20 12:00:00 AM EDT eCW1 ([facility]) 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 05/07/2021 12:00:00 AM EDT [facility] ([facility]) GLUC MNTR CONT REC FROM INTERSTITIAL TISS FLUID 2020 12:00:00 AM EDT eCW1 ([facility]) Chronic Care Management Services Ea Addl 20 Min 2020 12:00:00 AM EDT [facility] ([facility]) Chronic Care MGMT 20 Mins Clinical Staff Time Per Calendar M [facility] 04/04/2021 12:00:00 AM EDT [facility] ([facility] of [facility]) OFFICE OUTPATIENT NEW 30 MINUTES 04/02/2021 12:00:00 A M EDT [facility] ([facility]) ECG ROUTINE ECG W/LEAST 12 LDS W/I&R 03/27/2021 12:00: 00 AM EDT [facility] ([facility]) OFFICE OUTPATIENT VISIT 25 MINUTES 03/27/2021 12:00:00 AM EDT [facility] ([facility]) Chronic Care Management Services Ea Addl 20 Min 2020 12:00:00 AM EDT [facility] ([facility]) Chronic Care MGMT 20 Mins Clinical Staff Time Per Calendar [facility] 03/04/2021 12:00:00 AM EDT [facility] (Patient [facility]s [facility] of [facility]) OFFICE OUTPATIENT NEW 30 MINUTES 02/20/2021 12:00:00 A M EDT [facility] ([facility] ) Chronic Care MGMT 20 Mins Clinical Staff Time Per Calendar M 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 12/26/2020 12:00:00 AM EDT [facility] (Patient [facility] of [facility]) Chronic Care Management Services Ea Addl 20 Min 2020 12:00:00 AM EST [facility] ([facility]) Chronic Care MGMT 20 Mins Clinical Staff Time Per Calendar [facility] 10/26/2020 12:00:00 AM EST [facility] (Patient Accounts Clerk s [facility]) ECG ROUTINE ECG W/LEAST 12 LDS W/I&R 09/27/2020 12:00: 00 AM EST [facility] ([facility]) OFFICE OUTPATIENT VISIT 25 MINUTES 09/27/2020 12:00:00 AM EST [facility] ([facility]) Chronic Care MGMT 20 Mins Clinical Staff Time Per Calendar [facility] 09/19/2020 12:00:00 AM EST [facility] (Patient [facility]s Clerk [facility]) Results ID Date Data Source [id number] 05/08/2021 10:47:00 AM EDT [facility] ([facility]) Name Value Range Interpretation Code Description Data Alana rce(s) Supporting Document(s) Surgical pathology study Laboratory test result [facility] ([facility]) <content>FINAL DIAGNOSIS</content>
< content></content>
<content>A - Stomach, [...] 1344</content>
<content></content>
<content>Signed BRIJESH HURST MD 05/09/2021 1359</content>
<content></content> ID Date Data Source [id number] 03/11/2021 01:40:00 PM EDT [facility] ([facility]) Name Value Range Interpretation Code Description Data Alana rce(s) Supporting Document(s) Magnesium Level 2.1 [facility] Hemoglobin 10.0 [facility]) Hematocrit 33.5 [facility] ([facility]) ID Date Data Source [id number] 03/11/2021 01:40:00 PM EDT [facility] ([facility]) Name Value Range Interpretation Code Description Data [...] [facility]) ID Date Data Source [id number] 03/11/2021 01:40:00 PM EDT [facility] ([facility]) Name Value Range Interpretation Code Description Data Alana rce(s) Supporting Document(s) Glucose 174 [facility] ([facility]) Sodium 139 [facility] Creatinine 1.50 [facility] ([facility]) Blood Urea Nitrogen 15 [facility] ([facility]) Potassium 4.1 [facility] ([facility]) Carbon Dioxide 27 [facility] ([facility]) Chloride 104 [facility] ([facility]) Glomerular filtration rate/1.73 sq M.pre dicted [Volume Rate/Area] in Serum or Plasma by Creatinine-based formula (MDRD) 35.8 [facility] ([facility]) Calcium 8.1 [facility] ([facility]) ID Date Data Source [id number] 03/09/2021 05:20:00 PM EDT [facility] Name Value Range Interpretation Code Description Data Alana rce(s) Supporting Document(s) SARS coronavirus 2 RNA [Presence] in Res piratory specimen by JESU with probe detection NEGATIVE [facility] This lab was ordered by [facility] a nd reported by [facility]. ID Date Data Source [id number] 10/09/2020 10:55:00 AM EST [facility] ([facility]) Name Value Range Interpretation Code Description Data Alana rce(s) Supporting Document(s) Triglycerides Level 203 mg/dL [facility] ([facility]) HDL Cholesterol 43 mg/dL [facility] ([facility]) Cholesterol Level 129 mg/dL [facility] ([facility]) LDL Cholesterol 45 mg/dL [facility]) Non-HDL-C 86 mg/dL [facility] ([facility]) Cholesterol Risk Ratio 3.000 [facility] ([facility]) ID Date Data Source [id number] 10/09/2020 10:55:00 AM EST [facility] ([facility]) Name Value Range Interpretation Code Description Data Alana rce(s) Supporting Document(s) Glucose, Fasting 167 mg/dL 70-100 [facility] ([facility]) Blood Urea Nitrogen 21 mg/dL 7-18 [facility] ([facility]) Creatinine For GFR 1.80 mg/dL 0.55-1.30 [facility] ([facility]) Sodium Level 140 meq/L 136-145 [facility] ([facility]) Glomerular Filtration Rate 29.0 MED ENT ([facility]) <content>Units are mL/min/1.73 m2</content>
<content></content>
<content>Chronic Kidney Disease Staging per NKF:</content>
<content></content>
<content>Stage I & II GFR >=60 Normal to Mildly Decreased</content>
<content>Stage III GFR 30- 59 Moderately Decreased</content>
<content>Stage IV GFR 15-29 Severely Decreased</content>
<content>Stage V GFR <15 Very Little GFR Left</content>
<content>ESRD GFR <15 on ASSISTANT HOUSEKEEPING MANAGER</content>
<content></content> Potassium Serum 4.6 meq/L 3.5-5.1 [facility] ([facility]) Chloride Level 101 meq/L 98-107 [facility] ([facility]) Carbon Dioxide Level 28 meq/L 21-32 [facility] ([facility]) Anion Gap 11 meq/L 8-16 [facility] ([facility]) Calcium Level 9.5 mg/dL 8.8-10.2 [facility] ([facility]) Alt/SGPT 37 U/L 12-78 [facility] ([facility]) Alkaline Phosphatase 106 U/L 45-117 [facility] ([facility]) Ast/Sgot 55 U/L 7-37 [facility] ([facility]) Bilirubin,Total 0.5 mg/dL 0.2-1.0 [facility] ([facility]) Total Protein 6.9 GM/DL 6.4-8.2 [facility] ([facility]) Albumin 3.2 GM/DL 3.2-5.2 [facility] ([facility]) Albumin/Globulin Ratio 0.9 1.2-2.2 [facility] ([facility]) ID Date Data Source [id number] 10/09/2020 10:55:00 AM EST [facility] ([facility]) Name Value Range Interpretation Code Description Data Alana rce(s) Supporting Document(s) Red Blood Count 3.78 10 4.00-5.40 [facility] ([facility]) White Blood Count 8.1 10 4.0-10.0 [facility] ([facility]) Mean Corpuscular Volume 85.2 fl 80.0-96.0 M EDENT ([facility]) Hematocrit 32.2 % 36.0-47.0 MED[facility] ([facility]) Hemoglobin 9.5 g/dL 12.0-15.5 MED[facility] ([facility]) Mean Corpuscular HGB Conc 29.5 g/dL 32.0-36.5 [facility] ([facility]) Mean Corpuscular Hemoglobin 25.1 pg 27.0-33.0 MED[facility] ([facility]) Nucleated Red Blood Cell % 0.0 % 0-0 MED ENT ([facility]) Platelet Count, Automated 239 10 150-450 MED[facility] ([facility]) Red Cell Distribution Width 14.7 % 11.5-14.5 MED[facility] ([facility]) Procedure Social History Code Duration Value Status Description Data Source(s ) Smoking 03/27/2021 12:00:00 AM EDT Patient has never smoked co mpleted Patient has never smoked [facility] ([facility]) Vital Signs ID Date Data [...] Body weight 210.4 [lb_av] 210.4 [lb_av] eCW1 ([facility]) Body weight 95.44 kg 95.44 kg eCW1 ([facility]) Body height 59 [in_i] 59 [in_i] eCW1 ([facility]) Body mass index (BMI) [Ratio] 42.49 kg/m2 42.49 kg/m2 eCW1 ([facility]) Heart rate 90 /min 90 /min eCW1 ([facility]) Respiratory rate 18 /min 18 /min eCW1 ([facility]) Body temperature 97.6 [degF] 97.6 [degF] eCW1 ( [facility]) Systolic blood pressure 140 mm[Hg] 140 mm[Hg] e CW1 ([facility]) Diastolic blood pressure 90 mm[Hg] 90 mm[Hg] eCW1 ([facility]) Body weight 197.4 [lb_av] 197.4 [lb_av] eCW1 ([facility]) Body weight 89.54 kg 89.54 kg eCW1 ([facility]) Body height 59 [in_i] 59 [in_i] eCW1 ([facility]) Body mass index (BMI) [Ratio] 39.87 kg/m2 39.87 kg/m2 eCW1 ([facility]) Heart rate 84 /min 84 /min eCW1 ([facility]) Respiratory rate 18 /min 18 /min eCW1 ([facility]) Body temperature 97.9 [degF] 97.9 [degF] eCW1 ( [facility]) Systolic blood pressure 124 mm[Hg] 124 mm[Hg] e CW1 ([facility]) Diastolic blood pressure 78 mm[Hg] 78 mm[Hg] eCW1 ([facility]) Body weight 200 [lb_av] 200 [lb_av] eCW1 ([facility]) Body height 59 [in_i] 59 [in_i] eCW1 ([facility]) Body mass index (BMI) [Ratio] 40.39 kg/m2 40.39 kg/m2 eCW1 ([facility]) Heart rate 88 /min 88 /min eCW1 ([facility]) Respiratory rate 20 /min 20 /min eCW1 ([facility]) Body temperature 97.0 [degF] 97.0 [degF] eCW1 ( [facility]) Systolic blood pressure 122 mm[Hg] 122 mm[Hg] e CW1 ([facility]) Diastolic blood pressure 78 mm[Hg] 78 mm[Hg] eCW1 ([facility]) Body height 59 [in_i] 59 [in_i] [facility] 4[facility]" Body weight 196.00 [lb_av] 196.00 [lb_av] MEDEN T ([facility]) Systolic blood pressure 127 mm[Hg] 127 mm[Hg] M EDENT ([facility]) Diastolic blood pressure 81 mm[Hg] 81 mm[Hg] [facility] ([facility]) Heart rate 55 /min 55 /min [facility] ([facility]) Body mass index (BMI) [Ratio] 39.6 kg/m2 39.6 k g/m2 [facility] ([facility]) Body weight 88.906 kg 88.906 kg MED[facility] ([facility]) Body temperature 96.3 [degF] 96.3 [degF] [facility] ([facility]) Body mass index (BMI) [Ratio] 39.6 kg/m2 39.6 k g/m2 [facility] ([facility]) Heart rate 73 /min 73 /min [facility] ([facility]) Body weight 196.00 [lb_av] 196.00 [lb_av] MEDEN T ([facility]) Body height 59 [in_i] 59 [in_i] [facility] ([facility]) 4'11" Systolic blood pressure--sitting 110 mm[Hg] 110 mm[Hg] [facility] ([facility]) Ra, large cuff Diastolic blood pressure--sitting 62 mm[Hg] 62 mm[Hg] MEDENT ([facility]) Ra, large cuff Respiratory rate 20 /min 20 /min eCW1 ([facility]) Body temperature 98.6 [degF] 98.6 [degF] eCW1 ( [facility]) Systolic blood pressure 122 mm[Hg] 122 mm[Hg] e CW1 ([facility]) Diastolic blood pressure 78 mm[Hg] 78 mm[Hg] eCW1 ([facility]) Body weight 196 [lb_av] 196 [lb_av] eCW1 ([facility]) Body height 59 [in_i] 59 [in_i] eCW1 ([facility]) Body mass index (BMI) [Ratio] 39.58 kg/m2 39.58 kg/m2 eCW1 ([facility]) Heart rate 94 /min 94 /min eCW1 ([facility]) Body temperature 97.1 [degF] 97.1 [degF] MEDENT ([facility]) Body height 59 [in_i] 59 [in_i] MEDENT ([facility]) 4'11" Body weight 208.00 [lb_av] 208.00 [lb_av] MEDEN T ([facility]) Body mass index (BMI) [Ratio] 42.0 kg/m2 42.0 k g/m2 MEDENT ([facility]) Body weight 207.4 [lb_av] 207.4 [lb_av] eCW1 ([facility]) Body height 59 [in_i] 59 [in_i] eCW1 ([facility]) Body mass index (BMI) [Ratio] 41.89 kg/m2 41.89 kg/m2 eCW1 ([facility]) Heart rate 104 /min 104 /min eCW1 ([facility]) Respiratory rate 18 /min 18 /min eCW1 ([facility]) Body temperature 98.1 [degF] 98.1 [degF] eCW1 ( [facility]) Systolic blood pressure 124 mm[Hg] 124 mm[Hg] e CW1 ([facility]) Diastolic blood pressure 80 mm[Hg] 80 mm[Hg] eCW1 ([facility]) Body weight 208.00 [lb_av] 208.00 [lb_av] INDER T ([facility]) Body height 59 [in_i] 59 [in_i] MEDLEEROY ([facility]) 4'11" Body mass index (BMI) [Ratio] 42.0 kg/m2 42.0 k g/m2 MEDENT ([facility]) Heart rate 70 /min 70 /min MEDENT ([facility]) Systolic blood pressure--sitting 122 mm[Hg] 122 mm[Hg] MEDENT ([facility]) large cuff, Ra Diastolic blood pressure--sitting 76 mm[Hg] 76 mm[Hg] MEDENT ([facility]) large cuff, Ra Patient Treatment Plan of Care Planned Activity Planned Date Details Description Data Source (s) Nystatin - 04/22/2021 12:00:00 AM EDT e CW1 ([facility]) Nystatin - 04/22/2021 12:00:00 AM EDT e CW1 ([facility]) Nystatin - 04/22/2021 12:00:00 AM EDT e CW1 ([facility]) Calcium Carbonate 500 MG Chewable Tablet [Tums] 04/08/2021 12:00:00 AM EDT eCW1 ([facility]) Calcium Carbonate 500 MG Chewable Tablet [Tums] 04/08/2021 12:00:00 AM EDT eCW1 ([facility]) Calcium Carbonate 500 MG Chewable Tablet [Tums] 04/08/2021 12:00:00 AM EDT eCW1 ([facility]) Calcium Carbonate 500 MG Chewable Tablet [Tums] 04/08/2021 12:00:00 AM EDT eCW1 ([facility]) Glucometer 04/01/2021 12:00:00 AM EDT e CW1 ([facility]) Lancets 33G - 04/01/2021 12:00:00 AM EDT eCW1 ([facility]) FreeStyle Darling [place] - 03/25/2021 12:00:00 AM EDT eCW1 ([facility] [facility] FreeStyle Darling 14 Day Sensor - 03/25/2021 12:00:00 AM EDT eCW1 ([facility]) FreeStyle Darling [place] - 03/25/2021 12:00:00 AM EDT eCW1 ([facility]) FreeStyle Darling 14 Day Sensor - 03/25/2021 12:00:00 AM EDT eCW1 ([facility]) FreeStyle Darling [place] - 03/25/2021 12:00:00 AM EDT eCW1 ([facility]) FreeStyle Darling 14 Day Sensor - 03/25/2021 12:00:00 AM EDT eCW1 ([facility]) FreeStyle Darling [place] - 03/25/2021 12:00:00 AM EDT eCW1 ([facility]) FreeStyle Darling 14 Day Sensor - 03/25/2021 12:00:00 AM EDT eCW1 ([facility]) May Have - 11/26/2020 12:00:00 AM EDT e CW1 ([facility]) 24 HR ferrous sulfate 142 MG Extended Release Oral Tab let [Slow-Fe] 11/26/2020 12:00:00 AM EDT eCW1 ([facility]) May Have - 11/26/2020 12:00:00 AM EDT e CW1 ([facility]) 24 HR ferrous sulfate 142 MG Extended Release Oral Tab let [Slow-Fe] 11/26/2020 12:00:00 AM EDT eCW1 ([facility]) May Have - 11/26/2020 12:00:00 AM EDT e CW1 ([facility]) 24 HR ferrous sulfate 142 MG Extended Release Oral Tab let [Slow-Fe] 11/26/2020 12:00:00 AM EDT eCW1 ([facility]) May Have - 11/26/2020 12:00:00 AM EDT e CW1 ([facility]) 24 HR ferrous sulfate 142 MG Extended Release Oral Tab let [Slow-Fe] 11/26/2020 12:00:00 AM EDT eCW1 ([facility]) May Have - 11/26/2020 12:00:00 AM EDT e CW1 ([facility]) 24 HR ferrous sulfate 142 MG Extended Release Oral Tab let [Slow-Fe] 11/26/2020 12:00:00 AM EDT eCW1 ([facility]) May Have - 11/26/2020 12:00:00 AM EDT e CW1 ([facility]) 24 HR ferrous sulfate 142 MG Extended Release Oral Tab let [Slow-Fe] 11/26/2020 12:00:00 AM EDT eCW1 ([facility]) FreeStyle Darling 14 Day Sensor - 11/23/2020 12:00:00 AM EST eCW1 ([facility]) FreeStyle Darling [place] - 11/23/2020 12:00:00 AM EST eCW1 ([facility]) torsemide 10 MG Oral Tablet 11/23/2020 12:00:00 AM EST eCW1 ([facility]) Cyanocobalamin 1000 MCG 11/23/2020 12:00:00 AM EST eCW1 ([facility]) torsemide 10 MG Oral Tablet 11/23/2020 12:00:00 AM EST eCW1 ([facility]) FreeStyle Darling 14 Day Sensor - 11/23/2020 12:00:00 AM EST eCW1 ([facility]) FreeStyle Darling [place] - 11/23/2020 12:00:00 AM EST eCW1 ([facility]) Cyanocobalamin 1000 MCG 11/23/2020 12:00:00 AM EST eCW1 ([facility]) FreeStyle Darling [place] - 11/23/2020 12:00:00 AM EST eCW1 ([facility]) FreeStyle Darling 14 Day Sensor - 11/23/2020 12:00:00 AM EST eCW1 ([facility]) Cyanocobalamin 1000 MCG 11/23/2020 12:00:00 AM EST eCW1 ([facility]) torsemide 10 MG Oral Tablet 11/23/2020 12:00:00 AM EST eCW1 ([facility]) FreeStyle Darling [place] - 11/23/2020 12:00:00 AM EST eCW1 ([facility]) FreeStyle Darling 14 Day Sensor - 11/23/2020 12:00:00 AM EST eCW1 ([facility]) Cyanocobalamin 1000 MCG 11/23/2020 12:00:00 AM EST eCW1 ([facility]) torsemide 10 MG Oral Tablet 11/23/2020 12:00:00 AM EST eCW1 ([facility]) torsemide 10 MG Oral Tablet 11/23/2020 12:00:00 AM EST eCW1 ([facility]) FreeStyle Darling [place] - 11/23/2020 12:00:00 AM EST eCW1 ([facility]) FreeStyle Darling 14 Day Sensor - 11/23/2020 12:00:00 AM EST eCW1 ([facility]) Cyanocobalamin 1000 MCG 11/23/2020 12:00:00 AM EST eCW1 ([facility]) torsemide 10 MG Oral Tablet 11/23/2020 12:00:00 AM EST eCW1 ([facility]) FreeStyle Darling [place] - 11/23/2020 12:00:00 AM EST eCW1 ([facility]) FreeStyle Darling 14 Day Sensor - 11/23/2020 12:00:00 AM EST eCW1 ([facility]) Cyanocobalamin 1000 MCG 11/23/2020 12:00:00 AM EST eCW1 ([facility])
[2021-07-11] MEDS ORDERED: SODIUM CHLORIDE 0.9% 500 ML IV ONE (01:40)
[2021-07-11] MEDS: HumaLOG INSULIN (NovoLOG) PER UNIT SC SCH ×5 (01:55→23:54)
[2021-07-11] MEDS: PIPERACILLIN/TAZOBACTAM SOD 3.375 GM in D5W MINI-BAG PLUS 50 ML IV SCH ×4 (02:39→20:52)
[2021-07-11] MEDS: NS 1,000 ML IV SCH ×2 (02:39→08:13)
[2021-07-11] MEDS: IPRATROPIUM 0.5MG/ALBUTEROL 2.5MG INH SOL UD 3ML (DUONEB) NEB SCH ×6 (04:02→23:35)
[2021-07-11 05:42] LABS: ABG BASE EXCESS -1.6 (-2.0-2.0); ABG HCO3 22.8 MEQ/L (22.0-26.0); ABG PARTIAL PRESSURE CO2 36.8 mmHg (35.0-45.0); ABG PARTIAL PRESSURE O2 146.9 mmHg (75.0-100.0); ABG STANDARD HCO3 23.2 MEQ/L (22.0-26.0); ABG TOTAL CO2 23.9 MEQ/L (23.0-31.0); ABG pH (ARTERIAL) 7.409 UNITS (7.350-7.450)
[2021-07-11 05:48] LABS: BASO % 0.5 % (0.0-1.0); EOS # 0.2 10^3/uL (0.0-0.5); EOS % 2.1 % (0.0-3.0); HEMATOCRIT 34.1 % (36.0-47.0); LYMPH # 2.3 10^3/uL (1.5-5.0); MEAN CORPUSCULAR HEMOGLOBIN 24.2 pg (27.0-33.0); MEAN CORPUSCULAR HGB CONC 29.3 g/dl (32.0-36.5); MEAN CORPUSCULAR VOLUME 82.6 fl (80.0-96.0); MONO # 0.6 10^3/uL (0.0-0.8); MONO % 7.5 % (2.0-8.0); NEUTROPHILS % 61.3 % (36.0-66.0); PLATELET COUNT, AUTOMATED 125 10^3/uL (150-450); RED BLOOD COUNT 4.13 10^6/uL (4.00-5.40); WHITE BLOOD COUNT 8.2 10^3/uL (4.0-10.0)
[2021-07-11 06:25] LABS: ALBUMIN 2.2 GM/DL (3.2-5.2); ALT/SGPT 39 U/L (12-78); BILIRUBIN,TOTAL 0.4 MG/DL (0.2-1.0); BLOOD UREA NITROGEN 18 MG/DL (7-18); CARBON DIOXIDE LEVEL 23 MEQ/L (21-32); CHLORIDE LEVEL 102 MEQ/L (98-107); CHOLESTEROL LEVEL 123 MG/DL (< 200); CK-MB VALUE MASS < 1.0 NG/ML (<3.6); CPK CREATINE PHOSPHOKINASE 52 U/L (26-192); CREATININE FOR GFR 1.92 MG/DL (0.55-1.30); GLOMERULAR FILTRATION RATE 26.9 (>39); GLUCOSE, FASTING 386 MG/DL (70-100); LDH LACTATE DEHYDROGENASE 298 U/L (84-246); MB/CK RELATIVE INDEX 1.92 (< OR =4); PHOSPHORUS LEVEL 2.2 MG/DL (2.5-4.9); POTASSIUM SERUM 3.5 MEQ/L (3.5-5.1); SODIUM LEVEL 134 MEQ/L (136-145); TOTAL PROTEIN 6.9 GM/DL (6.4-8.2); TRIGLYCERIDES LEVEL 222 MG/DL (<150); TROPONIN I 0.06 NG/ML (< 0.10)
[2021-07-11] MEDS: HEPARIN SOD (PORCINE) 5000UNITS/ML 1ML VIAL/SYRINGE SC SCH ×3 (06:32→20:52)
[2021-07-11] MEDS: CHLORHEXIDINE GLUCONATE 0.12 % 15ML UDC (PERIDEX ORAL RINSE) MT SCH ×2 (08:13→20:52)
[2021-07-11] MEDS: PANTOPRAZOLE 40MG VIAL (C9113 PER 1) IV SCH (08:13)
[2021-07-11] MEDS ORDERED: NS 500 ML IV ONE ×2 (08:55→11:25)
[2021-07-11] MEDS: levETIRAcetam INJection 500 MG in D5W MINI-BAG PLUS 100 ML IV SCH ×2 (10:13→20:52)
[2021-07-11] MEDS: KCL 40MEQ IN D5/0.45NS 1000ML 1,000 ML IV SCH ×3 (10:13→23:44)
--- NOTE | 2021-07-11 10:57 | CCN ---
CRITICAL CARE NOTE DATE: 07/11/2021 START TIME: 919 STOP TIME: 944 SUBJECTIVE: I again attended Karyn Mahajan now here in the Intensive Care Unit. Patient has been examined. Chart reviewed, and I spoke a little bit with the nurse at the bedside. Since her arrival, she has remained afebrile with a T-max of 98.3. Blood pressure generally in the 110s to as high as 180. Heart rate generally in the 80s with a sinus mechanism. She does overbreathe the ventilator. She is making reasonable urine and has had just shy of a liter of urine out since her arrival here on the ICU. Repeat laboratories done at 0515 show a white blood cell count down to 8.2, hemoglobin 10.5, platelet count of 125,000, 61% segs, no bands. Sodium 134, potassium 3.5, chloride 102, CO2 23, BUN 18, creatinine 1.92 (not significantly changed), glucose 386. Lactate down from 7.6 to 3.6. Repeat is pending later today. Blood gas done on a PRVC rate of 12, tidal volume of 425, PEEP of 5, FiO2 of 30% has a pH of 7.409, pCO2 of 36.8, and a pO2 of 146.9. Repeat chest x-ray done at 0600 is certainly less rotated. Reasonable inspiration. OG tube and endotracheal tube in good position. I am able to see the left hemidiaphragm quite clearly at the moment. OBJECTIVE: GENERAL: She is sedate. She has some intermittent twitching of the shoulders but no other focal activity in that regard is noted. HEENT: Pupils react. Sclera clear. Trachea is in the midline. CHEST: Clear to both auscultation and percussion. Symmetrical rise. No focal adventitious breath sounds identified. Tactile fremitus palpable throughout. CARDIAC: Distant but regular. Peripheral pulses palpable. Minimal edema. ABDOMEN: Morbidly obese. Soft with active bowel sounds. No convincing organomegaly or masses. EXTREMITIES: No cyanosis or clubbing. NEUROLOGIC: She is sedate. She moves extremities to painful stimuli. She does not follow commands when sedation lightened. She still has an upgoing toe on the left. MOST PRESSING PROBLEMS REQUIRING MY PRESENCE AT THE BEDSIDE: 1. Respiratory failure secondary to status epilepticus. 2. Status epilepticus. 3. New onset seizures. 4. Diabetes mellitus. 5. Coronary artery disease with a history of stenting. Troponin this morning was negligible at 0.06. EKG on admission showed no ischemic changes. At this point, we will continue IV hydration as her lactate is still mildly elevated but certainly trending in the right direction. Given her renal failure, certainly this will take a little longer to clear. We will change her IV fluids in view of her electrolytes. She is on coverage with finger sticks for her sugars. She does not have an acidosis. In view of her new onset seizures, her admitting CT scan was unremarkable. We will likely repeat this tomorrow morning. EEG at this point would not be terribly helpful as she is on Propofol and Keppra. We will involve Neurology most likely tomorrow unless she has breakthrough seizures. Regarding her history of stents, I do not see that she is chronically anticoagulated and will try to get records in that regard. I do know she has had issues with symptomatic anemia in the past, and my suspicion is that her issues were altered on the basis of that. Will proceed as outlined above. Her prognosis remains guarded. I left the bedside at 0945 hours. Twenty-five minutes of additional critical care time was at the bedside not including procedures.
--- NOTE | 2021-07-11 10:57 | CCN ---
CRITICAL CARE NOTE DATE: 07/11/2021 START TIME: 39 STOP TIME: 0124 SUBJECTIVE: I was called to the ER to attend Karyn Mahajan. The patient has been examined and chart reviewed. I spoke at length with the ER staff regarding her situation. In essence, this is a 76-year-old female with known diabetes. Apparently for months, she has been having issues with abnormal movements of her left upper extremity. This progressed tonight. She became unresponsive. She was brought to the ER essentially in a full blown tonic-clonic seizure. She was given Ativan, initially ventilated with an Ambu bag valve device. Seizure activity persisted and she was therefore, sedated and intubated. We added a propofol drip. She had been loaded with Keppra. CT scan shows no acute abnormalities. Chest x-ray markedly rotated shows cardiomegaly, but the ET tube in good position. Cannot rule out a retrocardiac infiltrate, but certainly given the degree of rotation, difficult to make that distinction. First arterial blood gas showed a pH 7.289 with pCO2 43.7 and a pO2 of 204.4. Repeat blood gas done several hours later showed a pH 7.47, pCO2 34.5, and a pO2 287.1. Ventilator manipulation was made by myself. ALLERGIES LISTED: 1. AMITRIPTYLINE. 2. BENZONATATE. 3. LORATADINE. 4. SULFAMETHOXAZOLE. 5. TRIMETHOPRIM. HOME MEDICATIONS LISTED: 1. Atorvastatin 8 mg daily. 2. Metoprolol 5 mg daily. 3. Calcitrol 0.25 mg daily. 4. Vitamin B-12. 5. Insulin in a sliding scale. 6. Isordil 10 mg daily. 7. Synthroid 25 mcg daily. 8. Losartan 100 mg daily. 9. Magnesium oxide 4 mg twice a day. 10. Protonix 40 mg daily. 11. Paroxetine 20 mg daily. 12. Torsemide 20 mg daily. PAST MEDICAL HISTORY: 1. Diabetes. 2. Coronary artery disease status post stent placement at [facility]. FAMILY HISTORY: Essentially unobtainable at this point. SOCIAL HISTORY: Essentially unobtainable at this point. REVIEW OF SYSTEMS: Essentially unobtainable at this point. PHYSICAL EXAMINATION: GENERAL: Currently reveals an elderly sedated female here in the ER, intubated, sedated, mechanically ventilated. VITAL SIGNS: Blood pressure 138 systolic. Heart rate 80 and regular. Respiratory rate is 16 via the ventilator. HEENT: Otherwise generally normocephalic, atraumatic. She does have oral endotracheal tube in place. Pupils are small. They are mid field. Difficult to assess reactions as they are tiny. Sclera are clear and nonicteric. Trachea is midline. No obvious bruits. CHEST: Clear to both auscultation and percussion. Symmetrical rise, no focal adventitious breath sounds are identified. Tactile fremitus is palpable throughout. CARDIAC: Regular with no gallop. Peripheral pulses diminished are palpable. No obvious edema. ABDOMEN: Obese, soft, with active bowel sounds. No convincing organomegaly or masses. EXTREMITIES: No obvious cyanosis or clubbing. NEUROLOGIC: She is sedate. She has an upgoing toe on the left. She is hyperreflexic on the left. PSYCHIATRIC: She is sedate. OTHER LABORATORIES: Sodium 132, potassium 4.3, chloride 98, CO2 26, BUN 18, creatinine 2.12, glucose 595, osmolality 318, first lactate 7.6. Bilirubin 0.4. Ammonia mildly elevated at 54. White blood cell count 12.2, hemoglobin 10.5, platelet count 214,000, 52% segs, no bands. Toxicology screen unremarkable. IMPRESSION: 1. Tonic-clonic seizure activity. 2. Diabetes mellitus. 3. Coronary artery disease with history of stents. 4. Metabolic acidosis consistent with the above. 5. Elevated lactate, also consistent with the above. Her EKG is now available to me and shows a normal sinus rhythm with some nonspecific ST-T wave abnormalities. CT scan of the head shows no acute abnormalities. At this point, we will keep her on a propofol drip. She will be continued Keppra. I will ask Neurology to become involved in her care. She certainly had a witnessed tonic-clonic seizure and her findings on exam show it could be postictal. We will empirically cover her for aspiration, especially in view of her chest x-ray, but a repeat will be obtained in the morning. Ventilator manipulations were made and a repeat blood gas will be pending. She will be placed on a sliding scale insulin coverage in view of her known diagnosis and her hyperglycemia. We will assure that she is adequately volume resuscitated. She has an elevated creatinine and this will be followed closely. Ulcer and DVT prophylaxis have been ordered. At this point, she is critically ill. We will facilitate transfer to the intensive care unit when a bed is available. At this point, she is critically ill at the bedside at 0124 hours and 44 minutes of critical care time at the bedside not including procedures.
--- NOTE | 2021-07-11 11:33 | REP ---
INDICATION: Resp Failure. COMPARISON: Multiple the latest 07/10/2021 at 9:22 p.m. TECHNIQUE: Portable FINDINGS: The technique utilized in obtaining the radiograph has magnified the cardiac silhouette and accentuated the interstitial markings. The endotracheal tube remains in satisfactory position. Since the last examination a nasogastric tube has been placed the tip is beyond the confines of the radiograph presumably within the stomach. The cardiomediastinal silhouette lung thayer are stable. No acute patchy parenchymal opacities or pleural effusions have developed there is no change in the osseous structures. IMPRESSION: 1. Tubes as described above. 2. Unchanged left basilar opacities. No new abnormal opacities. <Electronically signed by Javy Regan > 07/11/21 [id number]
[2021-07-11] MEDS ORDERED: amLODIPine 5 MG TAB PO ONE (18:00)
[2021-07-11] MEDS ORDERED: LABETALOL 100MG/20ML VIAL IV PRN (18:00)
[2021-07-11] MEDS: MIDAZOLAM INJ 2MG/2ML VIAL (J2250 PER 1MG) IV PRN ×2 (18:40→20:53)
--- NOTE | 2021-07-11 20:14 | ECGEPIP ---
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
[2021-07-11] MEDS: METOPROLOL SUCC *XL* 12.5MG PER 1/2 TAB (TopROL *XL*) PO SCH (20:52)
[2021-07-12] VITALS (23 sets, daily range): BP systolic 89–184; BP diastolic 51–91
[2021-07-12] MEDS: PIPERACILLIN/TAZOBACTAM SOD 3.375 GM in D5W MINI-BAG PLUS 50 ML IV SCH ×2 (02:33→07:48)
[2021-07-12] MEDS: propofoL 1,000 MG in IV 1 EA IV SCH ×6 (02:34→21:55)
[2021-07-12] MEDS: IPRATROPIUM 0.5MG/ALBUTEROL 2.5MG INH SOL UD 3ML (DUONEB) NEB SCH ×6 (05:40→23:18)
[2021-07-12 05:57] LABS: BASO % 0.4 % (0.0-1.0); EOS # 0.1 10^3/uL (0.0-0.5); EOS % 0.8 % (0.0-3.0); HEMATOCRIT 34.4 % (36.0-47.0); LYMPH # 1.1 10^3/uL (1.5-5.0); LYMPH % 9.6 % (24.0-44.0); MEAN CORPUSCULAR HGB CONC 29.1 g/dl (32.0-36.5); MEAN CORPUSCULAR VOLUME 82.5 fl (80.0-96.0); MONO # 0.9 10^3/uL (0.0-0.8); MONO % 8.1 % (2.0-8.0); NEUTROPHILS # 9.1 10^3/uL (1.5-8.5); NEUTROPHILS % 80.1 % (36.0-66.0); PLATELET COUNT, AUTOMATED 119 10^3/uL (150-450); RED BLOOD COUNT 4.17 10^6/uL (4.00-5.40); WHITE BLOOD COUNT 11.3 10^3/uL (4.0-10.0)
[2021-07-12] MEDS: HEPARIN SOD (PORCINE) 5000UNITS/ML 1ML VIAL/SYRINGE SC SCH ×3 (05:58→21:08)
[2021-07-12 06:21] LABS: ABG BASE EXCESS -4.5 (-2.0-2.0); ABG O2 SATURATION 98.3 % (95.0-99.0); ABG PARTIAL PRESSURE CO2 34.2 mmHg (35.0-45.0); ABG PARTIAL PRESSURE O2 112.7 mmHg (75.0-100.0); ABG STANDARD HCO3 20.8 MEQ/L (22.0-26.0); ABG pH (ARTERIAL) 7.384 UNITS (7.350-7.450)
[2021-07-12 06:31] LABS: ALBUMIN 2.1 GM/DL (3.2-5.2); BILIRUBIN,TOTAL 0.5 MG/DL (0.2-1.0); CALCIUM LEVEL 7.6 MG/DL (8.8-10.2); CREATININE FOR GFR 1.62 MG/DL (0.55-1.30); GLOMERULAR FILTRATION RATE 32.7 (>39); PHOSPHORUS LEVEL 2.1 MG/DL (2.5-4.9); POTASSIUM SERUM 4.7 MEQ/L (3.5-5.1); TOTAL PROTEIN 6.8 GM/DL (6.4-8.2)
[2021-07-12] MEDS: HumaLOG INSULIN (NovoLOG) PER UNIT SC SCH (06:48)
[2021-07-12] MEDS: KCL 40MEQ IN D5/0.45NS 1000ML 1,000 ML IV SCH ×2 (07:49→16:08)
--- NOTE | 2021-07-12 09:03 | REP ---
INDICATION: Resp Failure. COMPARISON: Portable chest, 07/11/2021. TECHNIQUE: AP portable chest image was obtained. FINDINGS: There is airspace disease in the left lung base consistent with atelectasis or pneumonia. There may be a superimposed pleural effusion. There is no evidence of congestive heart failure. The endotracheal tube and nasogastric tube are unchanged in position. IMPRESSION: 1. Airspace disease in the left lung base consistent with atelectasis or pneumonia. There may be a superimposed pleural effusion. 2. Endotracheal tube and nasogastric tube are unchanged. 3. No significant change. <Electronically signed by Landen Narvaez > 07/12/21 0538
[2021-07-12] MEDS ORDERED: METOPROLOL TART 25 MG TABLET PO STA (09:33)
[2021-07-12] MEDS: CHLORHEXIDINE GLUCONATE 0.12 % 15ML UDC (PERIDEX ORAL RINSE) MT SCH ×2 (10:30→21:08)
[2021-07-12] MEDS: PANTOPRAZOLE 40MG VIAL (C9113 PER 1) IV SCH (10:30)
[2021-07-12] MEDS: levETIRAcetam INJection 500 MG in D5W MINI-BAG PLUS 100 ML IV SCH (10:31)
--- NOTE | 2021-07-12 10:48 | IPNPDOC ---
Text Note Date of Service The patient was seen on 07/12/21. NOTE CRITICAL CARE PROGRESS NOTE: SUBJECTIVE: Patient seen and examined this morning. She remains mechanically ventilated and sedated with propofol. There were no overnight events. This morning propofol was titrated off and the patient began to have tonic-clonic seizure activity on the right side of her body and she was not following commands. All other ROS are negative except as mentioned above PHYSICAL EXAMINATION: VITAL SIGNS: Please see below. GENERAL APPEARANCE: Mechanically ventilated HEENT: no thyromegaly, trachea midline, PERRLA. normal mucous membranes RESPIRATORY: Intubated, CTA B/L, good air entry. CARDIOVASCULAR: +s1 s2, no murmurs. ABDOMEN: nontender, not distended, +BS EXTREMITIES: no edema or erythema. palpable distal pulses SKIN: no rash, no purpura NEUROLOGICAL: Sedated and does not follow commands PERTINENT LABS/IMAGING: Chest x-ray from this morning OG tube and ET tube are satisfactory position. No infiltrates IMPRESSION: 1. Acute respiratory failure secondary to status epilepticus. Intubated for airway protection. 2. Diabetes mellitus with hyperglycemia 3. Coronary artery disease 4. Metabolic acidosis consistent with the above. 5. Elevated lactate, also consistent with the above. 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 Continue with Keppra increased to 1000 twice daily. Start Dilantin with loading dose. EEG. Keep sedated with propofol for now. PULM: HOB 30 degrees. Maintain Sp02 94-98%. No vent changes necessary patient is on minimal vent support. CARDIO: Maintain MAPs 60-65. Continue with antihypertensives and rate controlling medications. GI: OG feeds RENAL: Strict ins and outs monitor electrolytes ID: No antibiotic. ENDO: Insulin drip with intensive care nursing protocol. Goal fingersticks 140- 180 HEME: DVT. LINES/CATHETERS: No central lines, Paulino catheter in place. DVT/GI PPX CODE STATUS: Full code DISPOSITION: Patient requires continued care in the medical ICU. VS,Fishbone, I+O VS, Fishbone, I+O Laboratory Tests 07/12/21 05:28 Vital Signs Date Time Temp Pulse Resp B/P (MAP) Pulse Ox O2 Delivery O2 Flow Rate FiO2 07/12/21 10:31 109 108/53 07/12/21 07:38 18 99 25 07/12/21 06:49 97.9 Ventilator I&O- Last 24 Hours up to 6 AM 07/12/21 05:59 Intake Total 0 ml Output Total 1795 ml Balance -1795 ml WILSON QUINTEROS MD Jul 12, 2021 10:48
[2021-07-12] MEDS ORDERED: HumaLOG INSULIN (NovoLOG) PER UNIT SC SCH (14:00)
[2021-07-12] MEDS: INSULIN REGULAR IN 0.9 % NACL 100 UNIT in IV 1 EA IV SCH ×2 (14:45)
[2021-07-12] MEDS ORDERED: levETIRAcetam INJection 500 MG in D5W MINI-BAG PLUS 100 ML IV ONE (15:00)
[2021-07-12] MEDS ORDERED: PHENYTOIN INJection 1,000 MG in NS 100 ML IV ONE (16:00)
[2021-07-12] MEDS: INSULIN IV RATE CHANGE DOCUMENTATION ML/HR XX SCH ×4 (16:02→22:21)
[2021-07-12] MEDS: amLODIPine 5 MG TAB PO SCH (16:07)
[2021-07-12] MEDS ORDERED: LEVEMIR (INSULIN DETEMIR) 1 UNITS/0.01ML SC SCH (21:00)
[2021-07-12] MEDS: levETIRAcetam INJection 1,000 MG in D5W 100 ML IV SCH (21:08)
[2021-07-13] VITALS (31 sets, daily range): BP systolic 86–155; BP diastolic 48–70
[2021-07-13] MEDS: INSULIN IV RATE CHANGE DOCUMENTATION ML/HR XX SCH ×7 (00:07→22:33)
[2021-07-13] MEDS: KCL 40MEQ IN D5/0.45NS 1000ML 1,000 ML IV SCH (00:08)
[2021-07-13] MEDS: PHENYTOIN 100 MG/2 ML VIAL (J1165) IV SCH ×3 (00:08→17:00)
[2021-07-13] MEDS: INSULIN REGULAR IN 0.9 % NACL 100 UNIT in IV 1 EA IV SCH ×6 (00:15→21:02)
[2021-07-13] MEDS: propofoL 1,000 MG in IV 1 EA IV SCH ×4 (00:18→08:46)
[2021-07-13] MEDS: IPRATROPIUM 0.5MG/ALBUTEROL 2.5MG INH SOL UD 3ML (DUONEB) NEB SCH ×5 (03:22→19:35)
[2021-07-13 05:22] LABS: BASO % 0.4 % (0.0-1.0); EOS # 0.3 10^3/uL (0.0-0.5); EOS % 2.3 % (0.0-3.0); HEMATOCRIT 31.2 % (36.0-47.0); HEMOGLOBIN 9.5 g/dl (12.0-15.5); LYMPH # 1.5 10^3/uL (1.5-5.0); LYMPH % 13.8 % (24.0-44.0); MEAN CORPUSCULAR HEMOGLOBIN 24.5 pg (27.0-33.0); MEAN CORPUSCULAR HGB CONC 30.4 g/dl (32.0-36.5); MEAN CORPUSCULAR VOLUME 80.6 fl (80.0-96.0); MONO # 0.6 10^3/uL (0.0-0.8); MONO % 5.3 % (2.0-8.0); NEUTROPHILS # 8.3 10^3/uL (1.5-8.5); NEUTROPHILS % 75.9 % (36.0-66.0); PLATELET COUNT, AUTOMATED 177 10^3/uL (150-450); RED BLOOD COUNT 3.87 10^6/uL (4.00-5.40); WHITE BLOOD COUNT 10.9 10^3/uL (4.0-10.0)
[2021-07-13 05:52] LABS: ABG BASE EXCESS -6.8 (-2.0-2.0); ABG HCO3 17.3 MEQ/L (22.0-26.0); ABG O2 SATURATION 98.1 % (95.0-99.0); ABG PARTIAL PRESSURE CO2 29.6 mmHg (35.0-45.0); ABG PARTIAL PRESSURE O2 99.5 mmHg (75.0-100.0); ABG STANDARD HCO3 18.9 MEQ/L (22.0-26.0); ABG TOTAL CO2 18.2 MEQ/L (23.0-31.0); ABG pH (ARTERIAL) 7.384 UNITS (7.350-7.450)
[2021-07-13 05:52] LABS: ALBUMIN 1.8 GM/DL (3.2-5.2); BILIRUBIN,TOTAL 0.6 MG/DL (0.2-1.0); CALCIUM LEVEL 7.5 MG/DL (8.8-10.2); CREATININE FOR GFR 1.54 MG/DL (0.55-1.30); GLOMERULAR FILTRATION RATE 34.7 (>39); PHOSPHORUS LEVEL 1.5 MG/DL (2.5-4.9); POTASSIUM SERUM 4.8 MEQ/L (3.5-5.1); TOTAL PROTEIN 6.3 GM/DL (6.4-8.2)
[2021-07-13] MEDS: HEPARIN SOD (PORCINE) 5000UNITS/ML 1ML VIAL/SYRINGE SC SCH ×3 (06:06→21:03)
--- NOTE | 2021-07-13 08:57 | REP ---
INDICATION: Resp Failure. COMPARISON: Portable chest, 07/12/2021 TECHNIQUE: AP portable chest image was obtained. FINDINGS: There is airspace disease in the left lung base consistent with atelectasis or pneumonia. There may be a superimposed pleural effusion. There is no evidence of congestive heart failure. The endotracheal tube and nasogastric tube are unchanged in position. IMPRESSION: 1. Airspace disease in left lung base consistent with atelectasis or pneumonia, unchanged. There may be a superimposed pleural effusion. 2. Endotracheal tube and nasogastric tube are unchanged. <Electronically signed by Landen Narvaez > 07/13/21 0884
[2021-07-13] MEDS: PANTOPRAZOLE 40MG VIAL (C9113 PER 1) IV SCH (10:25)
[2021-07-13] MEDS: CHLORHEXIDINE GLUCONATE 0.12 % 15ML UDC (PERIDEX ORAL RINSE) MT SCH ×2 (10:26→21:03)
[2021-07-13] MEDS: levETIRAcetam INJection 1,000 MG in D5W 100 ML IV SCH ×2 (10:26→21:02)
[2021-07-13] MEDS: METOPROLOL TART 25 MG TABLET PO SCH ×2 (10:26→21:03)
[2021-07-13] MEDS: amLODIPine 5 MG TAB PO SCH (10:26)
[2021-07-13] MEDS ORDERED: NS IV ONE ×4 (11:00)
[2021-07-13] MEDS ORDERED: SODIUM PHOSPHATE IV ONE ×4 (11:00)
--- NOTE | 2021-07-13 12:59 | IPNPDOC ---
Text Note Date of Service The patient was seen on 07/13/21. NOTE CRITICAL CARE PROGRESS NOTE: SUBJECTIVE: Patient seen and examined this morning. She remains on mechanical ventilation. She is currently on propofol drip and insulin drip. Yesterday morning during her spontaneous awakening trial she had tonic-clonic movements. All other ROS are negative except as mentioned above PHYSICAL EXAMINATION: VITAL SIGNS: Please see below. GENERAL APPEARANCE: Sedated HEENT: no thyromegaly, trachea midline, PERRLA. normal mucous membranes RESPIRATORY: Intubated CTA B/L, good air entry. CARDIOVASCULAR: +s1 s2, no murmurs. ABDOMEN: nontender, not distended, +BS EXTREMITIES: no edema or erythema. palpable distal pulses SKIN: no rash, no purpura NEUROLOGICAL: no sensory or motor deficits, orientedx3. PERTINENT LABS/IMAGING: Chest x-ray from today ET tube and OG tube are in satisfactory position. Patient is rotated to the left. Lung thayer are without infiltrate. IMPRESSION: 1. Acute respiratory failure secondary to status epilepticus. Intubated for airway protection. 2. Diabetes mellitus with hyperglycemia 3. Coronary artery disease 4. Metabolic acidosis consistent with the above. 5. 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 continue with Keppra and Dilantin. Will get EEG. We will do awakening trial today. PULM: HOB 30 degrees. Maintain Sp02 94-98%. Vent changes as follows: FiO2 21% PEEP 5 rate 16 tidal volume 400 CARDIO: Maintain MAPs 60-65. Continue with antihypertensives and rate cont rolling medications. GI: OG feeds RENAL: Strict ins and outs monitor electrolytes ID: No antibiotic. ENDO: Insulin drip with intensive care nursing protocol. Goal fingersticks 140- 180 HEME: DVT prophylaxis LINES/CATHETERS: No central lines, Paulino catheter in place. DVT/GI PPX CODE STATUS: Full code DISPOSITION: Patient requires continued care in the medical ICU. VS,Fishbone, I+O VS, Fishbone, I+O Laboratory Tests 07/13/21 05:11 Vital Signs Date Time Temp Pulse Resp B/P (MAP) Pulse Ox O2 Delivery O2 Flow Rate FiO2 07/13/21 10:26 92 142/66 07/13/21 07:40 17 100 21 07/13/21 06:30 Ventilator 07/13/21 04:00 97.9 I&O- Last 24 Hours up to 6 AM 07/13/21 05:59 Intake Total 3178.8 ml Output Total 2310 ml Balance 868.8 ml WILSON QUINTEROS MD Jul 13, 2021 12:59
--- NOTE | 2021-07-13 18:19 | ECGEPIP ---
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 Probably related to lead misplacement(NEW) Non specific ST/T abnormality Compared to prior tracings(3) in the system, heart rate is now faster Electronically Signed on 07-13-2021 18:19:15 EDT by Ilya Simeon
--- NOTE | 2021-07-13 20:28 | CR ---
CONSULTATION DATE: 07/12/2021 CONSULTATION REQUESTED BY: Andrey Martins M.D. REASON FOR CONSULTATION: Seizures. HISTORY OF PRESENT ILLNESS: Karyn Mahajan is a 76-year-old woman with a history of diabetes who was having issues with abnormal movements of her left upper extremity which progressed on the night of admission and she became unresponsive. She was brought to the emergency department and she was having a tonic-clonic seizure. She was given Ativan and ventilated with Ambu bag. Her seizure activity persisted and she was sedated and intubated. She was started on propofol drip. She was given loading dose of Keppra followed by 500 mg intravenous (IV) twice a day. When she was being woken up by decreasing sedation the next day, she again had movements on the right side of her body and she was again put back on propofol. I was contacted by the attending physician at this point and I recommended loading her with Dilantin 1000 mg IV once, followed by 200 mg IV three times a day and increasing dose of Keppra 1000 mg IV twice a day. Patient is currently on mechanical intubation and ventilated and is unable to provide any history. There are no recorded seizures noted by nursing this afternoon after increasing doses of her seizure medication. ALLERGIES: AMITRIPTYLINE, BENZONATATE, CLARITIN, BACTRIM. HOME MEDICATIONS: - atorvastatin 80 mg by mouth daily - metoprolol 50 mg by mouth daily - calcitriol 0.25 mg daily - vitamin B12 - insulin sliding scale - Isordil 10 mg by mouth daily - Synthroid 25 mcg by mouth daily - losartan 100 mg by mouth daily - magnesium 400 mg by mouth twice a day. - Protonix 40 mg by mouth daily. - Paxil 20 mg by mouth daily. - torsemide 20 mg by mouth daily. PAST MEDICAL HISTORY: 1. Diabetes. 2. Coronary artery disease status post stent. FAMILY HISTORY: Could not be obtained. SOCIAL HISTORY: Could not be obtained. REVIEW OF SYSTEMS: Could not be obtained. PHYSICAL EXAMINATION: VITAL SIGNS: Blood pressure 149/65, pulse 101, respiratory rate 17, 100% saturations on ventilator. HEART: Regular rate and rhythm. LUNGS: Clear to auscultation. ABDOMEN: Soft, nontender, nondistended. EXTREMITIES: No pedal edema. MUSCULOSKELETAL: No abnormalities. No rash. NEUROLOGIC: No signs of meningeal irritation. Patient is sedated on mechanical ventilation. Speech, sensory, cerebellar, gait testing cannot be performed. Tone is normal both sides. Plantars are mute bilaterally. Deep tendon reflexes could not be obtained. She withdraws to pain on both sides equally. DIAGNOSTIC STUDIES: CT scan of head showed moderate atrophy of brain and small vessel ischemic disease of brain. Blood test showed WBC 11.3, hemoglobin 10, platelet count 119. Lactic acid 4, creatinine 1.6 with a GFR 32.7. Negative urine toxicology screen. ASSESSMENT: 1. Generalized tonic-clonic seizures and status epilepticus. 2. Respiratory failure on mechanical ventilation. PLAN: 1. We loaded her with Dilantin 1000 mg IV times one, followed by 200 mg IV three times a day. 2. Increase Keppra to 1000 mg IV twice a day. 3. Electroencephalogram (EEG). 4. Check Dilantin level in the morning. 5. Continue supportive care and mechanical ventilation. 6. Follow with our office in 1-2 weeks after hospital discharge.
[2021-07-13] MEDS: SENNA 8.6 MG TAB (SENOKOT) PO SCH (21:03)
[2021-07-14] VITALS (22 sets, daily range): BP systolic 94–149; BP diastolic 50–73
[2021-07-14] MEDS: PHENYTOIN 100 MG/2 ML VIAL (J1165) IV SCH ×3 (00:02→15:04)
[2021-07-14] MEDS: IPRATROPIUM 0.5MG/ALBUTEROL 2.5MG INH SOL UD 3ML (DUONEB) NEB SCH ×3 (00:31→07:22)
[2021-07-14] MEDS: INSULIN IV RATE CHANGE DOCUMENTATION ML/HR XX SCH ×3 (00:41→03:09)
[2021-07-14 05:26] LABS: BASO # 0.1 10^3/uL (0.0-0.2); BASO % 0.8 % (0.0-1.0); EOS # 0.3 10^3/uL (0.0-0.5); EOS % 2.6 % (0.0-3.0); HEMATOCRIT 34.2 % (36.0-47.0); HEMOGLOBIN 9.8 g/dl (12.0-15.5); LYMPH # 1.5 10^3/uL (1.5-5.0); LYMPH % 13.4 % (24.0-44.0); MEAN CORPUSCULAR HEMOGLOBIN 24.2 pg (27.0-33.0); MEAN CORPUSCULAR HGB CONC 28.7 g/dl (32.0-36.5); MEAN CORPUSCULAR VOLUME 84.4 fl (80.0-96.0); MONO % 8.5 % (2.0-8.0); NEUTROPHILS # 8.2 10^3/uL (1.5-8.5); NEUTROPHILS % 71.9 % (36.0-66.0); PLATELET COUNT, AUTOMATED 193 10^3/uL (150-450); RED BLOOD COUNT 4.05 10^6/uL (4.00-5.40); WHITE BLOOD COUNT 11.4 10^3/uL (4.0-10.0)
[2021-07-14 05:55] LABS: MAGNESIUM LEVEL 1.9 MG/DL (1.8-2.4); PHENYTOIN (DILANTIN) 8.8 UG/ML (10.0-20.0)
[2021-07-14 06:16] LABS: ALBUMIN 1.7 GM/DL (3.2-5.2); BILIRUBIN,TOTAL 0.6 MG/DL (0.2-1.0); CALCIUM LEVEL 8.3 MG/DL (8.8-10.2); CREATININE FOR GFR 1.52 MG/DL (0.55-1.30); GLOMERULAR FILTRATION RATE 35.2 (>39); PHOSPHORUS LEVEL 3.9 MG/DL (2.5-4.9); POTASSIUM SERUM 5.3 MEQ/L (3.5-5.1); TOTAL PROTEIN 6.4 GM/DL (6.4-8.2)
[2021-07-14 06:18] LABS: ABG BASE EXCESS -2.6 (-2.0-2.0); ABG HCO3 20.7 MEQ/L (22.0-26.0); ABG O2 SATURATION 95.3 % (95.0-99.0); ABG PARTIAL PRESSURE O2 75.1 mmHg (75.0-100.0); ABG STANDARD HCO3 22.2 MEQ/L (22.0-26.0); ABG TOTAL CO2 21.7 MEQ/L (23.0-31.0); ABG pH (ARTERIAL) 7.443 UNITS (7.350-7.450)
[2021-07-14] MEDS: HEPARIN SOD (PORCINE) 5000UNITS/ML 1ML VIAL/SYRINGE SC SCH ×3 (06:20→21:51)
[2021-07-14] MEDS: HumaLOG INSULIN (NovoLOG) PER UNIT SC SCH ×4 (06:21→18:14)
--- NOTE | 2021-07-14 08:21 | REP ---
INDICATION: Resp Failure. COMPARISON: Yesterday at 7:20 a.m. TECHNIQUE: Portable FINDINGS: The technique utilized in obtaining the radiograph has magnified the cardiac silhouette and accentuated the interstitial markings. The nasogastric and endotracheal tube are unchanged. Cardiomediastinal silhouette is unchanged. The somewhat patchy appearing left base opacities have improved. No new abnormal opacities have developed. There is no change in the osseous structures. IMPRESSION: Improvement as described above. <Electronically signed by Javy Regan > 07/14/21 [id number]
[2021-07-14] MEDS: PANTOPRAZOLE 40MG VIAL (C9113 PER 1) IV SCH (08:38)
[2021-07-14] MEDS: METOPROLOL TART 25 MG TABLET PO SCH ×2 (08:39→21:51)
[2021-07-14] MEDS: amLODIPine 5 MG TAB PO SCH (08:39)
[2021-07-14] MEDS: CHLORHEXIDINE GLUCONATE 0.12 % 15ML UDC (PERIDEX ORAL RINSE) MT SCH ×2 (08:40→21:51)
[2021-07-14] MEDS: levETIRAcetam INJection 1,000 MG in D5W 100 ML IV SCH ×2 (09:58→21:52)
[2021-07-14] MEDS ORDERED: SOD POLYSTYRENE SULFONATE SUSP 15 GM/60 ML UD PO ONE (10:00)
[2021-07-14] MEDS: METOPROLOL SUCC *XL* 12.5MG PER 1/2 TAB (TopROL *XL*) PO SCH (10:04)
[2021-07-14] MEDS ORDERED: SODIUM BICARBONATE 325 MG TAB PO ONE (11:00)
--- NOTE | 2021-07-14 11:31 | IPNPDOC ---
Text Note Date of Service The patient was seen on 07/14/21. NOTE CRITICAL CARE PROGRESS NOTE: SUBJECTIVE: Patient seen and examined at bedside. Patient remains on mechanical ventilation. Overnight patient had lost peripheral IVs however this morning she now has 2 peripheral IVs. She is not currently on any drips. She is been off sedation for 24 hours. She moves all extremities and grimaces but she does not follow commands. She is tolerating her tube feeds and she has good urine output. EEG was ordered but is not done over the weekend. She has not exhibited any more seizure activity. All other ROS are negative except as mentioned above PHYSICAL EXAMINATION: VITAL SIGNS: Please see below. GENERAL APPEARANCE: On mechanical ventilation HEENT: no thyromegaly, trachea midline, PERRLA. normal mucous membranes RESPIRATORY: Intubated, CTA B/L, good air entry. CARDIOVASCULAR: +s1 s2, no murmurs. ABDOMEN: nontender, not distended, +BS EXTREMITIES: Leg edema. palpable distal pulses SKIN: no rash, no purpura NEUROLOGICAL: Moves all extremities PERTINENT LABS/IMAGING: Chest x-ray done today there are no infiltrates, ET tube and OG tube are in satisfactory position. IMPRESSION: 1. Acute respiratory failure secondary to status epilepticus. Intubated for airway protection. 2. Diabetes mellitus with hyperglycemia improved 3. Coronary artery disease 4. Metabolic acidosis likely secondary to CKD and likely component of mild DKA which is now resolved as serum glucose is more controlled 5. Elevated lactate resolved 6. DREA on CKD nonoliguric resolved and now creatinine seems to be at baseline of 1.5 7. 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 EEG ordered will be done tomorrow. Neurology following. On Keppra and Dilantin, follow-up levels. Can use propofol if needed for severe agitation or recurrence of seizure activity PULM: HOB 30 degrees. Maintain Sp02 94-98%. No vent changes currently on /27/01/21. If wakes up and follows commands will do SBT. CARDIO: Maintain MAPs 60-65. Continue with antihypertensives and rate controlling medications. GI: OG feeds RENAL: Strict ins and outs monitor electrolytes, start sodium bicarb at 650 every 8 hour, Kayexalate x1, laxatives ID: No antibiotic. ENDO: Insulin sliding scale. Goal fingersticks 140-180 HEME: DVT prophylaxis LINES/CATHETERS: No central lines, Paulino catheter in place. DVT/GI PPX CODE STATUS: Full code DISPOSITION: Patient requires continued care in the medical ICU. VS,Fishbone, I+O VS, Fishbone, I+O Laboratory Tests 07/14/21 05:16 Vital Signs Date Time Temp Pulse Resp B/P (MAP) Pulse Ox O2 Delivery O2 Flow Rate FiO2 07/14/21 08:00 98.9 107 24 141/64 (89) 100 Ventilator 21 I&O- Last 24 Hours up to 6 AM 07/14/21 06:00 Intake Total 1668.2 ml Output Total 1600 ml Balance 68.2 ml WILSON QUINTEROS MD Jul 14, 2021 11:31
[2021-07-14] MEDS: propofoL 1,000 MG in IV 1 EA IV SCH (13:05)
[2021-07-14] MEDS: SENNA 8.6 MG TAB (SENOKOT) PO SCH (21:00)
[2021-07-14] MEDS: SODIUM BICARBONATE 325 MG TAB PO SCH (21:51)
[2021-07-15] VITALS (21 sets, daily range): BP systolic 105–149; BP diastolic 56–74
[2021-07-15] MEDS: HumaLOG INSULIN (NovoLOG) PER UNIT SC SCH ×4 (00:23→17:20)
[2021-07-15] MEDS: PHENYTOIN 100 MG/2 ML VIAL (J1165) IV SCH ×3 (00:23→17:20)
[2021-07-15] MEDS: propofoL 1,000 MG in IV 1 EA IV SCH ×2 (00:27→13:05)
[2021-07-15] MEDS: MIDAZOLAM INJ 2MG/2ML VIAL (J2250 PER 1MG) IV PRN ×2 (05:06→23:48)
[2021-07-15 06:13] LABS: ABG O2 SATURATION 98.7 % (95.0-99.0)
[2021-07-15 06:19] LABS: ABG BASE EXCESS -0.1 (-2.0-2.0); ABG HCO3 23.4 MEQ/L (22.0-26.0); ABG PARTIAL PRESSURE CO2 34.1 mmHg (35.0-45.0); ABG STANDARD HCO3 24.4 MEQ/L (22.0-26.0); ABG TOTAL CO2 24.5 MEQ/L (23.0-31.0); ABG pH (ARTERIAL) 7.455 UNITS (7.350-7.450)
[2021-07-15 06:36] LABS: BASO # 0.1 10^3/uL (0.0-0.2); BASO % 0.4 % (0.0-1.0); EOS # 0.3 10^3/uL (0.0-0.5); EOS % 1.9 % (0.0-3.0); HEMATOCRIT 30.8 % (36.0-47.0); HEMOGLOBIN 9.6 g/dl (12.0-15.5); LYMPH # 2.1 10^3/uL (1.5-5.0); LYMPH % 14.8 % (24.0-44.0); MEAN CORPUSCULAR HEMOGLOBIN 24.5 pg (27.0-33.0); MEAN CORPUSCULAR HGB CONC 31.2 g/dl (32.0-36.5); MEAN CORPUSCULAR VOLUME 78.6 fl (80.0-96.0); MONO # 1.2 10^3/uL (0.0-0.8); MONO % 8.5 % (2.0-8.0); NEUTROPHILS # 10.4 10^3/uL (1.5-8.5); NEUTROPHILS % 72.3 % (36.0-66.0); PLATELET COUNT, AUTOMATED 223 10^3/uL (150-450); RED BLOOD COUNT 3.92 10^6/uL (4.00-5.40); WHITE BLOOD COUNT 14.4 10^3/uL (4.0-10.0)
[2021-07-15] MEDS: HEPARIN SOD (PORCINE) 5000UNITS/ML 1ML VIAL/SYRINGE SC SCH ×3 (06:36→21:26)
[2021-07-15] MEDS: SODIUM BICARBONATE 325 MG TAB PO SCH ×3 (06:36→21:26)
[2021-07-15 07:16] LABS: ALBUMIN 1.6 GM/DL (3.2-5.2); BILIRUBIN,TOTAL 0.6 MG/DL (0.2-1.0); CALCIUM LEVEL 8.6 MG/DL (8.8-10.2); CREATININE FOR GFR 1.6 MG/DL (0.55-1.30); GLOMERULAR FILTRATION RATE 33.2 (>39); PHOSPHORUS LEVEL 2.8 MG/DL (2.5-4.9); POTASSIUM SERUM 4.3 MEQ/L (3.5-5.1); TOTAL PROTEIN 6.9 GM/DL (6.4-8.2)
--- NOTE | 2021-07-15 08:55 | REP ---
INDICATION: intubated. COMPARISON: 07/14/2021 at 7 a.m. TECHNIQUE: Portable FINDINGS: The technique utilized in obtaining the radiograph has magnified the cardiac silhouette and accentuated the interstitial markings. The tubes are unchanged. The cardiomediastinal silhouette is unchanged. Lung thayer are unchanged. No new abnormal opacities have developed. The osseous structures are stable. IMPRESSION: No significant change <Electronically signed by Javy Regan > 07/15/21 0846
[2021-07-15] MEDS: METOPROLOL TART 25 MG TABLET NG SCH ×2 (09:11→21:27)
[2021-07-15] MEDS: amLODIPine 5 MG TAB NG SCH (09:11)
[2021-07-15] MEDS: CHLORHEXIDINE GLUCONATE 0.12 % 15ML UDC (PERIDEX ORAL RINSE) MT SCH ×2 (09:12→21:26)
[2021-07-15] MEDS: levETIRAcetam INJection 1,000 MG in D5W 100 ML IV SCH ×2 (09:12→21:26)
[2021-07-15] MEDS: PANTOPRAZOLE 40MG VIAL (C9113 PER 1) IV SCH (09:12)
[2021-07-15] MEDS: LEVEMIR (INSULIN DETEMIR) 1 UNITS/0.01ML SC SCH ×2 (09:12→21:34)
--- NOTE | 2021-07-15 12:41 | IPNPDOC ---
Text Note Date of Service The patient was seen on 07/15/21. NOTE CRITICAL CARE PROGRESS NOTE: SUBJECTIVE: Patient seen and examined at bedside this morning. She remains on mechanical ventilation. There were no overnight events. She is off sedation for approximately 36 hours except she received a one-time dose of Versed 2 mg overnight for some minor agitation and biting the endotracheal tube. T-max last 24 hours she is afebrile. She has had 2 bowel movements. She is in negative fluid balance. All other ROS are negative except as mentioned above PHYSICAL EXAMINATION: VITAL SIGNS: Please see below. GENERAL APPEARANCE: Intubated HEENT: no thyromegaly, trachea midline, PERRLA. normal mucous membranes RESPIRATORY: Good air entry bilateral CARDIOVASCULAR: +s1 s2, no murmurs. ABDOMEN: nontender, not distended, +BS EXTREMITIES: no edema or erythema. palpable distal pulses SKIN: no rash, no purpura NEUROLOGICAL: Follows simple commands and she is alert to verbal stimuli PERTINENT LABS/IMAGING: Chest x-ray her lung thayer are without infiltrate and she has a endotracheal tube and OG tube that are in satisfactory position IMPRESSION: 1. Acute respiratory failure secondary to status epilepticus. Intubated for airway protection. 2. Diabetes mellitus with hyperglycemia improved 3. Coronary artery disease 4. Metabolic acidosis likely secondary to CKD and likely component of mild DKA which is now resolved as serum glucose is more controlled 5. Elevated lactate resolved 6. DREA on CKD nonoliguric resolved and now creatinine seems to be at baseline 7. 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 EEG done today follow-up result. Continue with Keppra and Dilantin and follow-up levels. PULM: HOB 30 degrees. Maintain Sp02 94-98%. No vent changes currently on 400/27/01/21. SBT today when more awake. CARDIO: Maintain MAPs 60-65. Continue with antihypertensives and rate controlling medications. GI: Hold feeds for SBT RENAL: Strict ins and outs monitor electrolytes, sodium bicarb at 650 every 8 hour, Kayexalate x1, laxatives ID: No antibiotic. ENDO: Basal bolus insulin, goal fingersticks 1 40-1 80 HEME: DVT prophylaxis LINES/CATHETERS: No central lines, Paulino catheter in place. DVT/GI PPX CODE STATUS: Full code DISPOSITION: Patient requires continued care in the medical ICU. VS,Fishbone, I+O VS, Fishbone, I+O Laboratory Tests 07/15/21 06:27 Vital Signs Date Time Temp Pulse Resp B/P (MAP) Pulse Ox O2 Delivery O2 Flow Rate FiO2 07/15/21 11:00 83 119/58 (78) 92 Ventilator 21 07/15/21 08:00 16 07/15/21 08:00 97.3 I&O- Last 24 Hours up to 6 AM 07/15/21 06:00 Intake Total 1490 ml Output Total 1695 ml Balance -205 ml WILSON QUINTEROS MD Jul 15, 2021 12:41
[2021-07-15] MEDS: SENNA 8.6 MG TAB (SENOKOT) PO SCH (21:27)
[2021-07-16] VITALS (16 sets, daily range): BP systolic 130–165; BP diastolic 62–77
[2021-07-16] MEDS: HumaLOG INSULIN (NovoLOG) PER UNIT SC SCH ×4 (00:34→17:13)
[2021-07-16] MEDS: PHENYTOIN 100 MG/2 ML VIAL (J1165) IV SCH ×3 (00:35→16:53)
[2021-07-16] MEDS: MIDAZOLAM INJ 2MG/2ML VIAL (J2250 PER 1MG) IV PRN ×2 (01:13→01:39)
[2021-07-16] MEDS: propofoL 1,000 MG in IV 1 EA IV SCH (03:16)
[2021-07-16 05:33] LABS: BASO # 0.1 10^3/uL (0.0-0.2); BASO % 0.5 % (0.0-1.0); EOS # 0.4 10^3/uL (0.0-0.5); EOS % 3.4 % (0.0-3.0); HEMATOCRIT 30.3 % (36.0-47.0); HEMOGLOBIN 9.1 g/dl (12.0-15.5); LYMPH # 1.6 10^3/uL (1.5-5.0); LYMPH % 14.1 % (24.0-44.0); MEAN CORPUSCULAR HEMOGLOBIN 24.3 pg (27.0-33.0); MEAN CORPUSCULAR VOLUME 80.8 fl (80.0-96.0); MONO % 8.7 % (2.0-8.0); NEUTROPHILS # 8.2 10^3/uL (1.5-8.5); NEUTROPHILS % 70.8 % (36.0-66.0); PLATELET COUNT, AUTOMATED 199 10^3/uL (150-450); RED BLOOD COUNT 3.75 10^6/uL (4.00-5.40); WHITE BLOOD COUNT 11.5 10^3/uL (4.0-10.0)
[2021-07-16] MEDS: HEPARIN SOD (PORCINE) 5000UNITS/ML 1ML VIAL/SYRINGE SC SCH ×3 (05:47→21:26)
[2021-07-16] MEDS: SODIUM BICARBONATE 325 MG TAB PO SCH ×3 (05:48→21:25)
[2021-07-16] MEDS: ACETAMINOPHEN 325 MG/10.15 ML UDC NG PRN ×2 (05:48→17:12)
[2021-07-16 06:12] LABS: ALBUMIN 1.6 GM/DL (3.2-5.2); BILIRUBIN,TOTAL 0.5 MG/DL (0.2-1.0); CALCIUM LEVEL 8.4 MG/DL (8.8-10.2); CREATININE FOR GFR 1.48 MG/DL (0.55-1.30); GLOMERULAR FILTRATION RATE 36.3 (>39); MAGNESIUM LEVEL 1.9 MG/DL (1.8-2.4); PHOSPHORUS LEVEL 3.1 MG/DL (2.5-4.9); POTASSIUM SERUM 4.5 MEQ/L (3.5-5.1); TOTAL PROTEIN 6.3 GM/DL (6.4-8.2)
[2021-07-16 06:23] LABS: ABG BASE EXCESS 0.8 (-2.0-2.0); ABG HCO3 24.9 MEQ/L (22.0-26.0); ABG O2 SATURATION 97.5 % (95.0-99.0); ABG PARTIAL PRESSURE CO2 37.6 mmHg (35.0-45.0); ABG PARTIAL PRESSURE O2 99.3 mmHg (75.0-100.0); ABG STANDARD HCO3 25.2 MEQ/L (22.0-26.0); ABG pH (ARTERIAL) 7.438 UNITS (7.350-7.450)
[2021-07-16] MEDS: CHLORHEXIDINE GLUCONATE 0.12 % 15ML UDC (PERIDEX ORAL RINSE) MT SCH ×2 (08:21→21:25)
[2021-07-16] MEDS: LEVEMIR (INSULIN DETEMIR) 1 UNITS/0.01ML SC SCH (08:21)
[2021-07-16] MEDS: PANTOPRAZOLE 40MG VIAL (C9113 PER 1) IV SCH (08:21)
[2021-07-16] MEDS: amLODIPine 5 MG TAB NG SCH (08:22)
[2021-07-16] MEDS: METOPROLOL TART 25 MG TABLET NG SCH ×2 (08:23→21:25)
--- NOTE | 2021-07-16 08:31 | REP ---
INDICATION: intubated. COMPARISON: 07/15/2021, 07/14/2021, 07/13/2021. TECHNIQUE: AP portable semi erect FINDINGS: The endotracheal and nasogastric tubes are unchanged. Lungs are hypoinflated with further mild improvements in aeration at the retrocardiac left base with some persistent patchy atelectasis or infiltrates. Remainder of the lung thayer unchanged. Cardiomediastinal silhouette stable. Dextro rotatory curvature of the thoracic spine. IMPRESSION: 1. Some further mild improvement in the retrocardiac left lower lobe atelectasis and or infiltrates remainder of the lung thayer unchanged. 2. NG and endotracheal tubes unchanged. No new findings. <Electronically signed by Huang Moreland > 07/16/21 3060
--- NOTE | 2021-07-16 10:27 | IPNPDOC ---
Text Note Date of Service The patient was seen on 07/16/21. NOTE CRITICAL CARE PROGRESS NOTE: SUBJECTIVE: Patient seen and examined at bedside. Patient remains on mechanical ventilation. Febrile last 24 hrs. Fingersticks have been high in the 300s. Patient was agitated overnight and needed Versed 2 mg pushes x4 doses. overnight Propofol drip was also increased as patient was biting tubes. She is having bowel movements. She is tolerating her tube feeds. She is having one episode of diarrhea. Last 24 hours she has negative fluid balance of 492. EEG was done yesterday and report is pending All other ROS are negative except as mentioned above PHYSICAL EXAMINATION: VITAL SIGNS: Please see below. GENERAL APPEARANCE: On mechanical ventilation HEENT: no thyromegaly, trachea midline, PERRLA. normal mucous membranes RESPIRATORY: Intubated with clear breath sounds bilateral CARDIOVASCULAR: +s1 s2, no murmurs. ABDOMEN: nontender, not distended, +BS EXTREMITIES: no edema or erythema. palpable distal pulses SKIN: no rash, no purpura NEUROLOGICAL: Moves all extremities and withdraws to pain, alert and arousable PERTINENT LABS/IMAGING: Chest x-ray today showed no infiltrates, ET tube and OG tube are satisfactory position IMPRESSION: 1. Acute respiratory failure secondary to status epilepticus. Intubated for airway protection. Mental status mildly improved, no seizure activity off sedation 2. Diabetes mellitus with hyperglycemia improved 3. Coronary artery disease 4. Metabolic acidosis likely secondary to CKD and likely component of mild DKA which is now resolved as serum glucose is more controlled 5. Elevated lactate resolved 6. DREA on CKD nonoliguric resolved and now creatinine seems to be at baseline 7. 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 EEG done awaiting read. Continue with Keppra and Dilantin and follow-up levels. neurology on board PULM: HOB 30 degrees. Maintain Sp02 94-98%. No vent changes currently on 400//02/10. SBT today if more awake. CARDIO: Maintain MAPs 60-65. Continue with antihypertensives and rate controlling medications. GI: Hold feeds for SBT, DC laxatives RENAL: Strict ins and outs monitor electrolytes, sodium bicarb at 650 every 8 hour ID: having fevers and increase secretions, possible tracheobronchitis as CXR is without infiltrates, o2 requirement is stable, send blood cultures and deep tracheal aspirate, monitor off antibiotics for now ENDO: Increase Levemir 10 units every 12 and continue with sliding scale. Goal fingersticks 140-180 HEME: DVT prophylaxis LINES/CATHETERS: No central lines, Paulino catheter in place. DVT/GI PPX CODE STATUS: Full code DISPOSITION: Patient requires continued care in the medical ICU. VS,Fishbone, I+O VS, Fishbone, I+O Laboratory Tests 07/16/21 05:21 Vital Signs Date Time Temp Pulse Resp B/P (MAP) Pulse Ox O2 Delivery O2 Flow Rate FiO2 07/16/21 09:00 89 18 135/72 (93) 91 Ventilator 21 07/16/21 08:00 101.0 I&O- Last 24 Hours up to 6 AM 07/16/21 06:00 Intake Total 900 ml Output Total 980 ml Balance -80 ml WILSON QUINTEROS MD Jul 16, 2021 10:27
[2021-07-16] MEDS: levETIRAcetam INJection 1,000 MG in D5W 100 ML IV SCH ×2 (11:12→21:26)
[2021-07-16] MEDS ORDERED: LIDOCAINE 1% MDV 20ML VIAL As Ordered ONE (13:28)
[2021-07-16] MEDS ORDERED: SODIUM CHLORIDE 0.9% INJ 10 ML SYR IV PRN (16:00)
[2021-07-16] MEDS: SODIUM CHLORIDE 0.9% INJ 10 ML SYR IV SCH (17:13)
[2021-07-16] MEDS ORDERED: DEXMEDETOMIDINE IV SCH (18:00)
--- NOTE | 2021-07-16 20:03 | EEG ---
ELECTROENCEPHALOGRAM DATE: 07/15/2021 REFERRING PHYSICIAN: Andrey Martins MD DIAGNOSIS: Respiratory failure, status epilepticus. EEG#: [id number] HISTORY: The patient is a 76-year-old woman who was admitted to [facility] due to multiple generalized tonic-clonic seizures. She is currently on Dilantin, Keppra, propofol, etc. TECHNICAL DESCRIPTION: This digital electroencephalogram (EEG) was recorded by 21 scalp, ear, and two electrocardiogram (EKG) electrodes and was reviewed in bipolar and referential montages following reformatting in 10-20 international electrode placement system. INTERPRETATION: The patient was noted to be mostly in asleep state during this EEG. Resting background rhythm consisted of 3-4 Hz delta activity measuring 15-40 microvolts in amplitude which was symmetric bilaterally. Hyperventilation was not performed. No clear sleep stages were identified. EKG revealed normal sinus rhythm. Periodic lateralized epileptiform discharges were noted in the right more than left frontal and temporal head region. No relevant clinical activity was noted. CONCLUSION: This EEG in mostly asleep state on mechanical ventilator is abnormal due to the presence of right more than left frontal and temporal periodic lateralized epileptiform discharges and ____ focal cortical structural or functional abnormality with epileptic potential. In addition, generalized slowing of background is consistent with diffuse nonspecific cerebral dysfunction such as seen in encephalopathy due to multiple potential causes including toxic, metabolic, infectious, medication related, or multifocal structural brain abnormalities. Clinical correlation is recommended.
[2021-07-16] MEDS ORDERED: LEVEMIR (INSULIN DETEMIR) 1 UNITS/0.01ML SC SCH (21:00)
[2021-07-17] VITALS (9 sets, daily range): BP systolic 93–158; BP diastolic 45–79
[2021-07-17] MEDS: HumaLOG INSULIN (NovoLOG) PER UNIT SC SCH ×5 (00:18→23:46)
[2021-07-17] MEDS: PHENYTOIN 100 MG/2 ML VIAL (J1165) IV SCH ×3 (00:19→16:23)
[2021-07-17] MEDS: ACETAMINOPHEN 325 MG/10.15 ML UDC NG PRN (02:57)
[2021-07-17] MEDS: HEPARIN SOD (PORCINE) 5000UNITS/ML 1ML VIAL/SYRINGE SC SCH ×3 (05:39→21:00)
[2021-07-17] MEDS: SODIUM BICARBONATE 325 MG TAB PO SCH (05:39)
[2021-07-17] MEDS: SODIUM CHLORIDE 0.9% INJ 10 ML SYR IV SCH ×2 (05:39→18:40)
[2021-07-17 06:01] LABS: HEMATOCRIT 28.6 % (36.0-47.0); HEMOGLOBIN 8.6 g/dl (12.0-15.5); MEAN CORPUSCULAR HEMOGLOBIN 24.5 pg (27.0-33.0); MEAN CORPUSCULAR HGB CONC 30.1 g/dl (32.0-36.5); MEAN CORPUSCULAR VOLUME 81.5 fl (80.0-96.0); PLATELET COUNT, AUTOMATED 200 10^3/uL (150-450); RED BLOOD COUNT 3.51 10^6/uL (4.00-5.40); WHITE BLOOD COUNT 12.8 10^3/uL (4.0-10.0)
[2021-07-17 06:03] LABS: ABG HCO3 23.8 MEQ/L (22.0-26.0); ABG O2 SATURATION 99.3 % (95.0-99.0); ABG PARTIAL PRESSURE CO2 35.2 mmHg (35.0-45.0); ABG PARTIAL PRESSURE O2 207.7 mmHg (75.0-100.0); ABG STANDARD HCO3 24.6 MEQ/L (22.0-26.0); ABG TOTAL CO2 24.9 MEQ/L (23.0-31.0); ABG pH (ARTERIAL) 7.448 UNITS (7.350-7.450)
[2021-07-17 06:26] LABS: ALBUMIN 1.4 GM/DL (3.2-5.2); BILIRUBIN,TOTAL 0.4 MG/DL (0.2-1.0); CALCIUM LEVEL 8.6 MG/DL (8.8-10.2); CREATININE FOR GFR 1.44 MG/DL (0.55-1.30); GLOMERULAR FILTRATION RATE 37.5 (>39); MAGNESIUM LEVEL 1.8 MG/DL (1.8-2.4); PHOSPHORUS LEVEL 2.6 MG/DL (2.5-4.9); POTASSIUM SERUM 3.7 MEQ/L (3.5-5.1); TOTAL PROTEIN 6.9 GM/DL (6.4-8.2)
[2021-07-17 06:48] LABS: EOSINOPHILS 1 % (0-3); LYMPHOCYTES 11 % (16-44); MONOCYTES 4 % (0-5); NEUTROPHILS 84 % (28-66)
[2021-07-17 06:49] LABS: PLATELET ESTIMATE NORMAL (NORMAL)
--- NOTE | 2021-07-17 08:47 | REP ---
INDICATION: intubated. COMPARISON: 07/16/2021, 07/15/2021. TECHNIQUE: AP portable seated FINDINGS: The endotracheal and nasogastric tubes are unchanged. There is now a right-sided PICC line terminating in the SVC. Lung thayer are better inflated on today's study. There is improvement in the retrocardiac left lower lobe atelectasis the, nearly completely resolved on today's study. No effusion or dense consolidation. Some patchy right medial base atelectasis or infiltrate noted. Heart size not grossly enlarged. The aorta is calcified at the arch but without aneurysm. No abnormal widening of the mediastinum. Bones are unchanged. IMPRESSION: 1. Endotracheal and nasogastric tubes unchanged and a new right-sided PICC line is seen in place. 2. Much improved level of inflation with clearing of the retrocardiac left lower lobe atelectasis or infiltrate and some trace patchy atelectasis or infiltrate in the right medial base. No other new or significant finding. <Electronically signed by Huang Moreland > 07/17/21 0829
[2021-07-17] MEDS: CHLORHEXIDINE GLUCONATE 0.12 % 15ML UDC (PERIDEX ORAL RINSE) MT SCH ×2 (09:40→20:03)
[2021-07-17] MEDS: amLODIPine 5 MG TAB NG SCH (09:40)
[2021-07-17] MEDS: PANTOPRAZOLE 40MG VIAL (C9113 PER 1) IV SCH (09:40)
[2021-07-17] MEDS: LEVEMIR (INSULIN DETEMIR) 1 UNITS/0.01ML SC SCH ×2 (09:41→20:04)
[2021-07-17] MEDS: METOPROLOL TART 25 MG TABLET NG SCH ×2 (09:41→20:04)
[2021-07-17] MEDS ORDERED: levETIRAcetam INJection 1,250 MG in D5W 100 ML IV SCH (10:00)
--- NOTE | 2021-07-17 13:23 | IPNPDOC ---
Text Note Date of Service The patient was seen on 07/17/21. NOTE CRITICAL CARE PROGRESS NOTE: SUBJECTIVE: Patient seen and examined at bedside. Patient remains on mechanical ventilation. Patient had a T-max of 101.8 degrees. Patient's fluid balance is -400 and last 24 hours. She is having good urine output. She is having bowel movements. She is not on any drips and she has not received any sedation overnight. Tube feeds were held overnight for concern for aspiration as she was having thick secretions from her endotracheal tube. All other ROS are negative except as mentioned above PHYSICAL EXAMINATION: VITAL SIGNS: Please see below. GENERAL APPEARANCE: Alert HEENT: no thyromegaly, trachea midline, PERRLA. normal mucous membranes RESPIRATORY: Intubated, clear breath sounds bilateral. CARDIOVASCULAR: +s1 s2, no murmurs. ABDOMEN: nontender, not distended, +BS EXTREMITIES: no edema or erythema. palpable distal pulses SKIN: no rash, no purpura NEUROLOGICAL: Moves extremities, nonfocal, arousable to verbal stimuli but does not follow commands PERTINENT LABS/IMAGING: Chest x-ray from this morning ET tube, OG tube, right PICC line are in satisfactory position. There are no infiltrates. IMPRESSION: 1. Acute respiratory failure secondary to status epilepticus. Intubated for airway protection. Still altered mental status, no seizure activity off sedation, EEG no active seizures 2. Diabetes mellitus with hyperglycemia improved 3. Coronary artery disease 4. Metabolic acidosis likely secondary to CKD and likely component of mild DKA which is now resolved as serum glucose is more controlled 5. Elevated lactate resolved 6. DREA on CKD nonoliguric resolved and now creatinine seems to be at baseline 7. Hypertension PLAN: LINOTYPER: EEG showing bilateral periodic epileptiform discharges but no active sei zures. Neurology on board. Keppra dose possibly to high for renal function, and possible causing unwanted sedation. will decrease to 500 q12h. repeat EEG. Continue with Dilantin 200 every 8 hour, dilantin level therapeutic. Continue to keep off sedation. fup keppra level PULM: HOB 30 degrees. Maintain Sp02 94-98%. No vent changes currently on 400//02/10. SBT today if more awake. CARDIO: Maintain MAPs 60-65. Continue with antihypertensives and rate controlling medications. GI: Resume feeds RENAL: Strict ins and outs monitor electrolytes, bicarb 650 every 24 ID: having fevers and increase secretions, possible tracheobronchitis as CXR is without infiltrates, o2 requirement is stable, CTA pending, blood culture is negative. monitor off antibiotics for now. Check right upper quadrant sono ENDO: Increase Levemir 12 units units every 12 and continue with sliding scale. Goal fingersticks 140-180 HEME: DVT prophylaxis LINES/CATHETERS: No central lines, Paulino catheter in place. DVT/GI PPX CODE STATUS: Full code. Spoke with [id number] Rosmery who is the healthcare proxy and updated on the patient's condition. DISPOSITION: Patient requires continued care in the medical ICU. VS,Fishbone, I+O VS, Fishbone, I+O Laboratory Tests 07/17/21 05:36 Vital Signs Date Time Temp Pulse Resp B/P (MAP) Pulse Ox O2 Delivery O2 Flow Rate FiO2 07/17/21 12:00 30 07/17/21 12:00 101.3 87 25 107/54 (71) 92 Ventilator l I&O- Last 24 Hours up to 6 AM 07/17/21 06:00 Intake Total 1045 ml Output Total 1290 ml Balance -245 ml WILSON QUINTEROS MD Jul 17, 2021 13:23
--- NOTE | 2021-07-17 17:32 | REP ---
INDICATION: poor IV access. COMPARISON: None. TECHNIQUE: The procedure was performed under the direct supervision of Dr. Braxton. The risks and benefits of the procedure were explained and informed consent was obtained by the healthcare proxy. The right basilic vein was localized using ultrasound guidance. The skin was prepped and draped in a sterile fashion. 1 mL of 1% lidocaine was used as a local anesthetic. Using ultrasound guidance the basilic vein was cannulated and a 0.018 guidewire was inserted. The needle was removed and a 5.5 [place]an dilator and peel-away sheath was inserted over the guide wire. At this time was noticed that there was no blood return. A syringe was connected to the dilator and the sheath and dilator were withdrawn. There was no blood return. The right brachial vein was localized using ultrasound guidance. 1 mL of 1% lidocaine was used as a local anesthetic. Using ultrasound guidance the brachial vein was cannulated and a 0.018 guidewire was inserted. The needle was removed and a 5.5 [place]an dilator and peel-away sheath was inserted over the guidewire. A 5.5 [place]an dual lumen catheter was cut to a length of 40 cm. The dilator was removed and the catheter was inserted over the guidewire. A portable chest x-ray was performed and the image demonstrates the tip of the catheter to be near or in the right atrium. The catheter was removed and cut to a length of 36 cm. The catheter was inserted and another chest x-ray was performed. The image demonstrates the tip of the catheter to be in the SVC. The peel-away sheath was removed and the catheter was flushed with heparinized saline as per hospital protocol. Catheter was affixed to the skin and a sterile dressing was applied. Estimated blood loss: Less than 1 mL The patient tolerated the procedure well and there were no immediate complications. FINDINGS: None IMPRESSION: PICC line insertion right brachial vein with the tip ending in the SVC. <Electronically signed by Cheo Saeed > 07/16/21 1527 <Electronically signed by Pierre Braxton > 07/17/21 0024
--- NOTE | 2021-07-17 20:42 | REPVR ---
PROCEDURE INFORMATION: Exam: US Abdomen, Limited; Right Upper Quadrant Exam date and time: 07/17/2021 8:02 PM Age: 76 years old Clinical indication: Screening exam; Other: Eval for cholecystis; Additional info: Right upper quadrant, eval for cholecytsis TECHNIQUE: Imaging protocol: US abdomen. Real time ultrasound with image documentation. Limited exam focused on the right upper quadrant. COMPARISON: CT ABD PELVIS W/O CONTRAST 03/09/2021 8:50 PM FINDINGS: Liver: Subtle nodularity of the hepatic contour, suggesting cirrhosis. Gallbladder: Cholelithiasis without gallbladder wall thickening or pericholecystic fluid. Negative sonographic Pittman's sign, as per the extension work instructor. Common bile duct: Suboptimally visualized. Pancreas: Suboptimally visualized. Right kidney: Suboptimally visualized. IMPRESSION: 1. Cholelithiasis without sonographic evidence of acute cholecystitis. 2. Subtle nodularity of the hepatic contour, suggesting cirrhosis. Electronically signed by: Pb Cabrera On 07/17/2021 20:41:56 PM
[2021-07-17] MEDS: levETIRAcetam INJection 500 MG in D5W MINI-BAG PLUS 100 ML IV SCH (22:05)
[2021-07-18] VITALS (27 sets, daily range): BP systolic 76–158; BP diastolic 43–85
[2021-07-18] MEDS: PHENYTOIN 100 MG/2 ML VIAL (J1165) IV SCH ×2 (00:19→08:12)
[2021-07-18 05:00] LABS: ALBUMIN 1.4 GM/DL (3.2-5.2); BILIRUBIN,TOTAL 0.5 MG/DL (0.2-1.0); CALCIUM LEVEL 7.8 MG/DL (8.8-10.2); CREATININE FOR GFR 1.26 MG/DL (0.55-1.30); GLOMERULAR FILTRATION RATE 43.7 (>39); MAGNESIUM LEVEL 1.8 MG/DL (1.8-2.4); PHOSPHORUS LEVEL 2.8 MG/DL (2.5-4.9); POTASSIUM SERUM 3.4 MEQ/L (3.5-5.1)
[2021-07-18] MEDS: HEPARIN SOD (PORCINE) 5000UNITS/ML 1ML VIAL/SYRINGE SC SCH ×3 (05:08→21:32)
[2021-07-18] MEDS: HumaLOG INSULIN (NovoLOG) PER UNIT SC SCH ×3 (05:09→17:44)
[2021-07-18] MEDS: SODIUM CHLORIDE 0.9% INJ 10 ML SYR IV SCH ×2 (05:10→17:50)
[2021-07-18 05:58] LABS: ABG BASE EXCESS 3.3 (-2.0-2.0); ABG HCO3 27.4 MEQ/L (22.0-26.0); ABG O2 SATURATION 98.4 % (95.0-99.0); ABG PARTIAL PRESSURE CO2 39.8 mmHg (35.0-45.0); ABG PARTIAL PRESSURE O2 118.1 mmHg (75.0-100.0); ABG STANDARD HCO3 27.4 MEQ/L (22.0-26.0); ABG TOTAL CO2 28.6 MEQ/L (23.0-31.0); ABG pH (ARTERIAL) 7.456 UNITS (7.350-7.450)
[2021-07-18] MEDS: CHLORHEXIDINE GLUCONATE 0.12 % 15ML UDC (PERIDEX ORAL RINSE) MT SCH ×2 (08:11→20:24)
[2021-07-18] MEDS: PANTOPRAZOLE 40MG VIAL (C9113 PER 1) IV SCH (08:11)
[2021-07-18] MEDS: METOPROLOL TART 25 MG TABLET NG SCH ×2 (08:13→20:25)
[2021-07-18] MEDS: amLODIPine 5 MG TAB NG SCH (08:13)
--- NOTE | 2021-07-18 08:38 | REP ---
INDICATION: intubated. COMPARISON: 07/17/2021. TECHNIQUE: Single portable AP view of the chest was performed. FINDINGS: There is poor ventilation. Mildly increased left basilar retrocardiac opacity may represent increased atelectasis. The heart and mediastinum are grossly unchanged. The right arm PICC line, endotracheal tube and nasogastric tube appear unchanged. IMPRESSION: Poor ventilation. Mildly increased left basilar retrocardiac opacity probably represents increased atelectatic change. <Electronically signed by Pierre Braxton > 07/18/21 0834
[2021-07-18] MEDS: LEVEMIR (INSULIN DETEMIR) 1 UNITS/0.01ML SC SCH ×2 (09:00→20:25)
[2021-07-18] MEDS ORDERED: SODIUM BICARBONATE 325 MG TAB PO SCH (09:00)
[2021-07-18] MEDS ORDERED: POTASSIUM CHLORIDE 10% LIQ 20 MEQ/15 ML UDC NG ONE (09:10)
[2021-07-18] MEDS: levETIRAcetam INJection 500 MG in D5W MINI-BAG PLUS 100 ML IV SCH ×2 (09:26→21:31)
[2021-07-18] MEDS: ACETAMINOPHEN 325 MG/10.15 ML UDC NG PRN (09:28)
--- NOTE | 2021-07-18 09:45 | IPNPDOC ---
Text Note Date of Service The patient was seen on 07/18/21. NOTE CRITICAL CARE PROGRESS NOTE: SUBJECTIVE: Patient seen and examined. Patient remains on mechanical ventilation. Patient has a T-max of one 1.3. There were no overnight events. Patient has been off sedation for 2 days. She is not on any drips. She has an equal fluid balance. Her urine output is satisfactory. She is tolerating trickle feeds. All other ROS are negative except as mentioned above PHYSICAL EXAMINATION: VITAL SIGNS: Please see below. GENERAL APPEARANCE: Alert , drowsy HEENT: no thyromegaly, trachea midline, PERRLA. normal mucous membranes RESPIRATORY: Intubated CTA B/L, good air entry. CARDIOVASCULAR: +s1 s2, no murmurs. ABDOMEN: nontender, not distended, +BS EXTREMITIES: no edema or erythema. palpable distal pulses SKIN: no rash, no purpura NEUROLOGICAL: no sensory or motor deficits, moves all extremities, lifts head off bed, follows simple commands, good cough reflex PERTINENT LABS/IMAGING: Chest x-ray from today ET tube, OG tube, right PICC line are in satisfactory position. There are no infiltrates. EEG showing bilateral periodic epileptiform discharges but no active seizures. IMPRESSION: 1. Acute respiratory failure secondary to status epilepticus. Intubated for airway protection. Still altered mental status, no seizure activity off sedation, EEG no active seizures 2. Diabetes mellitus with hyperglycemia improved 3. Coronary artery disease 4. Metabolic acidosis likely secondary to CKD and likely component of mild DKA which is now resolved as serum glucose is more controlled 5. Elevated lactate resolved 6. DREA on CKD nonoliguric resolved and now creatinine seems to be at baseline 7. Hypertension 8. 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 Dilantin and Keppra level okay. Patient more awake today and following simple commands PULM: HOB 30 degrees. Maintain Sp02 94-98%. SBT CARDIO: Maintain MAPs 60-65. Continue with antihypertensives and rate controlling medications. GI: Hold feeds RENAL: Strict ins and outs monitor electrolytes, DC bicarb ID: Follow-up deep tracheal aspirate, blood cultures are negative, right upper quadrant sono no cholecystitis ENDO: Levemir 12 units units every 12 and continue with sliding scale. Goal fingersticks 140-180 HEME: DVT prophylaxis LINES/CATHETERS: No central lines, Paulino catheter in place. DVT/GI PPX CODE STATUS: Full code. DISPOSITION: Patient requires continued care in the medical ICU. VS,Fishbone, I+O VS, Fishbone, I+O Laboratory Tests 07/18/21 05:00 Vital Signs Date Time Temp Pulse Resp B/P (MAP) Pulse Ox O2 Delivery O2 Flow Rate FiO2 07/18/21 08:13 60 127/60 07/18/21 07:35 23 96 40 07/18/21 07:00 Ventilator 07/18/21 04:00 98.6 07/18/21 03:00 I&O- Last 24 Hours up to 6 AM 07/18/21 06:00 Intake Total 495.5 ml Output Total 760 ml Balance -264.5 ml WILSON QUINTEROS MD Jul 18, 2021 09:45
--- NOTE | 2021-07-18 10:20 | ROOPDOC ---
[facility] Report Of Operation Report of Operation INDICATION: Respiratory failure, not protecting airway, hypoxia PROCEDURE [employer] BASED THERAPIST: Dr Jacobsen PROCEDURE: Endotracheal intubation PROCEDURE SUMMARY: I wore a surgical cap, mask with protective eyewear, gown and gloves throughout the procedure. The patient was placed on a nurse monitoring including continuous pulse oximetry. Rapid Sequence Intubation was conducted. The patient received 20 mg of etomidate for induction and 50 mg of succinylcholine for adequate paralysis. Using a video laryngoscope and a size 7 endotracheal tube with stylet, the patient was intubated on the second attempt. There was mild vocal cord edema. The stylet was removed and cuff balloon was inflated. Appropriate endotracheal tube position was confirmed by direct visualization of vocal cord passage, fogging of the tube, CO2 colometric indicator and symmetric breath sounds. The tube was secured at 22 cm at the lips. Post intubation chest x-ray is pending at this time. WILSON JACOBSEN MD Jul 18, 2021 10:20
--- NOTE | 2021-07-18 11:05 | REP ---
INDICATION: patient intubated. The early this COMPARISON: 07/18/2021 at 6:45 a.m., 07/17/2021, 07/16/2021 TECHNIQUE: AP portable supine chest at 10:29 a.m. FINDINGS: Better level of inflation than earlier this a.m. The right subclavian PICC line, endotracheal and nasogastric tubes are all unchanged. The left base retrocardiac density is cleared with improved inflation. However there is increased right medial base patchy infiltrate or atelectasis as seen on yesterday's study and this is progressed since that time. The heart size is unchanged but there appears to be some vascular congestion. The aorta is calcified and tortuous, unchanged. IMPRESSION: 1. Better level of inflation with clearing of the retrocardiac left lower lobe atelectasis seen on the study earlier this date. However there is increased patchy medial right base atelectasis or infiltrates and some vascular congestion suggested in the upper lung zones. No gross effusion. 2. Lines and tubes unchanged. <Electronically signed by Huang Moreland > 07/18/21 1105
[2021-07-18 11:08] LABS: ABG BASE EXCESS -0.2 (-2.0-2.0); ABG HCO3 24.4 MEQ/L (22.0-26.0); ABG O2 SATURATION 98.8 % (95.0-99.0); ABG PARTIAL PRESSURE CO2 39.5 mmHg (35.0-45.0); ABG PARTIAL PRESSURE O2 136.6 mmHg (75.0-100.0); ABG STANDARD HCO3 24.4 MEQ/L (22.0-26.0); ABG TOTAL CO2 25.6 MEQ/L (23.0-31.0); ABG pH (ARTERIAL) 7.409 UNITS (7.350-7.450)
[2021-07-18] MEDS: MIDAZOLAM INJ 2MG/2ML VIAL (J2250 PER 1MG) IV PRN ×4 (11:20→22:08)
--- NOTE | 2021-07-18 11:46 | REP ---
INDICATION: ams. COMPARISON: 07/10/2021. TECHNIQUE: CT brain performed in the axial plane. Coronal reconstruction images are performed. FINDINGS: There is moderate atrophy and periventricular chronic small vessel ischemic change, stable. No new abnormal brain densities are seen. There is no acute intracranial hemorrhage or extra-axial fluid collection. There is no midline shift or mass effect. There is mild diffuse mucosal thickening in the paranasal sinuses. IMPRESSION: Stable chronic brain findings as above. No evidence of acute intracranial hemorrhage, midline shift or mass effect. <Electronically signed by Pierre Braxton > 07/18/21 1146
[2021-07-18] MEDS ORDERED: PHENYTOIN INJ 250 MG/5 ML VIAL (J1165) IV SCH (12:12)
[2021-07-18] MEDS ORDERED: ETOMIDATE INJ 20MG/10ML VIAL IV STA (12:24)
[2021-07-18] MEDS ORDERED: SUCCINYLCHOLINE INJ 200 MG/10 ML VIAL (J0330) IV STA (12:24)
[2021-07-18] MEDS ORDERED: SUCCINYLCHOLINE 100 MG/5 ML SYRINGE (J0330) ONE (14:28)
[2021-07-18] MEDS: PHENYTOIN INJ 250 MG/5 ML VIAL (J1165) IV SCH (15:30)
[2021-07-18] MEDS: dexmedeTOMidine 200 MCG in IV 1 EA IV SCH (22:08)
[2021-07-19] VITALS (24 sets, daily range): BP systolic 83–146; BP diastolic 48–77
[2021-07-19] MEDS: HumaLOG INSULIN (NovoLOG) PER UNIT SC SCH ×4 (00:19→17:55)
[2021-07-19] MEDS: PHENYTOIN INJ 250 MG/5 ML VIAL (J1165) IV SCH ×3 (00:20→16:59)
[2021-07-19] MEDS: MIDAZOLAM INJ 2MG/2ML VIAL (J2250 PER 1MG) IV PRN ×8 (03:31→23:39)
[2021-07-19] MEDS ORDERED: NS 500 ML IV ONE (04:30)
[2021-07-19] MEDS ORDERED: VANCOMYCIN HCL 1,500 MG in IV FLUID PLACE HOLDER 1 EA IV SCH (04:30)
[2021-07-19] MEDS ORDERED: VANCOMYCIN HCL 1,000 MG, VIAL MATE ADAPTER 1 EACH in NS 250 ML IV ONE (04:35)
[2021-07-19] MEDS: dexmedeTOMidine 200 MCG in IV 1 EA IV SCH ×2 (04:56→10:08)
[2021-07-19 05:08] LABS: BASO # 0.1 10^3/uL (0.0-0.2); BASO % 0.6 % (0.0-1.0); EOS # 0.6 10^3/uL (0.0-0.5); EOS % 6.8 % (0.0-3.0); HEMATOCRIT 25.2 % (36.0-47.0); HEMOGLOBIN 7.5 g/dl (12.0-15.5); LYMPH # 1.1 10^3/uL (1.5-5.0); LYMPH % 12.8 % (24.0-44.0); MEAN CORPUSCULAR HEMOGLOBIN 24.7 pg (27.0-33.0); MEAN CORPUSCULAR HGB CONC 29.8 g/dl (32.0-36.5); MEAN CORPUSCULAR VOLUME 82.9 fl (80.0-96.0); MONO # 0.6 10^3/uL (0.0-0.8); MONO % 7.1 % (2.0-8.0); NEUTROPHILS # 5.8 10^3/uL (1.5-8.5); NEUTROPHILS % 70.9 % (36.0-66.0); PLATELET COUNT, AUTOMATED 194 10^3/uL (150-450); RED BLOOD COUNT 3.04 10^6/uL (4.00-5.40); WHITE BLOOD COUNT 8.2 10^3/uL (4.0-10.0)
[2021-07-19] MEDS: HEPARIN SOD (PORCINE) 5000UNITS/ML 1ML VIAL/SYRINGE SC SCH ×3 (05:12→21:24)
[2021-07-19] MEDS: SODIUM CHLORIDE 0.9% INJ 10 ML SYR IV SCH ×2 (05:13→17:55)
[2021-07-19 05:31] LABS: ALBUMIN 1.3 GM/DL (3.2-5.2); BILIRUBIN,TOTAL 0.5 MG/DL (0.2-1.0); CALCIUM LEVEL 8.4 MG/DL (8.8-10.2); CREATININE FOR GFR 1.49 MG/DL (0.55-1.30); PHOSPHORUS LEVEL 3.1 MG/DL (2.5-4.9); POTASSIUM SERUM 3.6 MEQ/L (3.5-5.1); TOTAL PROTEIN 6.4 GM/DL (6.4-8.2)
[2021-07-19 05:38] LABS: ABG BASE EXCESS 1.6 (-2.0-2.0); ABG HCO3 25.5 MEQ/L (22.0-26.0); ABG O2 SATURATION 97.1 % (95.0-99.0); ABG PARTIAL PRESSURE CO2 37.2 mmHg (35.0-45.0); ABG PARTIAL PRESSURE O2 91.2 mmHg (75.0-100.0); ABG STANDARD HCO3 25.9 MEQ/L (22.0-26.0); ABG TOTAL CO2 26.7 MEQ/L (23.0-31.0); ABG pH (ARTERIAL) 7.454 UNITS (7.350-7.450)
[2021-07-19] MEDS ORDERED: VANCOMYCIN HCL 1,000 MG, VIAL MATE ADAPTER 1 EACH in NS 250 ML IV SCH (06:00)
--- NOTE | 2021-07-19 08:55 | REP ---
INDICATION: intubated. COMPARISON: 07/18/2021. TECHNIQUE: Single portable AP view of the chest was performed. FINDINGS: There is mildly increased atelectasis/infiltrate in each lung base. There is mild cardiomegaly. There is some calcification of the thoracic aorta. The mediastinal silhouette appears unchanged. There is a right arm PICC line with the tip in the superior vena cava. An endotracheal tube is seen with the tip approximately 2.5 cm above the kassi. Nasogastric tube is well positioned in the stomach. IMPRESSION: Mild increase in bibasilar atelectasis/infiltrate. <Electronically signed by Pierre Braxton > 07/19/21 [id number]
[2021-07-19] MEDS: METOPROLOL TART 25 MG TABLET NG SCH ×2 (09:00→21:00)
[2021-07-19] MEDS: amLODIPine 5 MG TAB NG SCH (09:00)
[2021-07-19] MEDS: levETIRAcetam INJection 500 MG in D5W MINI-BAG PLUS 100 ML IV SCH ×2 (10:35→22:22)
[2021-07-19] MEDS: CHLORHEXIDINE GLUCONATE 0.12 % 15ML UDC (PERIDEX ORAL RINSE) MT SCH ×2 (10:36→21:23)
[2021-07-19] MEDS: LEVEMIR (INSULIN DETEMIR) 1 UNITS/0.01ML SC SCH (10:38)
[2021-07-19] MEDS: PANTOPRAZOLE 40MG VIAL (C9113 PER 1) IV SCH (10:38)
[2021-07-19] MEDS: ceFAZolin SOD 2 GM in IV 1 EA IV SCH ×2 (13:06→21:24)
[2021-07-19] MEDS ORDERED: REFRIGERATOR IV KEYS XX PRN (13:20)
[2021-07-19] MEDS: D5W/0.45% SODIUM CHLORIDE 1,000 ML IV SCH (14:00)
[2021-07-19] MEDS: MIDAZOLAM HCL 100 MG in D5W 80 ML IV SCH (14:01)
--- NOTE | 2021-07-19 14:57 | IPNPDOC ---
Subjective Date Seen The patient was seen on 07/19/21. Subjective Chief Complaint/HPI Patient remains extremely agitated and encephalopathic. She does not follow any purposeful commands. However, she is moving all 4 extremities. General: Reports: ROS Unobtainable Objective Physical Examination General Exam: Positive: Other (She is not cooperative. She is in mild distress.) Eye Exam: Positive: PERRLA; Negative: Sclera icteric ENT Exam: Positive: Atraumatic Neck Exam: Positive: Supple; Negative: JVD, Lymphadenopathy Chest Exam: Positive: Normal air movement, Rhonchi (Bilateral) Heart Exam: Positive: Rate Normal, Regular Rhythm Abdomen Exam: Positive: BS Hyperactive Extremity Exam: Positive: Edema (Very localized edema of the lower extremity); Negative: Clubbing Skin Exam: Negative: Rash Neuro Exam: Positive: Strength at 5/5 X4 ext Assessment /Plan Assessment This is a 68-year-old female with past medical history of hypothyroidism, coronary disease status post stent who was admitted to the hospital with status epilepticus and was subsequently intubated for airway protection. She failed extubation on 07/18/2021 and had to be reintubated due to significant hypoxia. 1. Acute respiratory failure secondary to status epilepticus. Reintubated for significant hypoxemia on 07/18/2021. 2. Diabetes mellitus with hyperglycemia improved 3. Coronary artery disease 4. Metabolic acidosis likely secondary to CKD and likely component of mild DKA which is now resolved as serum glucose is more controlled 5. Elevated lactate resolved 6. DREA on CKD nonoliguric resolved and now creatinine seems to be at baseline 7. Hypertension 8. Aspiration pneumonia Plan/VTE VTE Prophylaxis Ordered?: Yes Plan #Acute hypoxic respiratory failure -Initially was intubated for due to status epilepticus. But she failed a trial of extubation yesterday due to significant hypoxemia likely from ongoing aspiration. She is currently reintubated on mechanical ventilator. Vent settings are on minimal support. However, patient remains delirious and not a candidate for spontaneous breathing trial or extubation at this point. We will continue with daily sedation holiday and frequent reorientation. #Metabolic encephalopathy -Likely secondary to multifactorial; infections/aspiration pneumonia, sedation. Will perform daily sedation holiday with frequent reorientation. #Status epilepticus -Currently on Keppra and Dilantin. Drug level check were within therapeutic range. Dose was slightly decreased yesterday due to ongoing encephalopathy with suspicion of possible medication related sedation. #Aspiration pneumonia with MSSA and group B strep in the sputum -Antibiotic was deescalated from vancomycin to cefazolin. We will continue with total of 7 days. -Aspiration precaution. We will hold NG tube feeds for now. #DREA on CKD nonoliguric -Improved and resolved. #History of CAD status post stents -We will continue beta-meghana and statin. Patient is not on antiplatelet therapy for unknown reason. #Diabetes mellitus -Continue with Levemir and lispro. DVT prophylaxis: Heparin subcutaneous GI prophylaxis: Protonix Diet: N.p.o. CODE STATUS: Full code Prognosis: Remains guarded. Family is in discussion regarding proceeding with tracheostomy versus comfort care measures. Critical care time excluding procedure is 30 minutes. Disposition Continue ICU care. VS, I&O, 24H, Fishbone Vital Signs/I&O Vital Signs Date Time Temp Pulse Resp B/P (MAP) Pulse Ox O2 Delivery O2 Flow Rate FiO2 07/19/21 14:00 63 101/59 (73) 98 Ventilator 45 07/19/21 14:00 16 07/19/21 12:00 97.1 07/18/21 09:52 10.0 I&O- Last 24 Hours up to 6 AM 07/19/21 06:00 Intake Total 755 ml Output Total 700 ml Balance 55 ml Laboratory Data 24H LABS Laboratory Tests 2 07/18/21 17:34: Bedside Glucose (Misc Panel) 98 07/18/21 20:15: Bedside Glucose (Misc Panel) 130H 07/18/21 23:57: Bedside Glucose (Misc Panel) 143H 07/19/21 04:37: Immature Granulocyte % (Auto) 1.8, Neutrophils (%) (Auto) 70.9H, Lymphocytes (%) (Auto) 12.8L, Monocytes (%) (Auto) 7.1, Eosinophils (%) (Auto) 6.8H, Basophils (%) (Auto) 0.6, Neutrophils # (Auto) 5.8, Lymphocytes # (Auto) 1.1L, Monocytes # (Auto) 0.6, Eosinophils # (Auto) 0.6H, Basophils # (Auto) 0.1, Nucleated Red Blood Cells % (auto) 0.0, Anion Gap 7L, Glomerular Filtration Rate 36.0L, Calcium Level 8.4L, Phosphorus Level 3.1, Magnesium Level 2.0, Total Bilirubin 0.5, Aspartate Amino Transf (AST/SGOT) 72H, Alanine Aminotransferase (ALT/SGPT) 28, Alkaline Phosphatase 141H, Total Protein 6.4, Albumin 1.3L, Albumin/Globulin Ratio 0.3L 07/19/21 05:21: Blood Gas Bicarbonate Standard 25.9, Arterial Blood pH 7.454H, Arterial Blood Partial Pressure CO2 37.2, Arterial Blood Partial Pressure O2 91.2, Arterial Blood Total CO2 26.7, Arterial Blood HCO3 25.5, Arterial Blood Base Excess 1.6, Arterial Blood Oxygen Saturation 97.1 07/19/21 06:21: Bedside Glucose (Misc Panel) 143H 07/19/21 12:00: Bedside Glucose (Misc Panel) 132H CBC/BMP Laboratory Tests 07/19/21 04:37 Microbiology Microbiology 07/16/21 Gram Stain - Final, Complete 07/16/21 Sputum Culture - Final, Complete Staphylococcus Aureus Strep Agalactiae Group B 07/16/21 Blood Culture - Preliminary, Resulted No Growth after 72 hours. All specime... OJSELITO JUARES MD Jul 19, 2021 14:57
[2021-07-19 17:06] LABS: HEMATOCRIT 28.4 % (36.0-47.0); HEMOGLOBIN 8.4 g/dl (12.0-15.5); MEAN CORPUSCULAR HEMOGLOBIN 24.3 pg (27.0-33.0); MEAN CORPUSCULAR HGB CONC 29.6 g/dl (32.0-36.5); MEAN CORPUSCULAR VOLUME 82.3 fl (80.0-96.0); PLATELET COUNT, AUTOMATED 207 10^3/uL (150-450); RED BLOOD COUNT 3.45 10^6/uL (4.00-5.40)
[2021-07-20] VITALS (25 sets, daily range): BP systolic 102–162; BP diastolic 50–80
[2021-07-20] MEDS: PHENYTOIN INJ 250 MG/5 ML VIAL (J1165) IV SCH ×4 (00:24→23:33)
[2021-07-20] MEDS: MIDAZOLAM INJ 2MG/2ML VIAL (J2250 PER 1MG) IV PRN ×9 (01:01→23:08)
[2021-07-20] MEDS: D5W/0.45% SODIUM CHLORIDE 1,000 ML IV SCH ×2 (03:19→12:15)
[2021-07-20] MEDS: ceFAZolin SOD 2 GM in IV 1 EA IV SCH ×3 (05:22→20:24)
[2021-07-20] MEDS: HEPARIN SOD (PORCINE) 5000UNITS/ML 1ML VIAL/SYRINGE SC SCH ×3 (05:22→21:22)
[2021-07-20] MEDS: HumaLOG INSULIN (NovoLOG) PER UNIT SC SCH ×5 (06:00→23:38)
[2021-07-20] MEDS: SODIUM CHLORIDE 0.9% INJ 10 ML SYR IV SCH ×2 (06:14→18:03)
[2021-07-20 06:27] LABS: BASO # 0.1 10^3/uL (0.0-0.2); BASO % 0.8 % (0.0-1.0); EOS # 0.5 10^3/uL (0.0-0.5); EOS % 6.7 % (0.0-3.0); HEMATOCRIT 27.6 % (36.0-47.0); HEMOGLOBIN 8.2 g/dl (12.0-15.5); LYMPH # 1.5 10^3/uL (1.5-5.0); LYMPH % 18.4 % (24.0-44.0); MEAN CORPUSCULAR HEMOGLOBIN 24.2 pg (27.0-33.0); MEAN CORPUSCULAR HGB CONC 29.7 g/dl (32.0-36.5); MEAN CORPUSCULAR VOLUME 81.4 fl (80.0-96.0); MONO # 0.7 10^3/uL (0.0-0.8); MONO % 9.2 % (2.0-8.0); NEUTROPHILS # 4.9 10^3/uL (1.5-8.5); NEUTROPHILS % 60.9 % (36.0-66.0); PLATELET COUNT, AUTOMATED 224 10^3/uL (150-450); RED BLOOD COUNT 3.39 10^6/uL (4.00-5.40)
[2021-07-20 07:00] LABS: ALBUMIN 1.4 GM/DL (3.2-5.2); BILIRUBIN,TOTAL 0.4 MG/DL (0.2-1.0); CREATININE FOR GFR 1.37 MG/DL (0.55-1.30); GLOMERULAR FILTRATION RATE 39.7 (>39); MAGNESIUM LEVEL 1.8 MG/DL (1.8-2.4); PHOSPHORUS LEVEL 2.4 MG/DL (2.5-4.9); POTASSIUM SERUM 3.2 MEQ/L (3.5-5.1); TOTAL PROTEIN 6.7 GM/DL (6.4-8.2)
[2021-07-20] MEDS: MIDAZOLAM HCL 100 MG in D5W 80 ML IV SCH (07:33)
[2021-07-20] MEDS: CHLORHEXIDINE GLUCONATE 0.12 % 15ML UDC (PERIDEX ORAL RINSE) MT SCH ×2 (08:18→20:23)
[2021-07-20] MEDS: PANTOPRAZOLE 40MG VIAL (C9113 PER 1) IV SCH (08:19)
[2021-07-20] MEDS: METOPROLOL TART 25 MG TABLET NG SCH ×2 (08:19→20:24)
[2021-07-20] MEDS: LEVEMIR (INSULIN DETEMIR) 1 UNITS/0.01ML SC SCH (08:19)
[2021-07-20] MEDS: amLODIPine 5 MG TAB NG SCH (08:19)
[2021-07-20] MEDS ORDERED: POTASSIUM CHL PWD 20 MEQ PACKET PO ONE (11:45)
[2021-07-20] MEDS: levETIRAcetam INJection 500 MG in D5W MINI-BAG PLUS 100 ML IV SCH ×2 (12:00→22:26)
[2021-07-20] MEDS ORDERED: KCL 20MEQ IN 100ML SWI (KRUN) 20 MEQ in IV 1 EA IV ONE ×2 (12:00)
--- NOTE | 2021-07-20 12:22 | REP ---
INDICATION: intubated. COMPARISON: 07/19/2021, 07/18/2021. TECHNIQUE: AP semi-erect. FINDINGS: Nasogastric and endotracheal tubes along with the right-sided PICC line are unchanged. Cardiomegaly with left atrial and ventricular enlargement noted lower lung volumes again seen retrocardiac left lower lobe and patchy right base infiltrate or atelectasis again seen. This appears to have increased. IMPRESSION: 1. Increased basilar atelectasis or infiltrate, left greater than right, compared to yesterday's study. Lower level of inflation. 2. Lines and tubes unchanged. <Electronically signed by Huang Moreland > 07/20/21 1219
--- NOTE | 2021-07-20 17:24 | IPNPDOC ---
Subjective Date Seen The patient was seen on 07/20/21. Subjective Chief Complaint/HPI Patient continues to remain delirious and does not follow any commands. She easily get agitated. General: Reports: ROS Unobtainable Objective Physical Examination General Exam: Positive: Mild Distress, Other (She is not cooperative. She is uncooperative and gets agitated easily.) Eye Exam: Positive: PERRLA; Negative: Sclera icteric ENT Exam: Positive: Atraumatic Neck Exam: Positive: Supple; Negative: JVD, Lymphadenopathy Chest Exam: Positive: Normal air movement, Rhonchi (Bilateral) Heart Exam: Positive: Rate Normal, Regular Rhythm Abdomen Exam: Positive: Normal bowel sounds, Soft; Negative: Tenderness Extremity Exam: Positive: Edema (Very localized edema of the lower extremity); Negative: Clubbing Skin Exam: Negative: Rash Neuro Exam: Positive: Strength at 5/5 X4 ext Psych Exam: Positive: Other (Agitated) Assessment /Plan Assessment This is a 68-year-old female with past medical history of hypothyroidism, coronary disease status post stent who was admitted to the hospital with status epilepticus and was subsequently intubated for airway protection. She failed extubation on 07/18/2021 and had to be reintubated due to significant hypoxia. 1. Acute respiratory failure secondary to status epilepticus. Reintubated for significant hypoxemia on 07/18/2021. 2. Diabetes mellitus with hyperglycemia improved 3. Coronary artery disease 4. Metabolic acidosis likely secondary to CKD and likely component of mild DKA which is now resolved as serum glucose is more controlled 5. Elevated lactate resolved 6. DREA on CKD nonoliguric resolved and now creatinine seems to be at baseline 7. Hypertension 8. Aspiration pneumonia Plan/VTE VTE Prophylaxis Ordered?: Yes Plan #Acute hypoxic respiratory failure -Initially was intubated for due to status epilepticus. But she failed a trial of extubation yesterday due to significant hypoxemia likely from ongoing aspiration. She is currently reintubated on mechanical ventilator. Vent set tings are on minimal support. However, patient remains delirious and not a candidate for spontaneous breathing trial or extubation at this point. We will continue with daily sedation holiday and frequent reorientation. #Metabolic encephalopathy -Likely secondary to multifactorial; infections/aspiration pneumonia, sedation. Will perform daily sedation holiday with frequent reorientation. -Work-up for encephalopathy include CT scan of the head x2 which was all negative for intracranial pathology. Initial EEG done was inconclusive for seizure. Repeat EEG done yesterday is pending at this point. #ICU delirium -Frequent reorientation #Status epilepticus -Currently on Keppra and Dilantin. Drug level check were within therapeutic range. #Aspiration pneumonia with MSSA and group B strep in the sputum -Continue with cefazolin for total of 7 days. -Aspiration precaution. -I will reinitiate orogastric intermittent tube feeding today. #DREA on CKD nonoliguric -Improved and resolved. #History of CAD status post stents -We will continue beta-meghana and statin. Patient is not on antiplatelet therapy for unknown reason. #Diabetes mellitus -Continue with Levemir and lispro. DVT prophylaxis: Heparin subcutaneous GI prophylaxis: Protonix Diet: NG tube bolus feeding with Glucerna 1.2 CODE STATUS: Full code Prognosis: Remains guarded. I spoke with family regarding her clinical status. They are currently in discussion of whether to perform tracheostomy for her in the event if she cannot be extubated. The also discussing about her CODE STATUS. Critical care time excluding procedure is 30 minutes. Disposition Continue ICU care. VS, I&O, [facility] Vital Signs/I&O Vital Signs Date Time Temp Pulse Resp B/P (MAP) Pulse Ox O2 Delivery O2 Flow Rate FiO2 07/20/21 15:10 84 16 96 30 07/20/21 08:19 104/50 07/20/21 08:00 98.6 Ventilator 07/18/21 09:52 10.0 I&O- Last 24 Hours up to 6 AM 07/20/21 06:00 Intake Total 1255 ml Output Total 685 ml Balance 570 ml Laboratory Data 24H LABS Laboratory Tests 2 07/19/21 17:51: Bedside Glucose (Misc Panel) 112H 07/19/21 20:49: Bedside Glucose (Misc Panel) 97 07/20/21 00:14: Bedside Glucose (Misc Panel) 97 07/20/21 05:28: Immature Granulocyte % (Auto) 4.0H, Neutrophils (%) (Auto) 60.9, Lymphocytes (%) (Auto) 18.4L, Monocytes (%) (Auto) 9.2H, Eosinophils (%) (Auto) 6.7H, Basophils (%) (Auto) 0.8, Neutrophils # (Auto) 4.9, Lymphocytes # (Auto) 1.5, Monocytes # (Auto) 0.7, Eosinophils # (Auto) 0.5, Basophils # (Auto) 0.1, Nucleated Red Blood Cells % (auto) 0.3H, Anion Gap 10, Glomerular Filtration Rate 39.7, Calcium Level 8.0L, Phosphorus Level 2.4#L, Magnesium Level 1.8, Total Bilirubin 0.4, Aspartate Amino Transf (AST/SGOT) 65H, Alanine Aminotransferase (ALT/SGPT) 24, Alkaline Phosphatase 147H, Total Protein 6.7, Albumin 1.4L, Albumin/Globulin Ratio 0.3L 07/20/21 05:58: Bedside Glucose (Misc Panel) 121H 07/20/21 12:06: Bedside Glucose (Misc Panel) 158H CBC/BMP Laboratory Tests 07/20/21 05:28 Microbiology Microbiology 07/16/21 Gram Stain - Final, Complete 07/16/21 Sputum Culture - Final, Complete Staphylococcus Aureus Strep Agalactiae Group B 07/16/21 Blood Culture - Preliminary, Resulted No Growth after 72 hours. All specime... JOSELITO JUARES MD Jul 20, 2021 17:24
[2021-07-20] MEDS: ACETAMINOPHEN 325 MG/10.15 ML UDC NG PRN (20:32)
[2021-07-21] VITALS (22 sets, daily range): BP systolic 119–159; BP diastolic 57–79
[2021-07-21] MEDS: MIDAZOLAM INJ 2MG/2ML VIAL (J2250 PER 1MG) IV PRN ×9 (01:16→21:45)
[2021-07-21] MEDS: MIDAZOLAM HCL 100 MG in D5W 80 ML IV SCH ×2 (01:29→17:48)
[2021-07-21] MEDS: ACETAMINOPHEN 325 MG/10.15 ML UDC NG PRN (04:44)
[2021-07-21] MEDS: ceFAZolin SOD 2 GM in IV 1 EA IV SCH ×3 (04:44→20:11)
[2021-07-21] MEDS: HumaLOG INSULIN (NovoLOG) PER UNIT SC SCH ×3 (05:30→17:45)
[2021-07-21] MEDS: HEPARIN SOD (PORCINE) 5000UNITS/ML 1ML VIAL/SYRINGE SC SCH ×3 (05:31→21:23)
[2021-07-21] MEDS: SODIUM CHLORIDE 0.9% INJ 10 ML SYR IV SCH ×2 (05:31→17:45)
[2021-07-21 06:55] LABS: HEMATOCRIT 27.6 % (36.0-47.0); HEMOGLOBIN 8.2 g/dl (12.0-15.5); MEAN CORPUSCULAR HEMOGLOBIN 24.3 pg (27.0-33.0); MEAN CORPUSCULAR HGB CONC 29.7 g/dl (32.0-36.5); MEAN CORPUSCULAR VOLUME 81.9 fl (80.0-96.0); PLATELET COUNT, AUTOMATED 257 10^3/uL (150-450); RED BLOOD COUNT 3.37 10^6/uL (4.00-5.40); WHITE BLOOD COUNT 8.7 10^3/uL (4.0-10.0)
[2021-07-21 07:28] LABS: ALBUMIN 1.3 GM/DL (3.2-5.2); BILIRUBIN,TOTAL 0.4 MG/DL (0.2-1.0); CALCIUM LEVEL 7.6 MG/DL (8.8-10.2); CREATININE FOR GFR 1.17 MG/DL (0.55-1.30); GLOMERULAR FILTRATION RATE 47.6 (>39); POTASSIUM SERUM 3.8 MEQ/L (3.5-5.1); TOTAL PROTEIN 6.1 GM/DL (6.4-8.2)
[2021-07-21] MEDS: CHLORHEXIDINE GLUCONATE 0.12 % 15ML UDC (PERIDEX ORAL RINSE) MT SCH ×2 (08:14→20:10)
[2021-07-21] MEDS: LEVEMIR (INSULIN DETEMIR) 1 UNITS/0.01ML SC SCH (08:14)
[2021-07-21] MEDS: PANTOPRAZOLE 40MG VIAL (C9113 PER 1) IV SCH (08:14)
[2021-07-21] MEDS: amLODIPine 5 MG TAB NG SCH (08:15)
[2021-07-21] MEDS: PHENYTOIN INJ 250 MG/5 ML VIAL (J1165) IV SCH ×2 (08:15→15:56)
[2021-07-21] MEDS: METOPROLOL TART 25 MG TABLET NG SCH ×2 (08:16→20:10)
[2021-07-21 08:22] LABS: ANISOCYTOSIS 1+; ATYPICAL LYMPH 1 % (0-5); EOSINOPHILS 6 % (0-3); LYMPHOCYTES 13 % (16-44); MONOCYTES 2 % (0-5); MYELOCYTES 4 % (0-0); NEUTROPHILS 70 % (28-66); PLATELET ESTIMATE NORMAL (NORMAL)
[2021-07-21 08:23] LABS: HYPOCHROMASIA 1+
--- NOTE | 2021-07-21 09:04 | EEG ---
ELECTROENCEPHALOGRAM DATE: 07/19/2021 REFERRING PHYSICIAN: Andrey Martins MD DIAGNOSIS: Seizures. EEG#: [id number] HISTORY: The patient is a 76-year-old woman who was admitted to [facility] due to status epilepticus, required mechanical ventilation, intubation. She is currently on Keppra, Dilantin, and she is off propofol. She remains on cefazolin, vancomycin, etc. TECHNICAL DESCRIPTION: This digital electroencephalogram (EEG) was recorded by 21 scalp, ear, and two electrocardiogram (EKG) electrodes and was reviewed in bipolar and referential montages following reformatting in 10-20 international electrode placement system. INTERPRETATION: The patient was noted to be in mostly drowsy and asleep states throughout this study. Background rhythm consisted of 6-7 Hz theta activity measuring 15-40 microvolts in amplitude which was symmetric bilaterally. Slow wave sleep was noted throughout this study. Muscle and respiratory artifact was noted in bilateral parietal and temporal head regions. No focal, lateralizing, or epileptiform abnormalities were seen. No relevant clinical activity was noted. EKG revealed normal sinus rhythm. Hyperventilation was not performed. Photic stimulation remained unremarkable. CONCLUSION: This EEG in mostly drowsy and slow wave sleep is within normal limits. Respiratory and muscle artifacts were noted. No epileptiform abnormalities were seen. Clinical correlation is recommended.
[2021-07-21] MEDS: levETIRAcetam INJection 500 MG in D5W MINI-BAG PLUS 100 ML IV SCH ×2 (10:01→21:23)
--- NOTE | 2021-07-21 12:11 | IPNPDOC ---
Subjective Date Seen The patient was seen on 07/21/21. Subjective Chief Complaint/HPI Patient is nonpurposeful. She gets extremely agitated when coming off sedation. She does not follow any verbal commands. However, she does move all 4 extremities. There is no evidence of facial droop. General: Reports: ROS Unobtainable Objective Physical Examination General Exam: Positive: Mild Distress, Other (She is not cooperative. She is uncooperative and gets agitated easily.) Eye Exam: Positive: PERRLA; Negative: Sclera icteric ENT Exam: Positive: Atraumatic Neck Exam: Positive: Supple; Negative: JVD, Lymphadenopathy Chest Exam: Positive: Clear to auscultation, Normal air movement Heart Exam: Positive: Rate Normal, Regular Rhythm Abdomen Exam: Positive: Normal bowel sounds, Soft; Negative: Tenderness Extremity Exam: Positive: Edema (Very localized edema of the lower extremity); Negative: Clubbing Skin Exam: Negative: Rash Neuro Exam: Positive: Strength at 5/5 X4 ext Psych Exam: Positive: Other (Agitated) Assessment /Plan Assessment This is a 68-year-old female with past medical history of hypothyroidism, coronary disease status post stent who was admitted to the hospital with status epilepticus and was subsequently intubated for airway protection. She failed extubation on 07/18/2021 and had to be reintubated due to significant hypoxia. 1. Acute respiratory failure secondary to status epilepticus. Reintubated for significant hypoxemia on 07/18/2021. 2. Diabetes mellitus with hyperglycemia improved 3. Coronary artery disease 4. Metabolic acidosis likely secondary to CKD and likely component of mild DKA which is now resolved as serum glucose is more controlled 5. Elevated lactate resolved 6. DREA on CKD nonoliguric resolved and now creatinine seems to be at baseline 7. Hypertension 8. Aspiration pneumonia Plan/VTE VTE Prophylaxis Ordered?: Yes Plan #Acute hypoxic respiratory failure -Initially was intubated for due to status epilepticus. But she failed a trial of extubation on 07/19 due to significant hypoxemia likely from ongoing aspiration. She is currently reintubated on mechanical ventilator. Vent settings are on minimal support. However, patient remains delirious and not a candidate for spontaneous breathing trial or extubation without risk of aspiration and airway protection. We will continue with daily sedation holiday and frequent reorientation. #Metabolic encephalopathy -Likely secondary to multifactorial; infections/aspiration pneumonia, sedation. Will perform daily sedation holiday with frequent reorientation. -Work-up for encephalopathy include CT scan of the head x2 which was all negative for intracranial pathology. Initial EEG done was inconclusive for seizure. Repeat EEG done shows no evidence of seizure. #ICU delirium -Frequent reorientation and daily sedation holiday #Status epilepticus -Currently on Keppra and Dilantin. Drug level check were within therapeutic range. Repeat EEG shows no evidence of seizure activity. #Aspiration pneumonia with MSSA and group B strep in the sputum -Continue with cefazolin for total of 7 days. -Aspiration precaution. -I will reinitiate orogastric intermittent tube feeding today. #DREA on CKD nonoliguric -resolved. Cr back to baseline 1.2. #History of CAD status post stents -We will continue beta-meghana and statin. Patient is not on antiplatelet therapy for unknown reason. #Diabetes mellitus -Continue with Levemir and lispro. Target BS 140-180. DVT prophylaxis: Heparin subcutaneous GI prophylaxis: Protonix Diet: NG tube bolus feeding with Glucerna 1.2 CODE STATUS: Full code Prognosis: Remains guarded. I spoke and update her HCP. Will perform daily sedation holiday with frequent reorientation. In the event patient cannot be extubated by 2 weeks lionel, will discuss with family about possibility of tracheostomy or PEG tube. Critical care time excluding procedure is 30 minutes. Disposition Continue ICU care. VS, I&O, 24H, [facility] Vital Signs/I&O Vital Signs Date Time Temp Pulse Resp B/P (MAP) Pulse Ox O2 Delivery O2 Flow Rate FiO2 07/21/21 09:00 85 135/64 (87) 95 07/21/21 08:00 97.8 16 Ventilator 30 07/18/21 09:52 10.0 I&O- Last 24 Hours up to 6 AM 07/21/21 06:00 Intake Total 1265 ml Output Total 655 ml Balance 610 ml Laboratory Data 24H LABS Laboratory Tests 2 07/20/21 12:06: Bedside Glucose (Misc Panel) 158H 07/20/21 17:40: Bedside Glucose (Misc Panel) 122H 07/20/21 23:36: Bedside Glucose (Misc Panel) 150H 07/21/21 05:25: Bedside Glucose (Misc Panel) 174H 07/21/21 06:13: Immature Granulocyte % (Auto) , Neutrophils (%) (Auto) , Nucleated Red Blood Cells % (auto) 0.6H, Neutrophils 70H, Band Neutrophils 4, Lymphocytes (Manual) 13L, Monocytes (Manual) 2, Eosinophils (Manual) 6H, Myelocytes 4H, Atypical Lymphocytes 1, Hypochromasia 1+, Anisocytosis 1+, Platelet Estimate NORMAL, Anion Gap 8, Glomerular Filtration Rate 47.6, Calcium Level 7.6L, Total Bilirubin 0.4, Aspartate Amino Transf (AST/SGOT) 130H, Alanine Aminotransferase (ALT/SGPT) 24, Alkaline Phosphatase 247H, Total Protein 6.1L, Albumin 1.3L, Albumin/Globulin Ratio 0.3L CBC/BMP Laboratory Tests 07/21/21 06:13 Microbiology Microbiology 07/16/21 Gram Stain - Final, Complete 07/16/21 Sputum Culture - Final, Complete Staphylococcus Aureus Strep Agalactiae Group B 07/16/21 Blood Culture - Final, Complete NO GROWTH AFTER 5 DAYS JOSELITO JUARES MD Jul 21, 2021 12:11
[2021-07-22] VITALS (27 sets, daily range): BP systolic 94–183; BP diastolic 51–85
[2021-07-22] MEDS: MIDAZOLAM INJ 2MG/2ML VIAL (J2250 PER 1MG) IV PRN ×13 (00:02→23:52)
[2021-07-22] MEDS: PHENYTOIN INJ 250 MG/5 ML VIAL (J1165) IV SCH ×3 (00:03→16:05)
[2021-07-22] MEDS: HumaLOG INSULIN (NovoLOG) PER UNIT SC SCH ×4 (00:03→17:28)
[2021-07-22] MEDS: ceFAZolin SOD 2 GM in IV 1 EA IV SCH ×3 (04:10→20:09)
[2021-07-22] MEDS: ACETAMINOPHEN 325 MG/10.15 ML UDC NG PRN ×2 (04:29→18:31)
[2021-07-22] MEDS: HEPARIN SOD (PORCINE) 5000UNITS/ML 1ML VIAL/SYRINGE SC SCH ×3 (05:16→21:31)
[2021-07-22] MEDS: SODIUM CHLORIDE 0.9% INJ 10 ML SYR IV SCH ×2 (05:16→17:27)
[2021-07-22 05:37] LABS: HEMATOCRIT 29.3 % (36.0-47.0); HEMOGLOBIN 8.8 g/dl (12.0-15.5); MEAN CORPUSCULAR HEMOGLOBIN 24.2 pg (27.0-33.0); MEAN CORPUSCULAR VOLUME 80.5 fl (80.0-96.0); PLATELET COUNT, AUTOMATED 152 10^3/uL (150-450); RED BLOOD COUNT 3.64 10^6/uL (4.00-5.40); WHITE BLOOD COUNT 11.4 10^3/uL (4.0-10.0)
[2021-07-22 06:11] LABS: ALBUMIN 1.2 GM/DL (3.2-5.2); BILIRUBIN,TOTAL 0.2 MG/DL (0.2-1.0); CALCIUM LEVEL 7.3 MG/DL (8.8-10.2); CREATININE FOR GFR 1.15 MG/DL (0.55-1.30); GLOMERULAR FILTRATION RATE 48.6 (>39); POTASSIUM SERUM 4.2 MEQ/L (3.5-5.1); TOTAL PROTEIN 6.1 GM/DL (6.4-8.2)
--- NOTE | 2021-07-22 06:51 | REPVR ---
PROCEDURE INFORMATION: Exam: XR Chest Exam date and time: 07/22/2021 6:26 AM Age: 76 years old Clinical indication: Device placement; Ett placement (vent status); Additional info: Tube placement TECHNIQUE: Imaging protocol: XR of the chest. Views: 1 view. COMPARISON: CR PORTABLE CHEST X-RAY 07/20/2021 6:45 AM FINDINGS: Tubes, catheters and devices: Feeding tube in the stomach. Endotracheal tube terminates 8.5 cm above the kassi. Right PICC terminates in the distal superior vena cava. Lungs: Bilateral perihilar and bibasilar opacities. Pleural spaces: Small bilateral pleural effusions. Heart/Mediastinum: Unremarkable. No cardiomegaly. Vasculature: Atherosclerotic disease of thoracic aorta. Bones/joints: Degenerative changes in the left shoulder. IMPRESSION: No significant interval change. Electronically signed by: Berto El On 07/22/2021 06:51:08 AM
[2021-07-22 06:53] LABS: BASOPHILS 1 % (0-1); EOSINOPHILS 7 % (0-3); LYMPHOCYTES 18 % (16-44); METAMYELOCYTES 1 % (0-0); MONOCYTES 3 % (0-5); NEUTROPHILS 63 % (28-66)
[2021-07-22 06:54] LABS: PLATELET ESTIMATE NORMAL (NORMAL)
[2021-07-22] MEDS: CHLORHEXIDINE GLUCONATE 0.12 % 15ML UDC (PERIDEX ORAL RINSE) MT SCH ×2 (08:54→20:10)
[2021-07-22] MEDS: METOPROLOL TART 25 MG TABLET NG SCH ×2 (08:55→21:31)
[2021-07-22] MEDS: PANTOPRAZOLE 40MG VIAL (C9113 PER 1) IV SCH (08:55)
[2021-07-22] MEDS: amLODIPine 5 MG TAB NG SCH (08:55)
[2021-07-22] MEDS: LEVEMIR (INSULIN DETEMIR) 1 UNITS/0.01ML SC SCH (08:56)
[2021-07-22] MEDS: levETIRAcetam INJection 500 MG in D5W MINI-BAG PLUS 100 ML IV SCH ×2 (09:39→21:32)
[2021-07-22] MEDS ORDERED: ROCURONIUM BROMIDE 50 MG/5 ML VIAL IV ONE (10:15)
[2021-07-22] MEDS ORDERED: MIDAZOLAM INJ 2MG/2ML VIAL (J2250 PER 1MG) IV ONE (10:15)
[2021-07-22] MEDS: MIDAZOLAM HCL 100 MG in D5W 80 ML IV SCH (11:14)
--- NOTE | 2021-07-22 12:04 | IPNPDOC ---
Subjective Date Seen The patient was seen on 07/22/21. Subjective Chief Complaint/HPI Patient remains encephalopathic and delirious coming off sedation. She does not follow any purposeful commands. She is extremely agitated when she is awake. General: Reports: ROS Unobtainable Objective Physical Examination General Exam: Positive: Mild Distress, Other (She is not cooperative. She is uncooperative and gets agitated easily.) Eye Exam: Positive: PERRLA; Negative: Sclera icteric ENT Exam: Positive: Atraumatic Neck Exam: Positive: Supple; Negative: JVD, Lymphadenopathy Chest Exam: Positive: Clear to auscultation, Normal air movement Heart Exam: Positive: Rate Normal, Regular Rhythm Abdomen Exam: Positive: Normal bowel sounds, Soft; Negative: Tenderness Extremity Exam: Positive: Edema (Very localized edema of the lower extremity); Negative: Clubbing Skin Exam: Negative: Rash Neuro Exam: Positive: Other (Noticed some generalized weakness on the right extremities.) Psych Exam: Positive: Other (Agitated) Assessment /Plan Assessment This is a 68-year-old female with past medical history of hypothyroidism, coronary disease status post stent who was admitted to the hospital with status epilepticus and was subsequently intubated for airway protection. She failed extubation on 07/18/2021 and had to be reintubated due to significant hypoxia. 1. Acute respiratory failure secondary to status epilepticus. Reintubated for significant hypoxemia on 07/18/2021. 2. Diabetes mellitus with hyperglycemia improved 3. Coronary artery disease 4. Metabolic acidosis likely secondary to CKD and likely component of mild DKA which is now resolved as serum glucose is more controlled 5. Elevated lactate resolved 6. DREA on CKD nonoliguric resolved and now creatinine seems to be at baseline 7. Hypertension 8. Aspiration pneumonia 9. Metabolic encephalopathy 10. ICU delirium Plan/VTE VTE Prophylaxis Ordered?: Yes Plan #Acute hypoxic respiratory failure -Initially was intubated for due to status epilepticus. But she failed a trial of extubation on 07/19 due to significant hypoxemia likely from ongoing aspiration. She is currently reintubated on mechanical ventilator. Vent settings are on minimal support. However, patient remains delirious and not a candidate for spontaneous breathing trial or extubation without risk of aspiration and airway compromise. We will continue with daily sedation holiday and frequent reorientation. #Metabolic encephalopathy -Likely secondary to multifactorial; infections/aspiration pneumonia, sedation. Will perform daily sedation holiday with frequent reorientation. -Work-up for encephalopathy include CT scan of the head x2 which was all negative for intracranial pathology. Initial EEG done was inconclusive for seizure. Repeat EEG done shows no evidence of seizure. Antiepileptic medications are also therapeutic. -We will perform MRI of the brain today. #ICU delirium -Frequent reorientation and daily sedation holiday #Status epilepticus -Currently on Keppra and Dilantin. Drug level check were within therapeutic range. Repeat EEG shows no evidence of seizure activity. #Aspiration pneumonia with MSSA and group B strep in the sputum -Continue with cefazolin for total of 7 days. -Aspiration precaution. -I have reinitiated intermittent orogastric tube feeding. #DREA on CKD nonoliguric -resolved. Cr back to baseline 1.2. #History of CAD status post stents -We will continue beta-meghana and statin. Patient is not on antiplatelet therapy for unknown reason. #Diabetes mellitus -Continue with Levemir and lispro. Target BS 140-180. DVT prophylaxis: Heparin subcutaneous GI prophylaxis: Protonix Diet: OG tube bolus feeding with Glucerna 1.2 CODE STATUS: Full code Prognosis: Remains guarded. I spoke and update her HCP. Will perform daily sedation holiday with frequent reorientation. In the event patient cannot be extubated by 2 weeks lionel, will discuss with family about possibility of tracheostomy or PEG tube. Critical care time excluding procedure is 30 minutes. Disposition Continue ICU care. VS, I&O, 24H, [facility] Vital Signs/I&O Vital Signs Date Time Temp Pulse Resp B/P (MAP) Pulse Ox O2 Delivery O2 Flow Rate FiO2 07/22/21 11:14 79 20 98 Ventilator 30 07/22/21 11:00 140/65 (90) 07/22/21 08:00 98.4 07/18/21 09:52 10.0 I&O- Last 24 Hours up to 6 AM 07/22/21 06:00 Intake Total 2276 ml Output Total 1130 ml Balance 1146 ml Laboratory Data 24H LABS Laboratory Tests 2 07/21/21 12:25: Bedside Glucose (Misc Panel) 225H 07/21/21 17:41: Bedside Glucose (Misc Panel) 193H 07/21/21 23:42: Bedside Glucose (Misc Panel) 179H 07/22/21 05:07: Immature Granulocyte % (Auto) , Neutrophils (%) (Auto) , Nucleated Red Blood Cells % (auto) 1.8H, Neutrophils 63, Band Neutrophils 7, Lymphocytes (Manual) 18, Monocytes (Manual) 3, Eosinophils (Manual) 7H, Basophils (Manual) 1, Metamyelocytes 1H, Red Blood Cell Morphology NORMAL, Platelet Estimate NORMAL, Anion Gap 10, Glomerular Filtration Rate 48.6, Calcium Level 7.3L, Total Bilirubin 0.2, Aspartate Amino Transf (AST/SGOT) 90H, Alanine Aminotransferase (ALT/SGPT) 15, Alkaline Phosphatase 238H, Total Protein 6.1L, Albumin 1.2L, Albumin/Globulin Ratio 0.2L 07/22/21 11:43: Bedside Glucose (Misc Panel) 207H CBC/BMP Laboratory Tests 07/22/21 05:07 Microbiology Microbiology 07/16/21 Gram Stain - Final, Complete 07/16/21 Sputum Culture - Final, Complete Staphylococcus Aureus Strep Agalactiae Group B 07/16/21 Blood Culture - Final, Complete NO GROWTH AFTER 5 DAYS JOSELITO JUARES MD Jul 22, 2021 12:04
--- NOTE | 2021-07-22 13:28 | REPVR ---
PROCEDURE INFORMATION: Exam: MR Head Without Contrast Exam date and time: 07/22/2021 1:17 PM Age: 76 years old Clinical indication: Weakness, extremity; Right; Additional info: Right sided weakness, encephalopathy TECHNIQUE: Imaging protocol: MR of the head without contrast. COMPARISON: CT Head without contrast 07/18/2021 11:19 AM FINDINGS: Brain: There is no extra-axial collection or intra-axial mass. Moderate diffuse volume loss is within the range of normal for patient age. There is increased T2/FLAIR white matter hyperintensity, nonspecific but typically small-vessel ischemia in this age group. There is no diffusion restriction. There are scattered foci of susceptibility artifact, compatible with previous hemorrhages. Cerebral ventricles: Prominence of the ventricular system is commensurate with volume loss. Bones/joints: Unremarkable. Paranasal sinuses: There is ethmoid, sphenoid and maxillary sinus mucosal thickening. Mastoid air cells: There is fluid opacification of mastoid air cells. Orbital cavity: Unremarkable. Soft tissues: Unremarkable. Nasopharynx: There increased secretions within the nasopharynx. IMPRESSION: No acute intracranial abnormality. Electronically signed by: Gladys Islas On 07/22/2021 13:27:31 PM
[2021-07-23] VITALS (20 sets, daily range): BP systolic 91–151; BP diastolic 51–76
[2021-07-23] MEDS: HumaLOG INSULIN (NovoLOG) PER UNIT SC SCH ×4 (00:13→17:22)
[2021-07-23] MEDS: PHENYTOIN INJ 250 MG/5 ML VIAL (J1165) IV SCH ×3 (00:13→16:37)
[2021-07-23] MEDS: MIDAZOLAM INJ 2MG/2ML VIAL (J2250 PER 1MG) IV PRN ×9 (01:50→19:07)
[2021-07-23] MEDS: MIDAZOLAM HCL 100 MG in D5W 80 ML IV SCH ×2 (04:53→23:45)
[2021-07-23] MEDS: SODIUM CHLORIDE 0.9% INJ 10 ML SYR IV SCH ×2 (05:53→17:22)
[2021-07-23] MEDS: HEPARIN SOD (PORCINE) 5000UNITS/ML 1ML VIAL/SYRINGE SC SCH ×3 (05:55→21:52)
[2021-07-23] MEDS: ceFAZolin SOD 2 GM in IV 1 EA IV SCH ×3 (05:55→20:52)
[2021-07-23 06:23] LABS: HEMATOCRIT 28.6 % (36.0-47.0); HEMOGLOBIN 8.5 g/dl (12.0-15.5); MEAN CORPUSCULAR HEMOGLOBIN 24.6 pg (27.0-33.0); MEAN CORPUSCULAR HGB CONC 29.7 g/dl (32.0-36.5); MEAN CORPUSCULAR VOLUME 82.7 fl (80.0-96.0); PLATELET COUNT, AUTOMATED 323 10^3/uL (150-450); RED BLOOD COUNT 3.46 10^6/uL (4.00-5.40); WHITE BLOOD COUNT 12.5 10^3/uL (4.0-10.0)
[2021-07-23 06:28] LABS: ALBUMIN 1.1 GM/DL (3.2-5.2); BILIRUBIN,TOTAL 0.2 MG/DL (0.2-1.0); CALCIUM LEVEL 7.9 MG/DL (8.8-10.2); CREATININE FOR GFR 1.14 MG/DL (0.55-1.30); GLOMERULAR FILTRATION RATE 49.1 (>39); POTASSIUM SERUM 4.8 MEQ/L (3.5-5.1); TOTAL PROTEIN 6.8 GM/DL (6.4-8.2)
[2021-07-23 08:46] LABS: ANISOCYTOSIS 2+; BASOPHILS 1 % (0-1); EOSINOPHILS 6 % (0-3); LYMPHOCYTES 9 % (16-44); METAMYELOCYTES 4 % (0-0); MONOCYTES 2 % (0-5); MYELOCYTES 2 % (0-0); NEUTROPHILS 74 % (28-66); PLATELET ESTIMATE NORMAL (NORMAL)
[2021-07-23 08:48] LABS: OVALOCYTES 1+
[2021-07-23] MEDS: LEVEMIR (INSULIN DETEMIR) 1 UNITS/0.01ML SC SCH (09:25)
[2021-07-23] MEDS: CHLORHEXIDINE GLUCONATE 0.12 % 15ML UDC (PERIDEX ORAL RINSE) MT SCH ×2 (09:25→20:52)
[2021-07-23] MEDS: levETIRAcetam INJection 500 MG in D5W MINI-BAG PLUS 100 ML IV SCH ×2 (09:26→21:52)
[2021-07-23] MEDS: amLODIPine 5 MG TAB NG SCH (09:26)
[2021-07-23] MEDS: PANTOPRAZOLE 40MG VIAL (C9113 PER 1) IV SCH (09:26)
[2021-07-23] MEDS: METOPROLOL TART 25 MG TABLET NG SCH ×2 (09:26→20:51)
--- NOTE | 2021-07-23 10:43 | IPNPDOC ---
Subjective Date Seen The patient was seen on 07/23/21. Subjective Chief Complaint/HPI Patient continues to be agitated and delirious coming off sedation. She is nonpurposeful. She is moving all 4 extremities. She spontaneously open her eyes but not to verbal commands. Family is bedside trying to reorient her. General: Reports: ROS Unobtainable Objective Physical Examination General Exam: Positive: Mild Distress, Other (She is not cooperative. She is uncooperative and gets agitated easily.) Eye Exam: Positive: PERRLA; Negative: Sclera icteric ENT Exam: Positive: Atraumatic Neck Exam: Positive: Supple; Negative: JVD, Lymphadenopathy Chest Exam: Positive: Normal air movement, Rhonchi Heart Exam: Positive: Rate Normal, Regular Rhythm Abdomen Exam: Positive: Normal bowel sounds, Soft; Negative: Tenderness Extremity Exam: Positive: Swelling (Generalized anasarca); Negative: Clubbing Skin Exam: Negative: Rash Neuro Exam: Positive: Other (Noticed some generalized weakness on the right extremities.) Psych Exam: Positive: Other (Agitated) Assessment /Plan Assessment This is a 68-year-old female with past medical history of hypothyroidism, coronary disease status post stent who was admitted to the hospital with status epilepticus and was subsequently intubated for airway protection. She failed extubation on 07/18/2021 and had to be reintubated due to significant hypoxia. 1. Acute respiratory failure secondary to status epilepticus. Reintubated for significant hypoxemia on 07/18/2021. 2. Diabetes mellitus with hyperglycemia improved 3. Coronary artery disease 4. Metabolic acidosis likely secondary to CKD and likely component of mild DKA which is now resolved as serum glucose is more controlled 5. Elevated lactate resolved 6. DREA on CKD nonoliguric resolved and now creatinine seems to be at baseline 7. Hypertension 8. Aspiration pneumonia 9. Metabolic encephalopathy 10. ICU delirium Plan/VTE VTE Prophylaxis Ordered?: Yes Plan #Acute hypoxic respiratory failure -Initially was intubated for due to status epilepticus. But she failed a trial of extubation on 07/19 due to significant hypoxemia likely from ongoing aspiration. She is currently reintubated on mechanical ventilator. Vent settings are on minimal support. However, patient remains delirious and not a candidate for spontaneous breathing trial or extubation without risk of aspiration and airway compromise. We will continue with daily sedation holiday and frequent reorientation. -I have spoken with family regarding ongoing issue with delirium and we are reaching 2 weeks on intubation and ventilator. Family is currently in discussi on regarding possibility of tracheostomy and PEG tube placement. #Metabolic encephalopathy -Likely secondary to multifactorial; infections/aspiration pneumonia, sedation. Will perform daily sedation holiday with frequent reorientation. -Work-up for encephalopathy include CT scan of the head x2 which was all negative for intracranial pathology. Initial EEG done was inconclusive for seizure. Repeat EEG done shows no evidence of seizure. Antiepileptic medications are also therapeutic. MRI of the brain showed small vessel disease with no evidence of acute intracranial pathology. There is no evidence of acute stroke or mass. #ICU delirium -Frequent reorientation and daily sedation holiday. Family by bedside trying to reorient her. #Status epilepticus -Currently on Keppra and Dilantin. Drug level check were within therapeutic range. Repeat EEG shows no evidence of seizure activity. #Aspiration pneumonia with MSSA and group B strep in the sputum -Continue with cefazolin for total of 7 days. -Aspiration precaution. -Continue with intermittent orogastric tube feeding. #DREA on CKD nonoliguric -resolved. Cr back to baseline 1.2. #History of CAD status post stents -We will continue beta-meghana and statin. Patient is not on antiplatelet therapy most likely for history of intracranial hemorrhage. #Diabetes mellitus -Continue with Levemir and lispro. Target BS 140-180. DVT prophylaxis: Heparin subcutaneous GI prophylaxis: Protonix Diet: OG tube bolus feeding with Glucerna 1.2 CODE STATUS: Full code Prognosis: Remains guarded. Critical care time excluding procedure is 30 minutes. Disposition Continue ICU care for VS, I&O, 24H, [facility] Vital Signs/I&O Vital Signs Date Time Temp Pulse Resp B/P (MAP) Pulse Ox O2 Delivery O2 Flow Rate FiO2 07/23/21 08:22 86 21 94 30 07/23/21 08:00 123/60 (81) Ventilator 07/23/21 07:58 98.3 07/18/21 09:52 10.0 I&O- Last 24 Hours up to 6 AM 07/23/21 06:00 Intake Total 2283 ml Output Total 665 ml Balance 1618 ml Laboratory Data 24H LABS Laboratory Tests 2 07/22/21 11:43: Bedside Glucose (Misc Panel) 207H 07/22/21 17:23: Bedside Glucose (Misc Panel) 190H 07/22/21 23:59: Bedside Glucose (Misc Panel) 170H 07/23/21 06:00: Bedside Glucose (Misc Panel) 178H 07/23/21 06:02: Immature Granulocyte % (Auto) , Neutrophils (%) (Auto) , Nucleated Red Blood Cells % (auto) 0.9H, Neutrophils 74H, Band Neutrophils 2, Lymphocytes (Manual) 9L, Monocytes (Manual) 2, Eosinophils (Manual) 6H, Basophils (Manual) 1, Metamyelocytes 4H, Myelocytes 2H, Hypochromasia , Anisocytosis 2+, Ovalocytes 1+, Platelet Estimate NORMAL, Anion Gap 7L, Glomerular Filtration Rate 49.1, Calcium Level 7.9L, Total Bilirubin 0.2, Aspartate Amino Transf (AST/SGOT) 80H, Alanine Aminotransferase (ALT/SGPT) 9L, Alkaline Phosphatase 224H, Total Protein 6.8, Albumin 1.1L, Albumin/Globulin Ratio 0.2L CBC/BMP Laboratory Tests 07/23/21 06:02 Microbiology Microbiology 07/16/21 Gram Stain - Final, Complete 07/16/21 Sputum Culture - Final, Complete Staphylococcus Aureus Strep Agalactiae Group B 07/16/21 Blood Culture - Final, Complete NO GROWTH AFTER 5 DAYS JOSELITO JUARES MD Jul 23, 2021 10:43
[2021-07-23] MEDS ORDERED: MIDAZOLAM HCL 100 MG in D5W 80 ML IV SCH (19:21)
[2021-07-24] VITALS (13 sets, daily range): BP systolic 113–160; BP diastolic 59–82
[2021-07-24] MEDS: PHENYTOIN INJ 250 MG/5 ML VIAL (J1165) IV SCH ×2 (00:30→08:30)
[2021-07-24] MEDS: HumaLOG INSULIN (NovoLOG) PER UNIT SC SCH ×3 (00:37→12:08)
[2021-07-24] MEDS: ceFAZolin SOD 2 GM in IV 1 EA IV SCH ×2 (04:15→12:08)
[2021-07-24] MEDS: MIDAZOLAM INJ 2MG/2ML VIAL (J2250 PER 1MG) IV PRN ×3 (04:17→10:40)
[2021-07-24 05:53] LABS: HEMATOCRIT 28.5 % (36.0-47.0); HEMOGLOBIN 8.3 g/dl (12.0-15.5); MEAN CORPUSCULAR HEMOGLOBIN 24.3 pg (27.0-33.0); MEAN CORPUSCULAR HGB CONC 29.1 g/dl (32.0-36.5); MEAN CORPUSCULAR VOLUME 83.3 fl (80.0-96.0); PLATELET COUNT, AUTOMATED 279 10^3/uL (150-450); RED BLOOD COUNT 3.42 10^6/uL (4.00-5.40); WHITE BLOOD COUNT 11.5 10^3/uL (4.0-10.0)
[2021-07-24] MEDS: HEPARIN SOD (PORCINE) 5000UNITS/ML 1ML VIAL/SYRINGE SC SCH (05:54)
[2021-07-24] MEDS: SODIUM CHLORIDE 0.9% INJ 10 ML SYR IV SCH (05:55)
[2021-07-24 06:17] LABS: BILIRUBIN,TOTAL 0.2 MG/DL (0.2-1.0); CALCIUM LEVEL 8.1 MG/DL (8.8-10.2); CREATININE FOR GFR 1.07 MG/DL (0.55-1.30); GLOMERULAR FILTRATION RATE 52.8 (>39); POTASSIUM SERUM 4.7 MEQ/L (3.5-5.1); TOTAL PROTEIN 6.7 GM/DL (6.4-8.2)
[2021-07-24] MEDS: MIDAZOLAM HCL 100 MG in D5W 80 ML IV SCH ×2 (07:23→12:40)
[2021-07-24 07:25] LABS: ANISOCYTOSIS 1+; EOSINOPHILS 1 % (0-3); LYMPHOCYTES 15 % (16-44); METAMYELOCYTES 3 % (0-0); MONOCYTES 4 % (0-5); NEUTROPHILS 76 % (28-66); POIKILOCYTOSIS 1+
[2021-07-24 07:26] LABS: PLATELET ESTIMATE NORMAL (NORMAL)
[2021-07-24] MEDS: CHLORHEXIDINE GLUCONATE 0.12 % 15ML UDC (PERIDEX ORAL RINSE) MT SCH (08:30)
[2021-07-24] MEDS: PANTOPRAZOLE 40MG VIAL (C9113 PER 1) IV SCH (08:30)
[2021-07-24] MEDS: LEVEMIR (INSULIN DETEMIR) 1 UNITS/0.01ML SC SCH (08:30)
[2021-07-24] MEDS: METOPROLOL TART 25 MG TABLET NG SCH (08:31)
[2021-07-24] MEDS: amLODIPine 5 MG TAB NG SCH (08:31)
[2021-07-24] MEDS: levETIRAcetam INJection 500 MG in D5W MINI-BAG PLUS 100 ML IV SCH (10:40)
--- NOTE | 2021-07-24 11:34 | IPNPDOC ---
Subjective Date Seen The patient was seen on 07/24/21. Subjective Chief Complaint/HPI Patient remains encephalopathic and extremely delirious coming off sedation. She is nonpurposeful but moving all 4 extremities. General: Reports: ROS Unobtainable Objective Physical Examination General Exam: Positive: Mild Distress, Other (She is not cooperative. She is uncooperative and gets agitated easily.) Eye Exam: Positive: PERRLA; Negative: Sclera icteric ENT Exam: Positive: Atraumatic Neck Exam: Positive: Supple; Negative: JVD, Lymphadenopathy Chest Exam: Positive: Normal air movement, Rhonchi Heart Exam: Positive: Rate Normal, Regular Rhythm Abdomen Exam: Positive: Normal bowel sounds, Soft; Negative: Tenderness Extremity Exam: Positive: Swelling (Generalized anasarca); Negative: Clubbing Skin Exam: Negative: Rash Neuro Exam: Positive: Other (Noticed some generalized weakness on the right extremities.) Psych Exam: Positive: Other (Agitated) Assessment /Plan Assessment This is a 68-year-old female with past medical history of hypothyroidism, coronary disease status post stent who was admitted to the hospital with status epilepticus and was subsequently intubated for airway protection. She failed extubation on 07/18/2021 and had to be reintubated due to significant hypoxia. 1. Acute respiratory failure secondary to status epilepticus. Reintubated for significant hypoxemia on 07/18/2021. 2. Diabetes mellitus with hyperglycemia improved 3. Coronary artery disease 4. Metabolic acidosis likely secondary to CKD and likely component of mild DKA which is now resolved as serum glucose is more controlled 5. Elevated lactate resolved 6. DREA on CKD nonoliguric resolved and now creatinine seems to be at baseline 7. Hypertension 8. Aspiration pneumonia 9. Metabolic encephalopathy 10. ICU delirium Plan/VTE VTE Prophylaxis Ordered?: Yes Plan Advance Directives: DNR #Acute hypoxic respiratory failure -Initially was intubated for due to status epilepticus. But she failed a trial of extubation on 07/19 due to significant hypoxemia likely from ongoing aspiration. She is currently reintubated on mechanical ventilator. Vent settings are on minimal support. However, patient remains delirious and not a candidate for spontaneous breathing trial or extubation without risk of aspiration and airway compromise. We have consistently try daily sedation holiday and patient remains delirious and does not follow any command or purposeful. We have reached 2 weeks on ventilator and family is aware that we are not successful with extubating her. I had a long family meeting/discussion today regarding goals of care and the plan is to move forward with palliative extubation and comfort measures only after all family members has a chance to say goodbye to her. I have already consulted home hospice per family wish in case if she is not imminent after extubation. #Metabolic encephalopathy -Likely secondary to multifactorial; infections/aspiration pneumonia, sedation. -Work-up for encephalopathy include CT scan of the head x2 which was all negative for intracranial pathology. Initial EEG done was inconclusive for seizure. Repeat EEG done shows no evidence of seizure. Antiepileptic m edications are also therapeutic. MRI of the brain showed small vessel disease with no evidence of acute intracranial pathology. There is no evidence of acute stroke or mass. #ICU delirium -Frequent reorientation and daily sedation holiday. Have attempted multiple sedation holiday without success. #Status epilepticus -Currently on Keppra and Dilantin. Drug level check were within therapeutic range. Repeat EEG shows no evidence of seizure activity. #Aspiration pneumonia with MSSA and group B strep in the sputum -Continue with cefazolin for total of 7 days. -Aspiration precaution. -Continue with intermittent orogastric tube feeding. #DREA on CKD nonoliguric -resolved. Cr back to baseline 1.2. #History of CAD status post stents -We will continue beta-meghana and statin. Patient is not on antiplatelet therapy most likely for history of intracranial hemorrhage. #Diabetes mellitus -Continue with Levemir and lispro. Target BS 140-180. DVT prophylaxis: Heparin subcutaneous GI prophylaxis: Protonix Diet: OG tube bolus feeding with Glucerna 1.2 CODE STATUS: DNR Prognosis: Prognosis is poor. I had a long family discussion today regarding goals of care as patient has not had any success with spontaneous breathing trial and extubation in the last 2 weeks. Family would like to say their goodbyes before palliative extubation and transition to comfort measures only. Critical care time with family discussion/goals of care discussion excluding procedure is 50 minutes. Disposition Possible transfer to medical surgical floor after patient is made comfort measures only. VS, I&O, 24H, Fishbone Vital Signs/I&O Vital Signs Date Time Temp Pulse Resp B/P (MAP) Pulse Ox O2 Delivery O2 Flow Rate FiO2 07/24/21 10:00 30 07/24/21 09:00 83 19 136/62 (86) 92 Ventilator 07/24/21 08:00 97.3 07/18/21 09:52 10.0 I&O- Last 24 Hours up to 6 AM 07/24/21 06:00 Intake Total 1719.6 ml Output Total 1375 ml Balance 344.6 ml Laboratory Data 24H LABS Laboratory Tests 2 07/23/21 11:32: Bedside Glucose (Misc Panel) 194H 07/23/21 17:19: Bedside Glucose (Misc Panel) 171H 07/24/21 00:31: Bedside Glucose (Misc Panel) 152H 07/24/21 05:09: Immature Granulocyte % (Auto) , Neutrophils (%) (Auto) , Nucleated Red Blood Cells % (auto) 0.7H, Neutrophils 76H, Band Neutrophils 1, Lymphocytes (Manual) 15L, Monocytes (Manual) 4, Eosinophils (Manual) 1, Metamyelocytes 3H, Poikilocytosis 1+, Anisocytosis 1+, Platelet Estimate NORMAL, Anion Gap 7L, Glomerular Filtration Rate 52.8, Calcium Level 8.1L, Total Bilirubin 0.2, Aspartate Amino Transf (AST/SGOT) 65H, Alanine Aminotransferase (ALT/SGPT) 8L, Alkaline Phosphatase 229H, Total Protein 6.7, Albumin 1.0L, Albumin/Globulin Ratio 0.2L 07/24/21 05:45: Bedside Glucose (Misc Panel) 178H CBC/BMP Laboratory Tests 07/24/21 05:09 Microbiology Microbiology 07/16/21 Gram Stain - Final, Complete 07/16/21 Sputum Culture - Final, Complete Staphylococcus Aureus Strep Agalactiae Group B 07/16/21 Blood Culture - Final, Complete NO GROWTH AFTER 5 DAYS JOSELITO JUARES MD Jul 24, 2021 11:34
[2021-07-24] MEDS ORDERED: LORazepam 2 MG TAB PO PRN (14:15)
[2021-07-24] MEDS ORDERED: MORPHINE 10 MG/ML 1ML VIAL (J2270) IM PRN (14:15)
[2021-07-24] MEDS ORDERED: SCOPOLAMINE 1MG TRANSDERMAL PATCH TOP SCH (15:00)
[2021-07-24] MEDS: MORPHINE 10 MG/ML 1ML VIAL (J2270) IV PRN ×2 (16:14→16:57)
[2021-07-24] MEDS ORDERED: LORazepam 2 MG/ML VIAL As Ordered ONE (16:17)
[2021-07-24] MEDS: LORazepam 2 MG/ML VIAL IV PRN ×2 (16:24→16:57)
--- NOTE | 2021-07-25 15:14 | DS.PDOC ---
Discharge Summary General Date of Admission Jul 11, 2021 at 01:05 Date of Discharge 07/24/2021 Attending Physician: JOSELITO JUARES MD Specialist/[facility] Discharge Summary PROCEDURES PERFORMED DURING STAY: Endotracheal intubation x 2 and PICC line. ADMITTING DIAGNOSES: 1. Acute hypoxic respiratory failure secondary to status epilepticus. 2. Status epilepticus 3. Coronary disease 4. Diabetes with hyperglycemia 5. Lactic acidosis secondary to status epilepticus 6. DREA on CKD 7. Recurrent aspiration 8. Metabolic encephalopathy DISCHARGE DIAGNOSES: 1. Asystole. 2. Acute respiratory failure secondary to status epilepticus. Reintubated for significant hypoxemia on 07/18/2021. 3. Diabetes mellitus with hyperglycemia improved 4. Coronary artery disease 5. Metabolic acidosis likely secondary to CKD and likely component of mild DKA which is now resolved as serum glucose is more controlled 6. Elevated lactate resolved 7. DREA on CKD nonoliguric resolved and now creatinine seems to be at baseline 8. Hypertension 9. Aspiration pneumonia 10. Metabolic encephalopathy 11. ICU delirium COMPLICATIONS/CHIEF COMPLAINT: Respiratory Failure Requiring Intubation. HISTORY OF PRESENT ILLNESS: This is a 76-year-old female with past medical history of diabetes, coronary artery disease, hypothyroidism who was admitted to the hospital with status epilepticus. HOSPITAL COURSE: She was emergently intubated for airway protection while she was in status epilepticus. She was given Keppra and Dilantin. First EEG done was inconclusive. CT brain showed no evidence of acute intracranial pathology. Her hospital course was complicated by aspiration pneumonia requiring antibiotic. After her seizure activity was treated, she was extubated but had to be immediately intubated due to altered mental status and aspiration. Patient continues to be delirious. All the metabolic/organic causes were ruled out. She had a repeat CT scan after she was reintubated which still showed no evidence of intracranial pathology. This was follow-up with MRI of the brain which was negative for acute intracranial pathology. She had another repeat EEG done showed no evidence of epileptiform discharge. Despite repeated attempts with sedation holiday, patient remained delirious and continues to aspirate. After 14 days on the ventilator, a very long family discussion resulted in patient transitioning toward palliative extubation and DNR/DNI. Patient was given morphine and Ativan prior to extubation. She comfortably on 07/24/2021 at 1805. Family declined autopsy. DISCHARGE MEDICATIONS: Please see below. ALLERGIES: Please see below. PHYSICAL EXAMINATION ON DISCHARGE: Patient was not spontaneously breathing. There was absence of brainstem reflexes. 3 leads EKG showed asystole. LABORATORY DATA: Please see below. DISPOSITION: 20 . DISCHARGE CONDITION: Patient . TIME SPENT ON DISCHARGE: 30 minutes. Vital Signs/I&Os Vital Signs Date Time Temp Pulse Resp B/P (MAP) Pulse Ox O2 Delivery O2 Flow Rate FiO2 07/24/21 15:15 100 20 93 30 07/24/21 14:00 154/69 (97) Ventilator 07/24/21 12:00 97.9 I&O- Last 24 Hours up to 6 AM 07/25/21 06:00 Intake Total 784 ml Output Total 1275 ml Balance -491 ml Microbiology Microbiology 07/16/21 Gram Stain - Final, Complete 07/16/21 Sputum Culture - Final, Complete Staphylococcus Aureus Strep Agalactiae Group B 07/16/21 Blood Culture - Final, Complete NO GROWTH AFTER 5 DAYS Discharge Medications Scheduled Atorvastatin Calcium (Atorvastatin Calcium) 80 Mg Tablet, 80 MG PO QHS, (Reported) Bisoprolol Fumarate (Bisoprolol Fumarate) 5 Mg Tablet, 5 MG PO DAILY, (Reported) Calcitriol (Calcitriol) 0.25 Mcg Capsule, 0.25 MCG PO QHS, (Reported) Cyanocobalamin (Vitamin B-12) (Vitamin B-12) 1,000 Mcg Tablet, 1,000 MCG PO DAILY, (Reported) Insulin Glargine,Hum.rec.anlog (Toujeo Solostar) 300 Unit/1 Ml Insuln.pen, 60 UNIT SC QHS, (Reported) Insulin Human Lispro (Novolog) 100 Unit/1 Ml Vial, 20 UNITS SC AC, (Reported) Isosorbide Mononitrate (Isosorbide Mononitrate) 10 Mg Tablet, 10 MG PO BID, (Reported) Levothyroxine Sodium (Levothyroxine Sodium) 25 Mcg Tablet, 25 MCG PO DAILY, (Reported) Losartan Potassium (Losartan Potassium) 100 Mg Tablet, 100 MG PO QHS, (Reported) Magnesium Oxide (Magnesium Oxide) 400 Mg Tablet, 400 MG PO BID, (Reported) Pantoprazole Sodium (Pantoprazole Sodium) 40 Mg Tablet.dr, 40 MG PO DAILY, (Reported) Paroxetine HCl (Paroxetine HCl) 20 Mg Tablet, 20 MG PO DAILY, (Reported) Torsemide (Torsemide) 10 Mg Tablet, 30 MG PO DAILY, (Reported) Scheduled PRN Nitroglycerin (Nitrostat) 0.4 Mg Tab.subl, 0.4 MG SL NITRO PRN for CHEST PAIN, (Reported) Allergies Coded Allergies: loratadine (Verified Allergy, Intermediate, HIVES, 07/11/21) amitriptyline (Verified Allergy, Mild, 01/28/19) benzonatate (Verified Allergy, Mild, 01/28/19) sulfamethoxazole (Verified Allergy, Unknown, GI UPSET, 01/28/19) trimethoprim (Verified Allergy, Unknown, GI UPSET, 01/28/19) JOSELITO JUARES MD Jul 25, 2021 15:14
== END 2021-07-24 23:17 | disposition expired | DRG 100 ==
LOC: M ED 21:01 → M ED INP 07-11 01:05 → ENRESERV 07-11 01:56 → M PCU 07-11 02:23
PROVIDERS: ADMIT Internal Medicine Pulmonary Disease; ATTEND Internal Medicine Critical Care Medicine
PROC: 5A1955Z Respiratory Ventilation, Greater than 96 Consecutive Hours (ICD-10-PCS; principal; 2021-07-11)
PROC: 02HV33Z Insertion of Infusion Device into Superior Vena Cava, Percutaneous Approach (ICD-10-PCS; 2021-07-16)
PROC: 0BH17EZ Insertion of Endotracheal Airway into Trachea, Via Natural or Artificial Opening (ICD-10-PCS; 2021-07-18)
DX: G40.411 Other generalized epilepsy and epileptic syndromes, intractable, with status epilepticus (principal); J96.01 Acute respiratory failure with hypoxia; E11.10 Type 2 diabetes mellitus with ketoacidosis without coma; J69.0 Pneumonitis due to inhalation of food and vomit; N17.9 Acute kidney failure, unspecified; E11.22 Type 2 diabetes mellitus with diabetic chronic kidney disease; I25.10 Atherosclerotic heart disease of native coronary artery without angina pectoris; N18.9 Chronic kidney disease, unspecified; I12.9 Hypertensive chronic kidney disease with stage 1 through stage 4 chronic kidney disease, or unspecified chronic kidney disease; Z51.5 Encounter for palliative care; Z66 Do not resuscitate; R41.0 Disorientation, unspecified; Z95.5 Presence of coronary angioplasty implant and graft; Z79.899 Other long term (current) drug therapy